=== PATIENT | female | born 1970 | race Caucasian/White ===

== ENCOUNTER → 2020-02-11 13:37 | Outpatient (BNVA) | payer MEDICARE, SELFPAY | PROVIDERS: PCP Pediatrics; Referring Provider Pediatrics; Visit Provider Student in an Organized Health Care Education/Training Program | DX: Z76.89 Persons encountering health services in other specified circumstances (principal) ==

== ENCOUNTER → 2020-02-29 09:25 | Outpatient (BNVA) | payer BC, MEDICARE, SELFPAY | PROVIDERS: PCP Internal Medicine; Visit Provider Hospitalist | DX: G47.33 Obstructive sleep apnea (adult) (pediatric) (principal); J45.909 Unspecified asthma, uncomplicated; G47.00 Insomnia, unspecified; Z79.899 Other long term (current) drug therapy; Z99.89 Dependence on other enabling machines and devices; Z23 Encounter for immunization | CPT/HCPCS: 90686 ==

== ENCOUNTER → 2020-05-12 13:32 | Outpatient (BNVA) | payer BC, MEDICARE, SELFPAY | PROVIDERS: PCP Internal Medicine; Visit Provider Student in an Organized Health Care Education/Training Program ==

== ENCOUNTER 2020-06-16 11:42 | Outpatient (REF) | payer BC, MEDICARE, SELFPAY ==
--- NOTE | ~2020-06-16 | XR_ITS ---
EXAMINATION: RIGHT ANKLE AND RIGHT KNEE X-RAY CLINICAL INFORMATION: Rheumatoid arthritis COMPARISON: Previous right knee x-ray August 2018 and right foot x-ray September 2016 TECHNIQUE: 3 views of the right ankle and 4 views of the right knee FINDINGS: Right ankle: Bone alignment is normal. No fracture or dislocation is seen. There is question of a subchondral cyst in the lateral malleolus measuring 8 x 12 mm appreciated on the oblique view. The ankle mortise is otherwise normal. There are calcaneal spurs. Soft tissues are otherwise unremarkable. Right knee: There is mild valgus angulation at the knee joint. Alignment is otherwise normal. No fracture or dislocation is seen. There is arthritis at the lateral femoral tibial and patellofemoral joints with joint space narrowing and osteophyte formation. There is no significant joint effusion. XR/XR ankle RT 2V IMPRESSION: Right ankle: Question 8 x 12 mm subchondral cyst in the lateral malleolus. Otherwise unremarkable exam. Right knee: Arthritis at the lateral femoral tibial and patellofemoral joints and valgus angulation.
--- NOTE | ~2020-06-16 | XR_ITS ---
EXAMINATION: RIGHT ANKLE AND RIGHT KNEE X-RAY CLINICAL INFORMATION: Rheumatoid arthritis COMPARISON: Previous right knee x-ray August 2018 and right foot x-ray September 2016 TECHNIQUE: 3 views of the right ankle and 4 views of the right knee FINDINGS: Right ankle: Bone alignment is normal. No fracture or dislocation is seen. There is question of a subchondral cyst in the lateral malleolus measuring 8 x 12 mm appreciated on the oblique view. The ankle mortise is otherwise normal. There are calcaneal spurs. Soft tissues are otherwise unremarkable. Right knee: There is mild valgus angulation at the knee joint. Alignment is otherwise normal. No fracture or dislocation is seen. There is arthritis at the lateral femoral tibial and patellofemoral joints with joint space narrowing and osteophyte formation. There is no significant joint effusion. XR/XR knee RT 4V IMPRESSION: Right ankle: Question 8 x 12 mm subchondral cyst in the lateral malleolus. Otherwise unremarkable exam. Right knee: Arthritis at the lateral femoral tibial and patellofemoral joints and valgus angulation.
[2020-06-16 12:07] LABS: MANUAL DIFF FLAG NO
[2020-06-16 12:11] LABS: Basophils Percent Auto 0.2 % (0-2); Hematocrit 42.7 % (37-47); Hemoglobin 13.4 g/dl (12.0-16.0); Imm Gran Abs Auto 0.37 X10*3/uL (0.00-0.03); Imm Gran Pct Auto 2.9 % (0.0-0.4); Lymphocytes Absolute Auto 1.1 X10*3/uL (1.2-4.9); Lymphocytes Percent Auto 8.9 % (20-40); Mean Corpuscular HGB Conc 31.4 g/dl (31.0-35.0); Mean Corpuscular Hemoglobin 29.7 pg (27.0-33.0); Mean Corpuscular Volume 94.7 fL (80-98); Mean Platelet Volume 9.9 fL (9.4-12.3); Monocytes Absolute Auto 0.7 X10*3/uL (0.1-1.2); Monocytes Percent Auto 5.2 % (2-11); Neutrophils Absolute Auto 10.6 X10*3/uL (2.0-8.3); Neutrophils Percent Auto 82.8 % (45-73); Platelet Count 452 X10*3/uL (160-400); Red Blood Count 4.51 X10*6/uL (4.20-5.50); Red Cell Distribution Width 14.6 % (11.0-16.0); White Blood Count 12.8 X10*3/uL (4.8-10.8)
[2020-06-16 12:46] LABS: Alanine Aminotransferase 13 U/L (0-31); Albumin Level 4.1 g/dL (3.5-5.0); Alkaline Phosphatase 128 U/L (39-117); Anion Gap 13 (12-20); Aspartate Amino Transferase 8 U/L (5-31); Bilirubin Total 0.4 mg/dL (0.0-1.0); Blood Urea Nitrogen 27 mg/dL (9-16); C Reactive Protein 0.13 mg/dL (< or = 0.50); Calcium 9.5 mg/dL (8.4-10.2); Carbon Dioxide 27 mmol/L (22-29); Chloride 107 mmol/L (96-108); Estimated Glomerular Filt Rate > 60; Glucose Random 102 mg/dL (60-115); Potassium 4.6 mmol/L (3.3-5.1); Sodium 142 mmol/L (135-145); Total Protein 7.3 g/dL (6.5-8.0)
[2020-06-16 13:18] LABS: Erythrocyte Sedimentation Rate 17 MM/HR (0-20)
== END 2020-06-16 11:43 | disposition home or self-care (01) ==
LOC: HO.XRAY 11:42
PROVIDERS: PCP Internal Medicine; Visit Provider Student in an Organized Health Care Education/Training Program
DX: M06.00 Rheumatoid arthritis without rheumatoid factor, unspecified site (principal)
CPT/HCPCS: 36415; 73564; 73600; 80053; 85025; 85652; 86140

== ENCOUNTER → 2020-08-11 12:50 | Outpatient (BNVA) | payer BC, MEDICARE, SELFPAY | PROVIDERS: PCP Internal Medicine; Visit Provider Student in an Organized Health Care Education/Training Program ==

== ENCOUNTER → 2020-09-13 10:28 | Outpatient (BNVA) | payer BC, MEDICARE, SELFPAY | PROVIDERS: PCP Internal Medicine; Visit Provider Hospitalist ==

== ENCOUNTER 2020-12-16 07:18 | Outpatient (REF) | payer BC, MEDICARE, SELFPAY ==
--- NOTE | ~2020-12-16 | CT_ITS ---
EXAMINATION: CT CHEST WITHOUT CONTRAST CLINICAL INFORMATION: Other nonspecific abnormal finding of lung field. Pulmonary nodule. COMPARISON: Previous chest CTA October 2018 TECHNIQUE: Multidetector volumetric CT imaging of the chest was done. Axial MIP volume rendering provided. Sagittal and coronal reformatted images were obtained. This CT examination was performed using dose optimization techniques as appropriate, variously including the following: *Automated exposure control *Adjustment of mA and/or kV according to patient size (this includes techniques or standardized protocols for targeted exams where dose is matched to indication/reason for exam; i.e. extremities or head) *Use of iterative reconstruction technique DLP: 179 mGy-cm FINDINGS: LUNGS: There is a 5 mm calcified right upper lobe nodule axial image 143 series 4 that is stable. There is a 4 mm peripheral or subpleural right lower lobe nodule axial image 294 series 4. This is new from previous exam. This may represent a subpleural lymph node. There is a tiny 2 mm peripheral or subpleural left upper lobe nodule adjacent to the fissure axial image 118 series 4. This may represent a subpleural lymph node as well. MEDIASTINUM: The mediastinum is normal. PLEURA: There is no pleural effusion. No pleural mass or thickening. AXILLA: No lymphadenopathy. UPPER ABDOMEN: The gallbladder is been removed. OSSEOUS STRUCTURES: There are degenerative changes of the spine. CT/CT chest wo con IMPRESSION: Stable 5 mm calcified right upper lobe nodule probably representing a calcified granuloma. 2 new small noncalcified pulmonary nodules probably representing subpleural lymph nodes.
[2020-12-16 07:47] LABS: MANUAL DIFF FLAG NO
[2020-12-16 07:50] LABS: Basophils Percent Auto 0.4 % (0-2); Eosinophils Absolute Auto 0.1 X10*3/uL (0.0-0.4); Eosinophils Percent Auto 1.4 % (0-4); Hematocrit 41.8 % (37-47); Hemoglobin 13.4 g/dl (12.0-16.0); Imm Gran Abs Auto 0.02 X10*3/uL (0.00-0.03); Imm Gran Pct Auto 0.3 % (0.0-0.4); Lymphocytes Absolute Auto 1.5 X10*3/uL (1.2-4.9); Mean Corpuscular HGB Conc 32.1 g/dl (31.0-35.0); Mean Corpuscular Hemoglobin 29.6 pg (27.0-33.0); Mean Corpuscular Volume 92.5 fL (80-98); Mean Platelet Volume 10.2 fL (9.4-12.3); Monocytes Absolute Auto 0.5 X10*3/uL (0.1-1.2); Monocytes Percent Auto 6.3 % (2-11); Neutrophils Absolute Auto 5.1 X10*3/uL (2.0-8.3); Neutrophils Percent Auto 70.6 % (45-73); Platelet Count 343 X10*3/uL (160-400); Red Blood Count 4.52 X10*6/uL (4.20-5.50); Red Cell Distribution Width 14.6 % (11.0-16.0); White Blood Count 7.3 X10*3/uL (4.8-10.8)
[2020-12-16 08:08] LABS: Alanine Aminotransferase 8 U/L (0-31); Albumin Level 4.2 g/dL (3.5-5.0); Alkaline Phosphatase 119 U/L (39-117); Anion Gap 12 (12-20); Aspartate Amino Transferase 10 U/L (5-31); Bilirubin Total 0.5 mg/dL (0.0-1.0); Blood Urea Nitrogen 17 mg/dL (9-16); Calcium 9.6 mg/dL (8.4-10.2); Carbon Dioxide 26 mmol/L (22-29); Chloride 109 mmol/L (96-108); Estimated Glomerular Filt Rate > 60; Glucose Random 80 mg/dL (60-115); Potassium 4.3 mmol/L (3.3-5.1); Sodium 143 mmol/L (135-145); Total Protein 6.9 g/dL (6.5-8.0)
[2020-12-16 11:03] LABS: Erythrocyte Sedimentation Rate 29 MM/HR (0-20)
== END 2020-12-16 07:19 | disposition home or self-care (01) ==
LOC: HO.CT 07:18
PROVIDERS: Nurse Practitioner Family; Absent Provider Student in an Organized Health Care Education/Training Program; PCP Internal Medicine; Visit Provider Hospitalist
DX: R91.8 Other nonspecific abnormal finding of lung field (principal); M06.00 Rheumatoid arthritis without rheumatoid factor, unspecified site; Z79.899 Other long term (current) drug therapy
CPT/HCPCS: 36415; 71250; 80053; 85025; 85652; 86140

== ENCOUNTER → 2020-12-30 13:21 | Outpatient (BNVA) | payer BC, MEDICARE, SELFPAY | PROVIDERS: PCP Internal Medicine; Visit Provider Hospitalist ==

== ENCOUNTER → 2021-03-27 09:25 | Outpatient (BNVA) | payer BC, MEDICARE, SELFPAY | PROVIDERS: PCP Internal Medicine; Visit Provider Hospitalist | DX: Z23 Encounter for immunization (principal); G47.33 Obstructive sleep apnea (adult) (pediatric); J45.40 Moderate persistent asthma, uncomplicated; R91.8 Other nonspecific abnormal finding of lung field | CPT/HCPCS: 90686 ==

== ENCOUNTER → 2021-06-14 11:21 | Outpatient (BNVA) | payer BC, MEDICARE, SELFPAY | PROVIDERS: PCP Internal Medicine; Visit Provider Nurse Practitioner Family ==

== ENCOUNTER 2021-07-03 10:38 | Outpatient (REF) | payer BC, MEDICARE, SELFPAY ==
--- NOTE | ~2021-07-03 | XR_ITS ---
EXAMINATION: XR PELVIS CLINICAL INFORMATION: Low back pain COMPARISON: None TECHNIQUE: AP view of the pelvis. FINDINGS: Bone alignment is normal. No fracture or dislocation is seen. There are small bilateral superior lateral acetabular osteophytes. Hip joints are otherwise normal. The sacroiliac joints are normal. Soft tissues are normal. XR/XR pelvis 1-2V IMPRESSION: Small bilateral superior lateral acetabular osteophytes. Otherwise unremarkable exam.
--- NOTE | ~2021-07-03 | XR_ITS ---
EXAMINATION: XR LUMBOSACRAL SPINE CLINICAL INFORMATION: Low back pain COMPARISON: Previous x-ray February 2015 TECHNIQUE: Three views of the lumbosacral spine. FINDINGS: Bone alignment is normal. No fracture or dislocation is seen. Disc spaces are normal. There is lower lumbar spine facet arthritis. XR/XR lumbar spine 2-3V IMPRESSION: Lower lumbar spine facet arthritis.
--- NOTE | ~2021-07-03 | XR_ITS ---
EXAMINATION: XR KNEE, RIGHT CLINICAL INFORMATION: Rheumatoid arthritis COMPARISON: Previous x-ray June 2021 TECHNIQUE: Four views of the right knee. FINDINGS: There is mild valgus angulation. No fracture or dislocation is seen. There are osteophytes at the lateral femoral tibial and patellofemoral joints. No erosions or cystic changes are seen. There is a small joint effusion. XR/XR knee RT 3V IMPRESSION: Valgus angulation and arthritis at the lateral femoral tibial and patellofemoral joints.
[2021-07-03 11:01] LABS: MANUAL DIFF FLAG NO
[2021-07-03 11:52] LABS: Basophils Percent Auto 0.4 % (0-2); Eosinophils Absolute Auto 0.1 X10*3/uL (0.0-0.4); Eosinophils Percent Auto 0.9 % (0-4); Hematocrit 38.2 % (37.0-47.0); Hemoglobin 12.3 g/dl (12.0-16.0); Imm Gran Abs Auto 0.01 X10*3/uL (0.00-0.03); Imm Gran Pct Auto 0.2 % (0.0-0.4); Lymphocytes Absolute Auto 1.5 X10*3/uL (1.2-4.9); Lymphocytes Percent Auto 28.1 % (20-40); Mean Corpuscular HGB Conc 32.2 g/dl (31.0-35.0); Mean Corpuscular Volume 93.2 fL (80.0-98.0); Mean Platelet Volume 11.1 fL (9.4-12.3); Monocytes Absolute Auto 0.4 X10*3/uL (0.1-1.2); Monocytes Percent Auto 7.4 % (2-11); Neutrophils Absolute Auto 3.3 x10*3/uL (2.0-8.3); Platelet Count 315 X10*3/uL (160-400); Red Cell Distribution Width 13.4 % (11.0-16.0); White Blood Count 5.3 X10*3/uL (4.8-10.8)
[2021-07-03 12:29] LABS: Erythrocyte Sedimentation Rate 38 MM/HR (0-20)
[2021-07-03 12:32] LABS: Alanine Aminotransferase 12 U/L (0-31); Albumin Level 3.9 g/dL (3.5-5.0); Alkaline Phosphatase 115 U/L (39-117); Anion Gap 13 (12-20); Aspartate Amino Transferase 11 U/L (5-31); Bilirubin Total 0.6 mg/dL (0.0-1.0); Blood Urea Nitrogen 5 mg/dL (9-16); C Reactive Protein 0.94 mg/dL (< or = 0.50); Calcium 9.2 mg/dL (8.4-10.2); Carbon Dioxide 28 mmol/L (22-29); Chloride 104 mmol/L (96-108); Estimated Glomerular Filt Rate > 60; Glucose Random 81 mg/dL (60-115); Potassium 3.5 mmol/L (3.3-5.1); Sodium 141 mmol/L (135-145); Total Protein 6.9 g/dL (6.5-8.0)
[2021-07-05 08:19] LABS: HBS Num1 12.66 mIU/mL (0-7.99); Hepatitis A Antibody IgM 0.16 Index (0-0.79); Hepatitis B Core Antibody Nonreactive (Nonreactive); ~HepC Num1 0.81 S/CO (0.00-0.79); ~Hepatitis A Antibody IgM Nonreactive (Nonreactive); ~Hepatitis B Surface Antibody REACTIVE (Nonreactive)
[2021-07-05 09:15] LABS: HBsAGNum1 0.19 S/CO (0.00-0.99); Hepatitis B Surface Antigen Negative (Negative)
[2021-07-05 10:43] LABS: ~HepC Num2 0.05; ~HepC Num3 0.06; ~Hepatitis C Antibody NONREACTIVE (Nonreactive)
[2021-07-05 23:22] LABS: TS Negative Control Passed; TS Panel A 0; TS Panel B 0; TS Positive Control Passed; TSpotTB Negative (Negative)
== END 2021-07-03 10:39 | disposition home or self-care (01) ==
LOC: HO.XRAY 10:38
PROVIDERS: PCP Internal Medicine; Visit Provider Nurse Practitioner Family
DX: Z11.1 Encounter for screening for respiratory tuberculosis (principal); M06.00 Rheumatoid arthritis without rheumatoid factor, unspecified site; M25.561 Pain in right knee; M54.50 Low back pain, unspecified
CPT/HCPCS: 36415; 72100; 72170; 73562; 80053; 85025; 85652; 86140; 86481; 86704; 86706; 86709; 86803; 87340

== ENCOUNTER 2021-07-27 08:17 | Outpatient (REF) | payer BC, MEDICARE, SELFPAY ==
--- NOTE | ~2021-07-27 | XR_ITS ---
EXAMINATION: XR KNEE AP STANDING CLINICAL INFORMATION: Pain in the right knee. COMPARISON: Radiograph of the right knee dated from 07/03/2021. TECHNIQUE: AP bilateral standing view of the knees was obtained. FINDINGS: Left-sided total knee arthroplasty appears intact. No acute fractures or malalignment. Redemonstration of moderate to severe joint space narrowing, subchondral sclerosis and osteophytes in the lateral compartment of the right knee. Normal soft tissues. XR/XR knee standing BI IMPRESSION: Examination is somewhat limited in the absence of additional views. However, accounting for these limitations, no hardware failure, fractures or malalignment are identified. Again noted moderate to severe degenerative osteoarthritis of the lateral compartment of the right knee.
== END 2021-07-27 08:18 | disposition home or self-care (01) ==
LOC: HO.HOSX 08:17
PROVIDERS: Visit Provider Physician Assistant
DX: M17.11 Unilateral primary osteoarthritis, right knee (principal); M25.562 Pain in left knee
CPT/HCPCS: 73565; 99212

== ENCOUNTER 2021-08-17 09:52 | Outpatient (REF) | payer BC, MEDICARE, SELFPAY ==
[2021-08-17 10:05] LABS: MANUAL DIFF FLAG NO
[2021-08-17 10:25] LABS: Basophils Percent Auto 0.3 % (0-2); Eosinophils Percent Auto 0.5 % (0-4); Hemoglobin 13.5 g/dl (12.0-16.0); Imm Gran Abs Auto 0.02 X10*3/uL (0.00-0.03); Imm Gran Pct Auto 0.3 % (0.0-0.4); Lymphocytes Absolute Auto 1.5 X10*3/uL (1.2-4.9); Lymphocytes Percent Auto 20.2 % (20-40); Mean Corpuscular HGB Conc 32.1 g/dl (31.0-35.0); Mean Corpuscular Hemoglobin 29.3 pg (27.0-33.0); Mean Corpuscular Volume 91.1 fL (80.0-98.0); Mean Platelet Volume 10.5 fL (9.4-12.3); Monocytes Absolute Auto 0.4 X10*3/uL (0.1-1.2); Neutrophils Absolute Auto 5.6 x10*3/uL (2.0-8.3); Neutrophils Percent Auto 73.7 % (45-73); Platelet Count 351 X10*3/uL (160-400); Red Blood Count 4.61 X10*6/uL (4.20-5.50); Red Cell Distribution Width 13.1 % (11.0-16.0); White Blood Count 7.6 X10*3/uL (4.8-10.8)
[2021-08-17 11:11] LABS: Alanine Aminotransferase 11 U/L (0-31); Albumin Level 4.1 g/dL (3.5-5.0); Alkaline Phosphatase 134 U/L (39-117); Anion Gap 15 (12-20); Aspartate Amino Transferase 12 U/L (5-31); Bilirubin Total 0.9 mg/dL (0.0-1.0); Blood Urea Nitrogen 8 mg/dL (9-16); Calcium 9.9 mg/dL (8.4-10.2); Carbon Dioxide 28 mmol/L (22-29); Chloride 103 mmol/L (96-108); Estimated Glomerular Filt Rate > 60; Glucose Random 89 mg/dL (60-115); Potassium 3.2 mmol/L (3.3-5.1); Sodium 143 mmol/L (135-145); Total Protein 7.7 g/dL (6.5-8.0)
[2021-08-17 11:14] LABS: Erythrocyte Sedimentation Rate 53 MM/HR (0-20)
[2021-08-20 23:42] LABS: HCV Log PCR <1.18 NOT DETECTED Log IU/mL (NOT DETECTED); HepC Viral Load <15 NOT DETECTED IU/mL (NOT DETECTED)
== END 2021-08-17 09:53 | disposition home or self-care (01) ==
LOC: HO.LAB 09:52
PROVIDERS: PCP Internal Medicine; Visit Provider Nurse Practitioner Family
DX: M06.00 Rheumatoid arthritis without rheumatoid factor, unspecified site (principal)
CPT/HCPCS: 36415; 80053; 85025; 85652; 86140; 87522

== ENCOUNTER → 2021-08-18 13:52 | Outpatient (BNVA) | payer BC, MEDICARE, SELFPAY | PROVIDERS: PCP Internal Medicine; Visit Provider Nurse Practitioner Family | DX: M06.00 Rheumatoid arthritis without rheumatoid factor, unspecified site (principal); M79.7 Fibromyalgia; M25.561 Pain in right knee; M54.50 Low back pain, unspecified; Z79.899 Other long term (current) drug therapy | CPT/HCPCS: 36415; 80053; 84075 ==

== ENCOUNTER 2021-11-29 06:07 | Inpatient (IN) | payer BC, MEDICARE, SELFPAY ==
[2021-11-14 11:45] VITALS: BP 130/73; PULSE 72; RESP 16; O2SAT 97; BMI 32.1
--- NOTE | 2021-11-14 12:38 | HO.ANESPROP2 ---
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 early with MAC cases PMFSH Active Problems Active Problems: All Active Problems (Updated 11/01/21 @ 09:40 by Adan Rucker PA-C) shelter methotrexate user (Acute) Right knee pain (Acute) Low back pain (Acute) Tricompartment osteoarthritis of right knee (Acute) Hypokalemia (Acute) Leg length discrepancy (Acute) Pulmonary nodules (Acute) CANDELARIA on CPAP (Acute) Asthma (Acute) Insomnia (Acute) Fibromyalgia (Acute) Seronegative rheumatoid arthritis (Acute) Past Medical History Medical History Asthma Fibromyalgia Insomnia Leg length discrepancy CANDELARIA on CPAP Pulmonary nodules Seronegative rheumatoid arthritis Family History Family history of problems with anesthesia: No Surgical History Surgical History H/O bilateral breast reduction surgery History of ankle surgery History of colon resection History of total knee arthroplasty Hx of cholecystectomy Hx of colonoscopy Hx of detached retina repair Hx of tubal ligation History of Problems with Anesthesia: No Social History Social History Are you a primary account executive healthcare to a significant other at home: No Do you presently have visiting nurse or other home services: No Alcohol intake: never Patient Tobacco Use Status: Never used Tobacco Use of substances other than those prescribed or required for medical reasons: No Have you been hit, kicked, punched, or otherwise hurt by someone within the past year? If so, by whom?: No Restorationism Healthcare Practices: Jainism, will pray at home before surgery Are you DNR?: No Advance Directives: No Advance Directives Information Provided: Yes Advance Directives on File: No Recently lost weight without trying: No Nutrition Risks: No Nutritional Risk Patient : No FDLMP: 2013 : No Poor oral hygiene: No Narrative Narrative: No recent illness No CP/SOB with >4 mets Meds Allergies Allergy/AdvReac Type Severity Reaction Status Date / Time aclidinium [Tudorza Pressair] Allergy Intermediate Hives Verified 11/27/21 11:39 Home Medications Medication Instructions Recorded Confirmed Last Taken Type atorvastatin 20 mg tablet 20 mg PO DAILY 08/18/21 11/27/21 Unknown History montelukast 10 mg tablet 10 mg PO BEDTIME 11/14/21 11/27/21 Unknown History pregabalin 100 mg capsule (Lyrica) 100 mg PO DAILY@0730 11/14/21 11/27/21 11/29/21 History baclofen 10 mg tablet 10 mg PO TID 11/27/21 11/29/21 11/29/21 History folic acid 1 mg tablet 1 mg PO DAILY 11/27/21 11/29/21 11/29/21 History methotrexate sodium 2.5 mg tablet 20 mg PO QWEEK 11/27/21 11/27/21 11/10/21 History Exam Exam Date and Time: November 14, 2021 1238 Height,Weight and Vital Signs: Height 5 ft 9 in Weight 98.9 kg Last Vital Signs Pulse 72 11/14/21 11:45 Resp 16 11/14/21 11:45 BP 130/73 11/14/21 11:45 Pulse Ox 97 11/14/21 11:45 O2 Del Method 11/14/21 11:45 Pertinent Lab Results Pertinent Lab Results: CBC and BMP from outside facility WNL on 11/06/21 Narrative Narrative: EKG 11/2021 SR @ 68 Airway TM Dist: >3cm Neck ROM: Full (Soreness d/t RA) Loose/Missing/Broken Teeth: No Assessment and Plan Assessment Anesthesia Assessment: Anesthesia Plan Discussed and PAT Visit Final Anesthetic Review Family History of Problems with Anesthesia: No History of Problems with Anesthesia: No Documented by User: Terry Murrieta MD 11/29/21 15:53 PMFSH Past Medical History Medical History Asthma Fibromyalgia Insomnia Leg length discrepancy CANDELARIA on CPAP Pulmonary nodules Seronegative rheumatoid arthritis Surgical History Surgical History H/O bilateral breast reduction surgery History of ankle surgery History of colon resection History of total knee arthroplasty Hx of cholecystectomy Hx of colonoscopy Hx of detached retina repair Hx of tubal ligation Social History Social History Are you a primary account executive healthcare to a significant other at home: No Do you presently have visiting nurse or other home services: No Alcohol intake: never Patient Tobacco Use Status: Never used Tobacco Use of substances other than those prescribed or required for medical reasons: No Have you been hit, kicked, punched, or otherwise hurt by someone within the past year? If so, by whom?: No Restorationism Healthcare Practices: Jainism, will pray at home before surgery Are you DNR?: No Advance Directives: No Advance Directives Information Provided: Yes Advance Directives on File: No Recently lost weight without trying: No Nutrition Risks: No Nutritional Risk Patient : No FDLMP: 2012 : No Poor oral hygiene: No Meds Allergies Allergy/AdvReac Type Severity Reaction Status Date / Time aclidinium [Tudorza Pressair] Allergy Intermediate Hives Verified 11/27/21 11:39 Home Medications Medication Instructions Recorded Confirmed Last Taken Type atorvastatin 20 mg tablet 20 mg PO DAILY 08/18/21 11/27/21 Unknown History montelukast 10 mg tablet 10 mg PO BEDTIME 11/14/21 11/27/21 Unknown History pregabalin 100 mg capsule (Lyrica) 100 mg PO DAILY@0730 11/14/21 11/27/21 11/29/21 History baclofen 10 mg tablet 10 mg PO TID 11/27/21 11/29/21 11/29/21 History folic acid 1 mg tablet 1 mg PO DAILY 11/27/21 11/29/21 11/29/21 History methotrexate sodium 2.5 mg tablet 20 mg PO QWEEK 11/27/21 11/27/21 11/10/21 History Exam Airway Mallampati Class: III Loose/Missing/Broken Teeth: Yes Heart: S1,S2 Lungs: b/l breath sounds Assessment and Plan Assessment Anesthesia Assessment: Chart Reviewed Final Anesthetic Review NPO: Yes ASA Class: III Final Preanesthetic Review: Meds/Allgs Chart Reviewed, Consent Obtained/Reviewed and Anes Risks/Benef Reviewed Patient Risk: Intermediate Procedure Risk: Intermediate Anesthetic Plan Anesthetic Plan: Spinal and Regional Block Disposition: Standard PACU
[2021-11-14 15:15] LABS: MRSA Nasal PCR NEGATIVE (Negative); SA Nasal PCR NEGATIVE (Negative)
[2021-11-29] VITALS (33 sets, daily range): BP systolic 91–145; BP diastolic 47–98; PULSE 54–88; RESP 12–20; TEMP 36.2–36.9; O2SAT 97–100
--- NOTE | ~2021-11-29 | XR_ITS ---
EXAMINATION: XR KNEE, RIGHT CLINICAL INFORMATION: Total right knee replacement. COMPARISON: None TECHNIQUE: Four views of the right knee. FINDINGS: The patient is status post right knee arthroplasty showing good anatomic alignment and no evidence for hardware malfunction. Intra-articular and subcutaneous air is seen anteriorly. Mild surrounding soft tissue swelling. Multiple surgical skin daniel anteriorly. XR/XR knee RT 2V IMPRESSION: Postoperative changes without hardware abnormality.
--- NOTE | ~2021-11-29 | CT_ITS ---
EXAMINATION: CT ANGIOGRAM OF THE CHEST WITH AND WITHOUT CONTRAST (CT PULMONARY ANGIOGRAM FOR PE) CLINICAL INFORMATION: Reason for Exam positive DVt; chest pain; COMPARISON: None TECHNIQUE: Prior to contrast administration, noncontrast localization images were obtained. Subsequently, multidetector volumetric imaging was performed from the thoracic inlet to below the diaphragms following the administration of 80 mL Omnipaque 350 intravenous contrast. No contrast reaction reported Sagittal, coronal, and MIP oblique sagittal reformatted images were obtained on the CT workstation, uploaded to PACS, and reviewed. This CT examination was performed using dose optimization techniques as appropriate, variously including the following: *Automated exposure control *Adjustment of mA and/or kV according to patient size (this includes techniques or standardized protocols for targeted exams where dose is matched to indication/reason for exam; i.e. extremities or head) *Use of iterative reconstruction technique Total exam dose-length product 342 mGy-cm FINDINGS: QUALITY OF STUDY/CONTRAST BOLUS: Satisfactory. PULMONARY ARTERIES: No central or segmental pulmonary emboli. THORACIC AORTA: No aneurysm or dissection. LUNGS/PLEURA/AIRWAYS: Mild to moderate elevation right hemidiaphragm. Mild left basilar linear atelectasis or scarring. A calcified granuloma laterally in the right upper lobe measures 0.4 cm (image 73, series 8). There are no pleural effusions. The airways are patent. MEDIASTINUM: The visualized thyroid gland is unremarkable. Normal heart size. No pericardial effusion. No hilar or mediastinal lymphadenopathy. No evidence of septal bowing or right heart strain. CHEST WALL/AXILLA: No axillary or internal mammary lymphadenopathy. OSSEOUS STRUCTURES: Mild to moderate multilevel degenerative changes without suspicious abnormality. UPPER ABDOMEN: Hepatic steatosis and enlargement without focal abnormality. No reflux of contrast into the hepatic veins to suggest elevated right heart pressures. CT/CT angio chest PE protocol IMPRESSION: 1. No evidence for pulmonary embolism. 2. No acute cardiopulmonary process. 3. Hepatic enlargement and steatosis. VTE: negative
--- NOTE | ~2021-11-29 | US_ITS ---
EXAMINATION: US VENOUS ULTRASOUND WITH DOPPLER LOWER EXTREMITY, RIGHT CLINICAL INFORMATION: Calf pain COMPARISON: October 24, 2018 TECHNIQUE: Ultrasound of the deep veins is performed from the hip to the calf with compression sonography and color and pulse Doppler assessment. Spectral analysis with color-flow imaging is performed. FINDINGS: There is a segmental filling defect within the distal right superficial femoral vein with some diminished compressibility and blood flow consistent with acute deep venous thrombosis. There also appears to be abnormal filling defect with diminished flow within the mid right posterior tibial vein consistent with acute deep venous thrombosis. The proximal posterior tibial vein and peroneal vein are not seen. There is no significant popliteal fossa cyst. No popliteal artery aneurysm. US/US venous duplex LE RT IMPRESSION: Acute deep venous thrombosis involving the distal right superficial femoral vein and mid right posterior tibial vein. This critical result was discussed with Adan Rucker at 6:16 PM on December 01, 2021 and it was ascertained that the content and urgency of the report was understood at the time of direct communication.
[2021-11-29 06:46] LABS: COVID-19 Test Negative (Negative)
[2021-11-29 06:49] LABS: Hematocrit 39.2 % (37.0-47.0); Hemoglobin 12.6 g/dl (12.0-16.0)
[2021-11-29] MEDS: Lactated Ringers 1,000 ML 100 ML IVCONT ×2 (07:10→18:44)
--- NOTE | 2021-11-29 07:16 | PHA.MEDREC ---
Pharmacy Consult ? Medication Reconciliation Pharmacy has reviewed the medication reconciliation completed by Nursing. I left Methotrexate unconfirmed since last takes was 11/09/21, per Rheumatology note, it was stopped for surgery. It will need to be followed up on when she can restart it. Elvia Campbell, PharmD
--- NOTE | 2021-11-29 07:24 | PC.NURSE ---
block initiated by anesthesia nad timeout completed
--- NOTE | 2021-11-29 07:37 | MHC.SHP ---
Pre-Procedural Eval Section A Date of Service: 11/29/21 The patient is an INPATIENT: No Changes since office visit: Yes Patient answered all questions; No Cold of Flu in the past 2 weeks, No New Medical Problems and No Changes in Medication The History & Physical has been completed within 30 days and I have reviewed it.: Yes Section B Chief Complaint: RT TKA Allergies: Allergies Allergy/AdvReac Type Severity Reaction Status Date / Time aclidinium [Tudorza Pressair] Allergy Intermediate Hives Verified 11/27/21 11:39 Plan I have reviewed the history and physical and performed a pertinent physical examination on my patient. No changes have occurred unless specified.
--- NOTE | 2021-11-29 09:28 | P.BOP_ITS ---
Brief Operative Note Date of Service: 11/29/21 Pre-op diagnosis: Right knee OA Post-op diagnosis: same Procedure: Right TKA Implants: [employer] Triathalon press fit cruciate retaining Surgeon: Francesco Grewal MD Anesthesia: regional and spinal Was an Construction Consultant used for this Procedure?: Yes Construction Consultant: Saray Robles Estimated blood loss (mL): 150 IV fluids (mL): 1,000 Pathology: other Condition: stable Disposition: PACU
--- NOTE | 2021-11-29 09:31 | W.PM.OPN ---
Operative Note Operative Note Date of Service: 11/29/21 Narrative: Date of Service: 11/29/21 Pre-op diagnosis: Right knee OA Post-op diagnosis: same Procedure: Right TKA Implants: [place] Triathalon press fit cruciate retaining 06/15/r/a Surgeon: Francesco Grewal MD Anesthesia: regional and spinal Was an License Inspector used for this Procedure?: Yes License Inspector: Saray Robles Estimated blood loss (mL): 150 IV fluids (mL): 1,000 Pathology: other Condition: stable Disposition: PACU Procedure in detail: The patient was brought to the operating room and prepped and draped in standard sterile fashion. A time-out was called to identify proper site proper procedure proper surgeon and IV antibiotics were administered. 1 g of IV tranexamic acid was administered. I began by making a midline incision to the retinaculum and performed a medial parapatellar arthrotomy. The patella was translated laterally and the knee was flexed up. The lateral tibial plateau was severely arthritic . I performed a small medial peel and resected the infrapatellar fat pad. [place]'s line was then used to drill my intramedullary femoral guide and my distal femur cut of 10 mm was made in 5 degrees of valgus while protecting the soft tissues. I then measured a # 3 femur and placed my cutting guide in 3deg of ER and made my anterior posterior and chamfer cuts protecting the soft tissues at all times. Once I was satisfied with my cuts I turned my attention to the tibia. I removed the meniscus medially and laterally and , using an external cutting guide, in line with the tibial crest and the third ray, I made my distal tibial cut in 3 deg slope of while protecting the PCL the posterior soft tissues at all times. An extension block was used to confirm appropriate amount of bony resection. I then sized a #3 tibia and once I was satisfied that there was complete tibial coverage I placed my trial and with the trial femur in place took the knee through range of motion. I was satisfied with the extension and flexion as well as the stability and balance at 0, 30 and 90 degrees. I then turned my attention to the patella where I removed 1 cm from the undersurface of the patella and then trialed a 29a patellar button. Again the knee was taken through range of motion I was satisfied with the tracking. I then returned to the femur and drilled my femoral lug holes and prepared the tibia. A femoral bone plug was placed and the knee was irrigated copiously. I then press fit the patella, tibia and femur in standard fashion. I trialed different inserts until I selected a #9 insert. The final insert was placed and a 3 minutes iodine soak with local TXA was performed. A Werewolf cautery wand was used to maintain hemostasis over the capsule and meniscal beds, the gutters and peripatellar soft tissues. The knee was then closed with a running Quill suture, a 3 0 Vicryl and daniel on the skin. Patient was then placed in sterile dressing and brought to recovery room in stable condition there were no known complications.
[2021-11-29] MEDS: fentaNYL citrate/PF 100 MCG/2 ML VIAL 25 MCG IVPUSH ×4 (10:51→11:18)
[2021-11-29] MEDS: oxyCODONE HCl Immed Release 5 MG TABLET PO (11:38)
[2021-11-29] MEDS: HYDROmorphone HCl 0.5 MG/0.5 ML SYRINGE 0.25 MG IVPUSH ×6 (12:30→23:54)
[2021-11-29] MEDS: ceFAZolin Sodium/Dextrose,Iso 2 GM/50 ML PIGGYBACK IV (14:34)
[2021-11-29] MEDS: HYDROmorphone HCl 0.5 MG/0.5 ML SYRINGE IVPUSH (16:20)
[2021-11-29] MEDS: oxyCODONE HCl Immed Release 5 MG TABLET 10 MG PO ×2 (18:28→22:42)
[2021-11-29] MEDS: Baclofen 10 MG TABLET PO (18:44)
[2021-11-29] MEDS: ondansetron HCL 4 MG/2 ML VIAL IVPUSH (20:41)
[2021-11-29] MEDS: Montelukast Sodium 10 MG TABLET PO (20:54)
[2021-11-29] MEDS: Docusate Sodium 100 MG CAPSULE PO (20:54)
[2021-11-29] MEDS: oxyCODONE HCl ER 10 MG TAB.ER.12H PO (20:54)
[2021-11-29] MEDS: Azelastine HCl Nasal 137 MCG/Spray 30 ML 1 SPRAY NOSTRIL-B (20:55)
[2021-11-29] MEDS: Celecoxib 200 MG CAPSULE PO (20:55)
[2021-11-29] MEDS: Pregabalin 150 MG CAPSULE PO (20:55)
[2021-11-29] MEDS: 0.9 % Sodium Chloride Flush 3 ML SYRINGE IVFLUSH (23:56)
[2021-11-30] VITALS (9 sets, daily range): BP systolic 110–123; BP diastolic 58–70; PULSE 73–112; RESP 15–18; TEMP 35.4–37; O2SAT 92–98
[2021-11-30] MEDS: HYDROmorphone HCl 0.5 MG/0.5 ML SYRINGE 0.25 MG IVPUSH ×2 (04:11→08:23)
[2021-11-30] MEDS: Lactated Ringers 1,000 ML 100 ML IVCONT ×2 (04:15→12:41)
[2021-11-30] MEDS: Omeprazole 40 MG CAPSULE.DR PO (05:41)
[2021-11-30] MEDS: Acetaminophen 325 MG TABLET 650 MG PO (05:41)
[2021-11-30 05:46] LABS: MANUAL DIFF FLAG NO
[2021-11-30 05:50] LABS: Basophils Percent Auto 0.3 % (0-2); Eosinophils Absolute Auto 0.2 X10*3/uL (0.0-0.4); Eosinophils Percent Auto 1.2 % (0-4); Hematocrit 34.6 % (37.0-47.0); Hemoglobin 11.2 g/dl (12.0-16.0); Imm Gran Abs Auto 0.05 X10*3/uL (0.00-0.03); Imm Gran Pct Auto 0.4 % (0.0-0.4); Lymphocytes Absolute Auto 1.3 X10*3/uL (1.2-4.9); Lymphocytes Percent Auto 10.8 % (20-40); Mean Corpuscular HGB Conc 32.4 g/dl (31.0-35.0); Mean Corpuscular Hemoglobin 30.1 pg (27.0-33.0); Mean Platelet Volume 10.1 fL (9.4-12.3); Monocytes Absolute Auto 0.9 X10*3/uL (0.1-1.2); Monocytes Percent Auto 7.6 % (2-11); Neutrophils Absolute Auto 9.8 x10*3/uL (2.0-8.3); Neutrophils Percent Auto 79.7 % (45-73); Platelet Count 270 X10*3/uL (160-400); Red Blood Count 3.72 X10*6/uL (4.20-5.50); Red Cell Distribution Width 13.7 % (11.0-16.0); White Blood Count 12.3 X10*3/uL (4.8-10.8)
[2021-11-30 06:14] LABS: Anion Gap 12 (12-20); Blood Urea Nitrogen 7 mg/dL (9-16); Calcium 8.8 mg/dL (8.4-10.2); Carbon Dioxide 28 mmol/L (22-29); Chloride 100 mmol/L (96-108); Creatinine Clr Calc Pharmacy 125.2; Estimated Glomerular Filt Rate > 60; Glucose Fasting 108 mg/dL (60-99); Potassium 4.4 mmol/L (3.3-5.1); Sodium 136 mmol/L (135-145)
--- NOTE | 2021-11-30 07:23 | P.CONHOSP_ITS ---
History of Present Illness Data of Consult Service Date: 11/30/21 Primary Care Provider: Fernando Pickens MD HPI this is a 51-year-old female who is admitted to the hospital for elective right total knee arthroplasty. We are consulted for routine medical management. On my exam of the patient, she appears uncomfortable, reports that her pain is poorly controlled, she denies having any headache or change in vision, no chest pain or shortness of breath, no abdominal pain nausea or vomiting, no diarrhea, she has been moving her bowels and urinating in to the Pure wick catheter. patient's vitals were Reviewed and are stable No significant abnormality on labs Patient's home medications have been continued by the orthopedic team. Review of Systems Review of Systems: Yes all other systems are reviewed and are negative [facility] Medical History Asthma Fibromyalgia Insomnia Leg length discrepancy CANDELARIA on CPAP Pulmonary nodules Seronegative rheumatoid arthritis Surgical History H/O bilateral breast reduction surgery History of ankle surgery History of colon resection History of total knee arthroplasty Hx of cholecystectomy Hx of colonoscopy Hx of detached retina repair Hx of tubal ligation Social History Household Members: Spouse Housing: House Are you a primary acute care nurse practitioner to a significant other at home: No Do you presently have visiting nurse or other home services: No Alcohol intake: never Patient Tobacco Use Status: Never used Tobacco Use of substances other than those prescribed or required for medical reasons: No Currently Displaying Signs/Symptoms of Drug Intoxication Withdrawal: No Have you been hit, kicked, punched, or otherwise hurt by someone within the past year? If so, by whom?: No Do you feel safe in your current relationship?: Yes Is there a partner from a previous relationship who is making you feel unsafe now?: No Are you made to feel afraid or neglected: No Sikh Healthcare Practices: judaism Are you DNR?: No Advance Directives: No Advance Directives Information Provided: Yes Advance Directives on File: No Do you have thoughts of harming others: None Do you have a plan to hurt others: No Plan Recently lost weight without trying: No Nutrition Risks: No Nutritional Risk Patient : No FDLMP: 2013 : No Poor oral hygiene: No Meds Allergies Allergy/AdvReac Type Severity Reaction Status Date / Time aclidinium [Tudorza Pressair] Allergy Intermediate Hives Verified 11/27/21 11:39 Active Medications: Current Medications Acetaminophen (Acetaminophen 325 Mg Tablet) 650 mg PO Q6H PRN PRN Reason: Pain, Mild (Pain Scale 1-3) Last Admin: 11/30/21 05:41 Dose: 650 mg Albuterol Sulfate (Albuterol Sulfate 90 Mcg 8 Gm Inhaler) 2 puff INHALE Q6H PRN PRN Reason: for wheezing Albuterol/Ipratropium (Albuterol/Iprat 2.5/0.5mg 3 Ml Ampul.Neb) 3 ml INHALE DAILY [facility] Aspirin (Aspirin 325 Mg Tablet) 325 mg PO BID [facility] Atorvastatin Calcium (Atorvastatin Calcium 20 Mg Tablet) 20 mg PO DAILY [facility] Azelastine HCl (Azelastine Hcl Nasal 137 Mcg/[place] 30 Ml) 1 spray NOSTRIL-B BID [facility] Last Admin: 11/29/21 20:55 Dose: 1 spray Baclofen (Baclofen 10 Mg Tablet) 10 mg PO TID [facility] Last Admin: 11/29/21 18:44 Dose: 10 mg Celecoxib (Celecoxib 200 Mg Capsule) 200 mg PO BID [facility] Last Admin: 11/29/21 20:55 Dose: 200 mg Docusate Sodium (Docusate Sodium 100 Mg Capsule) 100 mg PO BID [facility] Last Admin: 11/29/21 20:54 Dose: 100 mg Fluticasone Propionate (Fluticasone Propionate Nasal 16 Gm [place]) 2 spray NOSTRIL-B DAILY [facility] Folic Acid (Folic Acid 1 Mg Tablet) 1 mg PO DAILY [facility] Hydromorphone HCl (Hydromorphone Hcl 0.5 Mg/0.5 Ml Syringe) 0.25 mg IVPUSH Q4H PRN; Protocol PRN Reason: Pain, Severe (Pain Scale 7-10) Last Admin: 11/30/21 04:11 Dose: 0.25 mg Cefazolin Sodium/Dextrose (Ancef) 2 gm in 50 mls @ 100 mls/hr IV POSTOP [facility] Last Infusion: 11/29/21 17:35 Dose: Infused Lactated Ringer's (Lr) 1,000 mls @ 100 mls/hr IVCONT .Q10H [facility] Last Admin: 11/30/21 04:15 Dose: 100 mls/hr Loratadine (Loratadine 10 Mg Tablet) 10 mg PO DAILY [facility] Montelukast Sodium (Montelukast Sodium 10 Mg Tablet) 10 mg PO BEDTIME [facility] Last Admin: 11/29/21 20:54 Dose: 10 mg Non-Formulary Medication (Cbyuvpcqyvc-Ztxngzqap-Xigtplfv [Trelegy Ellipta]) 1 inhalation INHALE DAILY [facility] Non-Formulary Medication (Roflumilast [Daliresp]) 500 mcg PO DAILY [facility] Omeprazole (Omeprazole 40 Mg Capsule.Dr) 40 mg PO DAILY@0630 [facility] Last Admin: 11/30/21 05:41 Dose: 40 mg Ondansetron HCl (Ondansetron Hcl 4 Mg/2 Ml Vial) 4 mg IVPUSH Q8H PRN PRN Reason: Nausea and Vomiting Last Admin: 11/29/21 20:41 Dose: 4 mg Oxycodone HCl (Oxycodone Hcl Immed Release 5 Mg Tablet) 10 mg PO Q4H PRN PRN Reason: Pain, Moderate (Pain Scale 4-6 Last Admin: 11/29/21 22:42 Dose: 10 mg Oxycodone HCl (Oxycodone Hcl Er 10 Mg Tab.Er.12h) 10 mg PO BID [facility] Last Admin: 11/29/21 20:54 Dose: 10 mg Pregabalin (Pregabalin 100 Mg Capsule) 100 mg PO DAILY@0730 [facility] Pregabalin (Pregabalin 150 Mg Capsule) 150 mg PO BEDTIME [facility] Last Admin: 11/29/21 20:55 Dose: 150 mg Sodium Chloride (0.9 % Sodium Chloride Flush 3 Ml Syringe) 3 ml IVFLUSH [facility] Last Admin: 11/29/21 23:56 Dose: 3 ml Home Medications Medication Instructions Recorded Confirmed Last Taken Type atorvastatin 20 mg tablet 20 mg PO DAILY 08/18/21 11/27/21 Unknown History montelukast 10 mg tablet 10 mg PO BEDTIME 11/14/21 11/27/21 Unknown History pregabalin 100 mg capsule (Lyrica) 100 mg PO DAILY@0730 11/14/21 11/27/21 11/29/21 History baclofen 10 mg tablet 10 mg PO TID 11/27/21 11/29/21 11/29/21 History folic acid 1 mg tablet 1 mg PO DAILY 11/27/21 11/29/21 11/29/21 History methotrexate sodium 2.5 mg tablet 20 mg PO QWEEK 11/27/21 11/29/21 11/10/21 History Physical Exam Vital Signs and Narrative: Vital Signs: Last Vital Signs Temp 96.8 F 11/30/21 03:42 Pulse 84 11/30/21 03:42 Resp 16 11/30/21 03:42 BP 114/70 11/30/21 03:42 Pulse Ox 98 11/30/21 03:42 O2 Del Method 11/30/21 03:42 O2 Flow Rate 2 11/29/21 09:52 BMI result Body Mass Index 32.1 Const: General: cooperative and no acute distress Orientation/consciousness: patient oriented x3 Eyes: General: appearance normal, both eyes and all related structures Resp: Effort & Inspection: normal respiratory effort Auscultation: clear to auscultation bilaterally Cardio: Rate: regular rate Rhythm: regular rhythm GI: Palpation (GI): Soft to palpation Auscultation: normal bowel sounds Skin: General skin exam: no rashes or lesions noted Neuro: General: patient oriented x3 Cognition (Neuro): normal cognition Extrem: Other: Right knee immobilized,in rosalva wrap Results Labs CBC and Chem 7: 11/30/21 05:33 11/30/21 05:33 Labs: Laboratory Results - last 24 hr 11/30/21 11/30/21 05:33 05:33 MCV 93.0 MCH 30.1 MCHC 32.4 RDW 13.7 Plt Count 270 MPV 10.1 Immature Gran % (Auto) 0.4 Neut % (Auto) 79.7 H Lymph % (Auto) 10.8 L [place] % (Auto) 7.6 Eos % (Auto) 1.2 Baso % (Auto) 0.3 Lymph # (Auto) 1.3 [place] # (Auto) 0.9 Eos # (Auto) 0.2 Baso # (Auto) 0.0 Abs Immat Gran (auto) 0.05 H Absolute Neuts (auto) 9.8 H Absolute Nucleated RBC 0.000 Nucleated RBC % (auto) 0.0 Anion Gap 12 Estim Creat Clear Calc 125.2 Estimated GFR > 60 Fasting Glucose 108 H Calcium 8.8 Imaging Radiologist's Impressions: Impressions Knee X-Ray 11/29/21 10:13 IMPRESSION: Postoperative changes without hardware abnormality. 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
[2021-11-30] MEDS: Celecoxib 200 MG CAPSULE PO ×2 (07:44→20:10)
[2021-11-30] MEDS: Pregabalin 100 MG CAPSULE PO (07:45)
[2021-11-30] MEDS: oxyCODONE HCl ER 10 MG TAB.ER.12H PO ×2 (07:45→20:10)
[2021-11-30] MEDS: Aspirin 325 MG TABLET PO ×2 (07:45→20:09)
[2021-11-30] MEDS: Docusate Sodium 100 MG CAPSULE PO ×2 (07:46→20:10)
[2021-11-30] MEDS: Baclofen 10 MG TABLET PO ×3 (07:46→20:10)
[2021-11-30] MEDS: Atorvastatin Calcium 20 MG TABLET PO (07:46)
[2021-11-30] MEDS: Folic Acid 1 MG TABLET PO (07:46)
[2021-11-30] MEDS: Fluticasone Propionate Nasal 16 GM SPRAY 2 SPRAY NOSTRIL-B (07:47)
[2021-11-30] MEDS: Azelastine HCl Nasal 137 MCG/Spray 30 ML 1 SPRAY NOSTRIL-B ×2 (07:47→20:23)
[2021-11-30] MEDS: Albuterol/Iprat 2.5/0.5MG 3 ML AMPUL.NEB INHALE (08:08)
--- NOTE | 2021-11-30 08:56 | PM.PNORT ---
Subjective Subjective Date of Service: 11/30/21 Interval history: POD1 s/p RTKA. Patient resting in bed. States she is having a lot of pain. No overnight events. No additional complaints. Physical Exam Vital Signs: Vital Signs: Last Vital Signs Temp 95.7 F L 11/30/21 08:00 Pulse 112 H 11/30/21 08:11 Resp 16 11/30/21 08:11 BP 113/69 11/30/21 08:00 Pulse Ox 95 11/30/21 08:00 O2 Del Method 11/30/21 08:00 O2 Flow Rate 2 11/29/21 09:52 BMI result Body Mass Index 32.1 Const: General: cooperative, healthy appearing and no acute distress Resp: Effort & Inspection: normal respiratory effort and able to speak in complete sentences Cardio: Rate: regular rate Peripheral pulses: Peripheral pulses 2+ throughout GI: Palpation (GI): Soft to palpation Skin: Lesions: no lesions Rashes: no rashes Extrem: Other: Right knee Aquacel is clean, dry, and intact, Able to dorsiflex and plantarflex. NVI. Procedures Date of Service Date of Service: 11/30/21 Progress Note: A&P Assessment and plan (1) Status post total knee replacement, right: Status: Acute Assessment and Plan: Continue pain mgmnt Begin ASA for dvt ppx begin PT for RTKA Dispo planning-Pending PT eval, pain mgmnt Time Spent With Patient Time: Total time spent is greater than 50% in coordination of care (as documented) at patient's floor/unit and/or counseling patient: Quality Stroke Does the patient have a stroke diagnosis?: No VTE Prior VTE?: No VTE Risk Level:: Medical - moderate - high VTE Device Contraindication: N/A - Device Ordered VTE Drug Contraindication: N/A - Med Ordered
[2021-11-30] MEDS: ondansetron HCL 4 MG/2 ML VIAL IVPUSH (09:55)
--- NOTE | 2021-11-30 10:55 | HO.POSTANES ---
Post Anesthesia Evaluation Post Anesthesia Evaluation Vital Signs: Vital Signs Temp Pulse Resp BP Pulse Ox O2 Del Method 11/30/21 09:13 112 H 11/30/21 08:00 95.7 F L 94 15 113/69 95 Room Air 11/30/21 08:11 112 H 16 11/30/21 03:42 96.8 F 84 16 114/70 98 Room Air 11/29/21 23:54 20 11/29/21 23:21 98.4 F 70 18 126/69 100 Room Air Anesthesia: Spinal and Nerve Block Mental Status: Awake Pain Control: Satisfactory Nausea/Vomiting: None Hydration: Adequate Anesthesia-Related Issues: No Anes. Related Issues
--- NOTE | 2021-11-30 11:41 | MHC.CM.PN ---
IMM addressed, white copy to patient and yellow copy filed in chart. 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
[2021-11-30] MEDS: 0.9 % Sodium Chloride Flush 3 ML SYRINGE IVFLUSH (16:14)
[2021-11-30] MEDS: HYDROmorphone HCl 2 MG TABLET PO ×2 (16:20→20:11)
[2021-11-30] MEDS: Pregabalin 150 MG CAPSULE PO (20:10)
[2021-11-30] MEDS: Montelukast Sodium 10 MG TABLET PO (20:10)
--- NOTE | 2021-11-30 22:06 | PC.NURSE ---
P US not done to right lower extremity I Dr. Grewal notified E no need for test at this time per Dr. Grewal
[2021-12-01] VITALS (10 sets, daily range): BP systolic 103–128; BP diastolic 53–79; PULSE 92–120; RESP 15–20; TEMP 36.1–36.9; O2SAT 95–100
--- NOTE | 2021-12-01 | ECG_ITS ---
Test Reason : ?PE Blood Pressure : / mmHG Vent. Rate : 114 BPM Atrial Rate : 114 BPM P-R Int : 144 ms QRS Dur : 090 ms QT Int : 318 ms P-R-T Axes : 027 005 034 degrees QTc Int : 438 ms Sinus tachycardia Possible Inferior infarct (cited on or before 24-OCT-2018) Cannot rule out Anterior infarct , age undetermined Abnormal ECG When compared with ECG of 24-OCT-2018 11:50, No significant change was found Referred By: Willie Flores Electronically Signed By:DONTE LIMA
[2021-12-01] MEDS: 0.9 % Sodium Chloride Flush 3 ML SYRINGE IVFLUSH ×3 (00:42→15:24)
[2021-12-01] MEDS: HYDROmorphone HCl 2 MG TABLET PO ×6 (01:27→22:25)
[2021-12-01] MEDS: Omeprazole 40 MG CAPSULE.DR PO (05:31)
[2021-12-01 05:41] LABS: MANUAL DIFF FLAG NO
[2021-12-01 05:46] LABS: Basophils Percent Auto 0.2 % (0-2); Eosinophils Absolute Auto 0.4 X10*3/uL (0.0-0.4); Eosinophils Percent Auto 2.9 % (0-4); Hematocrit 29.3 % (37.0-47.0); Hemoglobin 9.6 g/dl (12.0-16.0); Imm Gran Abs Auto 0.06 X10*3/uL (0.00-0.03); Imm Gran Pct Auto 0.5 % (0.0-0.4); Lymphocytes Absolute Auto 1.4 X10*3/uL (1.2-4.9); Lymphocytes Percent Auto 11.8 % (20-40); Mean Corpuscular HGB Conc 32.8 g/dl (31.0-35.0); Mean Corpuscular Hemoglobin 30.4 pg (27.0-33.0); Mean Corpuscular Volume 92.7 fL (80.0-98.0); Mean Platelet Volume 10.3 fL (9.4-12.3); Monocytes Absolute Auto 0.9 X10*3/uL (0.1-1.2); Monocytes Percent Auto 7.7 % (2-11); Neutrophils Absolute Auto 9.3 x10*3/uL (2.0-8.3); Neutrophils Percent Auto 76.9 % (45-73); Platelet Count 238 X10*3/uL (160-400); Red Blood Count 3.16 X10*6/uL (4.20-5.50); Red Cell Distribution Width 13.8 % (11.0-16.0)
[2021-12-01 06:08] LABS: Anion Gap 12 (12-20); Blood Urea Nitrogen 6 mg/dL (9-16); Calcium 8.6 mg/dL (8.4-10.2); Carbon Dioxide 29 mmol/L (22-29); Chloride 104 mmol/L (96-108); Creatinine Clr Calc Pharmacy 113.1; Estimated Glomerular Filt Rate > 60; Glucose Fasting 106 mg/dL (60-99); Potassium 4.1 mmol/L (3.3-5.1); Sodium 141 mmol/L (135-145)
[2021-12-01] MEDS: Acetaminophen 325 MG TABLET 650 MG PO (06:39)
[2021-12-01] MEDS: Albuterol/Iprat 2.5/0.5MG 3 ML AMPUL.NEB INHALE (07:35)
--- NOTE | 2021-12-01 07:59 | PM.PNORT ---
Subjective Subjective Date of Service: 12/01/21 Interval history: POD2 s/p RTKA. Patient is sitting in bed brushing her teeth. Adjustments made to pain medication yesterday and patient reports much better relief this morning. No additional complaints. Physical Exam Vital Signs: Vital Signs: Last Vital Signs Temp 98.4 F 12/01/21 07:38 Pulse 97 12/01/21 07:38 Resp 20 12/01/21 07:38 BP 121/79 12/01/21 07:38 Pulse Ox 100 12/01/21 07:38 O2 Del Method 12/01/21 07:38 O2 Flow Rate 2 11/29/21 09:52 BMI result Body Mass Index 32.1 Const: General: cooperative, healthy appearing and no acute distress Resp: Effort & Inspection: normal respiratory effort and able to speak in complete sentences Cardio: Rate: regular rate Peripheral pulses: Peripheral pulses 2+ throughout GI: Palpation (GI): Soft to palpation Skin: Lesions: no lesions Rashes: no rashes Extrem: Other: Right knee Aquacel is lean, dry, and intact. [place] intact. No erythema or drainage. New Aquacel dressing applied. Able to dorsiflex and plantarflex. NVI. Procedures Date of Service Date of Service: 12/01/21 Progress Note: A&P Assessment and plan (1) Status post total knee replacement, right: Status: Acute Assessment and Plan: Continue pain mgmnt Continue ASA for dvt ppx Continue PT for RTKA Dispo planning- PT, pain mgmnt Time Spent With Patient Time: Total time spent is greater than 50% in coordination of care (as documented) at patient's floor/unit and/or counseling patient: Quality Stroke Does the patient have a stroke diagnosis?: No VTE Prior VTE?: No VTE Risk Level:: Medical - moderate - high VTE Device Contraindication: N/A - Device Ordered VTE Drug Contraindication: N/A - Med Ordered
[2021-12-01] MEDS: Baclofen 10 MG TABLET PO ×3 (08:59→20:04)
[2021-12-01] MEDS: Aspirin 325 MG TABLET PO (09:01)
[2021-12-01] MEDS: Atorvastatin Calcium 20 MG TABLET PO (09:01)
[2021-12-01] MEDS: Docusate Sodium 100 MG CAPSULE PO ×2 (09:01→20:03)
[2021-12-01] MEDS: Folic Acid 1 MG TABLET PO (09:01)
[2021-12-01] MEDS: Celecoxib 200 MG CAPSULE PO ×2 (09:01→20:03)
[2021-12-01] MEDS: Loratadine 10 MG TABLET PO (09:01)
[2021-12-01] MEDS: Pregabalin 100 MG CAPSULE PO (09:01)
[2021-12-01] MEDS: Fluticasone Propionate Nasal 16 GM SPRAY 2 SPRAY NOSTRIL-B (09:19)
[2021-12-01] MEDS: Azelastine HCl Nasal 137 MCG/Spray 30 ML 1 SPRAY NOSTRIL-B ×2 (09:20→20:06)
--- NOTE | 2021-12-01 11:30 | W.MHC.F2F ---
Service Date Service Date: 12/01/21 Encounter Date of encounter: 12/01/21 Reasons for Services Signs and symptoms assessed: Pt. is considered homebound due to recent surgery. Unable to drive, poor balance, poor gait mechanics. Reason for physical therapy: home safety and mobility, therapeutic exercises, restore joint function, gait/transfer training, assess need for DME and ADL training Reason for occupational therapy: home safety and mobility, therapeutic exercises, restore joint function, gait/transfer training, assess need for DME and ADL training Homebound: Leaving the home is medically contraindicated at this time without the asist of a device and/or another person due th the listed conditions above and below. Reason homebound: unsteady gait / fall risk, leg weakness, pain with ambulation, pain with transfers, poor balance / fall risk and unable to drive Homebound supporting statement: Pt. is considered homebound due to recent surgery. Unable to drive, poor balance, poor gait mechanics. Certification: Based on the above findings, I certify that this patient is confined to the home and needs intermittent nursing home care, physical therapy and/or speech therapy, or continues to need occupational therapy. The patient is under my care, and I have initiated the establishment of the plan of care. The patient will be followed by a physician who will periodically review the plan of care.
--- NOTE | 2021-12-01 13:38 | PM.DS ---
DS: Providers Provider Date of Service: 12/01/21 Date of admission: 11/29/21 06:07 Primary care physician: Fernando Pickens MD Consults: 11/29/21 17:32 Consult to Hospitalist Routine Consulting Provider: Hospitalist Reason For Exam: Routine medical management DS: Diagnosis Discharge Diagnosis (1) Status post total knee replacement, right: Status: Acute DS: Summary Hospital Course Hospital Course: The patient underwent a successful right total knee arthroplasty, they were transferred to PACU and then to the floor to recover. During their stay, their vitals were stable, afebrile at 97.8. Labs were unremarkable, H/H 9.6/29.3. POD 1 they were started on Aspirin 325mg po bid for DVT ppx, they also received Physical Therapy services twice a day. Prior to discharge, their dressing was changed, incision clean dry and intact, new Aquacel dressing applied and the plan was to be discharged home with VNA services. Time Spent with Patient Time attestation: Total time spent providing and/or coordinating discharge services: Discharge coordination time: Less than 30 minutes Quality: Safe Use of Opioids Does Pt have an Active Cancer Diagnosis on the Problem List?: No Quality: Stroke Does the patient have a stroke diagnosis?: No Physical Exam Vital Signs: Vital Signs: Last Vital Signs Temp 97.8 F 12/01/21 11:20 Pulse 100 12/01/21 11:20 Resp 15 12/01/21 11:20 BP 106/61 12/01/21 11:20 Pulse Ox 96 12/01/21 11:20 O2 Del Method 12/01/21 11:20 O2 Flow Rate 2 11/29/21 09:52 BMI result Body Mass Index 32.1 Const: General: cooperative, healthy appearing and no acute distress Resp: Effort & Inspection: normal respiratory effort and able to speak in complete sentences Cardio: Rate: regular rate Peripheral pulses: Peripheral pulses 2+ throughout GI: Palpation (GI): Soft to palpation Skin: Lesions: no lesions Rashes: no rashes Extrem: Other: Right knee Aquacel is lean, dry, and intact. Able to dorsiflex and plantarflex. NVI. DS: Data Data Completed and Pending Completed studies during hospitalization [Text1]: Pending at discharge 11/29/21 09:11 Surgical [PTH] Routine Labs on day of discharge: Laboratory Results - last 24 hr 12/01/21 12/01/21 05:22 05:22 WBC 12.0 H RBC 3.16 L Hgb 9.6 L Hct 29.3 L MCV 92.7 MCH 30.4 MCHC 32.8 RDW 13.8 Plt Count 238 MPV 10.3 Immature Gran % (Auto) 0.5 H Neut % (Auto) 76.9 H Lymph % (Auto) 11.8 L [place] % (Auto) 7.7 Eos % (Auto) 2.9 Baso % (Auto) 0.2 Lymph # (Auto) 1.4 [place] # (Auto) 0.9 Eos # (Auto) 0.4 Baso # (Auto) 0.0 Abs Immat Gran (auto) 0.06 H Absolute Neuts (auto) 9.3 H Absolute Nucleated RBC 0.000 Nucleated RBC % (auto) 0.0 Sodium 141 Potassium 4.1 Chloride 104 Carbon Dioxide 29 Anion Gap 12 BUN 6 L Creatinine 0.72 Estim Creat Clear Calc 113.1 Estimated GFR > 60 Fasting Glucose 106 H Calcium 8.6 Discharge Plan Discharge Patient Disposition: Home Health Service Discharge Diagnosis: s/p RTKA Referrals: Adan Rucker PA-C [[employer]] - 12/14/21 11:30 am Discharge Medications: New acetaminophen 325 mg Tablet 650 mg PO Q6H PRN (Reason: Pain, Mild (Pain Scale 1-3)) 30 Days Qty: 240 0RF aspirin 325 mg Tablet 325 mg PO BID 42 Days Qty: 84 0RF celecoxib 200 mg Capsule 200 mg PO BID 30 Days Qty: 60 0RF hydromorphone 2 mg Tablet 2 mg PO Q4H PRN (Reason: Pain, Moderate (Pain Scale 4-6) 7 Days Qty: 42 0RF Rx Instructions: Partial Fill upon patient request. docusate sodium 100 mg Capsule 100 mg PO BID 30 Days Qty: 60 0RF Continued azelastine 137 mcg (0.1 %) aerosol,spray 1 spray intranasal BID Qty: 90 3RF cetirizine 10 mg tablet 10 mg PO DAILY Qty: 90 3RF ipratropium-albuterol 0.5 mg-3 mg(2.5 mg base)/3 mL solution for nebulization 3 ml inhalation DAILY Qty: 90 10RF albuterol sulfate 90 mcg/actuation HFA aerosol inhaler 2 puff PO Q6H PRN (Reason: for wheezing) Qty: 18 11RF pregabalin [Lyrica] 150 mg capsule 150 mg PO BEDTIME Qty: 90 1RF fluticasone propionate 50 mcg/actuation spray,suspension 2 spray intranasal DAILY Qty: 48 3RF montelukast 10 mg tablet 10 mg PO BEDTIME pregabalin [Lyrica] 100 mg capsule 100 mg PO DAILY@0730 Rx Instructions: in AM omeprazole 40 mg capsule,delayed release(DR/EC) 40 mg PO DAILY Qty: 90 1RF Trelegy Ellipta 200-62.5-25 mcg blister with device 1 inh inhalation DAILY 30 Days Qty: 60 12RF Daliresp 500 mcg tablet 500 mcg PO DAILY Qty: 90 3RF atorvastatin 20 mg tablet 20 mg PO DAILY baclofen 10 mg tablet 10 mg PO TID methotrexate sodium 2.5 mg tablet 20 mg PO QWEEK Rx Instructions: on Fridays folic acid 1 mg tablet 1 mg PO DAILY Discharge Orders: Discharge Order (Routine); Ordered 12/01/21 Ordered By: Saray Robles Diet: Regular diet Activity on Discharge: Use cane or walker Stand Alone Forms: Patient Portal Discharge page Care Plan Goals: restore fxn to right knee Health Concerns: none Plan of Treatment: Physical Therapy for ROM 0-120, quad strength, gait training. Use walker for ambulation Limit stair climbing, No shower, No tub bath, No driving Continue anticoagulant Keep Aquacel dressing clean, dry and intact. Follow up with orthopedics in 2 weeks Assessment: stable for d/c
--- NOTE | 2021-12-01 15:20 | MHC.CM.PN ---
Discharge has been placed on hold pending ultrasound results. NA notified.
--- NOTE | 2021-12-01 19:16 | HO.PM.IMCN ---
History of Present Illness Data of Consult Service Date: 12/01/21 Primary Care Provider: Fernando Pickens MD [facility] Reason for consult: RLE DVT 51-year-old female with a past medical history of rheumatoid arthritis, CANDELARIA, asthma, fibromyalgia admitted to the orthopedic service for right total knee replacement done on 11/29/2021; currently complaining of right leg pain/ right calf pain. Medicine team was consulted for further eval. Patient mentioned that today morning she had an episode of chest pain, resolved at the time of my interview. Denies any shortness of breath. Denies any fever chills cough or sputum production. Denies any skin changes on the leg. Reports calf pain. Review of all other systems is negative except mentioned above [facility] Medical History Asthma Fibromyalgia Insomnia Leg length discrepancy CANDELARIA on CPAP Pulmonary nodules Seronegative rheumatoid arthritis Pertinent family history: mother had history of pulmonary embolism Surgical History H/O bilateral breast reduction surgery History of ankle surgery History of colon resection History of total knee arthroplasty Hx of cholecystectomy Hx of colonoscopy Hx of detached retina repair Hx of tubal ligation Social History Household Members: Spouse Housing: House Are you a primary child care coordinator to a significant other at home: No Do you presently have visiting nurse or other home services: No Alcohol intake: never Patient Tobacco Use Status: Never used Tobacco service: No Current occupational status: disabled Meds Allergies Allergy/AdvReac Type Severity Reaction Status Date / Time aclidinium [Tudorza Pressair] Allergy Intermediate Hives Verified 11/27/21 11:39 Active Medications: Current Medications Acetaminophen (Acetaminophen 325 Mg Tablet) 650 mg PO Q6H PRN PRN Reason: Pain, Mild (Pain Scale 1-3) Last Admin: 12/01/21 06:39 Dose: 650 mg Albuterol Sulfate (Albuterol Sulfate 90 Mcg 8 Gm Inhaler) 2 puff INHALE Q6H PRN PRN Reason: for wheezing Albuterol/Ipratropium (Albuterol/Iprat 2.5/0.5mg 3 Ml Ampul.Neb) 3 ml INHALE DAILY [facility] Last Admin: 12/01/21 07:35 Dose: 3 ml Aspirin (Aspirin 325 Mg Tablet) 325 mg PO BID [facility] Last Admin: 12/01/21 09:01 Dose: 325 mg Atorvastatin Calcium (Atorvastatin Calcium 20 Mg Tablet) 20 mg PO DAILY [facility] Last Admin: 12/01/21 09:01 Dose: 20 mg Azelastine HCl (Azelastine Hcl Nasal 137 Mcg/[place] 30 Ml) 1 spray NOSTRIL-B BID [facility] Last Admin: 12/01/21 09:20 Dose: 1 spray Baclofen (Baclofen 10 Mg Tablet) 10 mg PO TID [facility] Last Admin: 12/01/21 13:44 Dose: 10 mg Celecoxib (Celecoxib 200 Mg Capsule) 200 mg PO BID [facility] Last Admin: 12/01/21 09:01 Dose: 200 mg Docusate Sodium (Docusate Sodium 100 Mg Capsule) 100 mg PO BID [facility] Last Admin: 12/01/21 09:01 Dose: 100 mg Enoxaparin Sodium (Enoxaparin Sodium 100 Mg/Ml Syringe) 100 mg SUBCUT Q12H [facility] Fluticasone Propionate (Fluticasone Propionate Nasal 16 Gm [place]) 2 spray NOSTRIL-B DAILY [facility] Last Admin: 12/01/21 09:19 Dose: 2 spray Folic Acid (Folic Acid 1 Mg Tablet) 1 mg PO DAILY [facility] Last Admin: 12/01/21 09:01 Dose: 1 mg Hydromorphone HCl (Hydromorphone Hcl 0.5 Mg/0.5 Ml Syringe) 0.25 mg IVPUSH Q4H PRN; Protocol PRN Reason: Pain, Severe (Pain Scale 7-10) Last Admin: 11/30/21 08:23 Dose: 0.25 mg Hydromorphone HCl (Hydromorphone Hcl 2 Mg Tablet) 2 mg PO Q4H PRN PRN Reason: Pain, Moderate (Pain Scale 4-6 Last Admin: 12/01/21 17:52 Dose: 2 mg Cefazolin Sodium/Dextrose (Ancef) 2 gm in 50 mls @ 100 mls/hr IV POSTOP [facility] Last Infusion: 11/29/21 17:35 Dose: Infused Promethazine HCl 6.25 mg/ (Sodium Chloride) 50.25 mls @ 201 mls/hr IV Q4H PRN PRN Reason: Nausea Last Infusion: 12/01/21 09:39 Dose: Infused Loratadine (Loratadine 10 Mg Tablet) 10 mg PO DAILY [facility] Last Admin: 12/01/21 09:01 Dose: 10 mg Montelukast Sodium (Montelukast Sodium 10 Mg Tablet) 10 mg PO BEDTIME [facility] Last Admin: 11/30/21 20:10 Dose: 10 mg Non-Formulary Medication (Dbxjhdoxxgg-Lahyvaauv-Eahhbzqr [Trelegy Ellipta]) 1 inhalation INHALE DAILY [facility] Non-Formulary Medication (Roflumilast [Daliresp]) 500 mcg PO DAILY [facility] Omeprazole (Omeprazole 40 Mg Capsule.Dr) 40 mg PO DAILY@0630 [facility] Last Admin: 12/01/21 05:31 Dose: 40 mg Ondansetron HCl (Ondansetron Hcl 4 Mg/2 Ml Vial) 4 mg IVPUSH Q8H PRN PRN Reason: Nausea and Vomiting Last Admin: 11/30/21 09:55 Dose: 4 mg Oxycodone HCl (Oxycodone Hcl Er 10 Mg Tab.Er.12h) 10 mg PO BID [facility] Last Admin: 12/01/21 09:00 Dose: Not Given Pregabalin (Pregabalin 100 Mg Capsule) 100 mg PO DAILY@729 [facility] Last Admin: 12/01/21 09:01 Dose: 100 mg Pregabalin (Pregabalin 150 Mg Capsule) 150 mg PO BEDTIME [facility] Last Admin: 11/30/21 20:10 Dose: 150 mg Sodium Chloride (0.9 % Sodium Chloride Flush 3 Ml Syringe) [facility] Last Admin: 12/01/21 15:24 Dose: 3 ml Home Medications Medication Instructions Recorded Confirmed Last Taken Type atorvastatin 20 mg tablet 20 mg PO DAILY 08/18/21 11/27/21 Unknown History montelukast 10 mg tablet 10 mg PO BEDTIME 11/14/21 11/27/21 Unknown History pregabalin 100 mg capsule (Lyrica) 100 mg PO DAILY@0730 11/14/21 11/27/21 11/29/21 History baclofen 10 mg tablet 10 mg PO TID 11/27/21 11/29/21 11/29/21 History folic acid 1 mg tablet 1 mg PO DAILY 11/27/21 11/29/21 11/29/21 History methotrexate sodium 2.5 mg tablet 20 mg PO QWEEK 11/27/21 11/29/21 11/10/21 History Physical Exam Vital Signs and Narrative: Vital Signs: Last Vital Signs Temp 98.2 F 12/01/21 15:31 Pulse 109 H 12/01/21 15:31 Resp 17 12/01/21 15:31 BP 128/77 12/01/21 15:31 Pulse Ox 98 12/01/21 15:31 O2 Del Method 12/01/21 15:31 O2 Flow Rate 2 11/29/21 09:52 BMI result Body Mass Index 32.1 Gen: Appears be in no acute distress HEENT: NCAT, Moist mucosa. Pulmonary: Vesicular breath sounds, fair air entry CVS: Normal S1-S2 Abdomen: BS+, Soft, Nontender Extremities: Warm well perfused; tender in the right calf; no erythema; pulses palpable Neuro: Alert and awake. grossly nonfocal Results Labs CBC and Chem 7: 12/01/21 19:07 12/01/21 05:22 Labs: Laboratory Results - last 24 hr 12/01/21 12/01/21 05:22 05:22 MCV 92.7 MCH 30.4 MCHC 32.8 RDW 13.8 Plt Count 238 MPV 10.3 Immature Gran % (Auto) 0.5 H Neut % (Auto) 76.9 H Lymph % (Auto) 11.8 L [place] % (Auto) 7.7 Eos % (Auto) 2.9 Baso % (Auto) 0.2 Lymph # (Auto) 1.4 [place] # (Auto) 0.9 Eos # (Auto) 0.4 Baso # (Auto) 0.0 Abs Immat Gran (auto) 0.06 H Absolute Neuts (auto) 9.3 H Absolute Nucleated RBC 0.000 Nucleated RBC % (auto) 0.0 Anion Gap 12 Estim Creat Clear Calc 113.1 Estimated GFR > 60 Fasting Glucose 106 H Calcium 8.6 Imaging Radiologist's Impressions: Impressions Venous Duplex 12/01/21 16:38 IMPRESSION: Acute deep venous thrombosis involving the distal right superficial femoral vein and mid right posterior tibial vein. This critical result was discussed with Adan Rucker at 6:16 PM on December 01, 2021 and it was ascertained that the content and urgency of the report was understood at the time of direct communication. Assessment and Plan (1) DVT (deep venous thrombosis): Status: Acute Plan 51-year-old female with a past medical history of rheumatoid arthritis, CANDELARIA, asthma, fibromyalgia admitted to the orthopedic service for right total knee replacement done on 11/29/2021; currently complaining of right leg pain/ right calf pain. venous Doppler positive for right leg DVT. right leg DVT: likely provoked in the setting of recent knee surgery. Patient also has the family history of blood clots in her mother. Will consult Hematology for further recommendations Patient started on Lovenox 1 mg/kg b.i.d. No evidence of pulmonary embolism on CT chest. Chest pain: Currently resolved. CT chest negative. EKG nonischemic. Troponins indeterminate - plateaued. Echocardiogram. Cardiology consult. Sublingual nitroglycerin p.r.n. Status post right knee total replacement: Management per orthopedics team. History of asthma: Stable DVT prophylaxis: Patient on Lovenox currently
[2021-12-01 19:24] LABS: Hematocrit 28.5 % (37.0-47.0); Hemoglobin 9.3 g/dl (12.0-16.0); Mean Corpuscular HGB Conc 32.6 g/dl (31.0-35.0); Mean Corpuscular Hemoglobin 30.3 pg (27.0-33.0); Mean Corpuscular Volume 92.8 fL (80.0-98.0); Mean Platelet Volume 10.6 fL (9.4-12.3); Platelet Count 244 X10*3/uL (160-400); Red Blood Count 3.07 X10*6/uL (4.20-5.50); Red Cell Distribution Width 14.1 % (11.0-16.0); White Blood Count 10.9 X10*3/uL (4.8-10.8)
[2021-12-01 19:32] LABS: INTERNATIONAL NORM RATIO 1.6 (0.9-1.1)
[2021-12-01 19:34] LABS: Partial Thromboplastin Time 36.8 SEC (26.0-36.4)
[2021-12-01] MEDS: Enoxaparin Sodium 100 MG/ML SYRINGE SUBCUT (19:43)
--- NOTE | 2021-12-01 20:01 | PM.EVENT ---
Event Note Date of Service: 12/01/21 Event Note: patient is positive for DVT RLE started her on Lovenox 100mg q12 hrs medicine re-consulted for further recommendations
[2021-12-01] MEDS: Montelukast Sodium 10 MG TABLET PO (20:03)
[2021-12-01] MEDS: Pregabalin 150 MG CAPSULE PO (20:04)
[2021-12-01] MEDS: iohexoL 350 MG/ML 100 ML INFUS..BTL IV (20:57)
[2021-12-01 22:27] LABS: Troponin-I High Sensitivity 30.7 ng/L (<3.5-17.0)
--- NOTE | 2021-12-01 22:53 | PC.NURSE ---
P troponin 30.[address] Floers notified E will monitor
[2021-12-02] VITALS: BP 139/63; PULSE 114; RESP 18; TEMP 36.5; O2SAT 97
[2021-12-02 00:20] LABS: Troponin-I High Sensitivity 33.6 ng/L (<3.5-17.0)
[2021-12-02] MEDS: 0.9 % Sodium Chloride Flush 3 ML SYRINGE IVFLUSH ×2 (01:44→07:55)
--- NOTE | 2021-12-02 01:49 | PC.NURSE ---
Took over patient care at 23:00 from SWAPNA Silvestre. Pt c/o 01/22 right knee and calf pain after ambulating to the bathroom. IV Dilaudid 0.25mg IV Dilaudid pulled but IV was leaking when flushed. Difficulty IV change-took a while and so medication was wasted. New IV obtained and pt requesting IV Dilaudid. When I brought the medication into the patients room, pt stated she changed her mind and would like to wait for the PO Dilaudid. Ice applied to right knee. Will continue to monitor.
[2021-12-02] MEDS: HYDROmorphone HCl 2 MG TABLET PO ×3 (02:34→12:40)
[2021-12-02 04:00] VITALS: BP 125/70; PULSE 115; RESP 18; TEMP 36.7; O2SAT 98
[2021-12-02] MEDS: Pregabalin 100 MG CAPSULE PO (06:18)
[2021-12-02] MEDS: Omeprazole 40 MG CAPSULE.DR PO (06:18)
[2021-12-02] MEDS: Enoxaparin Sodium 100 MG/ML SYRINGE SUBCUT (06:18)
[2021-12-02 06:49] LABS: MANUAL DIFF FLAG NO
[2021-12-02 06:54] LABS: Basophils Percent Auto 0.3 % (0-2); Eosinophils Absolute Auto 0.3 X10*3/uL (0.0-0.4); Hematocrit 26.8 % (37.0-47.0); Hemoglobin 8.6 g/dl (12.0-16.0); Imm Gran Abs Auto 0.05 X10*3/uL (0.00-0.03); Imm Gran Pct Auto 0.5 % (0.0-0.4); Lymphocytes Absolute Auto 1.7 X10*3/uL (1.2-4.9); Lymphocytes Percent Auto 18.5 % (20-40); Mean Corpuscular HGB Conc 32.1 g/dl (31.0-35.0); Mean Corpuscular Volume 93.4 fL (80.0-98.0); Mean Platelet Volume 10.7 fL (9.4-12.3); Monocytes Absolute Auto 0.6 X10*3/uL (0.1-1.2); Monocytes Percent Auto 6.6 % (2-11); Neutrophils Absolute Auto 6.7 x10*3/uL (2.0-8.3); Neutrophils Percent Auto 71.1 % (45-73); Platelet Count 235 X10*3/uL (160-400); Red Blood Count 2.87 X10*6/uL (4.20-5.50); White Blood Count 9.4 X10*3/uL (4.8-10.8)
[2021-12-02 07:12] VITALS: BP 115/69; PULSE 98; RESP 18; TEMP 36.4; O2SAT 97
[2021-12-02 07:25] LABS: Anion Gap 13 (12-20); Blood Urea Nitrogen 10 mg/dL (9-16); Calcium 8.1 mg/dL (8.4-10.2); Carbon Dioxide 28 mmol/L (22-29); Chloride 104 mmol/L (96-108); Creatinine Clr Calc Pharmacy 121.5; Estimated Glomerular Filt Rate > 60; Glucose Fasting 92 mg/dL (60-99); Potassium 3.5 mmol/L (3.3-5.1); Sodium 141 mmol/L (135-145)
[2021-12-02] MEDS: Loratadine 10 MG TABLET PO (07:47)
[2021-12-02] MEDS: Folic Acid 1 MG TABLET PO (07:47)
[2021-12-02] MEDS: Atorvastatin Calcium 20 MG TABLET PO (07:48)
[2021-12-02] MEDS: Docusate Sodium 100 MG CAPSULE PO (07:48)
[2021-12-02] MEDS: Celecoxib 200 MG CAPSULE PO (07:48)
[2021-12-02] MEDS: Baclofen 10 MG TABLET PO (07:48)
[2021-12-02] MEDS: Fluticasone Propionate Nasal 16 GM SPRAY 2 SPRAY NOSTRIL-B (07:57)
[2021-12-02] MEDS: Azelastine HCl Nasal 137 MCG/Spray 30 ML 1 SPRAY NOSTRIL-B (07:58)
--- NOTE | 2021-12-02 10:12 | P.CNHO_ITS ---
Subjective - Subjective Chief complaint: Consult for:DVT. Patient: new to practice Consult date: 12/02/21 Requesting Physician: Yessy. Primary Care Provider: Fernando Pickens MD Medical Summary: DIAGNOSIS: DVT. HPI - Consult Narrative Reason for consult: Consult for: DVT. Narrative: Pam Edouard is a Pleasant 51 year old lady, who had right knee replacement on 11/[address] Grewal. She developed right calf pain, last night. Had CP during the day, yesterday. Resolved shortly afterwards. U/S of right leg revealed: DVT of right superficial femoral and posterior tibial vein. CTA: No P.E. Pt. was started on Lovenox. PMFSH 1. R.A. 2. CANDELARIA. 3. Asthma. 4. Fibromyalgia. 5. Insomnia 6. Leg length discrepancy 7. CANDELARIA on CPAP 8. Pulmonary nodules 9. Seronegative rheumatoid arthritis Surgical History: H/O bilateral breast reduction surgery History of ankle surgery History of colon resection History of total knee arthroplasty Hx of cholecystectomy Hx of colonoscopy Hx of detached retina repair Hx of tubal ligation Pertinent family history: mother had history of pulmonary embolism. Social History: Household Members: Spouse Housing: House Are you a primary child care cook to a significant other at home: No Do you presently have visiting nurse or other home services: No Alcohol intake: never Patient Tobacco Use Status: Never used Tobacco Review of Systems - Constitutional Reports system reviewed and no additional complaints, except as documented, Reports weakness, Denies fever(s), Denies weight gain - Eyes Reports system reviewed and no additional complaints, except as documented, Denies blurry vision - ENT Reports system reviewed and no additional complaints, except as documented - Cardiovascular Reports system reviewed and no additional complaints, except as documented, Reports chest pain - Respiratory Reports no additional respiratory complaints - Gastrointestinal Reports system reviewed and no additional complaints, except as documented - Genitourinary Reports no additional female genitourinary complaints - Musculoskeletal Reports system reviewed and no additional complaints, except as documented - Integumentary/Breasts Skin/Breast: Reports no additional skin complaints - Neurologic Reports system reviewed and no additional complaints, except as documented - Psychiatric Reports system reviewed and no additional complaints, except as documented - Endocrine Reports no additional endocrine complaints - Hematologic/Lymphatic Reports system reviewed and no additional complaints, except as documented - Allergic/Immunologic Reports system reviewed and no additional complaints, except as documented Oncology Screenings - ECOG Performance Status ECOG Performance Status: 1 [facility] Medical History: Medical History (Last Reviewed 11/30/21 @ 09:14 by Kelli Garcia PT) Asthma Fibromyalgia Insomnia Leg length discrepancy CANDELARIA on CPAP Pulmonary nodules Seronegative rheumatoid arthritis Functional capacity: uses cane/walker Patient : No Surgical History: Surgical History (Last Reviewed 11/30/21 @ 09:14 by Kelli Garcia PT) H/O bilateral breast reduction surgery History of ankle surgery History of colon resection History of total knee arthroplasty Hx of cholecystectomy Hx of colonoscopy Hx of detached retina repair Hx of tubal ligation Social History: Social History (Last Reviewed 11/30/21 @ 07:25 by Sen Torres MD) Living Situation History: Household Members: Spouse Housing: House Are you a primary child care cook to a significant other at home: No Do you presently have visiting nurse or other home services: No Tobacco History: Patient Tobacco Use Status: Never used Tobacco Occupation Assessmet: service: No Current occupational status: disabled Home Medications and Allergies Current Medications: Current Medications Acetaminophen (Acetaminophen 325 Mg Tablet) 650 mg PO Q6H PRN PRN Reason: Pain, Mild (Pain Scale 1-3) Last Admin: 12/01/21 06:39 Dose: 650 mg Albuterol Sulfate (Albuterol Sulfate 90 Mcg 8 Gm Inhaler) 2 puff INHALE Q6H PRN PRN Reason: for wheezing Albuterol/Ipratropium (Albuterol/Iprat 2.5/0.5mg 3 Ml Ampul.Neb) 3 ml INHALE DAILY [facility] Last Admin: 12/02/21 07:54 Dose: Not Given Atorvastatin Calcium (Atorvastatin Calcium 20 Mg Tablet) 20 mg PO DAILY [facility] Last Admin: 12/02/21 07:48 Dose: 20 mg Azelastine HCl (Azelastine Hcl Nasal 137 Mcg/[place] 30 Ml) 1 spray NOSTRIL-B BID [facility] Last Admin: 12/02/21 07:58 Dose: 1 spray Baclofen (Baclofen 10 Mg Tablet) 10 mg PO TID [facility] Last Admin: 12/02/21 07:48 Dose: 10 mg Celecoxib (Celecoxib 200 Mg Capsule) 200 mg PO BID [facility] Last Admin: 12/02/21 07:48 Dose: 200 mg Docusate Sodium (Docusate Sodium 100 Mg Capsule) 100 mg PO BID [facility] Last Admin: 12/02/21 07:48 Dose: 100 mg Enoxaparin Sodium (Enoxaparin Sodium 100 Mg/Ml Syringe) 100 mg SUBCUT Q12H [facility] Last Admin: 12/02/21 06:18 Dose: 100 mg Fluticasone Propionate (Fluticasone Propionate Nasal 16 Gm [place]) 2 spray NOSTRIL-B DAILY [facility] Last Admin: 12/02/21 07:57 Dose: 2 spray Folic Acid (Folic Acid 1 Mg Tablet) 1 mg PO DAILY [facility] Last Admin: 12/02/21 07:47 Dose: 1 mg Hydromorphone HCl (Hydromorphone Hcl 0.5 Mg/0.5 Ml Syringe) 0.25 mg IVPUSH Q4H PRN; Protocol PRN Reason: Pain, Severe (Pain Scale 7-10) Last Admin: 11/30/21 08:23 Dose: 0.25 mg Hydromorphone HCl (Hydromorphone Hcl 2 Mg Tablet) 2 mg PO Q4H PRN PRN Reason: Pain, Moderate (Pain Scale 4-6 Last Admin: 12/02/21 07:48 Dose: 2 mg Cefazolin Sodium/Dextrose (Ancef) 2 gm in 50 mls @ 100 mls/hr IV POSTOP [facility] Last Infusion: 11/29/21 17:35 Dose: Infused Promethazine HCl 6.25 mg/ (Sodium Chloride) 50.25 mls @ 201 mls/hr IV Q4H PRN PRN Reason: Nausea Last Infusion: 12/02/21 08:40 Dose: Infused Loratadine (Loratadine 10 Mg Tablet) 10 mg PO DAILY [facility] Last Admin: 12/02/21 07:47 Dose: 10 mg Montelukast Sodium (Montelukast Sodium 10 Mg Tablet) 10 mg PO BEDTIME [facility] Last Admin: 12/01/21 20:03 Dose: 10 mg Nitroglycerin (Nitroglycerin 0.4 Mg Tab.Subl) 0.4 mg SUBLINGUAL Q5MX3 PRN PRN Reason: Chest pain Non-Formulary Medication (Oprbxgvqdht-Jpltdusir-Omkroxyx [Trelegy Ellipta]) 1 inhalation INHALE DAILY [facility] Non-Formulary Medication (Roflumilast [Daliresp]) 500 mcg PO DAILY [facility] Omeprazole (Omeprazole 40 Mg Capsule.Dr) 40 mg PO DAILY@0630 [facility] Last Admin: 12/02/21 06:18 Dose: 40 mg Ondansetron HCl (Ondansetron Hcl 4 Mg/2 Ml Vial) 4 mg IVPUSH Q8H PRN PRN Reason: Nausea and Vomiting Last Admin: 11/30/21 09:55 Dose: 4 mg Oxycodone HCl (Oxycodone Hcl Er 10 Mg Tab.Er.12h) 10 mg PO BID [facility] Last Admin: 12/02/21 07:58 Dose: Not Given Pregabalin (Pregabalin 100 Mg Capsule) 100 mg PO DAILY@729 [facility] Last Admin: 12/02/21 06:18 Dose: 100 mg Pregabalin (Pregabalin 150 Mg Capsule) 150 mg PO BEDTIME [facility] Last Admin: 12/01/21 20:04 Dose: 150 mg Sodium Chloride (0.9 % Sodium Chloride Flush 3 Ml Syringe) 3 ml IVFLUSH QSHIFT [facility] Last Admin: 12/02/21 07:55 Dose: 3 ml Home Medications Medication Instructions Recorded Confirmed Type atorvastatin 20 mg tablet 20 mg PO DAILY 08/18/21 11/27/21 History montelukast 10 mg tablet 10 mg PO BEDTIME 11/14/21 11/27/21 History pregabalin 100 mg capsule (Lyrica) 100 mg PO DAILY@30 11/14/21 11/27/21 History baclofen 10 mg tablet 10 mg PO TID 11/27/21 11/29/21 History folic acid 1 mg tablet 1 mg PO DAILY 11/27/21 11/29/21 History methotrexate sodium 2.5 mg tablet 20 mg PO QWEEK 11/27/21 11/29/21 History Allergies Allergy/AdvReac Type Severity Reaction Status Date / Time aclidinium [Tudorza Pressair] Allergy Intermediate Hives Verified 11/27/21 11:39 Physical Exam Vital signs: Vital Signs Temp 97.5 F 12/02/21 07:12 Pulse 98 12/02/21 07:12 Resp 18 12/02/21 07:12 BP 115/69 12/02/21 07:12 Pulse Ox 97 12/02/21 07:12 O2 Del Method 12/02/21 07:12 O2 Flow Rate 2 11/29/21 09:52 Intake & Output 12/01/21 12/02/21 12/02/21 18:59 06:59 18:59 Intake Total 410.25 / 1160.25 750 / 1160.25 50.25 / 50.25 Output Total 1000 / 1000 Balance 410.25 / 160.25 -250 / 160.25 50.25 / 50.25 Urine Output (Average ml/kg/hr) 0.84 0.84 Intake: Intake, Oral Amount 360 / 1110 750 / 1110 Intake, IV Amount 50.25 / 50.25 50.25 / 50.25 Promethazine HCL 6.25 mg In 0.9 50.25 / 50.25 50.25 / 50.25 % Sodium Chloride 50 ml @ 201 mls/hr IV Q4H PRN Rx#: [id number] Output: Output, Urine Amount (Catheter) 1000 / 1000 purewick 1000 / 1000 Other: Meal Refused No NPO No Breakfast % Eaten 100% Lunch % Eaten 75% Number of Unmeasured Voids 2 2 Urine Bedside Commode Urine Color Yellow Yellow Continuous Bladder Irrigation Fluid - Amount Drained purewick 1,400 Weight 98.9 kg - Constitutional Present: mild distress - Routine HEENT Exam Head: Present: normal inspection ENT: Present: mucous membranes moist Hem/Onc Consult Result - Labs CBC & Chem 7: 12/02/21 05:48 12/02/21 05:48 Labs: Short CBC 12/01/21 12/02/21 Range/Units 19:07 05:48 WBC 10.9 H 9.4 (4.8-10.8) X10*3/uL Hgb 9.3 L 8.6 L (12.0-16.0) g/dl Hct 28.5 L 26.8 L (37.0-47.0) % Plt Count 244 235 (160-400) X10*3/uL BMP 12/02/21 05:48 Sodium 141 Potassium 3.5 Chloride 104 Carbon Dioxide 28 BUN 10 D Creatinine 0.67 Calcium 8.1 L Assessment and Plan Patient Active problem list reviewed?: Yes (1) DVT (deep venous thrombosis) Status: Acute Assessment and plan: 51 year old lady, S/P R knee replacement on 11/29. Has new onset DVT, related to above. No P.E. She does have a family history of blood clots. Hypercoagulable work up not indicated at this point, in the acute clot setting. Will check on an out patient basis. Pt. has been started on Lovenox. PLAN: Agree with the above management. Can transition over to oral anticoagulant, one of the NOACs ie Eliquis. Would continue for 3- 6 months, based upon response. Recheck U/S in 3 months and decide. I can follow her on the outpatient basis. Thanks, - Time Spent With Patient Time Spent with Patient (in minutes): 30
--- NOTE | 2021-12-02 10:54 | PM.PNORT ---
Subjective Subjective Date of Service: 12/02/21 Interval history: s/p rt tka pain improving cotinue to work with PT Physical Exam Vital Signs: Vital Signs: Last Vital Signs Temp 97.5 F 12/02/21 07:12 Pulse 98 12/02/21 07:12 Resp 18 12/02/21 07:12 BP 115/69 12/02/21 07:12 Pulse Ox 97 12/02/21 07:12 O2 Del Method 12/02/21 07:12 O2 Flow Rate 2 11/29/21 09:52 BMI result Body Mass Index 32.1 Const: General: no acute distress, alert and awake Orientation/consciousness: patient oriented x3 HEENT: Head: Yes normocephalic and Yes atraumatic Eyes: EOM: EOMs intact bilaterally Resp: Effort & Inspection: normal respiratory effort and able to speak in complete sentences Cardio: Jugular venous distension: no JVD Skin: General skin exam: turgor normal Rashes: no rashes Neuro: General: patient oriented x3 Extrem: Other: Right Knee: Incision C/D/I Tender in posterior calf mild diffuse LE swelling sensation intact to light touch firing EHL/TA/GC Psych: Appearance: grossly normal Affect: normal affect Attitude: cooperative Procedures Date of Service Date of Service: 12/02/21 Progress Note: A&P Assessment and plan (1) Status post total knee replacement, right: Status: Acute Assessment and Plan: Continue pain mgmnt Continue PT for RT TKA D/c when medically cleared (2) DVT (deep venous thrombosis): Status: Acute Assessment and Plan: Hematology input: Lovenox 1mg/kg bid Would continue for 3- 6 months, based upon response. Recheck U/S in 3 months and decide. Time Spent With Patient Time: Total time spent is greater than 50% in coordination of care (as documented) at patient's floor/unit and/or counseling patient: Quality Stroke Does the patient have a stroke diagnosis?: No VTE Prior VTE?: No VTE Risk Level:: Medical - moderate - high VTE Device Contraindication: N/A - Device Ordered VTE Drug Contraindication: N/A - Med Ordered
[2021-12-02 11:31] VITALS: BP 119/71; PULSE 92; RESP 18; TEMP 36.3; O2SAT 97
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
== END 2021-12-02 14:22 | disposition home health service (06) | DRG 302 ==
LOC: HO.SSSA 06:16 → HO.S3 15:29
PROVIDERS: Hospitalist; Physician Assistant; Admitting Provider Orthopaedic Surgery; PCP Internal Medicine; Visit Provider Orthopaedic Surgery
PROC: 0SRC0JA Replacement of Right Knee Joint with Synthetic Substitute, Uncemented, Open Approach (ICD-10-PCS; CPT 27447; principal; 2021-11-29 07:30)
DX: M17.11 Unilateral primary osteoarthritis, right knee (principal); I82.411 Acute embolism and thrombosis of right femoral vein; M06.0A Rheumatoid arthritis without rheumatoid factor, other specified site; G47.33 Obstructive sleep apnea (adult) (pediatric); M79.7 Fibromyalgia; Z20.822 Contact with and (suspected) exposure to COVID-19; Z79.51 Long term (current) use of inhaled steroids; Z79.899 Other long term (current) drug therapy
CPT/HCPCS: 36415; 71275; 73560; 80048; 84484; 85014; 85018; 85025; 85027; 85610; 85730; 86850; 86900; 86901; 87635; 87640; 87641; 88305; 88311; 93005; 93971; 94640; 97110; 97116; 97162; 97530; C1776; J0131; J0690; J1170; J1650; J2250; J2405; J2550; J2795; J3010; Q9967

== ENCOUNTER → 2022-01-19 13:25 | Outpatient (BNV) | payer BC, MEDICARE, SELFPAY | PROVIDERS: Visit Provider Internal Medicine Medical Oncology | DX: I82.411 Acute embolism and thrombosis of right femoral vein (principal); I82.441 Acute embolism and thrombosis of right tibial vein | CPT/HCPCS: 99213; 99214 ==

== ENCOUNTER 2022-01-29 12:33 | Outpatient (REF) | payer BC, MEDICARE, SELFPAY ==
--- NOTE | ~2022-01-29 | CT_ITS ---
EXAMINATION: CT CHEST WITHOUT CONTRAST CLINICAL INFORMATION: Other nonspecific abnormal finding of lung field COMPARISON: Previous chest CT most recent November 2021 TECHNIQUE: Multidetector volumetric CT imaging of the chest was done. Axial MIP volume rendering provided. Sagittal and coronal reformatted images were obtained. This CT examination was performed using dose optimization techniques as appropriate, variously including the following: *Automated exposure control *Adjustment of mA and/or kV according to patient size (this includes techniques or standardized protocols for targeted exams where dose is matched to indication/reason for exam; i.e. extremities or head) *Use of iterative reconstruction technique DLP: 298 mGy-cm FINDINGS: LEARNING SPECIALIST: Unremarkable LUNGS: There is a 5 mm calcified right upper lobe nodule axial image 125 series 5 that is stable. There is a 2 mm peripheral or subpleural right middle lobe nodule adjacent to the minor fissure axial image 218 series 5. This is probably unchanged from November 2021 exam. MEDIASTINUM: There is a trace pericardial effusion. The mediastinum is otherwise normal. CORONARY ARTERY CALCIFICATION: None visualized on this study. PLEURA: There is no pleural effusion. No pleural mass or thickening. AXILLA: No lymphadenopathy. UPPER ABDOMEN: The gallbladder has been removed. OSSEOUS STRUCTURES: There are mild degenerative changes of the spine. CT/CT chest wo IV con IMPRESSION: Stable 5 mm calcified right upper lobe nodule. 2 mm peripheral or subpleural right middle lobe nodule adjacent to the minor fissure also probably unchanged from most recent exam November 2021. Trace pericardial effusion. Fleischner guidelines were followed.
== END 2022-01-29 12:34 | disposition home or self-care (01) ==
LOC: HO.CT 12:33
PROVIDERS: Visit Provider Hospitalist
DX: R91.8 Other nonspecific abnormal finding of lung field (principal)
CPT/HCPCS: 71250

== ENCOUNTER 2022-01-29 13:57 | Outpatient (REF) | payer BC, MEDICARE, SELFPAY ==
[2022-01-29 15:02] LABS: MANUAL DIFF FLAG NO
[2022-01-29 15:30] LABS: Basophils Percent Auto 0.4 % (0-2); Eosinophils Absolute Auto 0.1 X10*3/uL (0.0-0.4); Hematocrit 36.8 % (37.0-47.0); Hemoglobin 11.5 g/dl (12.0-16.0); Imm Gran Abs Auto 0.02 X10*3/uL (0.00-0.03); Imm Gran Pct Auto 0.3 % (0.0-0.4); Lymphocytes Absolute Auto 2.4 X10*3/uL (1.2-4.9); Lymphocytes Percent Auto 30.8 % (20-40); Mean Corpuscular HGB Conc 31.3 g/dl (31.0-35.0); Mean Corpuscular Volume 89.5 fL (80.0-98.0); Monocytes Absolute Auto 0.4 X10*3/uL (0.1-1.2); Monocytes Percent Auto 5.3 % (2-11); Neutrophils Absolute Auto 4.8 x10*3/uL (2.0-8.3); Neutrophils Percent Auto 62.2 % (45-73); Platelet Count 408 X10*3/uL (160-400); Red Blood Count 4.11 X10*6/uL (4.20-5.50); Red Cell Distribution Width 13.5 % (11.0-16.0); White Blood Count 7.7 X10*3/uL (4.8-10.8)
[2022-01-29 15:53] LABS: Alanine Aminotransferase 6 U/L (0-31); Aspartate Amino Transferase 8 U/L (5-31); C Reactive Protein 1.82 mg/dL (< or = 0.50); Estimated Glomerular Filt Rate > 60
[2022-01-29 16:13] LABS: Erythrocyte Sedimentation Rate 60 MM/HR (0-20)
--- NOTE | 2022-01-29 16:24 | PFT_ITS ---
FLOWS: FEV1 101% of predicted at 3.26 L. FVC 92% of predicted at 3.67 L. FEV1 to FVC ratio of 0.89. No bronchodilator response. LUNG VOLUMES: Total lung capacity 89% of predicted at 5.20 L. Residual volume 71% of predicted at 1.51 L. Slow vital capacity 99% of predicted at 3.69 L. Expiratory reserve volume 74% of predicted at 0.87 L. Diffusion capacity is mildly decreased, diffusion capacity corrects to normal after adjustment total ventilation. IMPRESSION: No obstructive or restrictive ventilatory defect. No bronchodilator response. Essentially normal pulmonary function test. MD NICOLE Castillo/MODL / [id number]
== END 2022-01-29 13:58 | disposition home or self-care (01) ==
LOC: HO.RESP 13:57
PROVIDERS: Absent Provider Nurse Practitioner Family; Visit Provider Hospitalist
DX: J45.40 Moderate persistent asthma, uncomplicated (principal); M06.00 Rheumatoid arthritis without rheumatoid factor, unspecified site; Z79.899 Other long term (current) drug therapy
CPT/HCPCS: 36415; 82565; 84450; 84460; 85025; 85652; 86140; 94060; 94727; 94729

== ENCOUNTER → 2022-02-02 13:52 | Outpatient (BNVA) | payer BC, MEDICARE, SELFPAY | PROVIDERS: PCP Internal Medicine; Visit Provider Nurse Practitioner Family | DX: M06.00 Rheumatoid arthritis without rheumatoid factor, unspecified site (principal); M79.7 Fibromyalgia; I82.409 Acute embolism and thrombosis of unspecified deep veins of unspecified lower extremity; Z96.651 Presence of right artificial knee joint | CPT/HCPCS: 99212 ==

== ENCOUNTER 2022-03-05 10:47 | Outpatient (REF) | payer BC, MEDICARE, SELFPAY ==
--- NOTE | ~2022-03-05 | US_ITS ---
EXAMINATION: US VENOUS ULTRASOUND WITH DOPPLER LOWER EXTREMITY, RIGHT CLINICAL INFORMATION: Follow-up right leg DVT COMPARISON: None TECHNIQUE: Ultrasound of the deep veins is performed from the hip to the calf with compression sonography and color and pulse Doppler assessment. Spectral analysis with color-flow imaging is performed. FINDINGS: There is normal venous compression and respiratory variation and augmented flow. The visualized common femoral vein, superficial femoral vein, profunda femoral vein, popliteal vein, and the trifurcation region shows no evidence of deep venous thrombosis. There is no significant popliteal fossa cyst. If the patient's symptoms persist, followup ultrasound in 5 days 7 days might be of value to exclude proximal propagation from a non-visualized calf vein. US/US venous duplex LE RT IMPRESSION: No DVT demonstrated in the right lower extremity.
== END 2022-03-05 10:48 | disposition home or self-care (01) ==
LOC: HO.US 10:47
PROVIDERS: Visit Provider Internal Medicine Medical Oncology
DX: Z23 Encounter for immunization (principal); I82.401 Acute embolism and thrombosis of unspecified deep veins of right lower extremity; R91.8 Other nonspecific abnormal finding of lung field
CPT/HCPCS: 90471; 90686; 93971

== ENCOUNTER 2022-03-29 16:00 | Outpatient (RCR) | payer BC, MEDICARE, SELFPAY ==
--- NOTE | 2021-12-14 12:48 | MHC.PT.EP ---
[facility] [place] Office [place] Office [place] Office [address] Misbah Jurado [address] [phone] F: [phone] F: [phone] F: [phone] F: [phone] Physical Therapy Plan of Care Date of Evaluation: Date of Surgery: 11/29/21 Diagnosis: S/P RIGHT TKA Assessment: 51 YO FEMALE REF TO PT S/P Rt TKA 11/29/21. SHE WAS FOUND TO HAVE (+) DVT Rt LE AND IS F/U W VASCULAR. SHE RESIDES W HER SPOUSE AND CHILDREN IN A 1 LEVEL HOME AND IS CURRENTLY AMB W A W/WALKER . OBJECTIVE FINDINGS: LIMITED AROM Rt KNEE, TIGHT PSOAS MM FABY AND DECR ANKLE DF FABY; DECR STRENGTH IN PROX / LUMBOPELVIC AND Rt LE, POST-OP PAIN IN RIGHT KNEE/CALF ,AND HEALING ANT Rt KNEE INCISION. FUNCTIONALLY, Pt IS AMB W A W/WALKER- SHE HAS COMPENSATORY GAIT W DECR WT BEARING Rt HEEL, VERY LIMITED W STAIR MGMT, DECR STANDING JASON, TRANSFERS W INCR UEs COMPENSATION AND DECR USE OF Rt LE, AND DECR JASON TO ADLs REQ Rt KNEE FLEX. Pt IS A VERY GOOD PT CANDIDATE TO GUIDE HER IN HER POST-OP TKR COURSE, ADDRESSING THE ABOVE FINDINGS, PAIN MGMT, AND MAXIMIZING FUNCTIONAL INDEPENDENCE. Frequency and Duration: The patient will be seen 2 x WK x 8 WKS Short Term Goals: *Pt'S RIGHT KNEE PAIN DECR TO 2-3/10 IN 2 WK2 *WFL MOBILITY Rt ANT KNEE SCAR/ REDUCED EDMEA Rt KNEE IN 3 WKS *IMPROVE Rt QUAD CONTROL/ ACTIV-> RESOLVE EXTEN LAG *PROGR INCR AA/ AROM Rt KNEE IN 2 WKS *IMPROVE PSOAS AND CALF MM FLEXIB-> ADV GAIT ON LEVEL AND STAIRS W LEAST RESTRICTIVE ASST DEVICE IN 3 WKS Burner Technician Goals: *Pt INDEP W PROGR HEP AND SELF-SX MGMT TECHN *Pt DEMON RIGHT KNEE AROM AT LEAST 0* TO 120* *Pt DEMON EFFICIENT GAIT LEVEL AND STAIRS, RESUME REG ADLs-> IMPROVED LEFI BY 8-10 POINTS (AT EVAL /80) *WFL STRENGTH RIGHT LE/ LUMBOPELVIC REGION Treatment Plan: Modalities to reduce pain, spasms and effusion. Manual therapy to restore motion and function. Therapeutic exercise to improve strength and flexibility. Neuromuscular re-education for posture and balance. Therapeutic activities to return to functional activities of daily living. Electronically signed by: Prudence Krishnan PT Please sign and return to therapist. Thank you for your referral.
--- NOTE | 2022-03-30 10:43 | MHC.PT.DC ---
[facility] [place] Office [place] Office [place] Office [address] Misbah Jurado [address] [phone] F: [phone] F: [phone] F: [phone] F: [phone] Physical Therapy Discharge Report Diagnosis: S/P RIGHT TKA Date of Surgery: 11/29/21 Date of Evaluation: 12/14/21 Date of Discharge: 03/29/22 Treatments to Date: 22 Cancellations to Date: 8 No Shows to Date: Discharge Status: Achieved Goals Improved Function Independent with HEP Discharge Summary: The Pt feels she is able to manage her post-operative status independently at this time. Her right knee AROM is currently 0*-120* and her strength is WFL at this time. She has all the tools and equipment necessary to continue w/ her HEP at home. She was educated on the importance of consistency to continue progressing her strength. Pt verbalized understanding. She was instructed to call our office if she has any difficulties or questions regarding her HEP. She is D/C'd from this PT POC to her HEP at this time. Today, the Pt requested to leave early as her family is currently here visiting her. Electronically signed by: Prudence Krishnan,PT Please sign and return to therapist. Thank you for your referral.
== END 2022-03-30 10:44 | disposition home or self-care (01) ==
LOC: HO.PT 16:00
PROVIDERS: Visit Provider Physician Assistant
DX: Z96.651 Presence of right artificial knee joint (principal)
CPT/HCPCS: 97110; 97112; 97140; 97162; 97530

== ENCOUNTER 2022-04-26 13:11 | Outpatient (REF) | payer BC, MEDICARE, SELFPAY ==
--- NOTE | ~2022-04-26 | XR_ITS ---
EXAMINATION: XR KNEE, RIGHT XR KNEE AP STANDING CLINICAL INFORMATION: Pain. COMPARISON: Prior radiographs dated 11/29/2021 and 07/27/2021. TECHNIQUE: Lateral and axial views of the right knee are submitted. AP bilateral standing view of the knees was obtained. FINDINGS: Prosthetic components of the bilateral knee arthroplasties are appropriately aligned without periprosthetic fracture or lucency. No component migration. No joint effusion. No varus or valgus configuration is seen bilaterally. XR/XR knee RT 2V IMPRESSION: Appropriate alignment of the bilateral total knee arthroplasties, without evidence of complications.
--- NOTE | ~2022-04-26 | XR_ITS ---
EXAMINATION: XR KNEE, RIGHT XR KNEE AP STANDING CLINICAL INFORMATION: Pain. COMPARISON: Prior radiographs dated 11/29/2021 and 07/27/2021. TECHNIQUE: Lateral and axial views of the right knee are submitted. AP bilateral standing view of the knees was obtained. FINDINGS: Prosthetic components of the bilateral knee arthroplasties are appropriately aligned without periprosthetic fracture or lucency. No component migration. No joint effusion. No varus or valgus configuration is seen bilaterally. XR/XR knee standing BI IMPRESSION: Appropriate alignment of the bilateral total knee arthroplasties, without evidence of complications.
== END 2022-04-26 13:12 | disposition home or self-care (01) ==
LOC: HO.HOSX 13:11
PROVIDERS: PCP Internal Medicine; Visit Provider Orthopaedic Surgery
DX: M25.561 Pain in right knee (principal); Z96.651 Presence of right artificial knee joint
CPT/HCPCS: 73560; 73565

== ENCOUNTER → 2022-05-21 09:51 | Outpatient (BNVA) | payer BC, MEDICARE, SELFPAY | PROVIDERS: PCP Internal Medicine; Visit Provider Nurse Practitioner Family | DX: Z96.651 Presence of right artificial knee joint (principal) ==

== ENCOUNTER 2022-06-22 09:42 | Outpatient (REF) | payer BC, MEDICARE, SELFPAY ==
[2022-06-22 09:58] LABS: MANUAL DIFF FLAG NO
[2022-06-22 11:10] LABS: Basophils Percent Auto 0.7 % (0-2); Eosinophils Absolute Auto 0.1 X10*3/uL (0.0-0.4); Eosinophils Percent Auto 1.3 % (0-4); Hematocrit 40.2 % (37.0-47.0); Hemoglobin 12.7 g/dl (12.0-16.0); Imm Gran Abs Auto 0.01 X10*3/uL (0.00-0.03); Imm Gran Pct Auto 0.2 % (0.0-0.4); Lymphocytes Absolute Auto 1.5 X10*3/uL (1.2-4.9); Lymphocytes Percent Auto 28.5 % (20-40); Mean Corpuscular HGB Conc 31.6 g/dl (31.0-35.0); Mean Corpuscular Hemoglobin 27.6 pg (27.0-33.0); Mean Corpuscular Volume 87.4 fL (80.0-98.0); Mean Platelet Volume 11.1 fL (9.4-12.3); Monocytes Absolute Auto 0.4 X10*3/uL (0.1-1.2); Monocytes Percent Auto 6.7 % (2-11); Neutrophils Absolute Auto 3.4 x10*3/uL (2.0-8.3); Neutrophils Percent Auto 62.6 % (45-73); Platelet Count 354 X10*3/uL (160-400); Red Cell Distribution Width 13.9 % (11.0-16.0); White Blood Count 5.4 X10*3/uL (4.8-10.8)
[2022-06-22 12:05] LABS: Erythrocyte Sedimentation Rate 42 MM/HR (0-20)
[2022-06-22 12:51] LABS: Alanine Aminotransferase 9 U/L (0-31); Alkaline Phosphatase 124 U/L (39-117); Anion Gap 13 (12-20); Aspartate Amino Transferase 12 U/L (5-31); Bilirubin Total 0.5 mg/dL (0.0-1.0); Blood Urea Nitrogen 14 mg/dL (9-16); C Reactive Protein 0.23 mg/dL (< or = 0.50); Calcium 9.5 mg/dL (8.4-10.2); Carbon Dioxide 27 mmol/L (22-29); Chloride 107 mmol/L (96-108); Estimated Glomerular Filt Rate > 60; Glucose Random 66 mg/dL (60-115); Potassium 4.4 mmol/L (3.3-5.1); Sodium 143 mmol/L (135-145); Total Protein 7.3 g/dL (6.5-8.0)
[2022-06-26 20:22] LABS: Anti-Thrombin III Antigen 99 % normal (80-120)
[2022-06-28 05:28] LABS: Protein C Activity 149 % normal (70-180)
[2022-06-28 14:18] LABS: PTT (LAC) Screen 35 sec (<=40)
[2022-07-08 14:54] LABS: Cardiolipin IgG Ab <2.0 GPL-U/mL (<20.0); Cardiolipin IgM Ab <2.0 MPL-U/mL (<20.0)
== END 2022-06-22 09:43 | disposition home or self-care (01) ==
LOC: HO.LAB 09:42
PROVIDERS: Internal Medicine Medical Oncology; Visit Provider Nurse Practitioner Family
DX: I82.409 Acute embolism and thrombosis of unspecified deep veins of unspecified lower extremity (principal); M06.00 Rheumatoid arthritis without rheumatoid factor, unspecified site
CPT/HCPCS: 36415; 80053; 85025; 85301; 85302; 85303; 85597; 85613; 85652; 85730; 86140; 86147

== ENCOUNTER → 2022-06-27 13:58 | Outpatient (BNVA) | payer BC, MEDICARE, SELFPAY | PROVIDERS: PCP Internal Medicine; Visit Provider Nurse Practitioner Family | DX: Z13.89 Encounter for screening for other disorder (principal) ==

== ENCOUNTER → 2022-07-16 13:02 | Outpatient (BNVA) | payer BC, MEDICARE, SELFPAY | PROVIDERS: PCP Internal Medicine; Visit Provider Orthopaedic Surgery | DX: Z13.89 Encounter for screening for other disorder (principal) ==

== ENCOUNTER 2022-11-08 10:00 | Outpatient (RCR) | payer BC, MEDICARE, SELFPAY ==
--- NOTE | 2022-08-31 13:33 | MHC.PT.EP ---
[facility] [place] Office [employer] [facility] [place] Office [address] Misbah Jurado [address] [phone] F: [phone] F: [phone] F: [phone] F: [phone] Physical Therapy Plan of Care Date of Evaluation: Date of Surgery: 11/29/21 Diagnosis: R TKA 11/29/21 (RC) Per Dr. Grewal strengthening Assessment: pt is a 52 y/o female presenting to physical therapy w/ referring diagnosis of Z96.651 presence of right artificial knee joint. Impairments include pain, decreased range of motion, decreased strength, impaired functional mobility, impaired postural awareness, and altered ambulation mechanics. pt is a good candidate for skilled PT due to age, potential remediation of impairments, typical disease/condition progression and prognosis, comorbidities, and motivation. pt would benefit from skilled PT intervention to provide a tailored strengthening and stretching exercise program, functional training, gait training, postural re-training, neuromuscular re-education, modalities as needed for pain, equipment safety demonstration. Frequency and Duration: The patient will be seen 2x/wk for 4 wks Short Term Goals: pt will be I w/ HEP to promote self-management of condition. pt will improve L knee flexion to 120* to promote improved tolerance for squatting. Detention Goals: pt will report a statistically significant improvement in self-reported outcome measure, LEFI, to promote return to PLOF. pt will demo sit<>stand transfer x3 reps w/o UE assist. Treatment Plan: Modalities to reduce pain, spasms and effusion. Manual therapy to restore motion and function. Therapeutic exercise to improve strength and flexibility. Neuromuscular re-education for posture and balance. Therapeutic activities to return to functional activities of daily living. Electronically signed by: Ella Gudino PT, DPT Please sign and return to therapist. Thank you for your referral.
--- NOTE | 2022-11-22 13:22 | MHC.PT.DC ---
[facility] [place] Office [place] Office [place] Office [address] Misbah Jurado 140 [facility] [phone] F: [phone] F: [phone] F: [phone] F: [phone] Physical Therapy Discharge Report Diagnosis: R TKA 11/29/21 (AVANI) Per Dr. Uri lopez Date of Surgery: 11/29/21 Date of Evaluation: 08/31/22 Date of Discharge: 11/22/22 Treatments to Date: 16 Cancellations to Date: 2 No Shows to Date: 0 Discharge Status: Improved Function Independent with HEP Discharge Summary: Overall, the patient has made excellent progress with PT. We focused on joint mobilizations and functional range of motion exercises. She still has pain but it tends to come in waves and then she has times with little to no pain. She does have an analgesic cream but she tries not to use it unless pain is severe. She is independent with her home exercise program and is discharged from PT at this time. Electronically signed by: Ella Montoya PT, DPT Please sign and return to therapist. Thank you for your referral.
== END 2022-11-22 13:22 | disposition home or self-care (01) ==
LOC: HO.PT 10:00
PROVIDERS: PCP Internal Medicine; Visit Provider Orthopaedic Surgery
DX: Z96.651 Presence of right artificial knee joint (principal)
CPT/HCPCS: 97110; 97140; 97162

== ENCOUNTER 2022-11-22 12:33 | Outpatient (REF) | payer BC, MEDICARE, SELFPAY ==
--- NOTE | ~2022-11-22 | XR_ITS ---
EXAMINATION: XR BILATERAL KNEES CLINICAL INFORMATION: Reason for Exam M25.569 - Pain in unspecified knee COMPARISON: Knee radiographs 04/26/2022 and 12/04/2018 TECHNIQUE: 1 views of the bilateral knees standing and 2 views of each knee FINDINGS: RIGHT KNEE: No acute fracture or dislocation. Status post total knee arthroplasty in anatomic alignment. No evidence of hardware fracture or complication. No joint effusion. Soft tissues are unremarkable. LEFT KNEE: No acute fracture or dislocation. Status post total knee arthroplasty in anatomic alignment. No evidence of hardware fracture or complication. A 6 mm osseous fragment in the suprapatellar joint space may reflect a loose body, new from prior. Quadriceps tendon enthesopathy new from prior. No joint effusion. Soft tissues are unremarkable. XR/XR knee standing BI IMPRESSION: 1. Status post bilateral total knee arthroplasties in anatomic alignment. No evidence of hardware fracture or complication. 2. A 6 mm osseous fragment in the left suprapatellar joint space may reflect a loose body, new from prior.
--- NOTE | ~2022-11-22 | XR_ITS ---
EXAMINATION: XR BILATERAL KNEES CLINICAL INFORMATION: Reason for Exam M25.569 - Pain in unspecified knee COMPARISON: Knee radiographs 04/26/2022 and 12/04/2018 TECHNIQUE: 1 views of the bilateral knees standing and 2 views of each knee FINDINGS: RIGHT KNEE: No acute fracture or dislocation. Status post total knee arthroplasty in anatomic alignment. No evidence of hardware fracture or complication. No joint effusion. Soft tissues are unremarkable. LEFT KNEE: No acute fracture or dislocation. Status post total knee arthroplasty in anatomic alignment. No evidence of hardware fracture or complication. A 6 mm osseous fragment in the suprapatellar joint space may reflect a loose body, new from prior. Quadriceps tendon enthesopathy new from prior. No joint effusion. Soft tissues are unremarkable. XR/XR knee RT 2V IMPRESSION: 1. Status post bilateral total knee arthroplasties in anatomic alignment. No evidence of hardware fracture or complication. 2. A 6 mm osseous fragment in the left suprapatellar joint space may reflect a loose body, new from prior.
--- NOTE | ~2022-11-22 | XR_ITS ---
EXAMINATION: XR BILATERAL KNEES CLINICAL INFORMATION: Reason for Exam M25.569 - Pain in unspecified knee COMPARISON: Knee radiographs 04/26/2022 and 12/04/2018 TECHNIQUE: 1 views of the bilateral knees standing and 2 views of each knee FINDINGS: RIGHT KNEE: No acute fracture or dislocation. Status post total knee arthroplasty in anatomic alignment. No evidence of hardware fracture or complication. No joint effusion. Soft tissues are unremarkable. LEFT KNEE: No acute fracture or dislocation. Status post total knee arthroplasty in anatomic alignment. No evidence of hardware fracture or complication. A 6 mm osseous fragment in the suprapatellar joint space may reflect a loose body, new from prior. Quadriceps tendon enthesopathy new from prior. No joint effusion. Soft tissues are unremarkable. XR/XR knee LT 2V IMPRESSION: 1. Status post bilateral total knee arthroplasties in anatomic alignment. No evidence of hardware fracture or complication. 2. A 6 mm osseous fragment in the left suprapatellar joint space may reflect a loose body, new from prior.
== END 2022-11-22 12:34 | disposition home or self-care (01) ==
LOC: HO.HOSX 12:33
PROVIDERS: Visit Provider Orthopaedic Surgery
DX: Z96.651 Presence of right artificial knee joint (principal); M25.562 Pain in left knee
CPT/HCPCS: 73560; 73565

== ENCOUNTER 2022-11-22 12:45 | Outpatient (AMB) | payer BC, MEDICARE, SELFPAY ==
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
== END 2022-11-22 15:20 | disposition home or self-care (01) ==
PROVIDERS: Visit Provider Orthopaedic Surgery
DX: Z47.89 Encounter for other orthopedic aftercare (principal); Z96.651 Presence of right artificial knee joint
CPT/HCPCS: 99213

== ENCOUNTER 2022-11-26 10:03 | Outpatient (AMB) | payer BC, MEDICARE, SELFPAY ==
[2022-11-26 10:31] VITALS: PULSE 90; O2SAT 99; BMI 34.0
--- NOTE | 2022-11-26 10:31 | MHC.OFFVIS ---
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 She is doing much better with the CPAP. The CPAP therapy has been affecting beneficial. She uses it for more than 4 hours a night. Overall she is doing well her asthma seems to be stable. She continues on her respiratory therapy with good effect. She has had to use her nebulized therapy a few times the last month with good effect. Her CPAP therapy has been affecting beneficial, however, she was not able to use it about a month ago because of nasal congestion and sinusitis. She has not been able to get supplies either. I explained to her that may be a an issue with the amount time that she is using her CPAP in her insurance is not approving any supply delivery. Therefore I encouraged her to continue using her CPAP more than 4 hours a night. I did ask the office to call her DME company to make sure that we can facility anything that needs to be done in order for her to get supplies. She is still dealing with her rheumatoid arthritis and is following closely with board writer. This also appears to be a little better than before. 09/28/2021 the patient is here for a pulmonary follow-up visit. Overall the patient has been doing very well from a respiratory status. She has not required any prednisone or any rescue therapy. Her maintenance therapy have been very helpful for her keeping her under control in regards of her asthma. She continues the Daliresp. This medication has been very effective in beneficial. In addition to that the Trelegy inhaler she uses daily. In regards the CPAP the patient has been doing well. Although she is not getting supplies regularly. I will send another prescription for supplies to the local DME company. The patient does use her CPAP more than 4 hours a night. She continues on the methotrexate. She is currently taking higher dose of methotrexate due to the fact that she has still some persistent inflammatory arthritis in addition to elevations in the sedimentation rate. I do not see that the patient is developing any adverse effects from the methotrexate. Patient will need to undergo pulmonary function studies to make sure that she is tolerating the methotrexate. In addition to that she have a CT scan prior to the next visit to follow-up with pulmonary nodules. 03/05/2022 the patient is here pulmonary follow-up visit. Back in November the patient did have a total knee replacement. She tolerated the surgery well. She did well. Postoperative that she did develop a DVT. He had a CTA at that time that ruled out a thromboembolic event to the chest. She was placed on Eliquis and she is still on it. She did follow-up with Hematology in recommend the 6 months of anticoagulation. In addition to that the patient developed COVID. She knows recovered. After the COVID she did develop an asthma exacerbation. now she is back to her baseline. She is using her respiratory therapy with good effect. She also continue using her CPAP. The CPAP therapy has been affecting beneficial. She does use it for more than 4 hours a night. We did review her recent CT scan of the chest demonstrating stable pulmonary nodules. Otherwise the patient is doing well this time. Will follow-up in 6-8 months. 11/26/2022 the patient is here for pulmonary follow-up visit. The patient continues to do fairly well from a respiratory status. She did return back from [place]. While she was there her breathing was okay. When she came back she was noticed seeing some upper respiratory symptoms. She did test for COVID she was negative. She is starting to feel better. She has been using CPAP in the CPAP therapy continues to be affecting beneficial. However, for some reason her DME company has not center any supplies and she is very unhappy with them. She would like to switch companies. Her machine is no longer working appropriately either. The machine is older than 5 years. She would benefit from getting a replacement machine with a new DME company is starting over. Will go ahead and submit a new prescription for a replacement APAP machine to a local DME company. The patient has been using her respiratory therapy with good effect. She has not required any prednisone. Continues on the Trelegy with good effect. She also on the singular. Her major complaint is nasal congestion. Patient will continue using her nasal sprays and will start nasal rinsing at this time. 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 CANDELARIA on CPAP Pulmonary nodules Seronegative rheumatoid arthritis Surgical History H/O bilateral breast reduction surgery History of ankle surgery History of colon resection History of knee surgery History of total knee arthroplasty History of total knee replacement Hx of cholecystectomy Hx of colonoscopy Hx of detached retina repair Hx of tubal ligation Family History Maternal Grandmother Skin cancer Maternal Aunt Breast cancer Maternal Uncle Prostate cancer Social History Household Members: Spouse Housing: House Are you a primary out of school hours care worker to a significant other at home: No Do you presently have visiting nurse or other home services: No Alcohol intake: never Patient Tobacco Use Status: Never used Tobacco service: No Current occupational status: disabled Review of Systems Const Denies night sweats ENT Denies change in voice, Denies lip swelling, Denies mouth pain, Reports nasal congestion, Reports nasal discharge and Denies tongue swelling Card Denies chest pain and Denies dyspnea on exertion Resp Reports cough and Denies dyspnea on exertion GI Denies abdominal pain Musc Reports abnormal gait, Reports back pain, Reports arthralgias, Reports joint swelling and Reports limited range of motion Neuro Denies Neuro-related abnormal movements and Reports abnormal gait Psych Denies no additional complaints Flavio/Lymph Denies easy bleeding and Denies lymphadenopathy Aller/Immun Denies lip swelling and Denies tongue swelling Physical Exam Vital Signs: Last Vital Signs Pulse 90 11/26/22 10:31 Pulse Ox 99 11/26/22 10:31 Oxygen Delivery Method Room Air 11/26/22 10:31 BMI result Body Mass Index 34.0 Const General: alert Neck Neck: Yes normal visual inspection, Yes full ROM and Yes no lymphadenopathy Chest Chest palpation & inspection: normal inspection of the chest Resp Auscultation: diminished lung sounds Cardio Rate: regular rate Rhythm: regular rhythm Heart sounds: S1 normal heart sound present and S2 normal heart sound present GI Palpation (GI): Soft to palpation and nontender Auscultation: normal bowel sounds Skin General skin exam: rashes and/or lesions noted Extrem General: No clubbing, No cyanosis and Yes edema Assessment & Plan Assessment & Plan (1) CANDELARIA on CPAP: Code(s): G47.33 - Obstructive sleep apnea (adult) (pediatric); Z99.89 - Dependence on other enabling machines and devices (2) Asthma: Code(s): J45.909 - Unspecified asthma, uncomplicated Qualifiers: Asthma complication type: uncomplicated Asthma persistence: persistent Asthma severity: moderate Qualified Code(s): J45.40 - Moderate persistent asthma, uncomplicated (3) Pulmonary nodules: Code(s): R91.8 - Other nonspecific abnormal finding of lung field (4) DVT (deep venous thrombosis): Comment: RLE Code(s): I82.409 - Acute embolism and thrombosis of unspecified deep veins of unspecified lower extremity Plan Continue APAP therapy, CPAP is malfunctioning and is older than 5 years. Will request a replacement machine. Trial P10 mask. [facility] We will switch DME to [facility] based on the patient's request. Her PSG was done at [facility] Continue Trelegy 200 daily Flonase/astelin NS Continue Singulair Continue Daliresp F/U 6-8 months Coding Level of Care Code Est Pt Level 4 (27211) Diagnoses CANDELARIA on CPAP G47.33; Z99.89 Asthma J45.40 Asthma complication type: uncomplicated Asthma persistence: persistent Asthma severity: moderate Pulmonary nodules R91.8 DVT (deep venous thrombosis) I82.409 Time Spent (min) 18
== END 2022-11-26 10:59 | disposition home or self-care (01) ==
PROVIDERS: PCP Internal Medicine; Visit Provider Hospitalist
DX: G47.33 Obstructive sleep apnea (adult) (pediatric) (principal); Z99.89 Dependence on other enabling machines and devices; J45.40 Moderate persistent asthma, uncomplicated; R91.8 Other nonspecific abnormal finding of lung field; I82.409 Acute embolism and thrombosis of unspecified deep veins of unspecified lower extremity
CPT/HCPCS: 99214

== ENCOUNTER → 2022-11-26 10:03 | Outpatient (BNVA) | payer BC, MEDICARE, SELFPAY | PROVIDERS: PCP Internal Medicine; Visit Provider Hospitalist ==

== ENCOUNTER 2023-01-08 08:06 | Outpatient (AMB) | payer BC, MEDICARE, SELFPAY ==
--- NOTE | 2023-01-08 08:08 | MHC.OFFVIS ---
Intake Vital Signs 01/08/23 08:09 Height 5 ft 9 in Weight 230 lb 6.129 oz BMI 34.0 BP 124/78 Blood Pressure Location Rt brachial Position Sitting Pulse 100 Pulse Source Pulse Oximeter Temp 97.9 F Temp Source Skin Pulse Oximetry (%) 96 Intake Visit Reasons: Fibromyalgia Intake Note: Pt seen today for fm consult. C/o lbp right side for approx 3 days. She states pain radiates down the leg to the foot. Left side also hurts but right is worse. 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 Not currently on any medication. Patient was last evaluated by Kaia Rascon 07/05. At that time she had been off methotrexate for 4 months. At that time it was decided to watch patient off DMARDs. Patient stated that her joint inflammation never changed when on or off medication. Patient has been having intermittent pain and swelling of her hands, ankles, feet. Over the last 3 days she has been having mid back pain radiating towards her right lower extremity. She denies any trauma or overuse. She also continues to have diffuse fibromyalgia pain. 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 Seronegative rheumatoid arthritis Surgical History History of total knee replacement History of knee surgery Hx of detached retina repair History of ankle surgery History of colon resection Hx of colonoscopy History of total knee arthroplasty Hx of cholecystectomy H/O bilateral breast reduction surgery Hx of tubal ligation Family History Maternal Grandmother Skin cancer Maternal Aunt Breast cancer Maternal Uncle Prostate cancer Social History Household Members: Spouse Housing: House Are you a primary child care coordinator to a significant other at home: No Do you presently have visiting nurse or other home services: No Alcohol intake: never Patient Tobacco Use Status: Never used Tobacco service: No Current occupational status: disabled Review of Systems Musc Reports back pain, Reports myalgias, Reports arthralgias, Reports joint swelling, Reports limited range of motion, Reports radiating pain into limb and Reports stiffness Physical Exam Vital Signs: Last Vital Signs Temp 97.9 F 01/08/23 08:09 Pulse 100 01/08/23 08:09 BP 124/78 01/08/23 08:09 Pulse Ox 96 01/08/23 08:09 BMI result Body Mass Index 34.0 Const General: cooperative, healthy appearing and comfortable Nutritional Appearance: obese Orientation/consciousness: patient oriented x3 Limitations: no limitations HEENT Head: Yes normocephalic and Yes atraumatic Mouth: moist mucous membranes Resp Effort & Inspection: normal respiratory effort and able to speak in complete sentences Auscultation: clear to auscultation bilaterally Cardio Rate: regular rate Rhythm: regular rhythm Skin General skin exam: no rashes or lesions noted Neuro General: patient oriented x3 Extrem Other: Diffuse fibromyalgia tender points Puffiness of left 3rd MCP Diffusely tender wrists, MCPs, PIP is,DIPs Results Reviewed Results Reviewed: Bone scan in 2014 with findings suggestive of RA Right hand MRI 2014 showed mild flexor tenosynovitis of right 1st flexor tendon Assessment & Plan Assessment & Plan (1) Seronegative rheumatoid arthritis: Comment: dx 2014 Plaquenil - dates unknown Sulfasalazine- 05/2014- 04/2015 - ineffective Enbrel- 07/2017-10/2017 - ineffective Kevzara 08/2018-04/2019- did not take due to expense Humira- 08/2018 Leflunomide -04/2019 Methotrexate- 2016- November 2021-stop for right knee arthroplasty, remained off Code(s): M06.00 - Rheumatoid arthritis without rheumatoid factor, unspecified site Plan: This is a 52-year-old female with seronegative RA who presents for follow-up. In 2014 patient's bone scan showed some findings suggestive of RA, right hand MRI showed mild 1st flexor tenosynovitis, patient was on prednisone. Patient has been off methotrexate for about 9 months. She continues to have intermittent swelling of her hands and feet. She stated that there was no difference in her symptoms when on or off medications. Will recheck inflammatory markers. Repeat x-rays to evaluate for inflammatory arthropathy. Follow-up in 1 month (2) Fibromyalgia: Code(s): M79.7 - Fibromyalgia Plan: Continue Lyrica 150 mg during the day and 200 mg at bedtime. (3) Low back pain: Code(s): M54.50 - Low back pain, unspecified Qualifiers: Chronicity: acute Back pain laterality: right Sciatica presence: with sciatica Sciatica laterality: sciatica of right side Qualified Code(s): M54.41 - Lumbago with sciatica, right side Plan: Previous L-spine x-ray showing facet arthritis. Follow-up with pain management Plan I spent 30 minutes reviewing patient's chart, evaluating patient, ordering diagnostic workup, counseling patient and documenting in the chart Orders: Orders Comprehensive Met. Panel Today M06.00 - Rheumatoid arthritis without rheumatoid factor, unspecified site Erythrocyte Sedimentation Rate Today M06.00 - Rheumatoid arthritis without rheumatoid factor, unspecified site Immunofixation Pnl, Serum Today M06.00 - Rheumatoid arthritis without rheumatoid factor, unspecified site Hepatitis A,B,C Profile Today Z11.59 - Encounter for screening for other viral diseases T Spot TB Today Z11.7 - Encounter for testing for latent tuberculosis infection XR ankle LT min 3V Today M06.00 - Rheumatoid arthritis without rheumatoid factor, unspecified site XR ankle RT min 3V Today M06.00 - Rheumatoid arthritis without rheumatoid factor, unspecified site XR foot RT min 3V Today M06.00 - Rheumatoid arthritis without rheumatoid factor, unspecified site Complete Blood Count Auto Diff Today M06.00 - Rheumatoid arthritis without rheumatoid factor, unspecified site C Reactive Protein Today M06.00 - Rheumatoid arthritis without rheumatoid factor, unspecified site XR hand wrist LT Today M06.00 - Rheumatoid arthritis without rheumatoid factor, unspecified site XR hand wrist RT Today M06.00 - Rheumatoid arthritis without rheumatoid factor, unspecified site XR foot LT min 3V Today M06.00 - Rheumatoid arthritis without rheumatoid factor, unspecified site Coding Level of Care Code Est Pt Level 4 (92972) Diagnoses Seronegative rheumatoid arthritis M06.00 Fibromyalgia M79.7 Acute right-sided low back pain with right-sided sciatica M54.41 Chronicity: acute Back pain laterality: right Sciatica presence: with sciatica Sciatica laterality: sciatica of right side
[2023-01-08 08:09] VITALS: BP 124/78; PULSE 100; TEMP 36.6; O2SAT 96; BMI 34.0
== END 2023-01-08 08:36 | disposition home or self-care (01) ==
PROVIDERS: PCP Internal Medicine; Visit Provider Student in an Organized Health Care Education/Training Program
DX: M06.00 Rheumatoid arthritis without rheumatoid factor, unspecified site (principal); M79.7 Fibromyalgia; M54.41 Lumbago with sciatica, right side
CPT/HCPCS: 99214

== ENCOUNTER 2023-01-08 08:06 | Outpatient (REF) | payer BC, MEDICARE, SELFPAY ==
--- NOTE | ~2023-01-08 | XR_ITS ---
EXAMINATION: XR HAND/WRIST, RIGHT XR HAND/WRIST, LEFT CLINICAL INFORMATION: Rheumatoid arthritis with rheumatoid factor. COMPARISON: 09/20/2016 TECHNIQUE: PA, lateral, oblique, and scaphoid views of the each hand and wrist. FINDINGS: RIGHT HAND/WRIST: Tiny marginal osteophytes are present at multiple interphalangeal joints, notably at the DIP joints. A few tiny marginal osteophytes are also present at the MCP joints and 1st CMC joint. No erosions are identified. Joint spaces appear well preserved. Bone mineralization is normal. Soft tissues are unremarkable. No fracture or malalignment. LEFT HAND/WRIST: Similar to the contralateral side, tiny marginal osteophytes are present at multiple interphalangeal joints as well as a few MCP joints and the 1st CMC joint. No erosions. Joint spaces are normal. Bone mineralization appears normal. No fracture or malalignment. The soft tissues are unremarkable. XR/XR hand wrist RT IMPRESSION: 1. Mild multifocal osteoarthritis in the hands and wrists. No erosions to indicate an inflammatory/erosive arthritis. 2. No acute osseous abnormality.
--- NOTE | ~2023-01-08 | XR_ITS ---
EXAMINATION: XR ANKLE, RIGHT XR ANKLE, LEFT XR FOOT, RIGHT XR FOOT, LEFT CLINICAL INFORMATION: M06.00 - Rheumatoid arthritis without rheumatoid factor, unspecified site. COMPARISON: Ankle radiographs dated 06/16/2020. TECHNIQUE: AP, lateral, and mortise views of each ankle and AP, lateral, and oblique views of each foot. FINDINGS: RIGHT ANKLE: Small marginal osteophytes are present at the medial and lateral aspects of the ankle. No effusion. The bones are osteopenic. Mild chronic-appearing periosteal bone formation is present at the lateral aspect of the distal tibia, likely along the interosseous membrane. This is of doubtful clinical significance and not significantly changed. No appreciable talocrural osteochondral injuries. No loose bodies are erosions are identified at the ankle. Mild soft tissue swelling. LEFT ANKLE: Single fixation screw is present in the distal fibula. No acute fractures. The ankle mortise is symmetric. Tiny talocrural osteophytes. Alignment appears appropriate. Soft tissues are swollen near the ankle. No erosions are identified. RIGHT FOOT: Moderate-sized enthesopathic spurs are present at the Achilles tendon insertion and plantar fascial origin on the calcaneus. No fracture or malalignment. Mild osteoarthritis in the MTP joints and interphalangeal joints with small marginal osteophytes. There is a subtle erosion at the lateral margin of the great toe proximal phalanx at the interphalangeal joint. No additional erosions are suspected. Mild soft tissue swelling. LEFT FOOT: Moderate-sized enthesopathic spurs are present at the Achilles tendon insertion and plantar fascial origin on the calcaneus. No fracture or malalignment. Mild osteoarthritis at the 1st MTP joint and multiple interphalangeal joints. No erosions are identified. Underlying soft tissue swelling. XR/XR ankle LT min 3V IMPRESSION: 1. Subtle erosion at the lateral margin of the right great toe proximal phalanx at the interphalangeal joint. No additional erosions are identified in either foot or ankle. This singular erosion is nonspecific in isolation, though rheumatoid arthritis is possible. 2. Mild bilateral ankle and foot osteoarthrosis. 3. Mild soft tissue swelling at both ankles and feet, nonspecific.
--- NOTE | ~2023-01-08 | XR_ITS ---
EXAMINATION: XR HAND/WRIST, RIGHT XR HAND/WRIST, LEFT CLINICAL INFORMATION: Rheumatoid arthritis with rheumatoid factor. COMPARISON: 09/20/2016 TECHNIQUE: PA, lateral, oblique, and scaphoid views of the each hand and wrist. FINDINGS: RIGHT HAND/WRIST: Tiny marginal osteophytes are present at multiple interphalangeal joints, notably at the DIP joints. A few tiny marginal osteophytes are also present at the MCP joints and 1st CMC joint. No erosions are identified. Joint spaces appear well preserved. Bone mineralization is normal. Soft tissues are unremarkable. No fracture or malalignment. LEFT HAND/WRIST: Similar to the contralateral side, tiny marginal osteophytes are present at multiple interphalangeal joints as well as a few MCP joints and the 1st CMC joint. No erosions. Joint spaces are normal. Bone mineralization appears normal. No fracture or malalignment. The soft tissues are unremarkable. XR/XR hand wrist LT IMPRESSION: 1. Mild multifocal osteoarthritis in the hands and wrists. No erosions to indicate an inflammatory/erosive arthritis. 2. No acute osseous abnormality.
[2023-01-08 09:11] LABS: MANUAL DIFF FLAG NO
[2023-01-08 09:53] LABS: Basophils Percent Auto 0.5 % (0-2); Eosinophils Absolute Auto 0.1 X10*3/uL (0.0-0.4); Eosinophils Percent Auto 2.1 % (0-4); Hematocrit 42.9 % (37.0-47.0); Hemoglobin 13.3 g/dl (12.0-16.0); Imm Gran Abs Auto 0.01 X10*3/uL (0.00-0.03); Imm Gran Pct Auto 0.2 % (0.0-0.4); Lymphocytes Absolute Auto 1.6 X10*3/uL (1.2-4.9); Lymphocytes Percent Auto 25.4 % (20-40); Mean Corpuscular Hemoglobin 27.3 pg (27.0-33.0); Mean Corpuscular Volume 87.9 fL (80.0-98.0); Mean Platelet Volume 10.8 fL (9.4-12.3); Monocytes Absolute Auto 0.4 X10*3/uL (0.1-1.2); Monocytes Percent Auto 6.5 % (2-11); Neutrophils Absolute Auto 4.1 x10*3/uL (2.0-8.3); Neutrophils Percent Auto 65.3 % (45-73); Platelet Count 389 X10*3/uL (160-400); Red Blood Count 4.88 X10*6/uL (4.20-5.50); Red Cell Distribution Width 14.5 % (11.0-16.0); White Blood Count 6.3 X10*3/uL (4.8-10.8)
[2023-01-08 10:13] LABS: Alanine Aminotransferase 12 U/L (0-31); Albumin Level 4.2 g/dL (3.5-5.0); Alkaline Phosphatase 135 U/L (39-117); Anion Gap 15 (12-20); Aspartate Amino Transferase 13 U/L (5-31); Bilirubin Total 0.5 mg/dL (0.0-1.0); Blood Urea Nitrogen 14 mg/dL (9-16); C Reactive Protein 0.59 mg/dL (< or = 0.50); Calcium 9.9 mg/dL (8.4-10.2); Carbon Dioxide 24 mmol/L (22-29); Chloride 106 mmol/L (96-108); Estimated Glomerular Filt Rate > 60; Glucose Random 89 mg/dL (60-115); Potassium 4.2 mmol/L (3.3-5.1); Sodium 141 mmol/L (135-145); Total Protein 8.4 g/dL (6.5-8.0)
[2023-01-08 10:29] LABS: HBS Num1 11.72 mIU/mL (0-7.99); HBc Num1 0.07 S/CO (0.00-0.79); HBsAGNum1 0.29 S/CO (0.00-0.99); Hepatitis A Antibody IgM 0.18 Index (0-0.79); Hepatitis B Core Antibody Nonreactive (Nonreactive); Hepatitis B Surface Antigen Negative (Negative); ~HepC Num1 1.35 S/CO (0.00-0.79); ~Hepatitis A Antibody IgM Nonreactive (Nonreactive); ~Hepatitis C Antibody Reactive (Nonreactive)
[2023-01-08 11:06] LABS: Erythrocyte Sedimentation Rate 44 MM/HR (0-20)
[2023-01-08 11:37] LABS: HBS Num2 12.23 mIU/mL (0-7.99); HBS Num3 11.95 mIU/mL (0-7.99); ~Hepatitis B Surface Antibody GRAYZONE (Nonreactive)
[2023-01-10 15:48] LABS: TS Negative Control Passed; TS Panel A 0; TS Panel B 0; TS Positive Control Passed; TSpotTB Negative (Negative)
[2023-01-11 09:28] LABS: IgA 330 mg/dL (47-310); IgG 1797 mg/dL (600-1640); IgM 151 mg/dL (50-300)
== END 2023-01-08 08:07 | disposition home or self-care (01) ==
LOC: HO.LAB 08:06
PROVIDERS: PCP Internal Medicine; Visit Provider Student in an Organized Health Care Education/Training Program
DX: Z11.7 Encounter for testing for latent tuberculosis infection (principal); Z11.59 Encounter for screening for other viral diseases; M06.00 Rheumatoid arthritis without rheumatoid factor, unspecified site; R06.00 Dyspnea, unspecified; M79.7 Fibromyalgia; M54.41 Lumbago with sciatica, right side; Z72.89 Other problems related to lifestyle
CPT/HCPCS: 36415; 73110; 73130; 73610; 73630; 80053; 82784; 85025; 85652; 86140; 86334; 86481; 86704; 86706; 86709; 86803; 87340

== ENCOUNTER 2023-01-11 11:47 | Outpatient (REF) | payer BC, MEDICARE, SELFPAY ==
[2023-01-12 03:36] LABS: ~HepC Num1 1.19 S/CO (0.00-0.79); ~Hepatitis C Antibody Reactive (Nonreactive)
[2023-01-15 17:43] LABS: HCV Log PCR <1.18 NOT DETECTED Log IU/mL (NOT DETECTED); HepC Viral Load <15 NOT DETECTED IU/mL (NOT DETECTED)
== END 2023-01-11 11:48 | disposition home or self-care (01) ==
LOC: HO.LAB 11:47
PROVIDERS: Visit Provider Student in an Organized Health Care Education/Training Program
DX: R76.8 Other specified abnormal immunological findings in serum (principal)
CPT/HCPCS: 36415; 86803; 87522

== ENCOUNTER → 2023-01-30 12:51 | Outpatient (REF) | payer BC, MEDICARE, SELFPAY | LOC: HO.SL 12:51 | PROVIDERS: PCP Internal Medicine; Visit Provider Hospitalist | DX: G47.33 Obstructive sleep apnea (adult) (pediatric) (principal) | CPT/HCPCS: 95806 ==

== ENCOUNTER → 2023-01-30 13:05 | Outpatient (BNV) | payer BC, MEDICARE, SELFPAY | PROVIDERS: PCP Internal Medicine; Visit Provider Internal Medicine | DX: G47.33 Obstructive sleep apnea (adult) (pediatric) (principal) | CPT/HCPCS: 95806 ==

== ENCOUNTER 2023-03-20 15:47 | Outpatient (AMB) | payer BC, MEDICARE, SELFPAY ==
--- NOTE | 2023-03-20 15:49 | MHC.OFFVIS ---
Intake Vital Signs 03/20/23 15:50 Height 5 ft 9 in Weight 237 lb 14.06 oz BMI 35.1 BP 120/80 Blood Pressure Location Lt brachial Position Sitting Pulse 102 H Pulse Source Pulse Oximeter Temp 98 F Temp Source Skin Pulse Oximetry (%) 99 Oxygen Delivery Method Room Air Intake Visit Reasons: RA Intake Note: Pt last seen 01/08/23, presents today for follow up and test results. Continues on Lyrica 150mg and 200mg at bedtime. 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 Accompanied by: Self / Same As Patient Allergies aclidinium [Tudorza Pressair] Allergy (Intermediate, Verified 03/20/23 15:49) Hives Medication List - Last Reconciled 03/20/23 by Aleah Uriostegui MD albuterol sulfate 90 mcg/actuation 2 puffs PO Q6H PRN atorvastatin 20 mg PO DAILY azelastine 1 spray intranasal BID PRN baclofen 10 mg PO TID cetirizine TAKE 1 TABLET BY MOUTH EVERY DAY diclofenac sodium 1% (Voltaren Arthritis Pain) 4 grams topical QID PRN fluticasone propionate 50 mcg/actuation 2 sprays intranasal DAILY 30 days fluticasone propionate 50 mcg/actuation 2 sprays intranasal DAILY PRN crfzhudxeqv-fgweogbbh-zoqnkctw 200-62.5-25 mcg (Trelegy Ellipta) 1 ea PO DAILY folic acid 1 mg PO DAILY ipratropium-albuterol 0.5 mg-3 mg(2.5 mg base)/3 mL 3 mL inhalation DAILY PRN lidocaine 5% 1 patch topical DAILY methotrexate sodium 20 mg (8 x 2.5 mg) PO QWEEK montelukast 10 mg PO DAILY nebulizers As directed omeprazole 40 mg PO DAILY pregabalin (Lyrica) 150 mg PO DAILY pregabalin 200 mg PO BEDTIME roflumilast 500 mcg PO DAILY HPI HPI Comments History of Present Illness Details 52-year-old female with seronegative RA, fibromyalgia returns for follow-up. She is not currently on any DMARDs. Over the last 3 is she has been having pain in her right foot and right ankle. She also has been having intermittent pain and swelling of her hands. Initial history: This is a 52-year-old female with seronegative RA and fibromyalgia returns for follow-up. Not currently on any medication. Patient was last evaluated by Kaia Rascon 07/05. At that time she had been off methotrexate for 4 months. At that time it was decided to watch patient off DMARDs. Patient stated that her joint inflammation never changed when on or off medication. Patient has been having intermittent pain and swelling of her hands, ankles, feet. Over the last 3 days she has been having mid back pain radiating towards her right lower extremity. She denies any trauma or overuse. She also continues to have diffuse fibromyalgia pain. 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 Seronegative rheumatoid arthritis Surgical History History of total knee replacement History of knee surgery Hx of detached retina repair History of ankle surgery History of colon resection Hx of colonoscopy History of total knee arthroplasty Hx of cholecystectomy H/O bilateral breast reduction surgery Hx of tubal ligation Family History Maternal Grandmother Skin cancer Maternal Aunt Breast cancer Maternal Uncle Prostate cancer Social History Household Members: Spouse Housing: House Are you a primary aged or disabled care worker to a significant other at home: No Do you presently have visiting nurse or other home services: No Alcohol intake: never Patient Tobacco Use Status: Never used Tobacco service: No Current occupational status: disabled Review of Systems Musc Reports back pain, Reports myalgias, Reports arthralgias, Reports joint swelling, Reports limited range of motion and Reports stiffness Physical Exam Vital Signs: Last Vital Signs Temp 98 F 03/20/23 15:50 Pulse 102 H 03/20/23 15:50 BP 120/80 03/20/23 15:50 Pulse Ox 99 03/20/23 15:50 Oxygen Delivery Method Room Air 03/20/23 15:50 BMI result Body Mass Index 35.1 Const General: cooperative, healthy appearing and comfortable Nutritional Appearance: obese Orientation/consciousness: patient oriented x3 Limitations: no limitations HEENT Head: Yes normocephalic and Yes atraumatic Mouth: moist mucous membranes Resp Effort & Inspection: normal respiratory effort and able to speak in complete sentences Auscultation: clear to auscultation bilaterally Cardio Rate: regular rate Rhythm: regular rhythm Skin General skin exam: no rashes or lesions noted Neuro General: patient oriented x3 Extrem Other: Diffuse fibromyalgia tender points Puffiness of left 3rd MCP Few tender MCPs on the right hand Right ankle tenderness and swelling Right 3rd and 4th MTP tenderness Results Reviewed Results Reviewed: Bone scan in 2014 with findings suggestive of RA Right hand MRI 2014 showed mild flexor tenosynovitis of right 1st flexor tendon Ordering Physician: Aleah Uriostegui MD Date of Service: 01/08/23 Procedure(s): XR foot LT min 3V Accession Number(s): [id number] cc: Fernando Pickens MD; Aleah Uriostegui MD~ EXAMINATION: XR ANKLE, RIGHT XR ANKLE, LEFT XR FOOT, RIGHT XR FOOT, LEFT CLINICAL INFORMATION: M06.00 - Rheumatoid arthritis without rheumatoid factor, unspecified site. COMPARISON: Ankle radiographs dated 06/16/2020. TECHNIQUE: AP, lateral, and mortise views of each ankle and AP, lateral, and oblique views of each foot. FINDINGS: RIGHT ANKLE: Small marginal osteophytes are present at the medial and lateral aspects of the ankle. No effusion. The bones are osteopenic. Mild chronic-appearing periosteal bone formation is present at the lateral aspect of the distal tibia, likely along the interosseous membrane. This is of doubtful clinical significance and not significantly changed. No appreciable talocrural osteochondral injuries. No loose bodies are erosions are identified at the ankle. Mild soft tissue swelling. LEFT ANKLE: Single fixation screw is present in the distal fibula. No acute fractures. The ankle mortise is symmetric. Tiny talocrural osteophytes. Alignment appears appropriate. Soft tissues are swollen near the ankle. No erosions are identified. RIGHT FOOT: Moderate-sized enthesopathic spurs are present at the Achilles tendon insertion and plantar fascial origin on the calcaneus. No fracture or malalignment. Mild osteoarthritis in the MTP joints and interphalangeal joints with small marginal osteophytes. There is a subtle erosion at the lateral margin of the great toe proximal phalanx at the interphalangeal joint. No additional erosions are suspected. Mild soft tissue swelling. LEFT FOOT: Moderate-sized enthesopathic spurs are present at the Achilles tendon insertion and plantar fascial origin on the calcaneus. No fracture or malalignment. Mild osteoarthritis at the 1st MTP joint and multiple interphalangeal joints. No erosions are identified. Underlying soft tissue swelling. XR/XR foot LT min 3V IMPRESSION: 1. Subtle erosion at the lateral margin of the right great toe proximal phalanx at the interphalangeal joint. No additional erosions are identified in either foot or ankle. This singular erosion is nonspecific in isolation, though rheumatoid arthritis is possible. 2. Mild bilateral ankle and foot osteoarthrosis. 3. Mild soft tissue swelling at both ankles and feet, nonspecific. Assessment & Plan Assessment & Plan (1) Seronegative rheumatoid arthritis: Comment: dx 2014 Plaquenil - dates unknown Sulfasalazine- 05/2014- 04/2015 - ineffective Enbrel- 07/2017-10/2017 - ineffective Kevzara 08/2018-04/2019- did not take due to expense Humira- 08/2018 Leflunomide -04/2019 Methotrexate- 2016- November 2021-stop for right knee arthroplasty, remained off Code(s): M06.00 - Rheumatoid arthritis without rheumatoid factor, unspecified site Plan: This is a 52-year-old female with seronegative RA who presents for follow-up. In 2014 patient's bone scan showed some findings suggestive of RA, right hand MRI showed mild 1st flexor tenosynovitis, patient was on prednisone. Patient has been off methotrexate for about 14 months. She continues to have intermittent swelling of her hands and feet. Updated x-ray shows periarticular erosive changes in the right 1st MTP, inflammatory markers are elevated. Will need to restart DMARDs Restart methotrexate 20 mg weekly. Advised patient to split the dose. Restart folic acid 1 mg daily. Labs before next visit in 3 months (2) Fibromyalgia: Code(s): M79.7 - Fibromyalgia Plan: Continue Lyrica 150 mg during the day and 200 mg at bedtime. Plan I spent 30 minutes reviewing patient's chart, evaluating patient, ordering diagnostic workup, counseling patient and documenting in the chart Orders: Orders Complete Blood Count Auto Diff 3 Months M06.00 - Rheumatoid arthritis without rheumatoid factor, unspecified site Comprehensive Met. Panel 3 Months M06.00 - Rheumatoid arthritis without rheumatoid factor, unspecified site C Reactive Protein 3 Months M06.00 - Rheumatoid arthritis without rheumatoid factor, unspecified site Erythrocyte Sedimentation Rate 3 Months M06.00 - Rheumatoid arthritis without rheumatoid factor, unspecified site Medications: New methotrexate sodium 4 tabs Saturday morning and 4 tabs Saturday night 20 mg (8 x 2.5 mg) PO QWEEK 96 tabs 0RF folic acid 1 mg PO DAILY 90 tabs 1RF Coding Level of Care Code Est Pt Level 4 (79903) Diagnoses Seronegative rheumatoid arthritis M06.00 Fibromyalgia M79.7
[2023-03-20 15:50] VITALS: BP 120/80; PULSE 102; TEMP 36.6; O2SAT 99; BMI 35.1
== END 2023-03-20 16:23 | disposition home or self-care (01) ==
PROVIDERS: PCP Internal Medicine; Visit Provider Student in an Organized Health Care Education/Training Program
DX: M06.00 Rheumatoid arthritis without rheumatoid factor, unspecified site (principal); M79.7 Fibromyalgia
CPT/HCPCS: 99214

== ENCOUNTER → 2023-03-20 15:47 | Outpatient (BNVA) | payer BC, MEDICARE, SELFPAY | PROVIDERS: PCP Internal Medicine; Visit Provider Student in an Organized Health Care Education/Training Program ==

== ENCOUNTER 2023-05-27 10:46 | Outpatient (AMB) | payer BC, MEDICARE, SELFPAY ==
[2023-05-27 10:51] VITALS: PULSE 90; O2SAT 98; BMI 34.3
--- NOTE | 2023-05-27 10:51 | A.OFFVIS_ITS ---
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 She is doing much better with the CPAP. The CPAP therapy has been affecting beneficial. She uses it for more than 4 hours a night. Overall she is doing well her asthma seems to be stable. She continues on her respiratory therapy with good effect. She has had to use her nebulized therapy a few times the last month with good effect. Her CPAP therapy has been affecting beneficial, however, she was not able to use it about a month ago because of nasal congestion and sinusitis. She has not been able to get supplies either. I explained to her that may be a an issue with the amount time that she is using her CPAP in her insurance is not approving any supply delivery. Therefore I encouraged her to continue using her CPAP more than 4 hours a night. I did ask the office to call her DME company to make sure that we can facility anything that needs to be done in order for her to get supplies. 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 This also appears to be a little better than before. 09/28/2021 the patient is here for a pulmonary follow-up visit. Overall the patient has been doing very well from a respiratory status. She has not required any prednisone or any rescue therapy. Her maintenance therapy have been very helpful for her keeping her under control in regards of her asthma. She continues the Daliresp. This medication has been very effective in beneficial. In addition to that the Trelegy inhaler she uses daily. In regards the CPAP the patient has been doing well. Although she is not getting supplies regularly. I will send another prescription for supplies to the local DME company. The patient does use her CPAP more than 4 hours a night. She continues on the methotrexate. She is currently taking higher dose of methotrexate due to the fact that she has still some persistent inflammatory arthritis in addition to elevations in the sedimentation rate. I do not see that the patient is developing any adverse effects from the methotrexate. Patient will need to undergo pulmonary function studies to make sure that she is tolerating the methotrexate. In addition to that she have a CT scan prior to the next visit to follow-up with pulmonary nodules. 03/05/2022 the patient is here pulmonary follow-up visit. Back in November the patient did have a total knee replacement. She tolerated the surgery well. She did well. Postoperative that she did develop a DVT. He had a CTA at that time that ruled out a thromboembolic event to the chest. She was placed on Eliquis and she is still on it. She did follow-up with Hematology in recommend the 6 months of anticoagulation. In addition to that the patient developed COVID. She knows recovered. After the COVID she did develop an asthma exacerbation. now she is back to her baseline. She is using her respiratory therapy with good effect. She also continue using her CPAP. The CPAP therapy has been affecting beneficial. She does use it for more than 4 hours a night. We did review her recent CT scan of the chest demonstrating stable pulmonary nodules. Otherwise the patient is doing well this time. Will follow-up in 6-8 months. 11/26/2022 the patient is here for pulmon shamar follow-up visit. The patient continues to do fairly well from a respiratory status. She did return back from [place]. While she was there her breathing was okay. When she came back she was noticed seeing some upper respiratory symptoms. She did test for COVID she was negative. She is starting to feel better. She has been using CPAP in the CPAP therapy continues to be affecting beneficial. However, for some reason her [employer] company has not center any supplies and she is very unhappy with them. She would like to switch companies. Her machine is no longer working appro priately either. The machine is older than 5 years. She would benefit from getting a replacement machine with a new DME company is starting over. Will go ahead and submit a new prescription for a replacement APAP machine to a local DME company. The patient has been using her respiratory therapy with good effect. She has not required any prednisone. Continues on the Trelegy with good effect. She also on the singular. Her major complaint is nasal congestion. Patient will continue using her nasal sprays and will start nasal rinsing at this time. 05/27/2023 the patient is here for pulmon shamar follow-up visit. The patient is doing fairly well. Although recently she was exposed to a viral syndrome and a sick contact and started developing sinus congestion pressure in addition to scratchy throat and has been coughing. She does not feel like her asthma is affected at this time but she is concerned that she is going to start getting symptoms. She is noticed that increased secretions from her nasal passages that is now more thick and yellowish in color. The patient also states that she still having significant daytime drowsiness. Her [place] score is elevated 10/24. She had been on CPAP before but many years ago. She has been off it for many years at this time. Based on elevated [place] score her history she did undergo a repeat sleep study in January 2023 demonstrating an AHI of 10 consistent with mild sleep apnea. The patient did have some hypoxia. The patient benefits from going back on CPAP. Specially with cardiovascular risk factors. Will go ahead and send a new prescription for replacement machine to be provided to a [employer]. 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 Seronegative rheumatoid arthritis Surgical History History of total knee replacement History of knee surgery Hx of detached retina repair History of ankle surgery History of colon resection Hx of colonoscopy History of total knee arthroplasty Hx of cholecystectomy H/O bilateral breast reduction surgery Hx of tubal ligation Family History Maternal Grandmother Skin cancer Maternal Aunt Breast cancer Maternal Uncle Prostate cancer Social History Household Members: Spouse Housing: House Are you a primary rn acute care to a significant other at home: No Do you presently have visiting nurse or other home services: No Alcohol intake: never Patient Tobacco Use Status: Never used Tobacco service: No Current occupational status: disabled Review of Systems Const Reports daytime sleepiness, Denies night sweats and Reports snoring ENT Denies change in voice, Denies lip swelling, Denies mouth pain, Reports nasal congestion, Reports nasal discharge, Reports nasal obstruction, Reports post nasal drip, Reports sinus pressure and Denies tongue swelling Card Denies chest pain and Denies dyspnea on exertion Resp Reports cough, Denies dyspnea on exertion, Reports snoring and Reports wheezing GI Denies abdominal pain Musc Reports myalgias, Reports arthralgias, Reports joint swelling and Reports limited range of motion Neuro Denies Neuro-related abnormal movements Psych Denies no additional complaints Flavio/Lymph Denies easy bleeding and Denies lymphadenopathy Aller/Immun Denies lip swelling, Denies tongue swelling and Reports wheezing Physical Exam Vital Signs: Last Vital Signs Pulse 90 05/27/23 10:51 Pulse Ox 98 05/27/23 10:51 Oxygen Delivery Method Room Air 05/27/23 10:51 BMI result Body Mass Index 34.3 Const General: alert Neck Neck: Yes normal visual inspection, Yes full ROM and Yes no lymphadenopathy Chest Chest palpation & inspection: normal inspection of the chest Resp Auscultation: diminished lung sounds Cardio Rate: regular rate Rhythm: regular rhythm Heart sounds: S1 normal heart sound present and S2 normal heart sound present GI Palpation (GI): Soft to palpation and nontender Auscultation: normal bowel sounds Skin General skin exam: rashes and/or lesions noted Extrem General: No clubbing, No cyanosis and Yes edema Assessment & Plan Assessment & Plan (1) Rhinosinusitis: Code(s): J32.9 - Chronic sinusitis, unspecified (2) CANDELARIA on CPAP: Code(s): G47.33 - Obstructive sleep apnea (adult) (pediatric); Z99.89 - Dependence on other enabling machines and devices (3) Asthma: Code(s): J45.909 - Unspecified asthma, uncomplicated Qualifiers: Asthma complication type: uncomplicated Asthma persistence: persistent Asthma severity: moderate Qualified Code(s): J45.40 - Moderate persistent asthma, uncomplicated (4) Pulmonary nodules: Code(s): R91.8 - Other nonspecific abnormal finding of lung field (5) DVT (deep venous thrombosis): Comment: RLE Code(s): I82.409 - Acute embolism and thrombosis of unspecified deep veins of unspecified lower extremity Qualifiers: Affected thrombotic vein of extremity: unspecified vein of extremity Plan Needs to restart APAP, CPAP is malfunctioning and is older than 5 years. Will request a replacement machine. start medrol pk start Doxycycline if worsens Continue Trelegy 200 daily RAQUEL as needed Flonase/astelin NS Continue Singulair Continue Daliresp F/U 6-8 months Medications: New doxycycline hyclate 100 mg PO BID 10 days 20 caps 0RF methylprednisolone (Medrol ([place])) PO PER PKG DIR 6 days 21 ea 0RF benzonatate 200 mg PO BID 30 days PRN 60 caps 0RF cough Coding Level of Care Code Est Pt Level 4 (41641) Diagnoses Rhinosinusitis J32.9 CANDELARIA on CPAP G47.33; Z99.89 Moderate persistent asthma without complication J45.40 Asthma complication type: uncomplicated Asthma persistence: persistent Asthma severity: moderate Pulmonary nodules R91.8 DVT (deep venous thrombosis) I82.409 Affected thrombotic vein of extremity: unspecified vein of extremity Time Spent (min) 18
== END 2023-05-27 11:25 | disposition home or self-care (01) ==
PROVIDERS: PCP Internal Medicine; Visit Provider Hospitalist
DX: J32.9 Chronic sinusitis, unspecified (principal); G47.33 Obstructive sleep apnea (adult) (pediatric); Z99.89 Dependence on other enabling machines and devices; J45.40 Moderate persistent asthma, uncomplicated; R91.8 Other nonspecific abnormal finding of lung field; I82.409 Acute embolism and thrombosis of unspecified deep veins of unspecified lower extremity
CPT/HCPCS: 99214

== ENCOUNTER → 2023-05-27 10:46 | Outpatient (BNVA) | payer BC, MEDICARE, SELFPAY | PROVIDERS: PCP Internal Medicine; Visit Provider Hospitalist | DX: J44.9 Chronic obstructive pulmonary disease, unspecified (principal) ==

== ENCOUNTER 2023-06-21 13:54 | Outpatient (REF) | payer BC, MEDICARE, SELFPAY ==
[2023-06-21 14:05] LABS: MANUAL DIFF FLAG NO
[2023-06-21 15:39] LABS: Basophils Percent Auto 0.6 % (0-2); Eosinophils Absolute Auto 0.1 X10*3/uL (0.0-0.4); Hematocrit 38.6 % (37.0-47.0); Hemoglobin 12.2 g/dl (12.0-16.0); Imm Gran Abs Auto 0.03 X10*3/uL (0.00-0.03); Imm Gran Pct Auto 0.4 % (0.0-0.4); Lymphocytes Absolute Auto 2.3 X10*3/uL (1.2-4.9); Lymphocytes Percent Auto 31.7 % (20-40); Mean Corpuscular HGB Conc 31.6 g/dl (31.0-35.0); Mean Corpuscular Hemoglobin 28.3 pg (27.0-33.0); Mean Corpuscular Volume 89.6 fL (80.0-98.0); Mean Platelet Volume 10.3 fL (9.4-12.3); Monocytes Absolute Auto 0.4 X10*3/uL (0.1-1.2); Monocytes Percent Auto 5.3 % (2-11); Neutrophils Absolute Auto 4.4 x10*3/uL (2.0-8.3); Platelet Count 365 X10*3/uL (160-400); Red Blood Count 4.31 X10*6/uL (4.20-5.50); Red Cell Distribution Width 17.1 % (11.0-16.0); White Blood Count 7.2 X10*3/uL (4.8-10.8)
[2023-06-21 16:11] LABS: Alanine Aminotransferase 16 U/L (0-31); Alkaline Phosphatase 139 U/L (39-117); Anion Gap 9 (12-20); Aspartate Amino Transferase 13 U/L (5-31); Bilirubin Total 0.4 mg/dL (0.0-1.0); Blood Urea Nitrogen 12 mg/dL (9-16); C Reactive Protein 0.28 mg/dL (< or = 0.50); Calcium 9.8 mg/dL (8.4-10.2); Carbon Dioxide 27 mmol/L (22-29); Chloride 111 mmol/L (96-108); Estimated Glomerular Filt Rate > 60; Glucose Random 87 mg/dL (60-115); Potassium 4.4 mmol/L (3.3-5.1); Sodium 143 mmol/L (135-145); Total Protein 7.7 g/dL (6.5-8.0)
[2023-06-21 16:17] LABS: Erythrocyte Sedimentation Rate 30 MM/HR (0-20)
== END 2023-06-21 13:55 | disposition home or self-care (01) ==
LOC: HO.LAB 13:54
PROVIDERS: PCP Internal Medicine; Visit Provider Student in an Organized Health Care Education/Training Program
DX: M06.00 Rheumatoid arthritis without rheumatoid factor, unspecified site (principal)
CPT/HCPCS: 36415; 80053; 85025; 85652; 86140

== ENCOUNTER 2023-06-24 10:36 | Outpatient (AMB) | payer BC, MEDICARE, SELFPAY ==
--- NOTE | 2023-06-24 10:37 | A.OFFVIS_ITS ---
Intake Vital Signs 06/24/23 10:39 Height 5 ft 9 in Weight 243 lb 2.718 oz BMI 35.9 BP 112/70 Blood Pressure Location Lt brachial Position Sitting Pulse 77 Pulse Source Pulse Oximeter Temp 96.8 F Temp Source Skin Pulse Oximetry (%) 95 Oxygen Delivery Method Room Air Intake Visit Reasons: RA Intake Note: Patient last seen 03/20/23 presents today for follow up and test results. Allergies aclidinium [Tudorza Pressair] Allergy (Intermediate, Verified 06/24/23 10:41) Hives Medication List - Last Reconciled 06/24/23 by Aleah Uriostegui MD albuterol sulfate 90 mcg/actuation 2 puffs PO Q6H PRN atorvastatin 20 mg PO DAILY azelastine 1 spray intranasal BID PRN baclofen 10 mg PO TID PRN benzonatate 200 mg PO BID PRN 30 days cetirizine TAKE 1 TABLET BY MOUTH EVERY DAY diclofenac sodium 1% (Voltaren Arthritis Pain) 4 grams topical QID PRN fluticasone propionate 50 mcg/actuation 2 sprays intranasal DAILY 30 days dvdspfmrknb-gnhfwqnky-doicctlm 200-62.5-25 mcg (Trelegy Ellipta) 1 ea inhalation DAILY folic acid 1 mg PO DAILY ipratropium-albuterol 0.5 mg-3 mg(2.5 mg base)/3 mL 3 mL inhalation DAILY PRN lidocaine 5% 1 patch topical DAILY methotrexate sodium 20 mg (8 x 2.5 mg) PO QWEEK methylprednisolone (Medrol ([place])) PO PER PKG DIR 6 days montelukast 10 mg PO DAILY nebulizers As directed omeprazole 40 mg PO DAILY pregabalin 150 mg PO DAILY pregabalin 200 mg PO BEDTIME roflumilast 500 mcg PO DAILY HPI HPI Comments History of Present Illness Details 53-year-old female with seronegative RA, fibromyalgia returns for follow-up. She is on methotrexate 20 mg weekly split dose, folic acid 1 mg daily. She is doing well overall. States that recently she has been having bilateral elbow pain. Little worse on the left. She denies any significant swelling. She has been drinking curcumin Tea, which she believes is helping. Initial history: This is a 52-year-old female with seronegative RA and fibromyalgia returns for follow-up. Not currently on any medication. Patient was last evaluated by Kaia Rascon 07/05. At that time she had been off methotrexate for 4 months. At that time it was decided to watch patient off DMARDs. Patient stated that her joint inflammation never changed when on or off medication. Patient has been having intermittent pain and swelling of her hands, ankles, feet. Over the last 3 days she has been having mid back pain radiating towards her right lower extremity. She denies any trauma or overuse. She also continues to have diffuse fibromyalgia pain. She is on Lyrica 200 mg nightly and 150 mg in the morning PFSH Medical History Hepatitis C antibody positive in blood Leg length discrepancy Pulmonary nodules CANDELARIA on CPAP Asthma Insomnia Fibromyalgia Seronegative rheumatoid arthritis Surgical History History of total knee replacement History of knee surgery Hx of detached retina repair History of ankle surgery History of colon resection Hx of colonoscopy History of total knee arthroplasty Hx of cholecystectomy H/O bilateral breast reduction surgery Hx of tubal ligation Family History Maternal Grandmother Skin cancer Maternal Aunt Breast cancer Maternal Uncle Prostate cancer Social History Household Members: Spouse Housing: House Are you a primary medicare biller to a significant other at home: No Do you presently have visiting nurse or other home services: No Alcohol intake: never Patient Tobacco Use Status: Never used Tobacco service: No Current occupational status: disabled Review of Systems Musc Reports back pain, Reports arthralgias, Reports limited range of motion and Reports stiffness Physical Exam Vital Signs: Last Vital Signs Temp 96.8 F 06/24/23 10:39 Pulse 77 06/24/23 10:39 BP 112/70 06/24/23 10:39 Pulse Ox 95 06/24/23 10:39 Oxygen Delivery Method Room Air 06/24/23 10:39 BMI result Body Mass Index 35.9 Const General: cooperative, healthy appearing and comfortable Nutritional Appearance: obese Orientation/consciousness: patient oriented x3 Limitations: no limitations HEENT Head: Yes normocephalic and Yes atraumatic Mouth: moist mucous membranes Resp Effort & Inspection: normal respiratory effort and able to speak in complete sentences Cardio Rate: regular rate Rhythm: regular rhythm Skin General skin exam: no rashes or lesions noted Neuro General: patient oriented x3 Extrem Other: Diffuse fibromyalgia tender points Mild swelling of right 3rd MCP, mild tenderness of right 3rd and 4th MCPs Mild swelling and tenderness of left 3rd MCP Left elbow pain with full extension without swelling Results Reviewed Results Reviewed: Bone scan in 2015 with findings suggestive of RA Right hand MRI 2015 showed mild flexor tenosynovitis of right 1st flexor tendon Ordering Physician: Aleah Uriostegui MD Date of Service: 01/08/23 Procedure(s): XR foot LT min 3V Accession Number(s): [id number] cc: Fernando Pickens MD; Aleah Uriostegui MD~ EXAMINATION: XR ANKLE, RIGHT XR ANKLE, LEFT XR FOOT, RIGHT XR FOOT, LEFT CLINICAL INFORMATION: M06.00 - Rheumatoid arthritis without rheumatoid factor, unspecified site. COMPARISON: Ankle radiographs dated 06/16/2020. TECHNIQUE: AP, lateral, and mortise views of each ankle and AP, lateral, and oblique views of each foot. FINDINGS: RIGHT ANKLE: Small marginal osteophytes are present at the medial and lateral aspects of the ankle. No effusion. The bones are osteopenic. Mild chronic-appearing periosteal bone formation is present at the lateral aspect of the distal tibia, likely along the interosseous membrane. This is of doubtful clinical significance and not significantly changed. No appreciable talocrural osteochondral injuries. No loose bodies are erosions are identified at the ankle. Mild soft tissue swelling. LEFT ANKLE: Single fixation screw is present in the distal fibula. No acute fractures. The ankle mortise is symmetric. Tiny talocrural osteophytes. Alignment appears appropriate. Soft tissues are swollen near the ankle. No erosions are identified. RIGHT FOOT: Moderate-sized enthesopathic spurs are present at the Achilles tendon insertion and plantar fascial origin on the calcaneus. No fracture or malalignment. Mild osteoarthritis in the MTP joints and interphalangeal joints with small marginal osteophytes. There is a subtle erosion at the lateral margin of the great toe proximal phalanx at the interphalangeal joint. No additional erosions are suspected. Mild soft tissue swelling. LEFT FOOT: Moderate-sized enthesopathic spurs are present at the Achilles tendon insertion and plantar fascial origin on the calcaneus. No fracture or malalignment. Mild osteoarthritis at the 1st MTP joint and multiple interphalangeal joints. No erosions are identified. Underlying soft tissue swelling. XR/XR foot LT min 3V IMPRESSION: 1. Subtle erosion at the lateral margin of the right great toe proximal phalanx at the interphalangeal joint. No additional erosions are identified in either foot or ankle. This singular erosion is nonspecific in isolation, though rheumatoid arthritis is possible. 2. Mild bilateral ankle and foot osteoarthrosis. 3. Mild soft tissue swelling at both ankles and feet, nonspecific. Assessment & Plan Assessment & Plan (1) Seronegative rheumatoid arthritis: Comment: dx 2014 Plaquenil - dates unknown Sulfasalazine- 05/2014- 04/2015 - ineffective Enbrel- 07/2017-10/2017 - ineffective Kevzara 08/2018-04/2019- did not take due to expense Humira- 08/2018 Leflunomide -04/2019 Methotrexate- 2016- November 2021-stop for right knee arthroplasty, remained off Restarted 03/2023 effective Code(s): M06.00 - Rheumatoid arthritis without rheumatoid factor, unspecified site Plan: This is a 53-year-old female with seronegative RA who presents for follow-up. On methotrexate 20 mg weekly plus folic acid 1 mg daily. Doing well overall with less swollen and tender joints. Inflammatory markers improving. Continue with methotrexate 20 mg weekly split dose plus folic acid 1 mg daily Labs before next visit in 3 months (2) Fibromyalgia: Code(s): M79.7 - Fibromyalgia Plan: Continue Lyrica 150 mg during the day and 200 mg at bedtime. (3) FPC methotrexate user: Code(s): Z79.899 - Other technician terminal and repeater (current) drug therapy Plan: Monitor safety labs Plan I spent 30 minutes reviewing patient's chart, evaluating patient, ordering diagnostic workup, counseling patient and documenting in the chart Orders: Orders Comprehensive Met. Panel 3 Months M06.00 - Rheumatoid arthritis without rheumatoid factor, unspecified site, Z79.899 - Other prison (current) drug therapy Erythrocyte Sedimentation Rate 3 Months M06.00 - Rheumatoid arthritis without rheumatoid factor, unspecified site, Z79.899 - Other technician terminal and repeater (current) drug therapy Complete Blood Count Auto Diff 3 Months M06.00 - Rheumatoid arthritis without rheumatoid factor, unspecified site, Z79.899 - Other technician terminal and repeater (current) drug therapy C Reactive Protein 3 Months M06.00 - Rheumatoid arthritis without rheumatoid factor, unspecified site, Z79.899 - Other prison (current) drug therapy Medications: New naproxen orally; Take 1 tab twice daily for 1 week then 1 tab daily for 1 week then take 1 tab once daily as needed for joint pain 30 tabs 1RF Refilled methotrexate sodium 20 mg (8 x 2.5 mg) PO QWEEK 96 tabs 0RF Coding Level of Care Code Est Pt Level 4 (81613) Diagnoses Seronegative rheumatoid arthritis M06.00 Fibromyalgia M79.7 extermination inspector methotrexate user Z79.899
[2023-06-24 10:39] VITALS: BP 112/70; PULSE 77; TEMP 36; O2SAT 95; BMI 35.9
== END 2023-06-24 11:06 | disposition home or self-care (01) ==
PROVIDERS: PCP Internal Medicine; Visit Provider Student in an Organized Health Care Education/Training Program
DX: M06.00 Rheumatoid arthritis without rheumatoid factor, unspecified site (principal); M79.7 Fibromyalgia; Z79.899 Other long term (current) drug therapy
CPT/HCPCS: 99214

== ENCOUNTER → 2023-06-24 10:36 | Outpatient (BNVA) | payer BC, MEDICARE, SELFPAY | PROVIDERS: PCP Internal Medicine; Visit Provider Student in an Organized Health Care Education/Training Program ==

== ENCOUNTER 2023-09-30 15:06 | Outpatient (REF) | payer BC, MEDICARE, SELFPAY ==
[2023-09-30 15:21] LABS: MANUAL DIFF FLAG NO
[2023-09-30 15:47] LABS: Basophils Percent Auto 0.3 % (0-2); Eosinophils Absolute Auto 0.1 X10*3/uL (0.0-0.4); Eosinophils Percent Auto 0.8 % (0-4); Hematocrit 38.5 % (37.0-47.0); Hemoglobin 12.2 g/dl (12.0-16.0); Imm Gran Abs Auto 0.05 X10*3/uL (0.00-0.03); Imm Gran Pct Auto 0.5 % (0.0-0.4); Lymphocytes Absolute Auto 3.1 X10*3/uL (1.2-4.9); Lymphocytes Percent Auto 28.6 % (20-40); Mean Corpuscular HGB Conc 31.7 g/dl (31.0-35.0); Mean Corpuscular Volume 88.5 fL (80.0-98.0); Mean Platelet Volume 10.8 fL (9.4-12.3); Monocytes Absolute Auto 0.5 X10*3/uL (0.1-1.2); Monocytes Percent Auto 4.3 % (2-11); Neutrophils Absolute Auto 7.1 x10*3/uL (2.0-8.3); Neutrophils Percent Auto 65.5 % (45-73); Platelet Count 405 X10*3/uL (160-400); Red Blood Count 4.35 X10*6/uL (4.20-5.50); Red Cell Distribution Width 16.6 % (11.0-16.0); White Blood Count 10.8 X10*3/uL (4.8-10.8)
[2023-09-30 16:22] LABS: Alanine Aminotransferase 9 U/L (0-31); Alkaline Phosphatase 130 U/L (39-117); Anion Gap 13 (12-20); Aspartate Amino Transferase 9 U/L (5-31); Bilirubin Total 0.3 mg/dL (0.0-1.0); Blood Urea Nitrogen 19 mg/dL (9-16); C Reactive Protein 0.26 mg/dL (< or = 0.50); Calcium 9.2 mg/dL (8.4-10.2); Carbon Dioxide 27 mmol/L (22-29); Chloride 106 mmol/L (96-108); Estimated Glomerular Filt Rate > 60; Glucose Random 75 mg/dL (60-115); Potassium 4.1 mmol/L (3.3-5.1); Sodium 142 mmol/L (135-145); Total Protein 7.8 g/dL (6.5-8.0)
[2023-09-30 16:30] LABS: Erythrocyte Sedimentation Rate 44 MM/HR (0-20)
== END 2023-09-30 15:07 | disposition home or self-care (01) ==
LOC: HO.LAB 15:06
PROVIDERS: Visit Provider Student in an Organized Health Care Education/Training Program
DX: M06.00 Rheumatoid arthritis without rheumatoid factor, unspecified site (principal); Z79.899 Other long term (current) drug therapy
CPT/HCPCS: 36415; 80053; 85025; 85652; 86140

== ENCOUNTER 2023-10-03 08:32 | Outpatient (AMB) | payer BC, MEDICARE, SELFPAY ==
--- NOTE | 2023-10-03 08:37 | A.OFFVIS_ITS ---
Vital Signs 10/03/23 08:38 Height 5 ft 9 in Weight 243 lb 2.718 oz BMI 35.9 Pulse 87 Pulse Source Pulse Oximeter Pulse Oximetry (%) 97 Oxygen Delivery Method Room Air Intake Visit Reasons: Dry Cough, shortness of breath Accounting Support Specialist Required: No Allergies aclidinium [Tudorza Pressair] Allergy (Intermediate, Verified 10/04/23 14:18) Hives HPI Comments Details: The patient is a 53 y/o woman with a history of underlying asthma, chronic rhinitis, RA and CANDELARIA on CPAP. She is doing much better with the CPAP. The CPAP therapy has been affecting beneficial. She uses it for more than 4 hours a night. Overall she is doing well her asthma seems to be stable. She continues on her respiratory therapy with good effect. She has had to use her nebulized therapy a few times the last month with good effect. Her CPAP therapy has been affecting beneficial, however, she was not able to use it about a month ago because of nasal congestion and sinusitis. She has not been able to get supplies either. I explained to her that may be a an issue with the amount time that she is using her CPAP in her insurance is not approving any supply delivery. Therefore I encouraged her to continue using her CPAP more than 4 hours a night. I did ask the office to call her DME company to make sure that we can facility anything that needs to be done in order for her to get supplies. She is still dealing with her rheumatoid arthritis and is following closely with senior quality manager. This also appears to be a little better than before. 09/28/2021 the patient is here for a pulmonary follow-up visit. Overall the patient has been doing very well from a respiratory status. She has not required any prednisone or any rescue therapy. Her maintenance therapy have been very helpful for her keeping her under control in regards of her asthma. She continues the Daliresp. This medication has been very effective in beneficial. In addition to that the Trelegy inhaler she uses daily. In regards the CPAP the patient has been doing well. Although she is not getting supplies regularly. I will send another prescription for supplies to the local DME company. The patient does use her CPAP more than 4 hours a night. She continues on the methotrexate. She is currently taking higher dose of methotrexate due to the fact that she has still some persistent inflammatory arthritis in addition to elevations in the sedimentation rate. I do not see that the patient is developing any adverse effects from the methotrexate. Patient will need to undergo pulmonary function studies to make sure that she is tolerating the methotrexate. In addition to that she have a CT scan prior to the next visit to follow-up with pulmonary nodules. 03/05/2022 the patient is here pulmonary follow-up visit. Back in November the patient did have a total knee replacement. She tolerated the surgery well. She did well. Postoperative that she did develop a DVT. He had a CTA at that time that ruled out a thromboembolic event to the chest. She was placed on Eliquis and she is still on it. She did follow-up with Hematology in recommend the 6 months of anticoagulation. In addition to that the patient developed COVID. She knows recovered. After the COVID she did develop an asthma exacerbation. now she is back to her baseline. She is using her respiratory therapy with good effect. She also continue using her CPAP. The CPAP therapy has been affecting beneficial. She does use it for more than 4 hours a night. We did review her recent CT scan of the chest demonstrating stable pulmonary nodules. Otherwise the patient is doing well this time. Will follow-up in 6-8 months. 11/26/2022 the patient is here for pulmonary follow-up visit. The patient continues to do fairly well from a respiratory status. She did return back from [place]. While she was there her breathing was okay. When she came back she was noticed seeing some upper respiratory symptoms. She did test for COVID she was negative. She is starting to feel better. She has been using CPAP in the CPAP therapy continues to be affecting beneficial. However, for some reason her DME company has not center any supplies and she is very unhappy with them. She would like to switch companies. Her machine is no longer working appropriately either. The machine is older than 5 years. She would benefit from getting a replacement machine with a new DME company is starting over. Will go ahead and submit a new prescription for a replacement APAP machine to a local DME company. The patient has been using her respiratory therapy with good effect. She has not required any prednisone. Continues on the Trelegy with good effect. She also on the singular. Her major complaint is nasal congestion. Patient will continue using her nasal sprays and will start nasal rinsing at this time. 05/27/2023 the patient is here for pulmonary follow-up visit. The patient is doing fairly well. Although recently she was exposed to a viral syndrome and a sick contact and started developing sinus congestion pressure in addition to scratchy throat and has been coughing. She does not feel like her asthma is affected at this time but she is concerned that she is going to start getting symptoms. She is noticed that increased secretions from her nasal passages that is now more thick and yellowish in color. The patient also states that she still having significant daytime drowsiness. Her Bronte score is elevated 10/24. She had been on CPAP before but many years ago. She has been off it for many years at this time. Based on elevated Bronte score her history she did undergo a repeat sleep study in January 2023 demonstrating an AHI of 10 consistent with mild sleep apnea. The patient did have some hypoxia. The patient benefits from going back on CPAP. Specially with cardiovascular risk factors. Will go ahead and send a new prescription for replacement machine to be provided to a [employer]. 10/03/2023 the patient is here for sick visit. She had been sick now for about a month. Started developing a worsening cough and raspy voice. Subsequently developed some sore throat. Has been complaining of some conjunctivitis and some sinus pressure along with earache. She started developing worsening cough with yellowish phlegm. Moderate severity. She has been taking her respiratory medications. She did have some prednisone available at home so therefore she took a few days of it. Partially helped. She has still not feeling well. No recent x-rays. Will go ahead and treat her for sinusitis and likely does have a respiratory bacterial illness. Therefore the Augmentin should help both with sinuses and also the component of lower respiratory infection. At this point she has not having any reasons so she does not need any prednisone. If she has no better she is going to come in for chest x-ray and call the office. [facility] Medical History Cough Hepatitis C antibody positive in blood Leg length discrepancy Pulmonary nodules CANDELARIA on CPAP Asthma Insomnia Fibromyalgia Seronegative rheumatoid arthritis Surgical History History of total knee replacement History of knee surgery Hx of detached retina repair History of ankle surgery History of colon resection Hx of colonoscopy History of total knee arthroplasty Hx of cholecystectomy H/O bilateral breast reduction surgery Hx of tubal ligation Family History Maternal Grandmother Skin cancer Maternal Aunt Breast cancer Maternal Uncle Prostate cancer Social History Household Members: Spouse Housing: House Are you a primary resident care manager rn to a significant other at home: No Do you presently have visiting nurse or other home services: No Alcohol intake: never Patient Tobacco Use Status: Never used Tobacco service: No Current occupational status: disabled Review of Systems Const Reports daytime sleepiness, Denies night sweats and Reports snoring ENT Denies change in voice, Denies lip swelling, Denies mouth pain, Reports nasal congestion, Reports nasal discharge, Reports nasal obstruction, Reports post nasal drip, Reports sinus pressure and Denies tongue swelling Card Denies chest pain and Denies dyspnea on exertion Resp Reports chest congestion, Reports cough, Denies dyspnea on exertion, Reports snoring and Reports wheezing GI Denies abdominal pain Musc Reports myalgias, Reports arthralgias, Reports joint swelling and Reports limited range of motion Neuro Denies Neuro-related abnormal movements Psych Denies no additional complaints Flavio/Lymph Denies easy bleeding and Denies lymphadenopathy Aller/Immun Denies lip swelling, Denies tongue swelling and Reports wheezing Physical Exam Vital Signs: Last Vital Signs Pulse 87 10/03/23 08:38 Pulse Ox 97 10/03/23 08:38 Oxygen Delivery Method Room Air 10/03/23 08:38 BMI result Body Mass Index 35.9 Const General: alert Neck Neck: Yes normal visual inspection, Yes full ROM and Yes no lymphadenopathy Chest Chest palpation & inspection: normal inspection of the chest Resp Auscultation: diminished lung sounds Cardio Rate: regular rate Rhythm: regular rhythm Heart sounds: S1 normal heart sound present and S2 normal heart sound present GI Palpation (GI): Soft to palpation and nontender Auscultation: normal bowel sounds Skin General skin exam: rashes and/or lesions noted Extrem General: No clubbing, No cyanosis and Yes edema Assessment & Plan Assessment & Plan (1) Rhinosinusitis: Code(s): J32.9 - Chronic sinusitis, unspecified Category: Medical (2) CANDELARIA on CPAP: Code(s): G47.33 - Obstructive sleep apnea (adult) (pediatric); Z99.89 - Dependence on other enabling machines and devices Category: Medical (3) Asthma: Code(s): J45.909 - Unspecified asthma, uncomplicated Category: Medical Qualifiers: Asthma complication type: uncomplicated Asthma persistence: persistent Asthma severity: moderate Qualified Code(s): J45.40 - Moderate persistent asthma, uncomplicated (4) Pulmonary nodules: Code(s): R91.8 - Other nonspecific abnormal finding of lung field Category: Medical (5) Cough: Code(s): R05.9 - Cough, unspecified Category: Medical Qualifiers: Cough type: subacute Qualified Code(s): R05.2 - Subacute cough Plan Needs to restart APAP, CPAP is malfunctioning and is older than 5 years. Will request a replacement machine. start Augmentin hold the prednisone for now, start if worsen Continue Trelegy 200 daily RAQUEL as needed cough medicnie Flonase/astelin NS Continue Singulair Continue Daliresp CXR F/U 6-8 months Orders: Orders XR chest 2V 10/03/23 R05.9 - Cough, unspecified Medications: New prednisone PO daily; Take 2 tabs daily x 5 days, then 1 tablet daily x 5 days 10 days 15 tabs 0RF amoxicillin-pot clavulanate 875-125 mg 1 tab PO BID 10 days 20 tabs 0RF Refilled benzonatate 200 mg PO BID 30 days PRN 60 caps 3RF cough Coding Level of Care Code Est Pt Level 4 (61072) Diagnoses Rhinosinusitis J32.9 CANDELARIA on CPAP G47.33; Z99.89 Moderate persistent asthma without complication J45.40 Asthma complication type: uncomplicated Asthma persistence: persistent Asthma severity: moderate Pulmonary nodules R91.8 Subacute cough R05.2 Cough type: subacute Time Spent (min) 16
[2023-10-03 08:38] VITALS: PULSE 87; O2SAT 97; BMI 35.9
== END 2023-10-03 09:27 | disposition home or self-care (01) ==
PROVIDERS: PCP Internal Medicine; Visit Provider Hospitalist
DX: J32.9 Chronic sinusitis, unspecified (principal); G47.33 Obstructive sleep apnea (adult) (pediatric); Z99.89 Dependence on other enabling machines and devices; J45.40 Moderate persistent asthma, uncomplicated; R91.8 Other nonspecific abnormal finding of lung field; R05.2 Subacute cough
CPT/HCPCS: 99214

== ENCOUNTER → 2023-10-03 08:32 | Outpatient (BNVA) | payer BC, MEDICARE, SELFPAY | PROVIDERS: PCP Internal Medicine; Visit Provider Hospitalist ==

== ENCOUNTER 2023-10-04 13:49 | Outpatient (AMB) | payer BC, MEDICARE, SELFPAY ==
[2023-10-04 14:10] VITALS: BP 114/62; PULSE 83; O2SAT 98; BMI 34.8
--- NOTE | 2023-10-04 14:10 | A.OFFVIS_ITS ---
Vital Signs 10/04/23 14:10 Height 5 ft 9 in Weight 235 lb 14.314 oz BMI 34.8 BP 114/62 Blood Pressure Location Rt brachial Position Sitting Pulse 83 Pulse Source Pulse Oximeter Pulse Oximetry (%) 98 Oxygen Delivery Method Room Air Intake Visit Reasons: RA/cm Intake Note: Seen by pulm yesterday, reports bronchitis on Abx, prednisone and benzonatate. Starch Mangle Tender Required: No Accompanied by: Self / Same As Patient Allergies aclidinium [Tudorza Pressair] Allergy (Intermediate, Verified 10/04/23 14:18) Hives Medication List - Last Reconciled 10/04/23 by Aleah Uriostegui MD albuterol sulfate 90 mcg/actuation 2 puffs PO Q6H PRN amoxicillin-pot clavulanate 875-125 mg 1 tab PO BID 10 days atorvastatin 20 mg PO DAILY azelastine 1 spray intranasal BID PRN baclofen 10 mg PO TID PRN benzonatate 200 mg PO BID PRN 30 days cetirizine TAKE 1 TABLET BY MOUTH EVERY DAY cholecalciferol (vitamin D3) 50 mcg PO DAILY diclofenac sodium 1% (Voltaren Arthritis Pain) 4 grams topical QID PRN fluticasone propionate 50 mcg/actuation 2 sprays intranasal DAILY 30 days gwzcwzldmot-bwztjjwsa-ykogvdpm 200-62.5-25 mcg (Trelegy Ellipta) 1 ea inhalation DAILY folic acid 1 mg PO DAILY ipratropium-albuterol 0.5 mg-3 mg(2.5 mg base)/3 mL 3 mL inhalation DAILY PRN lidocaine 5% 1 patch topical DAILY methotrexate sodium 20 mg (8 x 2.5 mg) PO QWEEK montelukast 10 mg PO DAILY naproxen orally; Take 1 tab twice daily for 1 week then 1 tab daily for 1 week then take 1 tab once daily as needed for joint pain nebulizers As directed omeprazole 40 mg PO DAILY prednisone PO daily; Take 2 tabs daily x 5 days, then 1 tablet daily x 5 days 10 days pregabalin 150 mg PO DAILY pregabalin 200 mg PO BEDTIME roflumilast 500 mcg PO DAILY HPI Comments Details: 53-year-old female with seronegative RA, fibromyalgia returns for follow-up. Judy clark is on methotrexate 20 mg weekly split dose, folic acid 1 mg daily. About 3 weeks ago she started having flu-like symptoms, then progressed to progressive cough, she has known history of asthma. She was evaluated by Dr. Jackson yesterday and prescribed amoxicillin and prednisone. States that her RA is doing fairly well. She has a few swollen and painful joints but overall well controlled. Initial history: This is a 52-year-old female with seronegative RA and fibromyalgia returns for follow-up. Not currently on any medication. Patient was last evaluated by Kaia Rascon 07/05. At that time she had been off methotrexate for 4 months. At that time it was decided to watch patient off DMARDs. Patient stated that her joint inflammation never changed when on or off medication. Patient has been having intermittent pain and swelling of her hands, ankles, feet. Over the last 3 days she has been having mid back pain radiating towards her right lower extremity. She denies any trauma or overuse. She also continues to have diffuse fibromyalgia pain. She is on Lyrica 200 mg nightly and 150 mg in the morning PFSH Medical History Cough Hepatitis C antibody positive in blood Leg length discrepancy Pulmonary nodules CANDELARIA on CPAP Asthma Insomnia Fibromyalgia Seronegative rheumatoid arthritis Surgical History History of total knee replacement History of knee surgery Hx of detached retina repair History of ankle surgery History of colon resection Hx of colonoscopy History of total knee arthroplasty Hx of cholecystectomy H/O bilateral breast reduction surgery Hx of tubal ligation Family History Maternal Grandmother Skin cancer Maternal Aunt Breast cancer Maternal Uncle Prostate cancer Social History Household Members: Spouse Housing: House Are you a primary career consultant to a significant other at home: No Do you presently have visiting nurse or other home services: No Alcohol intake: never Patient Tobacco Use Status: Never used Tobacco service: No Current occupational status: disabled Review of Systems Card Reports dyspnea Resp Reports cough and Reports dyspnea Musc Reports arthralgias, Reports joint swelling, Reports limited range of motion and Reports stiffness Physical Exam Vital Signs: Last Vital Signs Pulse 83 10/04/23 14:10 BP 114/62 10/04/23 14:10 Pulse Ox 98 10/04/23 14:10 Oxygen Delivery Method Room Air 10/04/23 14:10 BMI result Body Mass Index 34.8 Const General: cooperative, healthy appearing and comfortable Nutritional Appearance: obese Orientation/consciousness: patient oriented x3 Limitations: no limitations HEENT Head: Yes normocephalic and Yes atraumatic Mouth: moist mucous membranes Resp Other: Unable to complete her sentences, Effort & Inspection: Actively coughing Quality: actively coughing Cardio Rate: regular rate Rhythm: regular rhythm Skin General skin exam: no rashes or lesions noted Neuro General: patient oriented x3 Extrem Other: Diffuse fibromyalgia tender points Mild swelling of right 3rd MCP, mild tenderness of right 3rd and 4th MCPs Mild swelling and tenderness of left 3rd MCP Mild left ankle tenderness no significant swelling Results Reviewed Results Reviewed: Bone scan in 2014 with findings suggestive of RA Right hand MRI 2014 showed mild flexor tenosynovitis of right 1st flexor tendon Ordering Physician: Aleah Uriostegui MD Date of Service: 01/08/23 Procedure(s): XR foot LT min 3V Accession Number(s): [id number] cc: Fernando Pickens MD; Aleah Uriostegui MD~ EXAMINATION: XR ANKLE, RIGHT XR ANKLE, LEFT XR FOOT, RIGHT XR FOOT, LEFT CLINICAL INFORMATION: M06.00 - Rheumatoid arthritis without rheumatoid factor, unspecified site. COMPARISON: Ankle radiographs dated 06/16/2020. TECHNIQUE: AP, lateral, and mortise views of each ankle and AP, lateral, and oblique views of each foot. FINDINGS: RIGHT ANKLE: Small marginal osteophytes are present at the medial and lateral aspects of the ankle. No effusion. The bones are osteopenic. Mild chronic-appearing periosteal bone formation is present at the lateral aspect of the distal tibia, likely along the interosseous membrane. This is of doubtful clinical significance and not significantly changed. No appreciable talocrural osteochondral injuries. No loose bodies are erosions are identified at the ankle. Mild soft tissue swelling. LEFT ANKLE: Single fixation screw is present in the distal fibula. No acute fractures. The ankle mortise is symmetric. Tiny talocrural osteophytes. Alignment appears appropriate. Soft tissues are swollen near the ankle. No erosions are identified. RIGHT FOOT: Moderate-sized enthesopathic spurs are present at the Achilles tendon insertion and plantar fascial origin on the calcaneus. No fracture or malalignment. Mild osteoarthritis in the MTP joints and interphalangeal joints with small marginal osteophytes. There is a subtle erosion at the lateral margin of the great toe proximal phalanx at the interphalangeal joint. No additional erosions are suspected. Mild soft tissue swelling. LEFT FOOT: Moderate-sized enthesopathic spurs are present at the Achilles tendon insertion and plantar fascial origin on the calcaneus. No fracture or malalignment. Mild osteoarthritis at the 1st MTP joint and multiple interphalangeal joints. No erosions are identified. Underlying soft tissue swelling. XR/XR foot LT min 3V IMPRESSION: 1. Subtle erosion at the lateral margin of the right great toe proximal phalanx at the interphalangeal joint. No additional erosions are identified in either foot or ankle. This singular erosion is nonspecific in isolation, though rheumatoid arthritis is possible. 2. Mild bilateral ankle and foot osteoarthrosis. 3. Mild soft tissue swelling at both ankles and feet, nonspecific. Assessment & Plan Assessment & Plan (1) Seronegative rheumatoid arthritis: Comment: dx 2015 Plaquenil - dates unknown Sulfasalazine- 05/2014- 04/2015 - ineffective Enbrel- 07/2017-10/2017 - ineffective Kevzara 08/2018-04/2019- did not take due to expense Humira- 08/2018 Leflunomide -04/2019 Methotrexate- 2016- November 2021-stop for right knee arthroplasty, remained off Restarted 03/2023 effective Code(s): M06.00 - Rheumatoid arthritis without rheumatoid factor, unspecified site Category: Medical Plan: This is a 53-year-old female with seronegative RA who presents for follow-up. On methotrexate 20 mg weekly plus folic acid 1 mg daily. Doing well overall she only has a few swollen and tender joints. Patient is having a bronchitis episode and was started on amoxicillin and prednisone by Dr. Jackson. Patient just ran out of methotrexate. Advised patient to keep holding methotrexate until the current bronchitis episode resolves. Call the office for a refill Labs before next visit in 4 months (2) Fibromyalgia: Code(s): M79.7 - Fibromyalgia Category: Medical Plan: Continue Lyrica 150 mg during the day and 200 mg at bedtime. (3) loss prevention lead methotrexate user: Code(s): Z79.899 - Other business account manager (current) drug therapy Category: Medical Plan: Monitor safety labs Plan I spent 30 minutes reviewing patient's chart, evaluating patient, ordering diagnostic workup, counseling patient and documenting in the chart Orders: Orders Comprehensive Met. Panel 4 Months M06.00 - Rheumatoid arthritis without rheumatoid factor, unspecified site, Z79.899 - Other skilled nursing (current) drug therapy Complete Blood Count Auto Diff 4 Months M06.00 - Rheumatoid arthritis without rheumatoid factor, unspecified site, Z79.899 - Other skilled nursing (current) drug therapy C Reactive Protein 4 Months M06.00 - Rheumatoid arthritis without rheumatoid factor, unspecified site, Z79.899 - Other business account manager (current) drug therapy Erythrocyte Sedimentation Rate 4 Months M06.00 - Rheumatoid arthritis without rheumatoid factor, unspecified site, Z79.899 - Other skilled nursing (current) drug therapy Medications: On Hold methotrexate sodium Hold Comment: Doctor's Order 20 mg (8 x 2.5 mg) PO QWEEK 96 tabs 0RF Coding Level of Care Code Est Pt Level 4 (38142) Diagnoses Seronegative rheumatoid arthritis M06.00 Fibromyalgia M79.7 loss prevention lead methotrexate user Z79.899
== END 2023-10-04 14:32 | disposition home or self-care (01) ==
PROVIDERS: PCP Internal Medicine; Visit Provider Student in an Organized Health Care Education/Training Program
DX: M06.00 Rheumatoid arthritis without rheumatoid factor, unspecified site (principal); M79.7 Fibromyalgia; Z79.899 Other long term (current) drug therapy
CPT/HCPCS: 99214

== ENCOUNTER → 2023-10-04 13:49 | Outpatient (BNVA) | payer BC, MEDICARE, SELFPAY | PROVIDERS: PCP Internal Medicine; Visit Provider Student in an Organized Health Care Education/Training Program ==

== ENCOUNTER 2023-12-09 11:18 | Outpatient (AMB) | payer BC, MEDICARE, SELFPAY ==
[2023-12-09 11:23] VITALS: PULSE 89; O2SAT 98; BMI 35.6
--- NOTE | 2023-12-09 11:23 | A.OFFVIS_ITS ---
Vital Signs 12/09/23 11:23 Height 5 ft 9 in Weight 241 lb BMI 35.6 Pulse 89 Pulse Source Pulse Oximeter Pulse Oximetry (%) 98 Oxygen Delivery Method Room Air Intake Visit Reasons: Asthma Paver Operator Required: No Allergies aclidinium [Tudorza Pressair] Allergy (Intermediate, Verified 12/09/23 11:24) Hives HPI Comments Details: The patient is a 53 y/o woman with a history of underlying asthma, chronic rhinitis, RA and CANDELARIA on CPAP. She is doing much better with the CPAP. The CPAP therapy has been affecting beneficial. She uses it for more than 4 hours a night. Overall she is doing well her asthma seems to be stable. She continues on her respiratory therapy with good effect. She has had to use her nebulized therapy a few times the last month with good effect. Her CPAP therapy has been affecting beneficial, however, she was not able to use it about a month ago because of nasal congestion and sinusitis. She has not been able to get supplies either. I explained to her that may be a an issue with the amount time that she is using her CPAP in her insurance is not approving any supply delivery. Therefore I encouraged her to continue using her CPAP more than 4 hours a night. I did ask the office to call her DME company to make sure that we can facility anything that needs to be done in order for her to get supplies. She is still dealing with her rheumatoid arthritis and is following closely with wireless store manager. This also appears to be a little better than before. 09/28/2021 the patient is here for a pulmonary follow-up visit. Overall the patient has been doing very well from a respiratory status. She has not required any prednisone or any rescue therapy. Her maintenance therapy have been very helpful for her keeping her under control in regards of her asthma. She continues the Daliresp. This medication has been very effective in beneficial. In addition to that the Trelegy inhaler she uses daily. In regards the CPAP the patient has been doing well. Although she is not getting supplies regularly. I will send another prescription for supplies to the local DME company. The patient does use her CPAP more than 4 hours a night. She continues on the methotrexate. She is currently taking higher dose of methotrexate due to the fact that she has still some persistent inflammatory arthritis in addition to elevations in the sedimentation rate. I do not see that the patient is developing any adverse effects from the methotrexate. Patient will need to undergo pulmonary function studies to make sure that she is tolerating the methotrexate. In addition to that she have a CT scan prior to the next visit to follow-up with pulmonary nodules. 03/05/2022 the patient is here pulmonary follow-up visit. Back in November the patient did have a total knee replacement. She tolerated the surgery well. She did well. Postoperative that she did develop a DVT. He had a CTA at that time that ruled out a thromboembolic event to the chest. She was placed on Eliquis and she is still on it. She did follow-up with Hematology in recommend the 6 months of anticoagulation. In addition to that the patient developed COVID. She knows recovered. After the COVID she did develop an asthma exacerbation. now she is back to her baseline. She is using her respiratory therapy with good effect. She also continue using her CPAP. The CPAP therapy has been affecting beneficial. She does use it for more than 4 hours a night. We did review her recent CT scan of the chest demonstrating stable pulmonary nodules. Otherwise the patient is doing well this time. Will follow-up in 6-8 months. 11/26/2022 the patient is here for pulmonary follow-up visit. The patient continues to do fairly well from a respiratory status. She did return back from [place]. While she was there her breathing was okay. When she came back she was noticed seeing some upper respiratory symptoms. She did test for COVID she was negative. She is starting to feel better. She has been using CPAP in the CPAP therapy continues to be affecting beneficial. However, for some reason her [employer] company has not center any supplies and she is very unhappy with them. She would like to switch companies. Her machine is no longer working appropriately either. The machine is older than 5 years. She would benefit from getting a replacement machine with a new DME company is starting over. Will go ahead and submit a new prescription for a replacement APAP machine to a local DME company. The patient has been using her respiratory therapy with good effect. She has not required any prednisone. Continues on the Trelegy with good effect. She also on the singular. Her major complaint is nasal congestion. Patient will continue using her nasal sprays and will start nasal rinsing at this time. 05/27/2023 the patient is here for pulmonary follow-up visit. The patient is doing fairly well. Although recently she was exposed to a viral syndrome and a sick contact and started developing sinus congestion pressure in addition to scratchy throat and has been coughing. She does not feel like her asthma is affected at this time but she is concerned that she is going to start getting symptoms. She is noticed that increased secretions from her nasal passages that is now more thick and yellowish in color. The patient also states that she still having significant daytime drowsiness. Her [place] score is elevated 10/24. She had been on CPAP before but many years ago. She has been off it for many years at this time. Based on elevated [place] score her history she did undergo a repeat sleep study in January 2023 demonstrating an AHI of 10 consistent with mild sleep apnea. The patient did have some hypoxia. The patient benefits from going back on CPAP. Specially with cardiovascular risk factors. Will go ahead and send a new prescription for replacement machine to be provided to a [employer] 10/03/2023 the patient is here for sick visit. She had been sick now for about a month. Started developing a worsening cough and raspy voice. Subsequently developed some sore throat. Has been complaining of some conjunctivitis and some sinus pressure along with earache. She started developing worsening cough with yellowish phlegm. Moderate severity. She has been taking her respiratory medications. She did have some prednisone available at home so therefore she took a few days of it. Partially helped. She has still not feeling well. No recent x-rays. Will go ahead and treat her for sinusitis and likely does have a respiratory bacterial illness. Therefore the Augmentin should help both with sinuses and also the component of lower respiratory infection. At this point she has not having any reasons so she does not need any prednisone. If she has no better she is going to come in for chest x-ray and call the office. 12/09/2023 the patient is here for a pulmonary standpoint. Patient overall is doing well from a respiratory status. She does continue her respiratory medications with good effect. In addition to that the patient has been using the CPAP at night. The CPAP therapy continues to be affecting beneficial. And she does use it for more than 4 hours a night. The patient did have a significant event while visiting the [facility] when she had a fall and she fracture coccyx causing significant discomfort. In addition to that when she got back the patient had a dizzy spell where she syncopized hitting her face also had an extremities including her knee. She was taken to the ER. There she was admitted to the hospital briefly. She did have a CT scan of the chest which I personally reviewed. She has an old granuloma that is stable. No evidence of any parenchymal disease which is reassuring. she is still dealing with significant discomfort after her fall but should be follow-up with primary care doctor soon and also her orthopedic doctor. Also to note she had a urine study done and a culture was positive for E coli with significant RBCs in the urine and also significant bacteria. The E coli sensitive to Bactrim so therefore give for Bactrim and she is going to follow-up with the primary care doctor as well. Otherwise the patient is doing well from a respiratory status will follow-up in 6 months [facility] Medical History Cough Hepatitis C antibody positive in blood Leg length discrepancy Pulmonary nodules CANDELARIA on CPAP Asthma Insomnia Fibromyalgia Seronegative rheumatoid arthritis Surgical History History of total knee replacement History of knee surgery Hx of detached retina repair History of ankle surgery History of colon resection Hx of colonoscopy History of total knee arthroplasty Hx of cholecystectomy H/O bilateral breast reduction surgery Hx of tubal ligation Family History Maternal Grandmother Skin cancer Maternal Aunt Breast cancer Maternal Uncle Prostate cancer Social History Household Members: Spouse Housing: House Are you a primary direct care professional to a significant other at home: No Do you presently have visiting nurse or other home services: No Alcohol intake: never Patient Tobacco Use Status: Never used Tobacco service: No Current occupational status: disabled Review of Systems Const Reports daytime sleepiness and Denies night sweats ENT Denies change in voice, Denies lip swelling, Denies mouth pain, Reports nasal congestion, Reports nasal discharge, Reports nasal obstruction, Reports post nasal drip, Reports sinus pressure and Denies tongue swelling Card Denies chest pain and Denies dyspnea on exertion Resp Reports cough, Denies dyspnea on exertion and Denies wheezing GI Denies abdominal pain Musc Reports as per HPI, Reports myalgias, Reports arthralgias, Reports joint swelling and Reports limited range of motion Neuro Denies Neuro-related abnormal movements Psych Denies no additional complaints Flavio/Lymph Denies easy bleeding and Denies lymphadenopathy Aller/Immun Denies lip swelling, Denies tongue swelling and Denies wheezing Physical Exam Vital Signs: Last Vital Signs Pulse 89 12/09/23 11:23 Pulse Ox 98 12/09/23 11:23 Oxygen Delivery Method Room Air 12/09/23 11:23 BMI result Body Mass Index 35.6 Const General: alert Neck Neck: Yes normal visual inspection, Yes full ROM and Yes no lymphadenopathy Chest Chest palpation & inspection: normal inspection of the chest Resp Auscultation: diminished lung sounds Cardio Rate: regular rate Rhythm: regular rhythm Heart sounds: S1 normal heart sound present and S2 normal heart sound present GI Palpation (GI): Soft to palpation and nontender Auscultation: normal bowel sounds Skin General skin exam: rashes and/or lesions noted Extrem General: No clubbing, No cyanosis and Yes edema Assessment & Plan Assessment & Plan (1) CANDELARIA on CPAP: Code(s): G47.33 - Obstructive sleep apnea (adult) (pediatric); Z99.89 - Dependence on other enabling machines and devices Category: Medical (2) Asthma: Code(s): J45.909 - Unspecified asthma, uncomplicated Category: Medical Qualifiers: Asthma complication type: uncomplicated Asthma persistence: persistent Asthma severity: moderate Qualified Code(s): J45.40 - Moderate persistent asthma, uncomplicated (3) Pulmonary nodules: Code(s): R91.8 - Other nonspecific abnormal finding of lung field Category: Medical (4) Cough: Code(s): R05.9 - Cough, unspecified Category: Medical Qualifiers: Cough type: subacute Qualified Code(s): R05.2 - Subacute cough Plan continue APAP, CPAP is malfunctioning and is older than 5 years. Will request a replacement machine. start Bactrim Continue Trelegy 200 daily RAQUEL as needed cough medicnie Flonase/astelin NS Continue Singulair Continue Daliresp F/U 6-8 months Medications: New sulfamethoxazole-trimethoprim 800-160 mg (Bactrim DS) 1 tab PO BID 20 tabs 0RF 10 days Coding Level of Care Code Est Pt Level 4 (72401) Diagnoses CANDELARIA on CPAP G47.33; Z99.89 Moderate persistent asthma without complication J45.40 Asthma complication type: uncomplicated Asthma persistence: persistent Asthma severity: moderate Pulmonary nodules R91.8 Subacute cough R05.2 Cough type: subacute Time Spent (min) 17
== END 2023-12-09 12:00 | disposition home or self-care (01) ==
PROVIDERS: PCP Internal Medicine; Visit Provider Hospitalist
DX: G47.33 Obstructive sleep apnea (adult) (pediatric) (principal); Z99.89 Dependence on other enabling machines and devices; J45.40 Moderate persistent asthma, uncomplicated; R91.8 Other nonspecific abnormal finding of lung field; R05.2 Subacute cough
CPT/HCPCS: 99214

== ENCOUNTER → 2023-12-09 11:18 | Outpatient (BNVA) | payer BC, MEDICARE, SELFPAY | PROVIDERS: PCP Internal Medicine; Visit Provider Hospitalist | DX: J44.9 Chronic obstructive pulmonary disease, unspecified (principal) ==

== ENCOUNTER 2023-12-12 13:36 | Outpatient (AMB) | payer BC, MEDICARE, SELFPAY ==
--- NOTE | 2023-12-12 13:39 | A.OFFVIS_ITS ---
Intake Visit Reasons: OV- Right knee pain/swelling, DOI 12/03/23 Intake Note: Pam is a 53 year old female who presents today for a follow up of her right knee, RT TKA 11/29/21. Patient reports that on 12/03/23 she fainted and injured bilateral knees. She was seen at [facility] where she was told that she has fluid in the right knee. She expresses pain with palpitation and tightness on lateral aspect of knee and is unable to sleep on her side. She takes Tylenol twice a day, naproxen at night, and baclofen twice a day and this provides no relief. Allergies aclidinium [Tudorza Pressair] Allergy (Intermediate, Verified 12/12/23 13:51) Hives HPI HPI OV- Right knee pain/swelling, DOI 12/03/23: Details: Pam is a 53 year old female who presents today for a follow up of her right knee, RT TKA 11/29/21. Patient reports that on 12/03/23 she fainted and injured bilateral knees. She was seen at [facility] where she was told that she has fluid in the right knee. She expresses pain with palpitation and tightness on lateral aspect of knee and is unable to sleep on her side. She takes Tylenol twice a day, naproxen at night, and baclofen twice a day and this provides no relief. [facility] Medical History Cough Hepatitis C antibody positive in blood Leg length discrepancy Pulmonary nodules CANDELARIA on CPAP Asthma Insomnia Fibromyalgia Seronegative rheumatoid arthritis Surgical History History of total knee replacement History of knee surgery Hx of detached retina repair History of ankle surgery History of colon resection Hx of colonoscopy History of total knee arthroplasty Hx of cholecystectomy H/O bilateral breast reduction surgery Hx of tubal ligation Family History Maternal Grandmother Skin cancer Maternal Aunt Breast cancer Maternal Uncle Prostate cancer Social History Household Members: Spouse Housing: House Are you a primary director of career services to a significant other at home: No Do you presently have visiting nurse or other home services: No Alcohol intake: never Patient Tobacco Use Status: Never used Tobacco service: No Current occupational status: disabled Physical Exam Extrem Other: Pam is walking well. She has got some mild vague nonspecific tenderness in her right knee. Her right knee is moving comfortably on passive and active flexion and extension with no varus or valgus instability. She has no effusion. Assessment & Plan Assessment & Plan (1) Status post total knee replacement, right: Code(s): Z96.651 - Presence of right artificial knee joint Category: Surgical Plan: Status post knee replacement. She had a fall which did not result in significant injury. I discussed this with her. She should continue activity as tolerated and may follow up as needed. Coding Level of Care Code Est Pt Level 3 (37646) Diagnoses Status post total knee replacement, right Z96.651
== END 2023-12-12 14:35 | disposition home or self-care (01) ==
PROVIDERS: PCP Internal Medicine; Visit Provider Orthopaedic Surgery
DX: M25.561 Pain in right knee (principal); Z47.1 Aftercare following joint replacement surgery; Z96.651 Presence of right artificial knee joint
CPT/HCPCS: 99213

== ENCOUNTER → 2023-12-12 13:36 | Outpatient (BNVA) | payer BC, MEDICARE, SELFPAY | PROVIDERS: PCP Internal Medicine; Visit Provider Orthopaedic Surgery ==

== ENCOUNTER 2024-02-10 09:42 | Outpatient (REF) | payer BC, MEDICARE, SELFPAY ==
[2024-02-10 10:28] LABS: MANUAL DIFF FLAG NO
[2024-02-10 11:04] LABS: Basophils Percent Auto 0.5 % (0-2); Eosinophils Absolute Auto 0.1 X10*3/uL (0.0-0.4); Eosinophils Percent Auto 1.7 % (0-4); Hematocrit 36.8 % (37.0-47.0); Hemoglobin 11.6 g/dl (12.0-16.0); Imm Gran Abs Auto 0.01 X10*3/uL (0.00-0.03); Imm Gran Pct Auto 0.2 % (0.0-0.4); Lymphocytes Absolute Auto 1.6 X10*3/uL (1.2-4.9); Lymphocytes Percent Auto 26.8 % (20-40); Mean Corpuscular HGB Conc 31.5 g/dl (31.0-35.0); Mean Corpuscular Hemoglobin 27.8 pg (27.0-33.0); Mean Platelet Volume 10.2 fL (9.4-12.3); Monocytes Absolute Auto 0.3 X10*3/uL (0.1-1.2); Monocytes Percent Auto 5.3 % (2-11); Neutrophils Absolute Auto 3.9 x10*3/uL (2.0-8.3); Neutrophils Percent Auto 65.5 % (45-73); Platelet Count 346 X10*3/uL (160-400); Red Blood Count 4.18 X10*6/uL (4.20-5.50); Red Cell Distribution Width 15.8 % (11.0-16.0); White Blood Count 5.9 X10*3/uL (4.8-10.8)
[2024-02-10 11:56] LABS: Erythrocyte Sedimentation Rate 45 MM/HR (0-20)
[2024-02-10 12:00] LABS: Alanine Aminotransferase 34 U/L (0-31); Albumin Level 4.1 g/dL (3.5-5.0); Alkaline Phosphatase 129 U/L (39-117); Anion Gap 11 (12-20); Aspartate Amino Transferase 26 U/L (5-31); Bilirubin Total 0.5 mg/dL (0.0-1.0); Blood Urea Nitrogen 13 mg/dL (9-16); Calcium 9.8 mg/dL (8.4-10.2); Carbon Dioxide 24 mmol/L (22-29); Chloride 108 mmol/L (96-108); Estimated Glomerular Filt Rate > 60; Glucose Random 84 mg/dL (60-115); Potassium 4.4 mmol/L (3.3-5.1); Sodium 139 mmol/L (135-145); Total Protein 7.6 g/dL (6.5-8.0)
== END 2024-02-10 09:43 | disposition home or self-care (01) ==
LOC: HO.LAB 09:42
PROVIDERS: PCP Internal Medicine; Visit Provider Student in an Organized Health Care Education/Training Program
DX: M06.00 Rheumatoid arthritis without rheumatoid factor, unspecified site (principal); Z79.899 Other long term (current) drug therapy
CPT/HCPCS: 36415; 80053; 85025; 85652; 86140

== ENCOUNTER 2024-02-10 13:05 | Outpatient (AMB) | payer BC, MEDICARE, SELFPAY ==
--- NOTE | 2024-02-10 13:18 | A.OFFVIS_ITS ---
Vital Signs 02/10/24 13:21 Height 5 ft 9 in Weight 247 lb 9.266 oz BMI 36.6 BP 112/64 Blood Pressure Location Rt brachial Position Sitting Pulse 73 Pulse Source Pulse Oximeter Pulse Oximetry (%) 98 Oxygen Delivery Method Room Air Intake Visit Reasons: RA/CM Intake Note: Patient presents for RA. Allergies aclidinium [Tudorza Pressair] Allergy (Intermediate, Verified 02/10/24 13:20) Hives Medication List - Last Reconciled 02/10/24 by Aleah Uriostegui MD albuterol sulfate 90 mcg/actuation 2 puffs PO Q6H PRN amoxicillin-pot clavulanate 875-125 mg 1 tab PO BID 10 days atorvastatin 20 mg PO DAILY azelastine 1 spray intranasal BID PRN baclofen 10 mg PO TID PRN benzonatate 200 mg PO BID PRN 30 days cetirizine TAKE 1 TABLET BY MOUTH EVERY DAY cholecalciferol (vitamin D3) 50 mcg PO DAILY diclofenac sodium 1% (Voltaren Arthritis Pain) 4 grams topical QID PRN fluticasone propionate 50 mcg/actuation 2 sprays intranasal DAILY 90 days impirkiajra-orbvjuxzn-pjctgmkc 200-62.5-25 mcg (Trelegy Ellipta) 1 ea inhalation DAILY folic acid 1 mg PO DAILY ipratropium-albuterol 0.5 mg-3 mg(2.5 mg base)/3 mL 3 mL inhalation DAILY PRN lidocaine 5% 1 patch topical DAILY meclizine 25 mg PO DAILY PRN methotrexate sodium 20 mg (8 x 2.5 mg) PO QWEEK montelukast 10 mg PO DAILY naproxen 500 mg PO DAILY PRN nebulizers As directed omeprazole 40 mg PO DAILY pregabalin 150 mg PO DAILY pregabalin 200 mg PO BEDTIME roflumilast 500 mcg PO DAILY HPI Comments Details: 53-year-old female with seronegative RA & fibromyalgia returns for follow-up. She is on methotrexate 20 mg weekly split dose, folic acid 1 mg daily. She stated that she had a fall 2 months ago, she slipped and fell, she broke her coccyx. Three weeks later, she fainted and hurt her knee. X-rays did not show any fractures. She was admitted to the hospital for 5 days due to her fainting episode. She states that she will be following up with a professional wrestler and neurologist. She states that she will need a Holter monitor. With regards to her RA, she is doing well. Has not had any swollen joints recently. She recently completed nitrofurantoin course for UTI. Initial history: This is a 52-year-old female with seronegative RA and fibromyalgia returns for follow-up. Not currently on any medication. Patient was last evaluated by Kaia Rascon 07/05. At that time she had been off methotrexate for 4 months. At that time it was decided to watch patient off DMARDs. Patient stated that her joint inflammation never changed when on or off medication. Patient has been having intermittent pain and swelling of her hands, ankles, feet. Over the last 3 days she has been having mid back pain ra diating towards her right lower extremity. She denies any trauma or overuse. She also continues to have diffuse fibromyalgia pain. She is on Lyrica 200 mg nightly and 150 mg in the morning PFSH Medical History Cough Hepatitis C antibody positive in blood Leg length discrepancy Pulmonary nodules CANDELARIA on CPAP Asthma Insomnia Fibromyalgia Seronegative rheumatoid arthritis Surgical History History of total knee replacement History of knee surgery Hx of detached retina repair History of ankle surgery History of colon resection Hx of colonoscopy History of total knee arthroplasty Hx of cholecystectomy H/O bilateral breast reduction surgery Hx of tubal ligation Family History Maternal Grandmother Skin cancer Maternal Aunt Breast cancer Maternal Uncle Prostate cancer Social History Household Members: Spouse Housing: House Are you a primary anesthesiologist and critical care to a significant other at home: No Do you presently have visiting nurse or other home services: No Alcohol intake: never Patient Tobacco Use Status: Never used Tobacco service: No Current occupational status: disabled Review of [place] [facility] [place]gias and Denies joint swelling Physical Exam Vital Signs: Last Vital Signs Pulse 73 02/10/24 13:21 BP 112/64 02/10/24 13:21 Pulse Ox 98 02/10/24 13:21 Oxygen Delivery Method Room Air 02/10/24 13:21 BMI result Body Mass Index 36.6 Const General: cooperative, healthy appearing and comfortable Nutritional Appearance: obese Orientation/consciousness: patient oriented x3 Limitations: no limitations HEENT Head: Yes normocephalic and Yes atraumatic Mouth: moist mucous membranes Resp Other: Unable to complete her sentences, Effort & Inspection: Actively coughing Quality: actively coughing Cardio Rate: regular rate Rhythm: regular rhythm Skin General skin exam: no rashes or lesions noted Neuro General: patient oriented x3 Extrem Other: Diffuse fibromyalgia tender points No active synovitis today Mildly tender right knee cap Results Reviewed Results Reviewed: Bone scan in 2014 with findings suggestive of RA Right hand MRI 2015 showed mild flexor tenosynovitis of right 1st flexor tendon Ordering Physician: Aleah Uriostegui MD Date of Service: 01/08/23 Procedure(s): XR foot LT min 3V Accession Number(s): [id number] cc: Fernando Pickens MD; Aleah Uriostegui MD~ EXAMINATION: XR ANKLE, RIGHT XR ANKLE, LEFT XR FOOT, RIGHT XR FOOT, LEFT CLINICAL INFORMATION: M06.00 - Rheumatoid arthritis without rheumatoid factor, unspecified site. COMPARISON: Ankle radiographs dated 06/16/2020. TECHNIQUE: AP, lateral, and mortise views of each ankle and AP, lateral, and oblique views of each foot. FINDINGS: RIGHT ANKLE: Small marginal osteophytes are present at the medial and lateral aspects of the ankle. No effusion. The bones are osteopenic. Mild chronic-appearing periosteal bone formation is present at the lateral aspect of the distal tibia, likely along the interosseous membrane. This is of doubtful clinical significance and not significantly changed. No appreciable talocrural osteochondral injuries. No loose bodies are erosions are identified at the ankle. Mild soft tissue swelling. LEFT ANKLE: Single fixation screw is present in the distal fibula. No acute fractures. The ankle mortise is symmetric. Tiny talocrural osteophytes. Alignment appears appropriate. Soft tissues are swollen near the ankle. No erosions are identified. RIGHT FOOT: Moderate-sized enthesopathic spurs are present at the Achilles tendon insertion and plantar fascial origin on the calcaneus. No fracture or malalignment. Mild osteoarthritis in the MTP joints and interphalangeal joints with small marginal osteophytes. There is a subtle erosion at the lateral margin of the great toe proximal phalanx at the interphalangeal joint. No additional erosions are suspected. Mild soft tissue swelling. LEFT FOOT: Moderate-sized enthesopathic spurs are present at the Achilles tendon insertion and plantar fascial origin on the calcaneus. No fracture or malalignment. Mild osteoarthritis at the 1st MTP joint and multiple interphalangeal joints. No erosions are identified. Underlying soft tissue swelling. XR/XR foot LT min 3V IMPRESSION: 1. Subtle erosion at the lateral margin of the right great toe proximal phalanx at the interphalangeal joint. No additional erosions are identified in either foot or ankle. This singular erosion is nonspecific in isolation, though rheumatoid arthritis is possible. 2. Mild bilateral ankle and foot osteoarthrosis. 3. Mild soft tissue swelling at both ankles and feet, nonspecific. Assessment & Plan Assessment & Plan (1) Seronegative rheumatoid arthritis: Comment: dx 2014 Plaquenil - dates unknown Sulfasalazine- 05/2014- 04/2015 - ineffective Enbrel- 07/2017-10/2017 - ineffective Kevzara 08/2018-04/2019- did not take due to expense Humira- 08/2018 Leflunomide -04/2019 Methotrexate- 2016- November 2021-stop for right knee arthroplasty, remained off Restarted 03/2023 effective Code(s): M06.00 - Rheumatoid arthritis without rheumatoid factor, unspecified site Category: Medical Plan: This is a 53-year-old female with seronegative RA who presents for follow-up. On methotrexate 20 mg weekly plus folic acid 1 mg daily. Doing well overall with no active synovitis Continue methotrexate 20 mg weekly plus folic acid 1 mg daily Labs showed mild transaminitis. Unclear cause. Patient has been on methotrexate for the last month without transaminitis. Repeat labs in one- month, if transaminitis is persistent, I will reduce methotrexate nose Labs before next visit in 4 months (2) Fibromyalgia: Code(s): M79.7 - Fibromyalgia Category: Medical Plan: Continue Lyrica 150 mg during the day and 200 mg at bedtime. 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
[2024-02-10 13:21] VITALS: BP 112/64; PULSE 73; O2SAT 98; BMI 36.6
== END 2024-02-10 13:46 | disposition home or self-care (01) ==
LOC: HO.RHE 13:05
PROVIDERS: PCP Internal Medicine; Visit Provider Student in an Organized Health Care Education/Training Program
DX: M06.00 Rheumatoid arthritis without rheumatoid factor, unspecified site (principal); M79.7 Fibromyalgia; Z79.899 Other long term (current) drug therapy
CPT/HCPCS: 99214

== ENCOUNTER 2024-02-13 12:23 | Outpatient (AMB) | payer BC, MEDICARE, SELFPAY ==
--- NOTE | 2024-02-13 12:27 | MHC.OFFVIS ---
Intake Visit Reasons: OV right knee pain after fall Intake Note: Pam is a 53 year old female who presents today for a follow up of her right knee, RT TKA 11/29/21. Patient reports that on 12/03/23 she fainted and injured bilateral knees. She was seen at [facility] where she was told that she has fluid in the right knee. Patiento reports that she is not improving, she is having pain with walking and while ambulating stairs. Pain if felt in the posterior aspect of the right knee and is tender to palpitation Allergies aclidinium [Tudorza Pressair] Allergy (Intermediate, Verified 02/10/24 13:20) Hives HPI HPI OV right knee pain after fall: Details: Pam is a 53 year old female who presents today for a follow up of her right knee, RT TKA 11/29/21. Patient reports that on 12/03/23 she fainted and injured bilateral knees. She was seen at [facility] where she was told that she has fluid in the right knee. Patiento reports that she is not improving, she is having pain with walking and while ambulating stairs. Pain if felt in the posterior aspect of the right knee and is tender to palpitation PFSH Medical History Cough Hepatitis C antibody positive in blood Leg length discrepancy Pulmonary nodules CANDELARIA on CPAP Asthma Insomnia Fibromyalgia Seronegative rheumatoid arthritis Surgical History History of total knee replacement History of knee surgery Hx of detached retina repair History of ankle surgery History of colon resection Hx of colonoscopy History of total knee arthroplasty Hx of cholecystectomy H/O bilateral breast reduction surgery Hx of tubal ligation Family History Maternal Grandmother Skin cancer Maternal Aunt Breast cancer Maternal Uncle Prostate cancer Social History Household Members: Spouse Housing: House Are you a primary career center advisor to a significant other at home: No Do you presently have visiting nurse or other home services: No Alcohol intake: never Patient Tobacco Use Status: Never used Tobacco service: No Current occupational status: disabled Physical Exam Extrem Other: Slight fullness in the posterior knee but otherwise unremarkable exam of the than hyperalgesia to light touch over the anterior knee. There is no effusion in the incision is clean dry and intact. Assessment & Plan Assessment & Plan (1) Status post total knee replacement, right: Code(s): Z96.651 - Presence of right artificial knee joint Category: Surgical Plan: Patient is 2 years status post knee replacement. She had a fall about 2 months ago and has had been having worsening pain ever since. There is no evidence infection or effusion and she walks well. She does have hypersensitivity to touch but it is not focal and she does have fibromyalgia which may be contributing. I have discussed options for her and if she wants to pursue referral to pain management or a bone scan we could do so but she will let me know if she is still in pain in the next several months. She can continue activity as tolerated (2) DVT (deep venous thrombosis): Comment: RLE Code(s): I82.409 - Acute embolism and thrombosis of unspecified deep veins of unspecified lower extremity Category: Medical Qualifiers: Affected thrombotic vein of extremity: unspecified vein of extremity Chronicity: unspecified Laterality: unspecified laterality Plan: No evidence of persistent DVT (3) Fibromyalgia: Code(s): M79.7 - Fibromyalgia Category: Medical Plan: This is extending her recovery from the fall I believe. Coding Level of Care Code Est Pt Level 4 (00973) Diagnoses Status post total knee replacement, right Z96.651 DVT (deep venous thrombosis) I82.409 Affected thrombotic vein of extremity: unspecified vein of extremity Chronicity: unspecified Laterality: unspecified laterality Fibromyalgia M79.7
== END 2024-02-13 12:58 | disposition home or self-care (01) ==
LOC: HO.HOS 12:24
PROVIDERS: PCP Internal Medicine; Visit Provider Orthopaedic Surgery
DX: M25.561 Pain in right knee (principal); Z96.651 Presence of right artificial knee joint; W19.XXXA Unspecified fall, initial encounter; M79.7 Fibromyalgia; I82.409 Acute embolism and thrombosis of unspecified deep veins of unspecified lower extremity
CPT/HCPCS: 99214

== ENCOUNTER → 2024-02-13 12:23 | Outpatient (BNVA) | payer BC, MEDICARE, SELFPAY | PROVIDERS: PCP Internal Medicine; Visit Provider Orthopaedic Surgery ==

== ENCOUNTER → 2024-02-25 12:40 | Outpatient (BNVA) | payer BC, MEDICARE, SELFPAY | PROVIDERS: PCP Internal Medicine; Visit Provider Physician Assistant Surgical ==

== ENCOUNTER 2024-03-06 07:57 | Outpatient (AMB) | payer BC, MEDICARE, SELFPAY ==
--- NOTE | 2024-03-06 08:06 | A.OFFVIS_ITS ---
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 Allergies aclidinium [Tudorza Pressair] Allergy (Intermediate, Verified 03/06/24 08:06) Hives Medication List - Last Reconciled 03/06/24 by Darren Kat MD albuterol sulfate 90 mcg/actuation 2 puffs PO Q6H PRN atorvastatin 20 mg PO DAILY azelastine 1 spray intranasal BID PRN baclofen 10 mg PO TID PRN benzonatate 200 mg PO BID PRN 30 days cetirizine TAKE 1 TABLET BY MOUTH EVERY DAY cholecalciferol (vitamin D3) 50 mcg PO DAILY diclofenac sodium 1% (Voltaren Arthritis Pain) 4 grams topical QID PRN fluticasone propionate 50 mcg/actuation 2 sprays intranasal DAILY 90 days mcnmvauppej-ouxfeklaj-gbtqakvo 200-62.5-25 mcg (Trelegy Ellipta) 1 ea inhalation DAILY folic acid 1 mg PO DAILY ipratropium-albuterol 0.5 mg-3 mg(2.5 mg base)/3 mL 3 mL inhalation DAILY PRN lidocaine 5% 1 patch topical DAILY meclizine 25 mg PO DAILY PRN methotrexate sodium 20 mg (8 x 2.5 mg) PO QWEEK montelukast 10 mg PO DAILY nebulizers As directed omeprazole 40 mg PO DAILY pregabalin 150 mg PO DAILY pregabalin 200 mg PO BEDTIME roflumilast 500 mcg PO DAILY HPI 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: Details: Start time: 7.58am, End time: 8.58am ?I spent 55 minutes speaking with the patient on the phone plus an additional 5 minutes reviewing and updating records for a total of 60 minutes HPI Comments Details: Previous weight loss efforts: WW, calorie counting, intermittent fasting, low carb diet Wakes up: 7am, Sleeps: 11pm Breakfast: skips Lunch: 1pm (rice, beans, chicken) Dinner: 5-6pm (same as lunch or large salad) Snacks: 3pm (fruit or potato chips), 11pm (fruit or chips, cheese) Exercise: none Fluids: Coffee: 1 cup/day (milk), tea: none, soda: rare, juice: none, ETOH: rare PFSH Medical History (Updated 03/06/24 @ 08:42 by Darren Kat MD) Vertigo GERD (gastroesophageal reflux disease) DJD (degenerative joint disease) Rheumatoid arthritis COPD (chronic obstructive pulmonary disease) Hyperlipidemia BMI 36.0-36.9,adult Obesity Cough Hepatitis C antibody positive in blood Leg length discrepancy Pulmonary nodules CANDELARIA on CPAP Asthma Insomnia Fibromyalgia Seronegative rheumatoid arthritis Surgical History History of total knee replacement History of knee surgery Hx of detached retina repair History of ankle surgery History of colon resection Hx of colonoscopy History of total knee arthroplasty Hx of cholecystectomy H/O bilateral breast reduction surgery Hx of tubal ligation Family History (Updated 02/25/24 @ 13:25 by Hedy Zhou CMA) Maternal Grandmother Skin cancer Maternal Aunt Breast cancer Maternal Uncle Prostate cancer Mother No problems noted. Father No problems noted. Social History (Updated 02/25/24 @ 13:24 by Hedy Zhou CMA) Household Members: Spouse Housing: House Are you a primary tire care manager to a significant other at home: No Do you presently have visiting nurse or other home services: No Alcohol intake: current Alcohol intake frequency: holidays/special occasions only Patient Tobacco Use Status: Never used Tobacco service: No Current occupational status: disabled Telehealth Telehealth Telehealth Platform: Telephone Location of provider rendering services: practice address Location of patient: address on file Patient Identification confirmed using: Name, : Yes Telehealth method: voice only Patient verbally consented to treatment: Yes Patient verbally consented to billing insurance company: Yes Patient informed of any privacy concerns related to visit: Yes Minutes spent on Phone/Video with Pt.: 60 Assessment & Plan Assessment & Plan (1) Obesity: Code(s): E66.9 - Obesity, unspecified Category: Medical Qualifiers: Obesity type: due to excess calories Obesity classification: adult class 2 (BMI 35 - 39.9) Serious obesity comorbidity presence: with serious comorbidity Body mass index: BMI 36.0-36.9 Qualified Code(s): E66.812 - Obesity, class 2; E66.01 - Morbid (severe) obesity due to excess calories; Z68.36 - Body mass index [BMI] 36.0-36.9, adult Plan: 1.? Plan for lap sleeve gastrectomy. If diaphragmatic or ventral hernias are present at time of surgery, these will be repaired laparoscopically as well. Risks and complications include possible conversion to an open procedure, anastomotic leak, bleeding requiring transfusion, small bowel obstruction, , DVT and pulmonary embolism, cardiac, or pulmonary complications, as buttermaker continuous churn complications such as anastomotic ulcer, insufficient weight loss and vitamin deficiencies. I emphasized the importance of close follow-up, adherence to instructions and good communication. 2. Nutritional counseling. Start with 2 CELEBRATE REBUILD protein (buy at [facility] [employer]) shakes (ONE scoop EACH in 8oz low fat unsweetened almond milk each) at 8am-10am and 11am-1pm, 1 protein bar (CELEBRATE protein bars, buy at [facility] [employer] [facility]) at 2pm-4pm, dinner at 5pm (8 forks of protein and 8 forks of salad/vegetables), one more protein bar after dinner at 7pm-9pm and another HALF protein bar at 10pm-11pm. So you do 2 protein shakes, 2.5 protein bars and one meal per day. Meal to include lean meat (beef, fish, pork, turkey, chicken), or german yogurt, or egg whites, or beans with a salad with olive oil and fruits (berries, pears, apples, kiwi). Avoid salt, breads, potatoes, rice, pasta, desserts. 3. Each shake would be drunk slowly, like coffee in a period of 2 hours. 4. Cut each bar in 4 pieces and eat each piece in 30min ?to make each bar last 2 hours. 5. I emphasized the importance of measuring accurately the food portion and measure it when serving the food in plate 6. The meal portions include 8 full-size forks of meat and 8 full-size forks of salad. You always eat the meat portion but you can replace up to 4 forks for salad/vegetables with rice, potatoes or pasta, or a fruit ?if you like. The less you do it the better weight loss will be. 7. One full-size fork is what it can be scooped on the fork without falling aside and not what can be bit with the fork. Use regular forks like those you find in a typical restaurant. 8.? Please send me weight measurements as soon as possible and then once a week. Always include your diet and exercise plan. 9. Start walking outside daily, tracking calories with a goal of 300 calories per day, daily. Goal is to burn 2000 calories per week on exercise, which means either 300 calories daily, or 400 calories 5 days per week, or 500 calories 4 days per week, or 650 calories 3 days per week. 10. The best choice would be to purchase a stationary bike at home that can track calories. Let me know if you do so I can give you an exercise plan. 11. Goal is to lose at least 1.5-2lbs per week 12. Goal to lose 10% of your weight before surgery, which is about 24lbs. Ultimate weight goal: 219lbs before surgery 13. Please follow the diet plan exactly without any change. If you don't like something about the plan or you feel hungry you need to communicate with me so I can help you revise the plan. You should not change the plan yourself. 14. To be scheduled for EGD due to history of GERD on Saturday03/10/24. The possibility of biopsies was discussed. Patient needs to avoid use of NSAIDs and aspirin for 1 week prior to EGD. Risks of perforation and bleeding was discussed with the patient. This will be an outpatient procedure with IV sedation.
[2024-03-06 08:28] VITALS: BMI 35.9
== END 2024-03-06 08:59 | disposition home or self-care (01) ==
LOC: HO.HBS 07:57
PROVIDERS: PCP Internal Medicine; Visit Provider Surgery
DX: E66.812 Obesity, class 2 (principal); E66.01 Morbid (severe) obesity due to excess calories; Z68.36 Body mass index [BMI] 36.0-36.9, adult
CPT/HCPCS: 99443

== ENCOUNTER → 2024-03-06 07:57 | Outpatient (BNVA) | payer BC, MEDICARE, SELFPAY | PROVIDERS: PCP Internal Medicine; Visit Provider Surgery ==

== ENCOUNTER 2024-03-10 08:53 | Day surgery (SDC) | payer BC, MEDICARE, SELFPAY ==
--- NOTE | 2024-03-10 08:23 | P.CONAN_ITS ---
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 (Acute) Rhinosinusitis (Acute) CANDELARIA (obstructive sleep apnea) (Acute) CRPS (complex regional pain syndrome) type I of lower limb (Acute) Post herpetic neuralgia (Acute) Right knee pain (Acute) Low back pain (Acute) Tricompartment osteoarthritis of right knee (Acute) Hypokalemia (Acute) Status post total knee replacement, right (Acute) DVT (deep venous thrombosis) (Acute) Leg length discrepancy (Acute) Pulmonary nodules (Acute) CANDELARIA on CPAP (Acute) Asthma (Acute) Insomnia (Acute) Fibromyalgia (Acute) Seronegative rheumatoid arthritis (Acute) Past Medical History Medical History Vertigo GERD (gastroesophageal reflux disease) DJD (degenerative joint disease) Rheumatoid arthritis COPD (chronic obstructive pulmonary disease) Hyperlipidemia BMI 36.0-36.9,adult Obesity Cough Hepatitis C antibody positive in blood Leg length discrepancy Pulmonary nodules CANDELARIA on CPAP Asthma Insomnia Fibromyalgia Seronegative rheumatoid arthritis Family History Family History Maternal Grandmother Skin cancer Maternal Aunt Breast cancer Maternal Uncle Prostate cancer Mother No problems noted. Father No problems noted. Family history of problems with anesthesia: No Surgical History Surgical History History of total knee replacement History of knee surgery Hx of detached retina repair History of ankle surgery History of colon resection Hx of colonoscopy History of total knee arthroplasty Hx of cholecystectomy H/O bilateral breast reduction surgery Hx of tubal ligation History of Problems with Anesthesia: No Social History Social History Household Members: Spouse Housing: House Are you a primary care director rn to a significant other at home: No Do you presently have visiting nurse or other home services: No Alcohol intake: current Alcohol intake frequency: holidays/special occasions only Patient Tobacco Use Status: Never used Tobacco Have you been hit, kicked, punched, or otherwise hurt by someone within the past year? If so, by whom?: No Are you DNR?: No Advance Directives: No Advance Directives Information Provided: Yes Recently lost weight without trying: No Nutrition Risks: No Nutritional Risk service: No Current occupational status: disabled Meds Allergies Allergy/AdvReac Type Severity Reaction Status Date / Time aclidinium [Tudorza Pressair] Allergy Intermediate Hives Verified 03/10/24 09:59 Home Medications ?Medication ?Instructions ?Recorded ?Confirmed ?Last Taken ?Type atorvastatin 20 mg tablet 20 mg PO DAILY 08/18/21 03/10/24 Unknown History ipratropium 0.5 mg-albuterol 3 mg 3 ml inhalation DAILY PRN 11/26/22 03/10/24 Unknown History (2.5 mg base)/3 mL nebulization Respiratory Distress soln nebulizers 11/26/22 03/10/24 Unknown History cholecalciferol (vitamin D3) 50 50 mcg PO DAILY 10/03/23 03/10/24 Unknown History mcg (2,000 unit) tablet meclizine 25 mg tablet 25 mg PO DAILY PRN Vertigo 12/09/23 03/10/24 Unknown History Exam Airway Mallampati Class: II TM Dist: >3cm Neck ROM: Full Loose/Missing/Broken Teeth: No Heart: RRR Lungs: CTA Assessment and Plan Assessment Anesthesia Assessment: Anesthesia Plan Discussed and Chart Reviewed Final Anesthetic Review Family History of Problems with Anesthesia: No History of Problems with Anesthesia: No NPO: Yes ASA Class: III Final Preanesthetic Review: Meds/Allgs Chart Reviewed, Consent Obtained/Reviewed and Anes Risks/Benef Reviewed Patient Risk: Low Procedure Risk: Intermediate Anesthetic Plan Anesthetic Plan: MAC:
[2024-03-10 09:26] VITALS: BMI 35.9
[2024-03-10] MEDS: Lactated Ringers 1,000 ML 80 ML IVCONT (09:52)
[2024-03-10 10:03] VITALS: BP 140/85; PULSE 87; RESP 18; TEMP 36.7; O2SAT 96
--- NOTE | 2024-03-10 11:30 | MHC.SHP ---
Pre-Procedural Eval Section A - 24 Hr Update-Section A only Date of Service: 03/10/24 The patient is an INPATIENT: No The patient has been examined within 24 hours of the surgical procedure. The History & Physical has been completed within 30 days and I have reviewed it.: Yes Section B - Complete if H&P > 30 days Chief Complaint: Morbid (severe) obesity due to excess calories Details of Present Illness: GERD Relevant Family History (Specify if Yes): No Relevant Social History: None Present Medications: None Medical History: No relevant PMH History of Previous Operations: No relevant previous surgery Allergies: Allergies Allergy/AdvReac Type Severity Reaction Status Date / Time aclidinium [Tudorza Pressair] Allergy Intermediate Hives Verified 03/10/24 09:59 Review of Systems Sugical H&P ROS: Negative: Constitution, Cardiovascular, Respiratory, Neurological, Psychiatric, Hem-Onc, Allergic/Immunologic, Gastrointestinal, Genitourinary, Musculoskeletal, Integumentary, Endocrine and Eyes/Ears/Nose/Throat Exam Surgical H&P Exam: Normal: HEENT, Normal: Heart, Normal: Lungs, Normal: Extremities, Normal: Abdomen, Normal: Skin and Normal: Neurological Plan Diagnosis/Plan: Unchanged (EGD to assess etiology of GERD. Risks of bleeding and perforation were discussed with the patient and she is in agreement with the plan.) I have reviewed the history and physical and performed a pertinent physical examination on my patient. No changes have occurred unless specified. Time Spent With Patient Time: Total time managing care of this patient today ____ minutes.
--- NOTE | 2024-03-10 11:33 | PC.NURSE ---
Anti aware that patient stated that she had a syncopal episode in November and recently had a nuclear stress test and holter monitor x 21 days which patient removed 2 days ago for this procedure Records have been requested from [facility] via fax.
--- NOTE | 2024-03-10 11:58 | PM.OP ---
Brief Operative Note Date of Service: 03/10/24 Pre-op diagnosis: GERD Post-op diagnosis: same (Large polypoid mass proximal stomach along the greater curvature, small diaphragmatic hernia) Procedure: PROCEDURE DATE: 03/10/2024 PREOPERATIVE DIAGNOSIS: GERD POSTOPERATIVE DIAGNOSIS: ?Same as above. 1) small hiatal hernia, 2) large polypoid mass proximal stomach PROCEDURE: Tdrxauef-[id number] with biopsies Surgeon: ?Demian Kat M.D.. Ph.D. Indoor Sports Centre Manager: None ? Anesthesia: IV sedation Estimated blood loss: ?Minimal FINDINGS AND PROCEDURE: ? OPERATIVE INDICATIONS: ?The patient is a 53 year old female known to me who is interested in bariatric surgery. The patient has GERD. Based on this information I recommended an upper endoscopy to evaluate the patient's symptoms. Risks and complications of the surgery were discussed with the patient in advance particularly the possibility of perforation or bleeding that may require surgical intervention. The patient understood the risks and was in agreement with the plan. ? PROCEDURE: After informed consent was obtained by the patient, the patient was ?transferred to the Operating Room and was placed in the supine position.? After successful induction of IV sedation, a mouth block was inserted and the patient was placed in the left lateral decubitus position. An upper endoscopy was performed next, the oropharynx and esophagus appeared within the normal limits. There was a small 3cm hiatal hernia. The z-line was smooth. Two biopsies were obtained from the distal esophagus 2-3 cm proximal to the GE junction and two additional biopsies from the GE junction. The stomach was entered and it appeared to be of normal size. There was a large polypoid mass at the proximal stomach along the greater curvature with erythema. It appeared to be made of multiple polyps of large size. The polyps were mobile and did not appear to be fixed. Several of these polyps were biopsied. Some of these biopsies were sent fresh to the pathology department and initial diagnosis is that they wer ebenign polyps with some inflammation. Additional biopsies were sent in formalin. There was mild gastritis at distal antrum. There was no stricture or ulcer. A biopsy was obtained from the distal antrum. No significant bleeding was noted from any of the biopsy sites. The scope was then advanced into the duodenum which appeared to be normal as well. Retroflexion of the scope confirmed the presence of the polypoid mass and a small diaphragmatic hernia. At that point the duodenum ?and the stomach were decompressed and the scope was withdrawn from the patient's mouth. The patient extubated and was transferred in stable condition to the Recovery Room for further care. I was present and performed all steps of the procedure. There were no residents to assist with this case. Demian Kat M.D., Ph.D. Surgeon: Darren Kat MD Anesthesia: MAC Was an Indoor Sports Centre Manager used for this Procedure?: No Estimated blood loss (mL): 0 IV fluids (mL): 400 Urine output (mL): 0 (No [place] to record output) Pathology: other (1) antrum x1, 2) fundus: several biopsies of the polypoid mass, 3) GE junction x2, 4) distal esophagus x2, 5) one biopsy at the lesser curvature) Condition: stable Disposition: PACU
--- NOTE | 2024-03-10 12:01 | PC.NURSE ---
Dr. Felipe reviewed all paperwork faxed from cardiology office. Okay to proceed.
[2024-03-10 12:43] VITALS: BP 126/72; PULSE 102; RESP 18; TEMP 36.4; O2SAT 98
[2024-03-10 12:58] VITALS: BP 123/89; PULSE 84; RESP 18; TEMP 36.7; O2SAT 98
== END 2024-03-10 13:58 | disposition home or self-care (01) ==
PROVIDERS: PCP Internal Medicine; Visit Provider Surgery
PROC: 0DJ08ZZ Inspection of Upper Intestinal Tract, Via Natural or Artificial Opening Endoscopic (ICD-10-PCS; CPT 43235; principal; 2024-03-10 11:00)
DX: E66.01 Morbid (severe) obesity due to excess calories (principal); Z68.36 Body mass index [BMI] 36.0-36.9, adult; K31.7 Polyp of stomach and duodenum; K21.9 Gastro-esophageal reflux disease without esophagitis; B19.20 Unspecified viral hepatitis C without hepatic coma; B17.10 Acute hepatitis C without hepatic coma; J44.9 Chronic obstructive pulmonary disease, unspecified; M06.00 Rheumatoid arthritis without rheumatoid factor, unspecified site; M79.7 Fibromyalgia; R91.8 Other nonspecific abnormal finding of lung field; G47.33 Obstructive sleep apnea (adult) (pediatric); Z90.49 Acquired absence of other specified parts of digestive tract; Z79.51 Long term (current) use of inhaled steroids; Z79.899 Other long term (current) drug therapy; Z99.89 Dependence on other enabling machines and devices; Z88.8 Allergy status to other drugs, medicaments and biological substances; Z98.890 Other specified postprocedural states
CPT/HCPCS: 43239; 88305; 88313; 88331; 88342; J2003; J2704

== ENCOUNTER → 2024-03-10 08:53 | Outpatient (BNV) | payer BC, MEDICARE, SELFPAY | PROVIDERS: PCP Internal Medicine; Visit Provider Surgery | DX: K31.7 Polyp of stomach and duodenum (principal) | CPT/HCPCS: 43239 ==

== ENCOUNTER 2024-03-31 11:07 | Outpatient (REF) | payer BC, MEDICARE, SELFPAY ==
[2024-03-31 12:47] LABS: Alanine Aminotransferase 19 U/L (0-31); Albumin Level 3.9 g/dL (3.5-5.0); Alkaline Phosphatase 110 U/L (39-117); Anion Gap 12 (12-20); Aspartate Amino Transferase 23 U/L (5-31); Bilirubin Total 0.7 mg/dL (0.0-1.0); Blood Urea Nitrogen 13 mg/dL (9-16); Calcium 9.1 mg/dL (8.4-10.2); Carbon Dioxide 24 mmol/L (22-29); Chloride 109 mmol/L (96-108); Estimated Glomerular Filt Rate > 60; Glucose Random 86 mg/dL (60-115); Potassium 4.3 mmol/L (3.3-5.1); Sodium 141 mmol/L (135-145); Total Protein 7.6 g/dL (6.5-8.0)
[2024-04-01 11:03] LABS: CA-125 8 U/mL (<35)
[2024-04-01 11:28] LABS: Carbohydrate Antigen 19-9 9 U/mL (<34)
[2024-04-01 13:24] LABS: Alpha Fetoprotein 2.4 ng/mL
== END 2024-03-31 11:08 | disposition home or self-care (01) ==
LOC: HO.LAB 11:07
PROVIDERS: Absent Provider Physician Assistant Surgical; PCP Internal Medicine; Referring Provider Internal Medicine; Visit Provider Surgery
DX: M06.00 Rheumatoid arthritis without rheumatoid factor, unspecified site (principal); K31.89 Other diseases of stomach and duodenum; Z79.899 Other long term (current) drug therapy
CPT/HCPCS: 36415; 80053; 82105; 82378; 86301; 86304

== ENCOUNTER 2024-04-03 08:42 | Outpatient (REF) | payer BC, MEDICARE, SELFPAY ==
--- NOTE | 2024-04-03 09:51 | ECG_ITS ---
Test Reason : OBS Blood Pressure : / mmHG Vent. Rate : 063 BPM Atrial Rate : 063 BPM P-R Int : 150 ms QRS Dur : 084 ms QT Int : 394 ms P-R-T Axes : 033 029 049 degrees QTc Int : 403 ms Normal sinus rhythm Normal ECG When compared with ECG of 01-DEC-2021 22:10, Vent. rate has decreased BY 51 BPM Borderline criteria for Inferior infarct are no longer Present T wave amplitude has increased in Anterolateral leads Referred By: Darren Kat Electronically Signed By:BERTIN NINA
== END 2024-04-03 08:43 | disposition home or self-care (01) ==
LOC: HO.US 08:42
PROVIDERS: PCP Internal Medicine; Visit Provider Surgery
DX: K31.89 Other diseases of stomach and duodenum (principal); E66.812 Obesity, class 2; E66.01 Morbid (severe) obesity due to excess calories; Z68.36 Body mass index [BMI] 36.0-36.9, adult
CPT/HCPCS: 71046; 76700; 76981; 93005

== ENCOUNTER → 2024-04-03 08:48 | Outpatient (BNV) | payer BC, MEDICARE, SELFPAY | PROVIDERS: PCP Internal Medicine; Visit Provider Radiology Diagnostic Radiology | DX: K31.89 Other diseases of stomach and duodenum (principal) | CPT/HCPCS: 76700 ==

== ENCOUNTER → 2024-04-03 09:51 | Outpatient (BNV) | payer BC, MEDICARE, SELFPAY | PROVIDERS: PCP Internal Medicine; Visit Provider Internal Medicine | DX: R94.31 Abnormal electrocardiogram [ECG] [EKG] (principal); E66.812 Obesity, class 2; Z68.36 Body mass index [BMI] 36.0-36.9, adult | CPT/HCPCS: 93010 ==

== ENCOUNTER 2024-04-17 10:46 | Outpatient (AMB) | payer BC, MEDICARE, SELFPAY ==
--- NOTE | 2024-04-17 11:00 | MHC.WMTHER ---
Intake Intake Visit Reasons: OV BH Intake Allergies aclidinium [Tudorza Pressair] Allergy (Intermediate, Verified 03/10/24 09:59) Hives [facility] Medical History Vertigo GERD (gastroesophageal reflux disease) DJD (degenerative joint disease) Rheumatoid arthritis COPD (chronic obstructive pulmonary disease) Hyperlipidemia BMI 36.0-36.9,adult Obesity Cough Hepatitis C antibody positive in blood Leg length discrepancy Pulmonary nodules CANDELARIA on CPAP Asthma Insomnia Fibromyalgia Seronegative rheumatoid arthritis Surgical History History of total knee replacement History of knee surgery Hx of detached retina repair History of ankle surgery History of colon resection Hx of colonoscopy History of total knee arthroplasty Hx of cholecystectomy H/O bilateral breast reduction surgery Hx of tubal ligation Family History Maternal Grandmother Skin cancer Maternal Aunt Breast cancer Maternal Uncle Prostate cancer Mother No problems noted. Father No problems noted. Social History Household Members: Spouse Housing: House Are you a primary children's zoo caretaker to a significant other at home: No Do you presently have visiting nurse or other home services: No Alcohol intake: current Alcohol intake frequency: holidays/special occasions only Patient Tobacco Use Status: Never used Tobacco service: No Current occupational status: disabled Behavioral Health Assessment Weight Management Therapy Therapy Notes Details The patient is a 53-year-old female presenting for her initial visit to complete a behavioral health assessment as part of the surgical weight loss program. Presenting Concerns Referral Source [facility] Provider - Dr Philippe PT has initial visit on 03/06 and was at 243Lbs Reason for referral Completion of behavioral health assessment as part of process for weight-loss surgery. Precipitating Event Obesity. Initial weight 243Lbs Living Situation Current Living Situation Own At risk of losing current housing? No Satisfied with current living situation? Yes Comments PT lives with her 2 children (27 and 31) Food/Weight/Diet Expectations of change Initial goal is to lose 10% of her weight before surgery, which is about 24lbs. Ultimate weight goal: 219lbs before surgery Started weight: 243Lbs Most recent weight (04/17/2024): 234Lbs Patient wants to be able to lose and maintain a healthy weight. She would like to be at 169-180Lbs. Lstlty she really wants to be able to stop using some of her meds. PT is implementing the following: Current meal plan: 2 Shakes, 2.5 bars, 1 meal. Exercise plan: stationary bike - Hasn't started. History/Relationship with food Example of meals before starting the program: Breakfast: Lunch: Dinner: Snacks: Drinks/Liquids: History/Relationship with weight In the last 10 years, the patient's Lowest weight was and highest History/Relationship with dieting Tried intermittent fasting in 2019, lost 30Lbs - 208Lbs Social History Family history and relationship 30 years ago. 2 adult children who still live at home with them. Parents . She has 6 siblings. PT reports good family relationships. 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 Currently WNL. Social support . Children. Very close to a brother and sister. Community support Congregation community. [employer]/Spirituality Taoism. Very active, attends 2-3 times at week. Cultural/Ethnic information PT was born and raised in [place]. Moved to [place] in 1990. Legal Involvement and History Current or historical involvement with the legal system? None reported Education Highest grade completed Bachelors' degree in biology and pedagogy. Educational Interests/Skills Cooking, caterings, knitting, Employment Employment Status Unemployed (Retired 11 years ago. ) Wants help to find employment? No Meaningful activities Reading, sudoku, shinto-activities, Financial Situation Describe current financial situation Comfortable Questionnaires PHQ-9 Over the last 2 weeks, how often have you been bothered by any of the following problems? 1. Little interest or pleasure in doing things: not at all 2. Feeling down, depressed, or hopeless: not at all 3. Trouble falling or staying asleep, or sleeping too much: several days 4. Feeling tired or having little energy: several days 5. Poor appetite or overeating: several days 6. Feeling bad about yourself - or that you are a failure or have let yourself or your family down: not at all 7. Trouble concentrating on things, such as reading the newspaper or watching television: not at all 8. Moving or speaking so slowly that other people could have noticed. Or the opposite - being so fidgety or restless that you have been moving around a lot more than usual: several days 9. Thoughts that you would be better off or of hurting yourself in some way: not at all Total score: 4 Depression Screening Interpretation: Negative Depression Screening Done: Yes Source: Developed by Drs. Roberto Carlos Lee, Hope Mccurdy, Dick Penn and colleagues, with an educational sherrie from [employer]. Binge Eating Scale Group 1 A. I don't feel self-conscious about my wt. or body size when I'm with others. B. I feel concerned about how I look to others, but it normally does not make me fell disappointed with myself C. I do get self-conscious about my appearance and wt. which makes me feel disappointed in myself. D. I feel very self-conscious about my wt. and frequently I feel intense shame and disgust for myself. I try to avoid social contacts because of my self-consciousness. Response Group 1: B Group 2 A. I don't have any difficulty eating slowly in the proper manner. B. Although I seem to gobble down foods, I don't end up feeling stuffed because of eating to much. C. At times, I tend to eat quickly and then, I feel uncomfortably full afterwards. D. I have the habit of bolting down my food, without really chewing it. When this happens I usually feel uncomfortably stuffed because I've eaten to much. Response Group 2: C Group 3 A. I feel capable to control my eating urges when I want to. B. I feel like I have failed to control my eating more than the average person. C. I feel utterly helpless when it comes to feeling in control of my eating urges. D. Because I feel so helpless about controlling my eating I have become very desperate about trying to get control. Response Group 3: A Group 4 A. I don't have the habit of eating when I'm bored. B. I sometimes eat when I'm bored, but often I'm able to get busy and get my mind off food. C. I have a regular habit of eating when I'm bored, but occasionally, I can use some other activity to get my mind off eating. D. I have a strong habit of eating when I'm bored. Nothing seems to help me breath the habit. Response Group 4: B Group 5 A. I'm usually physically hungry when I eat something. B. Occasionally, I eat something on impulse even though I really am not hungry. C. I have the regular habit of eating foods, that I might not really enjoy, to satisfy a hungry feeling even though physically, I don't need the food. D. Although I'm not physically hungry, I get a hungry feeling in my mouth that only seems to be satisfied when I eat a food, like sandwich, that fills my mouth. Sometimes, when I eat the food to satisfy my mouth hunger, I then spit the food out so I won't gain weight. Response Group 5: B Group 6 A. I don't feel any guilt or self-hate after I overeat. B. After I overeat, occasionally I feel guilt or self-hate. C. Almost all the time I experience strong guilt or self-hate after I overeat. Response Group 6: B Group 7 A. I don't lose total control of my eating when dieting even after periods when I overeat. B. Sometimes when I eat a forbidden food on a diet, I feel like I blew it and eat even more. C. Frequently, I have the habit of saying to myself, I've blown it now, why not go all the way, when I overeat on a diet. When that happens I eat more. D. I have a regular habit of starting a strict diets for myself but I break the diets by going on an eating binge. My life seems to be either a feast or famine. Response Group 7: A Group 8 A. I rarely eat so much food that I feel uncomfortably stuffed afterwards. B. Usually about once a month, I each such a quantity of food, I end up feeling very stuffed. C. I have regular periods during the month when I eat large amounts of food, either at mealtime or at snacks. D. I eat so much food that I regularly feel quite uncomfortable after eating and sometimes a bit nauseous. Response Group 8: A Group 9 A. My level of calorie intake does not go up very high or go down very low on a regular basis. B. Sometimes after I overeat, I will try to reduce my caloric intake to almost nothing to compensate for the excess calories I've eaten. C. I have a regular habit of overeating during the night. It seems that my routine is not to be hungry in the morning but overeat in the evening. D. In my adult years, I have had week-long periods where I practically starve myself. This follows periods when I overeat. It seems I live a life of either feast or famine. Response Group 9: B Group 10 A. I usually am able to stop eating when I want to. I know when enough is enough. B. Every so often, I experience a compulsion to eat which I can't seem to control. C. Frequently, I experience strong urges to eat which I seem unable to control, but at other times I can control my eating urges. D. I feel incapable of controlling urges to eat. I have a fear of not being able to stop eating voluntarily. Response Group 10: A Group 11 A. I don't have any problem stopping eating when I feel full. B. I usually can stop eating when I feel full but occasionally overeat leaving me feeling uncomfortably stuffed. C. I have a problem stopping eating once I start and usually I feel uncomfortably stuffed after I eat a meal. D. Because I have a problem not being able to stop eating when I want, I sometimes have to induce vomiting to relieve my stuffed feeling. Response Group 11: B Group 12 A. I seem to eat just as much when I'm with others, Family social gatherings as when I'm by myself. B. Sometimes, when I'm with other persons, I don't eat as much as I want to eat because I'm self-conscious about my eating. C. Frequently, I eat only a small amount of food when others are present, because I'm very embarrassed about my eating. D. I feel so ashamed about overeating that I pick times to overeat when I know no one will see me. I feel like a closet eater. Response Group 12: A Group 13 A. I eat three meals a day with only an occasional between meal snack. B. I eat 3 meals a day, but I also normally snack between meals. C. When I am snacking heavily, I get in the habit of skipping regular meals. D. There are regular periods when I seem to be continually eating, with no planned meals. Response Group 13: A Group 15 A. I don't think about food a great deal. B. I have strong craving for food but they last only for brief periods of time. C. I have days when I can't seem to think about anything else but food. D. Most of my days seem to be pre-occupied with thoughts about food. I feel like I live to eat. Response Group 15: A Group 16 A. I usually know whether or not I'm physically hungry. I take the right portion of food to satisfy me. B. Occasionally, I feel uncertain about knowing whether or not I'm physically hungry. A these times it's hard to know how much food I should take to satisfy me. C. Even though I might know how many calories I should eat, I don't have any idea what is a normal amount of food for me. Response Group 16: A Binge Eating Score: 8 Score less than 17 Minimal Risk Score between 18-26 Moderate Risk Score between 27-46 High Risk Assessment & Plan Assessment & Plan (1) Unspecified adjustment reaction: Code(s): F43.20 - Adjustment disorder, unspecified (2) Problems related to inappropriate diet and eating habits: Code(s): Z72.4 - Inappropriate diet and eating habits Plan She is scheduled to return in two weeks to finish the assessment. The PHQ-9 will be administered at the next visit. Next appointment: 04/30/2024 Coding Level of Care Code New Pt Psy Diag Josh (26439) Patient Type New Diagnoses Unspecified adjustment reaction F43.20 Problems related to inappropriate diet and eating habits Z72.4 Time Spent (min) 60
== END 2024-04-17 13:26 | disposition home or self-care (01) ==
PROVIDERS: PCP Internal Medicine; Visit Provider Counselor Mental Health
DX: F43.20 Adjustment disorder, unspecified (principal); Z72.4 Inappropriate diet and eating habits
CPT/HCPCS: 90791

== ENCOUNTER → 2024-04-17 10:46 | Outpatient (BNVA) | payer BC, MEDICARE, SELFPAY | PROVIDERS: PCP Internal Medicine; Visit Provider Counselor Mental Health ==

== ENCOUNTER 2024-04-30 09:12 | Outpatient (AMB) | payer BC, MEDICARE, SELFPAY ==
--- NOTE | 2024-04-30 09:10 | MHC.WMTHER ---
Intake Intake Visit Reasons: VIDEO BH F/U Allergies aclidinium [Tudorza Pressair] Allergy (Intermediate, Verified 03/10/24 09:59) Hives [facility] Medical History Vertigo GERD (gastroesophageal reflux disease) DJD (degenerative joint disease) Rheumatoid arthritis COPD (chronic obstructive pulmonary disease) Hyperlipidemia BMI 36.0-36.9,adult Obesity Cough Hepatitis C antibody positive in blood Leg length discrepancy Pulmonary nodules CANDELARIA on CPAP Asthma Insomnia Fibromyalgia Seronegative rheumatoid arthritis Surgical History History of total knee replacement History of knee surgery Hx of detached retina repair History of ankle surgery History of colon resection Hx of colonoscopy History of total knee arthroplasty Hx of cholecystectomy H/O bilateral breast reduction surgery Hx of tubal ligation Family History Maternal Grandmother Skin cancer Maternal Aunt Breast cancer Maternal Uncle Prostate cancer Mother No problems noted. Father No problems noted. Social History Household Members: Spouse Housing: House Are you a primary primary care physician to a significant other at home: No Do you presently have visiting nurse or other home services: No Alcohol intake: current Alcohol intake frequency: holidays/special occasions only Patient Tobacco Use Status: Never used Tobacco service: No Current occupational status: disabled Behavioral Health Assessment Weight Management Therapy Therapy Notes Details The patient is a 53-year-old female presenting for her second visit to complete a behavioral health assessment as part of the surgical weight loss program. She reports being interested in weight loss surgery with the goal of improving her health and maintaining a healthy weight. The patient denies any history of mental health treatment or past behavioral health hospitalizations or crises. She also denies any recent or past safety concerns related to suicidal ideation, suicide attempts, self-harm, or harm to others. Additionally, there is no history of substance use reported. There is no evidence of stress or emotional eating, and scores from the BES indicate a low risk for binge eating behavior. PHQ-9 scores show no active symptoms or concerns related to depression. Furthermore, the mental status exam was within normal limits, suggesting that the patient's functioning is not impaired. At this time, the patient is cleared from a behavioral health standpoint. She is scheduled to return in one month for additional support, as requested. Presenting Concerns Referral Source [facility] Provider - Dr Philippe PT has initial visit on 03/06 and was at 243Lbs Reason for referral Completion of behavioral health assessment as part of process for weight-loss surgery. Precipitating Event Obesity. Initial weight 243Lbs Living Situation Current Living Situation Own At risk of losing current housing? No Satisfied with current living situation? Yes Comments PT lives with her 2 children (27 and 31) Food/Weight/Diet Expectations of change The initial goal is to lose 10% of her weight before surgery, about 24lbs. Ultimate weight goal: 219lbs before surgery Started weight: 243Lbs weight (04/17/2024): 234Lbs Weight last week: 234Lbs. Patient wants to be able to lose and maintain a healthy weight. She would like to be at 169-180Lbs. Lstlty she really wants to be able to stop using some of her meds. PT is implementing the following: Current meal plan: 2 Shakes, 2.5 bars, 1 meal. Exercise plan: stationary bike - Started this week. History/Relationship with food PT reports smelling foods making her hungry even if she is full. At times she ends up eating in excess. PT reports she used to have mainly 2 meals and some snacks. History/Relationship with weight PT reports she was skinny in childhood. In HS she was 121 lbs. She started gaining weight after her first at age 23. After 2nd , she was around 252 Lbs. About 4 years ago she was on a high dosage of prednisone and was at 272Lbs. In the last 10 years, the patient's Lowest weight was 208Lbs 2 years ago, and the highest 272 Lbs PT believes she was under 200 Lbs about 27 years ago. History/Relationship with dieting Tried intermittent fasting in 2019, and lost 30Lbs - 208Lbs. Meal service, Slim Fast, Herbalife, and other shakes. Usually lost 10-15Lbs once hits a place when she can't lose more she stops and gains weight back. Counting calories Gym membership for 1 year, helps her not gain weight. Binge Eating Do you frequently eat large amounts of food in short periods of time, not feeling physically hungry? No Do you eat large amounts of food rapidly and typically alone? No Night Eating Do you wake up at least once during the night to eat? No If you wake up in the night, do you find that it is necessary to eat something in order to fall back asleep? No Do you have little or no appetite in the morning and feel very hungry in the evening, often overeating between dinner and when you go to bed? Yes Social History Family history and relationship 30 years ago. 2 adult children who still live at home with them. Parents . She has 6 siblings. PT reports good family relationships. 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 Currently WNL. Social support . Children. Very close to a brother and sister. Community support [employer] community. Spiritism/Spirituality Restorationist. Very active, attends 2-3 times at week. Cultural/Ethnic information PT was born and raised in [place]. Moved to [place] in 1990. Legal Involvement and History Current or historical involvement with the legal system? None reported Education Highest grade completed Bachelors' degree in biology and pedagogy. Preferred learning style Learn by doing and Visual Currently enrolled in educational program? No Interested in further educational program? No Educational Interests/Skills Cooking, caterings, knitting, Employment Employment Status Unemployed (Retired 11 years ago. ) Wants help to find employment? No Meaningful activities Reading, sudoku, hinduism-activities, Financial Situation Describe current financial situation Comfortable Financial assistance? None Service Service? No Mental Health and Addiction Treatment Current/Past substance abuse? No Comments Alcohol: Socially or on special occasions. Less than 1 at month. 1 mixed drink or 3 shots. Cigarettes/Tobacco:None Cannabis/Edibles: None. Current/Past addictive behavior concerns? No Psychiatric history PT reports she has never been in counseling or any type of MH treatment. Several years ago PCP provided with some meds while she was dealing with grief. Denies any history or concern with safety factors around SI/SA, self-harm or other-harm. Medical and Physical Health Summary Additional Medical History not covered in history None additional Sexual History concerns None reported Physical exam in the last year? Yes Pain Screening Current pain? Yes Pain in the last few months? Yes Comments Daily pain due to multiple health issues. she has flare-ups when overdue things, at times pain is worse at night. She tries to do stretching before bedtime and this is helping her to wake up better. Medications Is the patient compliant with medications? Yes Does the patient have Gutierrez Guardian in place? Not applicable Does the patient use complimentary health approaches? No Trauma/Abuse History History of trauma? No Questionnaires PHQ-9 Over the last 2 weeks, how often have you been bothered by any of the following problems? 1. Little interest or pleasure in doing things: not at all 2. Feeling down, depressed, or hopeless: not at all 3. Trouble falling or staying asleep, or sleeping too much: more than half the days (staying asleep. Issues worsen during the winter. ) 4. Feeling tired or having little energy: not at all 5. Poor appetite or overeating: not at all 6. Feeling bad about yourself - or that you are a failure or have let yourself or your family down: not at all 7. Trouble concentrating on things, such as reading the newspaper or watching television: not at all 8. Moving or speaking so slowly that other people could have noticed. Or the opposite - being so fidgety or restless that you have been moving around a lot more than usual: not at all 9. Thoughts that you would be better off or of hurting yourself in some way: not at all Total score: 2 Depression Screening Interpretation: Negative Depression Screening Done: Yes 03422 - PHQ-9 Billing: Yes Source: Developed by Drs. Roberto Carlos Lee, Hope Mccurdy, Dick Penn and colleagues, with an educational sherrie from [employer]. Binge Eating Scale Group 1 A. I don't feel self-conscious about my wt. or body size when I'm with others. B. I feel concerned about how I look to others, but it normally does not make me fell disappointed with myself C. I do get self-conscious about my appearance and wt. which makes me feel disappointed in myself. D. I feel very self-conscious about my wt. and frequently I feel intense shame and disgust for myself. I try to avoid social contacts because of my self-consciousness. Response Group 1: B Group 2 A. I don't have any difficulty eating slowly in the proper manner. B. Although I seem to gobble down foods, I don't end up feeling stuffed because of eating to much. C. At times, I tend to eat quickly and then, I feel uncomfortably full afterwards. D. I have the habit of bolting down my food, without really chewing it. When this happens I usually feel uncomfortably stuffed because I've eaten to much. Response Group 2: C Group 3 A. I feel capable to control my eating urges when I want to. B. I feel like I have failed to control my eating more than the average person. C. I feel utterly helpless when it comes to feeling in control of my eating urges. D. Because I feel so helpless about controlling my eating I have become very desperate about trying to get control. Response Group 3: A Group 4 A. I don't have the habit of eating when I'm bored. B. I sometimes eat when I'm bored, but often I'm able to get busy and get my mind off food. C. I have a regular habit of eating when I'm bored, but occasionally, I can use some other activity to get my mind off eating. D. I have a strong habit of eating when I'm bored. Nothing seems to help me breath the habit. Response Group 4: B Group 5 A. I'm usually physically hungry when I eat something. B. Occasionally, I eat something on impulse even though I really am not hungry. C. I have the regular habit of eating foods, that I might not really enjoy, to satisfy a hungry feeling even though physically, I don't need the food. D. Although I'm not physically hungry, I get a hungry feeling in my mouth that only seems to be satisfied when I eat a food, like sandwich, that fills my mouth. Sometimes, when I eat the food to satisfy my mouth hunger, I then spit the food out so I won't gain weight. Response Group 5: B Group 6 A. I don't feel any guilt or self-hate after I overeat. B. After I overeat, occasionally I feel guilt or self-hate. C. Almost all the time I experience strong guilt or self-hate after I overeat. Response Group 6: B Group 7 A. I don't lose total control of my eating when dieting even after periods when I overeat. B. Sometimes when I eat a forbidden food on a diet, I feel like I blew it and eat even more. C. Frequently, I have the habit of saying to myself, I've blown it now, why not go all the way, when I overeat on a diet. When that happens I eat more. D. I have a regular habit of starting a strict diets for myself but I break the diets by going on an eating binge. My life seems to be either a feast or famine. Response Group 7: A Group 8 A. I rarely eat so much food that I feel uncomfortably stuffed afterwards. B. Usually about once a month, I each such a quantity of food, I end up feeling very stuffed. C. I have regular periods during the month when I eat large amounts of food, either at mealtime or at snacks. D. I eat so much food that I regularly feel quite uncomfortable after eating and sometimes a bit nauseous. Response Group 8: A Group 9 A. My level of calorie intake does not go up very high or go down very low on a regular basis. B. Sometimes after I overeat, I will try to reduce my caloric intake to almost nothing to compensate for the excess calories I've eaten. C. I have a regular habit of overeating during the night. It seems that my routine is not to be hungry in the morning but overeat in the evening. D. In my adult years, I have had week-long periods where I practically starve myself. This follows periods when I overeat. It seems I live a life of either feast or famine. Response Group 9: B Group 10 A. I usually am able to stop eating when I want to. I know when enough is enough. B. Every so often, I experience a compulsion to eat which I can't seem to control. C. Frequently, I experience strong urges to eat which I seem unable to control, but at other times I can control my eating urges. D. I feel incapable of controlling urges to eat. I have a fear of not being able to stop eating voluntarily. Response Group 10: A Group 11 A. I don't have any problem stopping eating when I feel full. B. I usually can stop eating when I feel full but occasionally overeat leaving me feeling uncomfortably stuffed. C. I have a problem stopping eating once I start and usually I feel uncomfortably stuffed after I eat a meal. D. Because I have a problem not being able to stop eating when I want, I sometimes have to induce vomiting to relieve my stuffed feeling. Response Group 11: B Group 12 A. I seem to eat just as much when I'm with others, Family social gatherings as when I'm by myself. B. Sometimes, when I'm with other persons, I don't eat as much as I want to eat because I'm self-conscious about my eating. C. Frequently, I eat only a small amount of food when others are present, because I'm very embarrassed about my eating. D. I feel so ashamed about overeating that I pick times to overeat when I know no one will see me. I feel like a closet eater. Response Group 12: A Group 13 A. I eat three meals a day with only an occasional between meal snack. B. I eat 3 meals a day, but I also normally snack between meals. C. When I am snacking heavily, I get in the habit of skipping regular meals. D. There are regular periods when I seem to be continually eating, with no planned meals. Response Group 13: A Group 15 A. I don't think about food a great deal. B. I have strong craving for food but they last only for brief periods of time. C. I have days when I can't seem to think about anything else but food. D. Most of my days seem to be pre-occupied with thoughts about food. I feel like I live to eat. Response Group 15: A Group 16 A. I usually know whether or not I'm physically hungry. I take the right portion of food to satisfy me. B. Occasionally, I feel uncertain about knowing whether or not I'm physically hungry. A these times it's hard to know how much food I should take to satisfy me. C. Even though I might know how many calories I should eat, I don't have any idea what is a normal amount of food for me. Response Group 16: A Binge Eating Score: 8 Score less than 17 Minimal Risk Score between 18-26 Moderate Risk Score between 27-46 High Risk Assessment & Plan Assessment & Plan (1) Unspecified adjustment reaction: Code(s): F43.20 - Adjustment disorder, unspecified (2) Problems related to inappropriate diet and eating habits: Code(s): Z72.4 - Inappropriate diet and eating habits Plan After completing the assessment and reviewing the scores from the Binge Eating Scale (BES) and PHQ-9, along with the mental status evaluation and patient statements, it is determined that there are no current risks or concerns preventing the patient from proceeding with bariatric surgery. The patient has been cleared from a behavioral health standpoint and will return in one month for additional support. Next appointment: 06/03/2024 at 9:00 AM, via telehealth. Telehealth Telehealth Telehealth Platform: [facility] Location of provider rendering services: other Location of patient: address on file Patient Identification confirmed using: Name, : Yes Telehealth method: video Patient verbally consented to treatment: Yes Patient verbally consented to billing insurance company: Yes Patient informed of any privacy concerns related to visit: Yes Minutes spent on Phone/Video with Pt.: 60 Coding Level of Care Code Established Pt Tele Psytx >53 mins ([id number]) Patient Type Established Diagnoses Unspecified adjustment reaction F43.20 Problems related to inappropriate diet and eating habits Z72.4 Additional Codes PHQ-9 - 11341 - PHQ-9 Billing: Yes ([id number]) Time Spent (min) 60
== END 2024-04-30 11:13 | disposition home or self-care (01) ==
LOC: HO.HBST 09:12
PROVIDERS: PCP Internal Medicine; Visit Provider Counselor Mental Health
DX: F43.20 Adjustment disorder, unspecified (principal); Z72.4 Inappropriate diet and eating habits
CPT/HCPCS: 90837

== ENCOUNTER 2024-06-03 09:19 | Outpatient (AMB) | payer BC, MEDICARE, SELFPAY ==
--- NOTE | 2024-06-03 09:05 | A.OFFWM_ITS ---
Intake Intake Visit Reasons: VIDEO BH F/U Allergies aclidinium [Tudorza Pressair] Allergy (Intermediate, Verified 06/03/24 10:49) Hives [facility] Medical History Vertigo GERD (gastroesophageal reflux disease) DJD (degenerative joint disease) Rheumatoid arthritis COPD (chronic obstructive pulmonary disease) Hyperlipidemia BMI 36.0-36.9,adult Obesity Cough Hepatitis C antibody positive in blood Leg length discrepancy Pulmonary nodules CANDELARIA on CPAP Asthma Insomnia Fibromyalgia Seronegative rheumatoid arthritis Surgical History History of total knee replacement History of knee surgery Hx of detached retina repair History of ankle surgery History of colon resection Hx of colonoscopy History of total knee arthroplasty Hx of cholecystectomy H/O bilateral breast reduction surgery Hx of tubal ligation Family History Maternal Grandmother Skin cancer Maternal Aunt Breast cancer Maternal Uncle Prostate cancer Mother No problems noted. Father No problems noted. Social History Household Members: Spouse Housing: House Are you a primary day care home mother to a significant other at home: No Do you presently have visiting nurse or other home services: No Alcohol intake: current Alcohol intake frequency: holidays/special occasions only Patient Tobacco Use Status: Never used Tobacco service: No Current occupational status: disabled Behavioral Health Assessment Weight Management Therapy Therapy Notes Details Subjective: PT reports positive progress with her weight loss. She recently traveled to [place], where she successfully adhered to her meal and exercise plan despite the challenges of being away from home. Objective: PT presents for a follow-up visit via Telehealth. * Discussed overall functioning and progress. * Focused on habit change and readiness for weight loss surgery. Reinforced the importance of communication with WMP-providers. * Provided strategies for building sustainable habits and addressing concerns related to weight loss. Assessment/Response: * Mental status: WNL. * Risk reported/identified: None. Plan: PT will return 1-3 wks after bariatric surgery. Food/Weight/Diet Expectations of change The initial goal is to lose 10% of her weight before surgery, about 24lbs. Ultimate weight goal: 219lbs before surgery Started weight: 243Lbs weight (04/17/2024): 234Lbs Weight last week: 234 lbs. Recent weight as of 05/28/2024: 226Lbs. The patient wants to be able to lose and maintain a healthy weight. She would like to be at 169-180 lbs. Lastly, she wants to be able to stop using some of her meds. PT is implementing the following: Current meal plan: 2 Shakes, 2.5 bars, 1 meal. Exercise plan: stationary bike - 1.5 hr, 3 days at week. Assessment & Plan Assessment & Plan (1) Unspecified adjustment reaction: Code(s): F43.20 - Adjustment disorder, unspecified (2) Problems related to inappropriate diet and eating habits: Code(s): Z72.4 - Inappropriate diet and eating habits Plan Follow up with this provider 1-3 weeks after bariatric surgery for support. Next valerio: 1-3 wks Telehealth [facility]health [email or web address] Location of provider rendering services: other Location of patient: address on file Patient Identification confirmed using: Name, : Yes Telehealth method: video Patient verbally consented to treatment: Yes Patient verbally consented to billing insurance company: Yes Patient informed of any privacy concerns related to visit: Yes Minutes spent on Phone/Video with Pt.: 60 Coding Level of Care Code Established Pt Tele Psytx >53 mins ([id number]) Patient Type Established Diagnoses Unspecified adjustment reaction F43.20 Problems related to inappropriate diet and eating habits Z72.4 Time Spent (min) 60
--- OUTSIDE RECORDS SUMMARY | 2024-06-03 09:32 | XMS_ITS | Clinical Summary ---
Author Organization [facility] Address [address] [place] [address] Phone Care Team Providers Care Proof Reader Name Role Phone Fernando Pickens MD Primary Care Provider [phone] Allergies Active Allergy Reactions Criticality Noted Date Comments Aclidinium [place] Hives,Nausea And Vomiting High 02/18/2022 Sally Orosco [Aclidinium [place]] Medications pregabalin (LYRICA) 150 mg capsule 4 Active pregabalin (LYRICA) 200 mg capsule 4 Active cholecalciferol (VITAMIN D-3) 50 mcg (2,000 unit) tablet Take 1 tablet (2,000 Units total) by mouth 1 (one) time each day. 4 Active omeprazole (PriLOSEC) [address] capsule Take 1 capsule (40 mg total) by mouth 1 (one) time each day. 4 Active methotrexate 2.5 mg tablet Take 8 tablets (20 mg total) by mouth 1 (one) time per week Active folic acid (FOLVITE) 1 mg tablet Take 1 tablet (1,000 mcg total) by mouth 1 (one) time each day. Active baclofen (LIORESAL) 10 mg tablet Take 1 tablet (10 mg total) by mouth. Active ipratropium-alb uteroL (DUONEB) 0.5-2.5 mg/3 mL nebulizer solution 1 Active Trelegy Ellipta 200-62.5-25 mcg inhaler 1 Active fluticasone propionate (FLONASE) 50 mcg/actuation nasal spray Administer 2 sprays into each nostril 1 (one) time each day. 0 Active cetirizine (ZyrTEC) 10 mg tablet Take 1 tablet (10 mg total) by mouth 1 (one) time each day. 9 Active Daliresp 500 mcg tablet Take 1 tablet (500 mcg total) by mouth 1 (one) time each day. 9 Active montelukast (SINGULAIR) 10 mg tablet Take 1 tablet (10 mg total) by mouth. 8 Active albuterol HFA (PROAIR HFA ; PROVENTIL HFA ; VENTOLIN HFA) 90 mcg/actuation inhaler Inhale 1-2 puffs by mouth. Active benzonatate (TESSALON) 200 mg capsule TAKE 1 CAPSULE ORALLY 2 TIMES A DAY NEEDED FOR COUGH FOR 30 DAYS 4 Active lidocaine (LIDODERM) 5 % patch APPLY 1 PATCH TOPICALLY DAILY 4 Active atorvastatin (LIPITOR) 20 mg tablet TAKE 1 TABLET BY MOUTH EVERY DAY 90 tablet 4 Active clotrimazole-be tamethasone (LOTRISONE) 1-0.05 % cream Apply thin layer to affected area BID for 2 weeks then stop. Avoid face and groin. 30 g 5 Active Active Problems Problem Noted Date Diagnosed Date Chronic obstructive pulmonary disease 02/20/2024 Class 2 obesity 02/20/2024 CAICEDO (dyspnea on exertion) 02/12/2024 Overview (02/20/2024): Last Assessment & Plan: Endorses increased dyspnea on exertion with minimal activity. She said this has worsened over the past 6 months. Subsequently, I am going to order a stress test to further evaluate for ischemia. We will also update echocardiogram to further evaluate for any structural or LVEF issues .Instructed to call 911 or go to the emergency room should the patient begin to experience chest pain or pressure lasting greater than 10 minutes does not resolve with rest. Syncope 02/12/2024 Overview (02/20/2024): Last Assessment & Plan: Endorses syncopal event as outlined above. Subsequently, I am going to update a 21-day Holter monitor to further evaluate for any electrical disturbances that could be contributing to her syncope. Educated on the importance of remaining hydrated. She was encouraged to use compression stockings. Closed fracture of coccyx 11/27/2023 Overview (02/20/2024): Last Assessment & Plan: Ms. Weldon had a fall in [place] down some stairs about 10 days ago. She has had pain at the bottom of her spine since. She says that on occasion she will get numbness and tingling in the back of the right leg in an S1 distribution. She is taking Tylenol, baclofen, Lamictal, and using 2 lidocaine patches with some relief. She is neurologically intact. X-rays from [facility] on November 21 do reveal a comminuted fracture of the coccyx. I explained to the patient that the x-rays do show a fracture but that there was nothing surgical to offer. This should heal with time and she should feel better. She has a doughnut but does not find using it increases her comfort. I told her that things should improve over the next 6 to 8 weeks. She is welcome to follow-up with us on an as-needed basis. Deep vein thrombosis (DVT) o f distal vein of right lower extremity 02/21/2022 History of total right knee replacement 02/22/20 History of COVID-19 01/07/2022 Bradycardia 07/04/2021 Dizziness 07/04/2021 HLD (hyperlipidemia) 06/20/2021 Overview (02/20/2024): Last Assessment & Plan: Continue statin therapy and be mindful of her dietary fat intake. Hypertension 05/18/2020 Overview (02/20/2024): Last Assessment & Plan: Well controlled during todays exam. Educated on the importance of diet lifestyle to help further assist in reducing blood pressure. The patient was encouraged to follow low-salt low-fat diet, make purposeful strides towards weight loss, and engage in routine aerobic exercise as tolerated. Seronegative rheumatoid arthritis 05/18/2020 Retinal detachment, right 01/28/2020 Overview (02/20/2024): Surgical repair 12/04/[address] Feliberto Mathur at [facility] [place], [place] Opiate use 06/11/2019 Obesity 10/02/2018 Osteoarthritis of both knees 08/20/2017 Chronic polyarthritis 06/27/2017 CANDELARIA (obstructive sleep apnea) 03/09/2017 Overview (02/20/2024): [facility] Home Polysomnogram: Date 01/21/2018; AHI 7, Unclassified apneas 0; Obstructive apneas 3; Central apneas 1; Mixed apneas 0; hypopneas 69; average oxygen saturation 93% (lowest 80% without saturations <88% for 5% or more of study) - Obstructive Sleep Apnea - mild; mostly hypopneas with some obstructive apneas; without sleep related hypoventilation by 2018 home polysomnogram. 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 GERD (gastroesophageal reflux disease) 7 Positive hepatitis C antibody test 09/06/2016 Overview (02/20/2024): Hx of negative load test Encounters Date Type Department Care Team Description 04/27/2024 10:30 AM EST Office Visit Obst[facility]s [facility]ne[facility] [address] [place] [address] Rula Alanis CNM Encounter for annual physical examination excluding gynecological examination in a patient older than 17 years (Primary Dx); Yeast dermatitis 04/23/2024 Telephone [facility] [address] [place] [phone] Fernando Pickens MD Medical Records 03/25/2024 9:00 AM EST Office Visit Gastroenterology - [place] [address] [place] [phone] Saul Fournier PA Fatty liver (Primary Dx); Epigastric discomfort; Gastroesophageal reflux disease without esophagitis 03/25/2024 Telephone Gastroenterology - [place] [address] [place] [address] Saul Fournier PA 03/10/2024 Telephone [facility] [address] [facility] [address] [place] [address] Jamie Zarco MD 03/09/2024 9:00 AM EST Ancillary Procedure [facility] [address] [facility] [address] [place] [address] Dizziness; Syncope, unspecified syncope type; CAICEDO (dyspnea on exertion) from Last 3 Months Immunizations Name Administration Dates Next Due Diptheria & Tetanus, 6wks to less than 7yo 08/28 Influenza Quadravalent, MDCK , 0.5ml, preservative free (Flucelvax) 6mo and older 02/27/2019 Influenza Quadravalent, MDCK , 0.5ml, with preservative (Flucelvax) 6mo and older 01/08/2018,04/05/2017 Influenza Quadrivalent, 0.5m l, preservative free (Fluarix; FluLaval; Fluzone) ages 6mo and older (Afluria) 3yo and older 03/05/2022,03/27/2021,02/29/2020 Influenza trivalent, 0.5mL, preservative free (Fluarix; FluLaval; Fluzone) ages 6mo and older (Afluria) 3 years and older 01/02/2024 Influenza trivalent, with pr eservative (Fluzone; Afluria) 6mo and older 02/29/2020 Influenza, Unspecified 03/27/2021 Pfizer SARS-CoV-2 COVID-19, mRNA, LNP-S, preservative free 08/08/2020,07/18/2020 Pneumococcal polysaccharide 23 valent (Pneumovax 23) 2yo and older 10/18/2016 Tdap Tetanus diptheria acell ular pertussis (Boostrix; Adacel) 7yo and older 04/22/2017 Zoster recombinant (Shingrix ) 19yo and older 07/04/2021 Surgical History Surgery Date Site/Laterality Comments TUBAL LIGATION PROCEDURE: HISTORICAL TUBAL LIGATION BREAST REDUCTION PROCEDURE: SD BREAST REDUCTION CHOLECYSTECTOMY PROCEDURE: HISTORICAL CHOLECYSTECTOMY BREAST BIOPSY PROCEDURE: BX BREAST; PERC NEEDLE CORE W/IMAG GUID; COMMENT: PATIENT STATES SHE HAS HAD 4 BIOPSIES ALL ON THE LEFT SIDE ANKLE FRACTURE SURGERY 08/21/2015 Left PROCEDURE: SD OPEN TREATMENT MEDIAL MALLEOLUS FRACTURE; COM[place]: [place]ast[place] [facility] was removed 8 mo later except one screw TOTAL KNEE ARTHROPLASTY 10/21/2018 Left PROCEDURE: SD ARTHRP KNE CONDYLE&PLATU MEDIAL&LAT COMPARTMENTS; COMMENT: Dr Francesco Grewal at [facility] Medical History Medical History Date Comments Migraine 09/27/2016 DX:Migraine CANDELARIA (obstructive sleep apnea) 03/09/2017 DX :CANDELARIA (obstructive sleep apnea) History of Helicobacter pylo ri infection 09/06/2016 DX:History of Helicobacter p ylori infection; COMMENT: treated Chronic hepatitis C (CMS/HCC) 09/06/2016 DX :Chronic hepatitis C (HCC); COMMENT: not active (no records) Allergic rhinitis 09/06/2016 DX:Allergic rh initis Asthma 09/06/2016 DX:Asthma; COMME NT: Dr Jackson Fibromyalgia 09/06/2016 DX:Fibromyalgia; COMMENT: Dr Doyle GERD (gastroesophageal reflux disease) 7 DX:GERD (gastroesophageal reflux disease) Hyperthyroidism 09/28/2016 DX:Hyperthyroidi sm Chronic polyarthritis 06/27/2017 DX:Chronic polyarthritis Retinal detachment, right 01/28/2020 DX:Ret inal detachment, right; COMMENT: Surgical repair 12/[address] Feliberto Mathur at [facility] [place], [place] HLD (hyperlipidemia) 06/20/2021 DX:HLD (hyp erlipidemia) Deep vein thrombosis (DVT) o f distal vein of right lower extremity (CMS/HCC) 02/21/2022 DX:Deep vein thrombosis (DVT ) of distal vein of right lower extremity (HCC) Arthritis DX:Arthritis Toxic liver disease with hep atitis, 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, not elsewhere classified Family History Medical History Relation Name Comments Rheum arthritis Brother 5 brothers h ave inflammatory arthritis Coronary artery disease Father age 60 Diabetes Father Hypertension Father Stroke Father Other: pulmonary embolism Mother ag e 62, no hx of her siblings with blood clots Breast cancer Other MATERNAL AUNT Rheum arthritis Sister Janessa Relation Name Status Comments Brother Alive Father Mother Other MATERNAL AUNT Alive Sister Janessa Alive Social History Tobacco Use Types Packs/Day Years Used Date Smoking Tobacco: Never Smokeless Tobacco: Never Alcohol Use Standard Drinks/Week Comments Not Currently 0 (1 standard drink = 0.6 oz pur e alcohol) rare Comments No Sex and Gender Information Value Date Recorded Sex Assigned at Not on file Legal Sex Female 1:14 PM EST Gender Identity Not on file Sexual Orientation Not on file Obstetrics History Para Term AB IAB SAB Ectopic Multiple Livin g Live Births 2 2 2 2 2 Date Outcome GA Total Labor Labor/2nd/3rd Weight Sex Type Anes PTL Lucille A1 A5 Name Clin 1992 Term F Vag-S pont Living 1996 Term M Vag-S pont Living Last Filed Vital Signs Vital Sign Reading Time Taken Comments Blood Pressure 98/69 04/27/2024 10:47 AM EST Pulse 81 04/27/2024 10:47 AM EST Temperature - - Respiratory Rate 18 04/27/2024 10:47 AM EST Oxygen Saturation 98% 03/25/2024 9:14 AM EST Inhaled Oxygen Concentration - - Weight 107 kg (235 lb 6.4 oz) 04/27/2024 10:47 A M EST Height 175.3 cm (5' 9 ) 04/27/2024 10:47 AM EST Body Mass Index 34.76 04/27/2024 10:47 AM EST Plan of Treatment Upcoming Encounters Date Type Department Care Team (Late st Contact Info) Description 06/16/2024 11:00 AM EST Ancillary Procedure [facility] [address] [place] [address] 06/17/2024 10:00 AM EST Appointment [facility] [address] [place] [address] 06/18/2024 11:00 AM EST Appointment [facility] [address] [place] [address] 06/19/2024 11:00 AM EST Appointment [facility] [address] [place] [phone] 09/16/2024 9:30 AM EDT Office Visit Internal Medicine - [facility] [address] [facility] [place] [address] Fernando Pickens MD [address] [facility] [place] [address] Health Maintenance Due Date Last Done Comments Hepatitis B Vaccines (1 of 3 - 19+ 3-dose series) 1987 Pneumococcal Vaccine: 50+ Years (2 of 2 - PCV) 10/18/2017 10/18/2016 Pneumococcal Vaccine: Pediatrics (0 to 5 Years) and At-Risk Patients (6 to 64 Years) (2 of 2 - PCV) 10/18/2017 10/18/2016 Zoster Vaccines (2 of 2) 08/29/2021 07/04/2021 Depression Screening 03/24/2022 HIV Screening 03/24/2022 Medicare Annual Wellness Visit 03/24/2022 Social Influencers of Health Screening 03/24/2022 COVID-19 Vaccine ( season) 2023 07/04/2021, 08/08/2020, 07/18/2020 Hypertension/CHF/CAD Annual BMP Blood Test 11/07/2024 11/08/2023, 11/08/2023 Breast Cancer Screening 02/17/2026 02/18/20, 04/03/2021, 03/02/2019, Additional history exists DTaP,Tdap,and Td Vaccines (3 - Td or Tdap) 04/22/2027 04/22/2017, 08/28/2006 Cholesterol Screening (Lipid Panel) 11/07/2028 11/08/2023, 11/08/2023 Cervical Cancer Screening: HPV 04/27/2029 04/27/2024 Colorectal Cancer Screening: Colonoscopy 06/21/2030 06/21/2020 Hepatitis C Screening Completed 05/31/2022 Influenza Vaccine Completed 01/02/2024, , 03/27/2021, Additional history exists HIB Vaccines Aged Out No longer eligi ble based on patient's age to complete this topic HPV Vaccines Aged Out No longer eligi ble based on patient's age to complete this topic Hepatitis A Vaccines Aged Out No long er eligible based on patient's age to complete this topic IPV Vaccines Aged Out No longer eligi ble based on patient's age to complete this topic MMR Vaccines Aged Out No longer eligi ble based on patient's age to complete this topic Meningococcal ACWY Vaccine Aged Out N o longer eligible based on patient's age to complete this topic Meningococcal B Vacine Aged Out No lo nger eligible based on patient's age to complete this topic RSV Immunization Patients Under 20 months Aged Out No longer eligible based on patient's age to complete this topic Varicella Vaccines Aged Out No longer eligible based on patient's age to complete this topic Procedures Procedure Name Priority Date/Time Associated Diagnosis Comments EXTERNAL XRAY REPORT 05/14/2024 EXTERNAL XRAY REPORT 05/14/2024 EXTERNAL ULTRASOUND REPORT 05/12/2024 EXTERNAL ULTRASOUND REPORT 05/12/2024 PAP SMEAR Routine 04/27/2024 2:59 PM EST Encounter for annual physical examination excluding gynecological examination in a patient older than 17 years HPV WITH REFLEX GENOTYPE Routine 04/27/2024 2:59 PM EST Encounter for annual physical examination excluding gynecological examination in a patient older than 17 years EXTERNAL CLINICAL LAB 04/01/2024 NM EXERCISE STRESS TEST W/ MYOCARDIAL PERFUSION Routine 03/09/2024 11:11 AM EST Dizziness Syncope, unspecified syncope type CAICEDO (dyspnea on exertion) MG MAMMO DIGITAL SCREENING W ARVIN BILAT Routine 02/18/2024 3:59 PM EST Referred by self ANNUAL BMP BLOOD TEST Routine 11/08/2023 LIPID PANEL Routine 11/08/2023 HEPATITIS C SCREENING Routine 05/31/2022 COLONOSCOPY Routine 06/21/2020 from Last 3 Months or Most Recently Relevant to Health Maintenance Results * External Xray Report (05/14/2024) Only the most recent of2 resultswithin the time period is included. Anatomical Region Laterality Modality Radiographic Oliva ging us Provider [facility] XR PROCEDURES Final Result * External Ultrasound Report (05/12/2024) Only the most recent of2 resultswithin the time period is included. Anatomical Region Laterality Modality Ultrasound us Provider [facility] US PROCEDURES Final Result * HPV with reflex genotype (04/27/2024 2:59 PM EST) HPV Negative Negative LAB MICROBIOLOGY METHOD 04/28/2024 4:04 PM [facility] Brushing/Spatula Cervix uteri structure / Unknown 04/27/2024 2:59 PM EST 04/28/2024 6:19 AM EST Rula PETERSEN LAB MOLECULAR DIAGNOSTICS OR DERABLES Final Result [facility] [address] [place] [address], * Pap smear (04/27/2024 2:59 PM EST) Interpretation Negative for intraepithelial lesion or malignancy 05/01/2024 2:38 PM [facility] General Categorization Negative 05/01/2024 2:38 PM EST [facility] Other Findings Atrophy 05/01/2024 2:38 PM [facility] Specimen Adequacy Satisfactory for evaluation 05/01/2024 2:38 PM [facility] Pap Methodology Liquid Based Pap Test 05/01/2024 2:38 PM [facility] Disclaimer The Pap test is a screening test which carries an inherent false negative rate. These test results should be correlated with the patient's clinical findings and history. This Pap test was processed using an automated screening system. Technical cytopathology services provided by [facility], at [address] [place] [address] (IA # [id number]/Sujata Oviedo MD, Quality Systems Manager.) 05/01/2024 2:38 PM EST [facility] Console Pap Interpretation Reported 05/01/2024 2:38 PM EST [facility] Brushing/Spatula Cervix uteri structure / Unknown 04/27/2024 2:59 PM EST 04/27/2024 2:59 PM EST Rula Alanis [facility] CYTOLOGY ORDERABLES Effie l Result [facility] [address] [place] [address], [place] [phone] * External clinical lab (04/01/2024) Provider [facility] BLOOD ORDERABLES Fin al Result * NM EXERCISE STRESS TEST W/ MYOCARDIAL PERFUSION (03/09/2024 11:11 AM EST) Exercise/inject ion duration (min) 4 CV PACS STRESS Exercise/inject ion duration (sec) 30 CV PACS STRESS Peak SBP 186 mmHg CV PACS STRESS Peak DBP 94 mmHg CV PACS STRESS Peak HR 171 bpm CV PACS STRESS Baseline HR 75 bpm CV PACS STRESS Baseline SBP 119 mmHg CV PACS STRESS Baseline DBP 88 mmHg CV PACS STRESS Estimated workload 7.0 METS CV PACS STRESS Percent HR 104 % CV PACS STRESS Rate Pressure Product 31,806.0 mmHg*bpm CV PACS STRESS BSA 2.33 m2 CV PACS STRESS Target HR 140 bpm CV PACS STRESS TID 0.68 CV PACS STRESS Nuc Stress EF 78 % CV PAC S STRESS Nuc Rest EF 81 % CV PACS STRESS Angina Index 0 CV PACS STRESS Max HR Percent 103 % CV PA CS STRESS O2 sat rest 99 % CV PACS STRESS ST Depression (mm) 0 mm CV PACS STRESS Anatomical Region Laterality Modality Nuclear Medicine 03/09/2024 10:0 8 AM EST 03/09/2024 10:52 AM EST Impressions 03/09/2024 3:10 PM EST Normal Regadenoson stress test with nuclear imaging. ?? Nuclear imaging revealed no significant perfusion defects after attenuation correction was applied. There is a normal TID ratio. Gated SPECT imaging was performed and revealed an LVEF of >70 %. Narrative 03/09/2024 3:10 PM EST Nuclear imaging of the left ventricle shows a normal cavity size. Myocardial perfusion imaging of the left ventricle reveals no significant perfusion defects after CT attenuation correction was applied to the study Gated SPECT imaging was performed which demonstrated normal left ventricular systolic function. The calculated LVEF is >70 %. TID ratio is normal. Stress Findings A Tito protocol stress test was performed. Overall, the patient's exercise capacity was average. The patient reached stage 2. Total stress time was 4 min and 30 sec. The patient experienced no angina during the test. The test was stopped because the patient experienced fatigue and shortness of breath. Heart rate demonstrated a exaggerated response. The patient reported shortness of breath and fatigue during the stress test which resolved in early recovery. ECG 53-year-old female with a history of worsening shortness of breath with exertion as well as syncope. Cardiac risk factors include hyperlipidemia, hypertension, and obesity. No previous cardiac events. Baseline ECG shows normal sinus rhythm, rate of 75 bpm. There were no arrhythmias during stress. There is no ST segment changes during stress. There were no arrhythmias during recovery. The result of the stress ECG was negative for ischemia. Nuclear Study Quality Study technique: MPI, SPECT, multi, rest and stress, 1 day. Overall image quality is good. CT attenuation correction was utilized. No radiopharmaceutical dose was extravasated. The time from injection to rest imaging is 30 mins. The time from injection to stress imaging is 25 mins. Stress Function Comments Stress ejection fraction is 78%. Rest Function Comments Resting ejection fraction was 81%. us Regina Xie NP CV STRESS PROCEDURES F inal Result * MG Mammo Digital Screening w Arvin bilat (02/18/2024 3:59 PM EST) Anatomical Region Laterality Modality Breast Bilateral Mammography 02/18/2024 5:02 PM EST Impressions 02/18/2024 5:09 PM EST No mammographic evidence of malignancy. ?? No suspicious interval change. Stable postreduction changes ASSESSMENT: ?? BI-RADS 2: BENIGN RECOMMENDATION(S): 1: Routine screening mammogram BILATERAL in 1 year. -------- FINAL REPORT -------- Dictated By: Aron Driscoll Dictated Date: 02/18/2024 17:02 ET Assigned Physician: Aron Driscoll Reviewed and Electronically Signed By: Aron Driscoll Signed Date: 02/18/2024 17:09 ET Workstation ID: [id number] Transcribed By: Self Edit Transcribed Date: 02/18/2024 17:02 ET Narrative 02/18/2024 5:09 PM EST EXAM: ??SCREENING MAMMOGRAPHY, BILATERAL HISTORY: ??SCREENING. ??Bilateral breast reduction surgery COMPARISON: ??04/03/2021, 03/02/2019 TECHNIQUE: Synthesized CC and MLO projections of each breast. ??Tomosynthesis of each breast in the CC and MLO projections. ADDITIONAL IMAGING: None Computer-aided detection was employed with the iCAD ??profound AI 3-D. TISSUE DENSITY: There are scattered areas of fibroglandular density. (BI-RADS category B) FINDINGS: RIGHT BREAST: Findings consistent with previous reduction surgery. ??No new suspicious right breast findings. LEFT BREAST: Findings consistent with previous reduction surgery. ??No new suspicious left breast findings Procedure Note Aron Driscoll MD - 02/18/2024 EXAM: SCREENING MAMMOGRAPHY, BILATERAL HISTORY: SCREENING. Bilateral breast reduction surgery COMPARISON: 04/03/2021, 03/02/2019 TECHNIQUE: Synthesized CC and MLO projections of each breast.Tomosynthesis of each breast in the CC and MLO projections. ADDITIONAL IMAGING: None Computer-aided detection was employed with the iCAD profound AI 3-D. TISSUE DENSITY: There are scattered areas of fibroglandular density.(BI-RADS category B) FINDINGS: RIGHT BREAST: Findings consistent with previous reduction surgery. No new suspiciousright breast findings. LEFT BREAST: Findings consistent with previous reduction surgery. No new suspiciousleft breast findings IMPRESSION: No mammographic evidence of malignancy. No suspicious interval change. Stable postreduction changes ASSESSMENT: BI-RADS 2: BENIGN RECOMMENDATION(S): 1: Routine screening mammogram BILATERAL in 1 year. -------- FINAL REPORT -------- Dictated By: Aron Driscoll Dictated Date: 02/18/2024 17:02 ET Assigned Physician: Aron Driscoll Reviewed and Electronically Signed By: Aron Driscoll Signed Date: 02/18/2024 17:09 ET Workstation ID: [id number] Transcribed By: Self Edit Transcribed Date: 02/18/2024 17:02 ET Result [facility] Fernando Pickens MD IMG BI PROCEDURES Final R esult * Annual BMP Blood Test (11/08/2023) [facility] Annual BMP Blood Test Abstracted Result [facility] Provider HEALTH MAINTENANCE Final Result * Lipid panel (11/08/2023) [facility] LDL/HDL Ratio 3 Triglycerides 120 mg/dL Cholesterol 189 mg/dL HDL 58 mg/dL LDL Cholesterol 107 mg/dL Blood Venous blood specimen / Unknown Result [facility] Provider LAB BLOOD ORDERABLES Effie l Result * Hepatitis C Screening (05/31/2022) [facility] Hepatitis C Screening borderline Result [facility] Provider HEALTH MAINTENANCE Final Result * Colonoscopy (06/21/2020) [facility] Colonoscopy normal Anatomical Region Laterality Modality Other Result [facility] Provider HEALTH MAINTENANCE Final Result from Last 3 Months or Most Recently Relevant to Health Maintenance Insurance MEDICARE [id number] Member Subscriber Plan / Payer (Ef fective 2014-Present) Name:Pam Weldon Relation to Subscriber:Spouse Name:WESTLEY DAN Date of :1970 (Home) Address: [address] [place] [address] [address] [place] [address] Payer ID:[id number] Group ID:[id number] Type:Not on file Address: [facility] [id number] [place] [address] Care Teams Proof Reader Relationship Specialty Start Date End Date Fernando Pickens MD [address] [place] [address] [place] [address] PCP - General Internal Medicine 01/28/20
== END 2024-06-03 10:19 | disposition home or self-care (01) ==
LOC: HO.HBST 09:19
PROVIDERS: PCP Internal Medicine; Visit Provider Counselor Mental Health
DX: F43.20 Adjustment disorder, unspecified (principal); Z72.4 Inappropriate diet and eating habits
CPT/HCPCS: 90837

== ENCOUNTER → 2024-06-03 09:19 | Outpatient (BNVA) | payer BC, MEDICARE, SELFPAY | PROVIDERS: PCP Internal Medicine; Visit Provider Counselor Mental Health | DX: J45.40 Moderate persistent asthma, uncomplicated (principal); Z23 Encounter for immunization; G47.33 Obstructive sleep apnea (adult) (pediatric); R91.8 Other nonspecific abnormal finding of lung field; R05.2 Subacute cough; Z79.899 Other long term (current) drug therapy; Z99.89 Dependence on other enabling machines and devices | CPT/HCPCS: 90471; 90677 ==

== ENCOUNTER 2024-06-03 10:40 | Outpatient (AMB) | payer BC, MEDICARE, SELFPAY ==
[2024-06-03 10:44] VITALS: BP 110/72; PULSE 68; O2SAT 98; BMI 34.2
--- NOTE | 2024-06-03 10:44 | A.OFFVIS_ITS ---
Vital Signs 06/03/24 10:44 Height 5 ft 9 in Weight 231 lb 7.766 oz BMI 34.2 BP 110/72 Blood Pressure Location Rt brachial Position Sitting Pulse 68 Pulse Source Pulse Oximeter Pulse Oximetry (%) 98 Oxygen Delivery Method Room Air Intake Visit Reasons: Asthma Allergies aclidinium [Tudorza Pressair] Allergy (Intermediate, Verified 06/03/24 10:49) Hives HPI Comments Details: The patient is a 54 y/o woman with a history of underlying asthma, chronic rhinitis, RA and CANDELARIA on CPAP. She is doing much better with the CPAP. The CPAP therapy has been affecting beneficial. She uses it for more than 4 hours a night. Overall she is doing well her asthma seems to be stable. She continues on her respiratory therapy with good effect. She has had to use her nebulized therapy a few times the last month with good effect. Her CPAP therapy has been affecting beneficial, however, she was not able to use it about a month ago because of nasal congestion and sinusitis. She has not been able to get supplies either. I explained to her that may be a an issue with the amount time that she is using her CPAP in her insurance is not approving any supply delivery. Therefore I encouraged her to continue using her CPAP more than 4 hours a night. I did ask the office to call her DME company to make sure that we can facility anything that needs to be done in order for her to get supplies. She is still dealing with her rheumatoid arthritis and is following closely with urban anthropologist. This also appears to be a little better than before. 09/28/2021 the patient is here for a pulmonary follow-up visit. Overall the patient has been doing very well from a respiratory status. She has not required any prednisone or any rescue therapy. Her maintenance therapy have been very helpful for her keeping her under control in regards of her asthma. She continues the Daliresp. This medication has been very effective in beneficial. In addition to that the Trelegy inhaler she uses daily. In regards the CPAP the patient has been doing well. Although she is not getting supplies regularly. I will send another prescription for supplies to the local DME company. The patient does use her CPAP more than 4 hours a night. She continues on the methotrexate. She is currently taking higher dose of methotrexate due to the fact that she has still some persistent inflammatory arthritis in addition to elevations in the sedimentation rate. I do not see that the patient is developing any adverse effects from the methotrexate. Patient will need to undergo pulmonary function studies to make sure that she is tolerating the methotrexate. In addition to that she have a CT scan prior to the next visit to follow-up with pulmonary nodules. 03/05/2022 the patient is here pulmonary follow-up visit. Back in November the patient did have a total knee replacement. She tolerated the surgery well. She did well. Postoperative that she did develop a DVT. He had a CTA at that time that ruled out a thromboembolic event to the chest. She was placed on Eliquis and she is still on it. She did follow-up with Hematology in recommend the 6 months of anticoagulation. In addition to that the patient developed COVID. She knows recovered. After the COVID she did develop an asthma exacerbation. now she is back to her baseline. She is using her respiratory therapy with good effect. She also continue using her CPAP. The CPAP therapy has been affecting beneficial. She does use it for more than 4 hours a night. We did review her recent CT scan of the chest demonstrating stable pulmonary nodules. Otherwise the patient is doing well this time. Will follow-up in 6-8 months. 11/26/2022 the patient is here for pulmonary follow-up visit. The patient continues to do fairly well from a respiratory status. She did return back from [place]. While she was there her breathing was okay. When she came back she was noticed seeing some upper respiratory symptoms. She did test for COVID she was negative. She is starting to feel better. She has been using CPAP in the CPAP therapy continues to be affecting beneficial. However, for some reason her DME company has not center any supplies and she is very unhappy with them. She would like to switch companies. Her machine is no longer working appropriately either. The machine is older than 5 years. She would benefit from getting a replacement machine with a new DME company is starting over. Will go ahead and submit a new prescription for a replacement APAP machine to a local DME company. The patient has been using her respiratory therapy with good effect. She has not required any prednisone. Continues on the Trelegy with good effect. She also on the singular. Her major complaint is nasal congestion. Patient will continue using her nasal sprays and will start nasal rinsing at this time. 05/27/2023 the patient is here for pulmonary follow-up visit. The patient is doing fairly well. Although recently she was exposed to a viral syndrome and a sick contact and started developing sinus congestion pressure in addition to scratchy throat and has been coughing. She does not feel like her asthma is affected at this time but she is concerned that she is going to start getting symptoms. She is noticed that increased secretions from her nasal passages that is now more thick and yellowish in color. The patient also states that she still having significant daytime drowsiness. Her Davenport score is elevated 10/24. She had been on CPAP before but many years ago. She has been off it for many years at this time. Based on elevated Davenport score her history she did undergo a repeat sleep study in January 2023 demonstrating an AHI of 10 consistent with mild sleep apnea. The patient did have some hypoxia. The patient benefits from going back on CPAP. Specially with cardiovascular risk factors. Will go ahead and send a new prescription for replacement machine to be provided to a [employer]. 10/03/2023 the patient is here for sick visit. She had been sick now for about a month. Started developing a worsening cough and raspy voice. Subsequently developed some sore throat. Has been complaining of some conjunctivitis and some sinus pressure along with earache. She started developing worsening cough with yellowish phlegm. Moderate severity. She has been taking her respiratory medications. She did have some prednisone available at home so therefore she took a few days of it. Partially helped. She has still not feeling well. No recent x-rays. Will go ahead and treat her for sinusitis and likely does have a respiratory bacterial illness. Therefore the Augmentin should help both with sinuses and also the component of lower respiratory infection. At this point she has not having any reasons so she does not need any prednisone. If she has no better she is going to come in for chest x-ray and call the office. 12/09/2023 the patient is here for a pulmonary standpoint. Patient overall is doing well from a respiratory status. She does continue her respiratory medications with good effect. In addition to that the patient has been using the CPAP at night. The CPAP therapy continues to be affecting beneficial. And she does use it for more than 4 hours a night. The patient did have a significant event while visiting the [facility] when she had a fall and she fracture coccyx causing significant discomfort. In addition to that when she got back the patient had a dizzy spell where she syncopized hitting her face al so had an extremities including her knee. She was taken to the ER. There she was admitted to the hospital briefly. She did have a CT scan of the chest which I personally reviewed. She has an old granuloma that is stable. No evidence of any parenchymal disease which is reassuring. she is still dealing with significant discomfort after her fall but should be follow-up with primary care doctor soon and also her orthopedic doctor. Also to note she had a urine study done and a culture was positive for E coli with significant RBCs in the urine and also significant bacteria. The E coli sensitive to Bactrim so therefore give for Bactrim and she is going to follow-up with the primary care doctor as well. Otherwise the patient is doing well from a respiratory status will follow-up in 6 months 06/03/2024 the patient is here for a pulmonary follow-up visit. Overall she is doing well. She continues use her CPAP every night. CPAP therapy has been affecting beneficial and she has been getting supplies readily. Her AHI is down to 0.8 and she has been very faithful with it. The patient also has been having stable asthma symptoms. She feels like she can deescalate medical therapies therefore will switch her from Trelegy to Symbicort this time. She will continue with the Daliresp and also the singular in her allergy medicine. She is working on weight loss and she is looking to have bariatric surgery which should have any happening soon. At this point medically she is doing very good from a respiratory status and may be able to proceed with surgery and anesthesia at this time. The patient although otherwise doing well follow-up sometime in 6-8 months if she has any issues she will come in for an earlier assessment. [facility] Medical History Vertigo GERD (gastroesophageal reflux disease) DJD (degenerative joint disease) Rheumatoid arthritis COPD (chronic obstructive pulmonary disease) Hyperlipidemia BMI 36.0-36.9,adult Obesity Cough Hepatitis C antibody positive in blood Leg length discrepancy Pulmonary nodules CANDELARIA on CPAP Asthma Insomnia Fibromyalgia Seronegative rheumatoid arthritis Surgical History History of total knee replacement History of knee surgery Hx of detached retina repair History of ankle surgery History of colon resection Hx of colonoscopy History of total knee arthroplasty Hx of cholecystectomy H/O bilateral breast reduction surgery Hx of tubal ligation Family History Maternal Grandmother Skin cancer Maternal Aunt Breast cancer Maternal Uncle Prostate cancer Mother No problems noted. Father No problems noted. Social History Household Members: Spouse Housing: House Are you a primary medicare sales representative to a significant other at home: No Do you presently have visiting nurse or other home services: No Alcohol intake: current Alcohol intake frequency: holidays/special occasions only Patient Tobacco Use Status: Never used Tobacco service: No Current occupational status: disabled Review of Systems Const Denies night sweats and Reports weight loss ENT Denies change in voice, Denies lip swelling, Denies mouth pain, Reports nasal congestion, Reports nasal discharge and Denies tongue swelling Card Denies chest pain and Denies dyspnea on exertion Resp Reports cough, Denies dyspnea on exertion and Denies wheezing GI Denies abdominal pain Musc Reports as per HPI, Reports myalgias, Reports arthralgias, Reports joint swelling and Reports limited range of motion Neuro Denies Neuro-related abnormal movements Psych Denies no additional complaints Flvaio/Lymph Denies easy bleeding and Denies lymphadenopathy Aller/Immun Denies lip swelling, Denies tongue swelling and Denies wheezing Physical Exam Vital Signs: Last Vital Signs Pulse 68 06/03/24 10:44 BP 110/72 06/03/24 10:44 Pulse Ox 98 06/03/24 10:44 Oxygen Delivery Method Room Air 06/03/24 10:44 BMI result Body Mass Index 34.2 Const General: alert Neck Neck: Yes normal visual inspection, Yes full ROM and Yes no lymphadenopathy Chest Chest palpation & inspection: normal inspection of the chest Resp Effort & Inspection: normal respiratory effort Auscultation: clear to auscultation bilaterally Cardio Rate: regular rate Rhythm: regular rhythm Heart sounds: S1 normal heart sound present and S2 normal heart sound present GI Palpation (GI): Soft to palpation and nontender Auscultation: normal bowel sounds Skin General skin exam: rashes and/or lesions noted Extrem General: No clubbing, No cyanosis and Yes edema Immunizations pneumoc 20-estrada conj-dip cr(PF) 0.5 mL IM syringe Performing Provider: Jonnie Jackson MD Performing Location: [facility] Pulmonology Services Administered by: Silvana Dumont LPN on 06/03/24 11:28 Dose Route Admin Location Dispensed Lot Number Expiration Date NDC Manager Cable 0.5 mL IM Left Deltoid 0.5 mL [id number] 05/15/25 2936-0314-95 WYETH/PFIZER VIS Given Date VIS Provided VIS Publication Date 06/03/24 Single Vaccine 22 Eligibility Eligibility Date Funding Source Not [facility] Eligible 06/03/24 Private Assessment & Plan Assessment & Plan (1) CANDELARIA on CPAP: Code(s): G47.33 - Obstructive sleep apnea (adult) (pediatric); Z99.89 - Dependence on other enabling machines and devices Category: Medical (2) Asthma: Code(s): J45.909 - Unspecified asthma, uncomplicated Category: Medical Qualifiers: Asthma complication type: uncomplicated Asthma persistence: persistent Asthma severity: moderate Qualified Code(s): J45.40 - Moderate persistent asthma, uncomplicated (3) Pulmonary nodules: Code(s): R91.8 - Other nonspecific abnormal finding of lung field Category: Medical (4) Cough: Code(s): R05.9 - Cough, unspecified Category: Medical Qualifiers: Cough type: subacute Qualified Code(s): R05.2 - Subacute cough Plan continue APAP 6-14 stop Trelegy 200 daily RAQUEL as needed startSymbicort Flonase/astelin NS Continue Singulair Continue Daliresp F/U 6-8 months Orders: Orders Pneumococcal 20 Immunization Today Z23 - Encounter for immunization Medications: New budesonide-formoterol 160-4.5 mcg/actuation (Symbicort) 2 puffs inhalation BID 10.2 grams 11RF 30 days J44.89 - Other specified chronic obstructive pulmonary disease Coding Level of Care Code Est Pt Level 4 (10220) Diagnoses CANDELARIA on CPAP G47.33; Z99.89 Moderate persistent asthma without complication J45.40 Asthma complication type: uncomplicated Asthma persistence: persistent Asthma severity: moderate Pulmonary nodules R91.8 Subacute cough R05.2 Cough type: subacute Time Spent (min) 16
--- OUTSIDE RECORDS SUMMARY | 2024-06-03 11:15 | XMS_ITS | Clinical Summary ---
Author Organization [facility] Address [address] [place] [address] Phone Care Team Providers Care Gig Tender Name Role Phone Fernando Pickens MD Primary Care Provider [phone] Allergies Active Allergy Reactions Criticality Noted Date Comments Aclidinium [place] Hives,Nausea And Vomiting High 02/18/2022 Sally Orosco [Aclidinium [place]] Medications pregabalin (LYRICA) 150 mg capsule 4 [...] Plan: Ms. Weldon had a fall in [place] down some stairs about 10 days ago. She has had pain at the bottom of her spine since. She says that on occasion she will get numbness and tingling in the back of the right leg in an S1 distribution. She is taking Tylenol, baclofen, Lamictal, and using 2 lidocaine patches with some relief. She is neurologically intact. 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 GERD (gastroesophageal reflux disease) 7 Positive hepatitis C antibody test 09/06/2016 Overview (02/20/2024): Hx of negative load test Encounters Date Type Department Care Team Description 04/27/2024 10:30 AM EST Office Visit [facility] [place] [address] [place] [address] Rula Alanis CNM Encounter for annual physical examination excluding gynecological examination in a patient older than 17 years (Primary Dx); Yeast dermatitis 04/23/2024 Telephone [facility] [address] [place] [phone] Fernando Pickens MD Medical Records 03/25/2024 9:00 AM EST Office Visit Gastroenterology - [place] [address] [place] [phone] Saul Fournier PA Fatty liver (Primary Dx); Epigastric discomfort; Gastroesophageal reflux disease without esophagitis 03/25/2024 Telephone [facility] [place] [address] [place] [address] Saul Fournier PA 03/10/2024 Telephone [facility] [address] [facility] [address] [place] [address] Jamie Zarco MD 03/09/2024 9:00 AM EST Ancillary Procedure [facility] [address] [facility] [address] [place] [address] Dizziness; Syncope, unspecified syncope type; [...] PROCEDURE: HISTORICAL TUBAL LIGATION BREAST REDUCTION PROCEDURE: WI BREAST REDUCTION CHOLECYSTECTOMY PROCEDURE: HISTORICAL CHOLECYSTECTOMY BREAST BIOPSY PROCEDURE: BX BREAST; PERC NEEDLE CORE W/IMAG GUID; COMMENT: PATIENT STATES SHE HAS HAD 4 BIOPSIES ALL ON THE LEFT SIDE ANKLE FRACTURE SURGERY 08/21/2015 Left PROCEDURE: WI OPEN TREATMENT MEDIAL MALLEOLUS FRACTURE; COMMENT: Dr Anastasia Carver at [facility], hardware was removed 8 mo later except one screw TOTAL KNEE ARTHROPLASTY 10/21/2018 Left PROCEDURE: WI ARTHRP KNE CONDYLE&PLATU MEDIAL&LAT COMPARTMENTS; COMMENT: Dr Francesco Grewal at [facility] Medical History Medical History Date Comments Migraine [...] Feliberto Mathur at [facility] [place] [place] HLD (hyperlipidemia) 06/20/2021 DX:HLD (hyp erlipidemia) [...] Description 06/16/2024 11:00 AM EST Ancillary Procedure [facility] [address] [place] [address] 06/17/2024 10:00 AM EST Appointment [facility] [address] [place] [address] 06/18/2024 11:00 AM EST Appointment [facility] [address] [place] [address] 06/19/2024 11:00 AM EST Appointment [facility] [address] [place] [phone] 09/16/2024 9:30 AM EDT Office Visit Internal Medicine - [facility] [address] [place] [address] Fernando Pickens MD [address] [place] [place] [address] Health Maintenance Due Date Last Done Comments [...] Negative LAB MICROBIOLOGY METHOD 04/28/2024 4:04 PM [facility] Brushing/Spatula Cervix uteri structure / Unknown 04/27/2024 2:59 PM EST 04/28/2024 6:19 AM EST [facility] MOLECULAR DIAGNOSTICS OR DERABLES Final Result [facility] [address] [place] [address], * Pap smear (04/27/2024 2:59 PM EST) Interpretation Negative for intraepithelial lesion or malignancy 05/01/2024 2:38 PM [facility] General Categorization Negative 05/01/2024 2:38 PM EST [facility] Other Findings Atrophy 05/01/2024 2:38 PM [facility] Specimen Adequacy Satisfactory for evaluation 05/01/2024 2:38 PM [facility] Pap Methodology Liquid Based Pap Test 05/01/2024 2:38 PM [facility] Disclaimer The Pap test is a screening test which carries an inherent false negative rate. These test results should be correlated with the patient's clinical findings and history. This Pap test was processed using an automated screening system. Technical cytopathology services provided by [facility], at [address] [place] [address] (IA # [id number]/Sujata Oviedo MD, Leather Goods Assembler.) 05/01/2024 2:38 PM EST [facility] Console Pap Interpretation Reported 05/01/2024 2:38 PM EST [facility] Brushing/Spatula Cervix uteri structure / Unknown 04/27/2024 2:59 PM EST 04/27/2024 2:59 PM EST Rula Alanis [facility] CYTOLOGY ORDERABLES Effie l Result [facility] [address] [place] [address], [place] [phone] * External clinical lab (04/01/2024) Provider [facility] [...] Signed Date: 02/18/2024 17:09 ET Workstation ID: [id number] Transcribed By: Self Edit Transcribed Date: 02/18/2024 [...] Signed Date: 02/18/2024 17:09 ET Workstation ID: [id number] Transcribed By: Self Edit Transcribed Date: 02/18/2024 17:02 ET Result [facility] Fernando Pickens MD IMG BI PROCEDURES Final R esult * Annual BMP Blood Test (11/08/2023) [facility] Annual BMP Blood Test Abstracted Result [facility] Provider HEALTH MAINTENANCE Final Result * Lipid panel (11/08/2023) [facility] LDL/HDL Ratio 3 Triglycerides 120 mg/dL Cholesterol 189 mg/dL HDL 58 mg/dL LDL Cholesterol 107 mg/dL Blood Venous blood specimen / Unknown Result [facility] Provider LAB BLOOD ORDERABLES Effie l Result * Hepatitis C Screening (05/31/2022) [facility] Hepatitis C Screening borderline Result [facility] Provider HEALTH MAINTENANCE Final Result * Colonoscopy (06/21/2020) [facility] Colonoscopy normal Anatomical Region Laterality Modality Other Result [facility] Provider HEALTH MAINTENANCE Final Result from Last 3 Months or Most Recently Relevant to Health Maintenance Insurance MEDICARE [facility] Member Subscriber Plan / Payer (Ef fective 2014-Present) Name:Pam Weldon Relation to Subscriber:Spouse Name:WESTLEY DAN Date of :1970 (Home) Address: [address] [place] [address] [address] [place] [place] [address] Payer ID:[id number] Group ID:[id number] Type:Not on file Address: [facility] [address] [place] [address] Care Teams Gig Tender Relationship Specialty Start Date End Date Fernando Pickens MD [address] [place] [address] [place] [address] PCP - General Internal Medicine 01/28/20
== END 2024-06-03 15:55 | disposition home or self-care (01) ==
PROVIDERS: PCP Internal Medicine; Visit Provider Hospitalist
DX: G47.33 Obstructive sleep apnea (adult) (pediatric) (principal); Z99.89 Dependence on other enabling machines and devices; J45.40 Moderate persistent asthma, uncomplicated; R91.8 Other nonspecific abnormal finding of lung field; R05.2 Subacute cough; Z23 Encounter for immunization
CPT/HCPCS: 99214

== ENCOUNTER 2024-06-12 09:49 | Outpatient (REF) | payer BC, MEDICARE, SELFPAY ==
--- NOTE | ~2024-06-12 | XR_ITS ---
EXAMINATION: XR CHEST CLINICAL INFORMATION: R05.9 - Cough, unspecified COMPARISON: April 03, 2024. TECHNIQUE: 2 views of the chest were obtained. FINDINGS: No consolidation, pleural effusion or pneumothorax. 2 mm calcified nodule in the periphery of the right hemithorax. Cardiomediastinal silhouette size is normal. Mild multilevel thoracic spondylosis. Vascular clips right upper quadrant abdomen and likely cholecystectomy. XR/XR chest 2V IMPRESSION: No acute airspace disease. 2 mm granuloma, right upper lobe. Please for to CT chest dated January 29, 2022. Electronically signed by: Jim Bajwa MD 06/12/2024 10:08 AM [facility]
--- NOTE | ~2024-06-12 | FL_ITS ---
EXAMINATION: XR FLUOROSCOPY UPPER GI WITH AIR CLINICAL INFORMATION: Preoperative evaluation prior to bariatric surgery COMPARISON: None TECHNIQUE: Fluoroscopic air contrast upper GI examination was performed utilizing standard techniques with thin and thick barium and effervescent granules. Numerous spot images were obtained. FINDINGS: Dual and single contrast images of the esophagus demonstrate normal caliber, contour, and mucosal pattern. No evidence of stricture, mass, or ulcerations identified. There is to and fro motion barium column, with nonpropulsive tertiary contractions noted throughout the esophagus. No evidence of hiatus hernia identified. No significant gastroesophageal reflux was seen during the course of the examination and on reflux views. Dual contrast and single contrast images of the stomach demonstrated a normal contour. There is severe thickening of the gastric rugal folds, suggestive gastritis. No masses or ulcerations are seen. Contrast freely passed into the gastric antrum and duodenal bulb without delay. Single and air-contrast images of the duodenal bulb demonstrate no abnormality. The duodenal sweep has a normal appearance, course, and mucosal fold appearance. The imaged proximal jejunum has a normal fold pattern and caliber. FLUOROSCOPY TIME: 3 minutes 1 second Number of Spot Images: 10 Number of Cine: 13 DOSE AREA PRODUCT: 1966 uGy-m2 (microgray-meter squared) FL/FL upper GI w air IMPRESSION: 1. Significant esophageal dysmotility. 2. Severely thickened appearance of the gastric rugal folds, suggestive of severe gastritis. This procedure was performed by Arjun Arreola PA-C, and supervised by Dr. Packer Electronically signed by: Hawk Packer MD 06/12/2024 05:09 PM [facility]
--- OUTSIDE RECORDS SUMMARY | 2024-06-12 10:42 | XMS_ITS | Clinical Summary ---
Author Organization [facility] Address [address] [place] [address] Phone Care Team Providers Care Worm Farmer Name Role Phone Fernando Pickens MD Primary Care Provider [phone] Allergies Active Allergy Reactions Criticality Noted Date Comments Aclidinium [place] Hives,Nausea And Vomiting High 02/18/2022 Sally Orosco [Aclidinium [place]] Medications pregabalin (LYRICA) 150 mg capsule 4 [...] Overview (02/20/2024): Last Assessment & Plan: Ms. Welodn had a fall in [place] down some stairs about 10 days ago. She has had pain at the bottom of her spine since. She says that on occasion she will get numbness and tingling in the back of the right leg in an S1 distribution. She is taking Tylenol, baclofen, Lamictal, and using 2 lidocaine patches with some relief. She is neurologically intact. 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 GERD (gastroesophageal reflux disease) 7 Positive hepatitis C antibody test 09/06/2016 Overview (02/20/2024): Hx of negative load test Encounters Date Type Department Care Team Description 04/27/2024 10:30 AM EST Office Visit Obst[facility]s [facility]ne[facility] [place] [place] [address] Rula Alanis CNM Encounter for annual physical examination excluding gynecological examination in a patient older than 17 years (Primary Dx); Yeast dermatitis 04/23/2024 Telephone [facility] [address] [facility] [address] [place] [phone] Fernando Pickens MD Medical Records 03/25/2024 9:00 AM EST Office Visit Gastroenterology - [place] [address] [place] [phone] Saul Fournier PA Fatty liver (Primary Dx); Epigastric discomfort; Gastroesophageal reflux disease without esophagitis 03/25/2024 Telephone Gastroenterology - [place] [facility] [address] [place] [address] Saul Fournier PA from Last 3 Months Immunizations Name Administration [...] 6mo and older 02/29/2020 Influenza, Unspecified 03/27/2021 [employer] SARS-CoV-2 COVID-19, mRNA, LNP-S, preservative free 08/08/2020,07/18/2020 Pneumococcal polysaccharide 23 valent (Pneumovax 23) 2yo and older 10/18/2016 Tdap Tetanus diptheria acell ular pertussis (Boostrix; Adacel) 7yo and older 04/22/2017 Zoster recombinant (Shingrix ) 19yo and older 07/04/2021 Surgical History Surgery Date Site/Laterality Comments TUBAL LIGATION PROCEDURE: HISTORICAL TUBAL LIGATION BREAST REDUCTION PROCEDURE: [place] BREAST REDUCTION CHOLECYSTECTOMY PROCEDURE: HISTORICAL CHOLECYSTECTOMY BREAST BIOPSY PROCEDURE: BX BREAST; PERC NEEDLE CORE W/IMAG GUID; COMMENT: PATIENT STATES SHE HAS HAD 4 BIOPSIES ALL ON THE LEFT SIDE ANKLE FRACTURE SURGERY 08/21/2015 Left PROCEDURE: [place] OPEN TREATMENT MEDIAL MALLEOLUS FRACTURE; COM[place]ast[place] [facility] [place] hardware was removed 8 mo later except one screw TOTAL KNEE ARTHROPLASTY 10/21/2018 Left PROCEDURE: [place] ARTHRP KNE CONDYLE&PLATU MEDIAL&LAT COMPARTMENTS; COMMENT: Dr Francesco Grewal at [facility] Medical History Medical History Date Comments [...] COMMENT: Dr Doyle GERD (gastroesophageal reflux disease) DX:GERD (gastroesophageal reflux disease) Hyperthyroidism 09/28/2016 DX:Hyperthyroidi sm Chronic polyarthritis 06/27/2017 DX:Chronic polyarthritis Retinal detachment, right 01/28/2020 DX:Ret inal detachment, right; COMMENT: Surgical repair 12/[address] Feliberto Mathur at [facility] [place] [place] HLD (hyperlipidemia) 06/20/2021 DX:HLD (hyp erlipidemia) [...] Description 06/16/2024 11:00 AM EST Ancillary Procedure [facility] [address] [place] [phone] 06/17/2024 10:00 AM EST Appointment [facility] [address] [place] [address] 06/18/2024 11:00 AM EST Appointment [facility] [address] [place] [address] 06/19/2024 11:00 AM EST Appointment [facility] [address] [place] [address] 09/16/2024 9:30 AM EDT Office Visit Internal Medicine - [address] [phone] Fernando Pickens MD [address] [place] [id number] Health Maintenance Due Date Last Done Comments [...] 11/07/2024 11/08/2023, 11/08/2023 Breast Cancer Screening 02/17/2026 02/18/20 24, 04/03/2021, 03/02/2019, Additional history exists DTaP,Tdap,and Td [...] than 17 years EXTERNAL CLINICAL LAB 04/01/2024 MG MAMMO DIGITAL SCREENING W ARVIN BILAT [...] Negative LAB MICROBIOLOGY METHOD 04/28/2024 4:04 PM EST [facility] Brushing/Spatula Cervix uteri structure / Unknown 04/27/2024 2:59 PM EST 04/28/2024 6:19 AM EST Rula Zeke [facility] MOLECULAR DIAGNOSTICS OR DERABLES Final Result [facility] [address] [place] [address], * Pap smear (04/27/2024 2:59 PM EST) Interpretation Negative for intraepithelial lesion or malignancy 05/01/2024 2:38 PM [facility] General Categorization Negative 05/01/2024 2:38 PM [facility] Other Findings Atrophy 05/01/2024 2:38 PM [facility] Specimen Adequacy Satisfactory for evaluation 05/01/2024 2:38 PM [facility] Pap Methodology Liquid Based Pap Test 05/01/2024 2:38 PM [facility] Disclaimer The Pap test is a screening test which carries an inherent false negative rate. These test results should be correlated with the patient's clinical findings and history. This Pap test was processed using an automated screening system. Technical cytopathology services provided by [facility], at [address] [place] [id number] (CLIA # [id number]/Sujata Oviedo MD, Sports Journalist.) 05/01/2024 2:38 PM [facility] Console Pap Interpretation Reported 05/01/2024 2:38 PM [facility] Brushing/Spatula Cervix uteri structure / Unknown 04/27/2024 2:59 PM EST 04/27/2024 2:59 PM EST Rula Alanis [facility] CYTOLOGY ORDERABLES Effie l Result [facility] ([facility]) [facility] [address] [place] [address], [place] [phone] * External clinical lab (04/01/2024) Provider [facility] LAB BLOOD ORDERABLES Fin al Result * MG Mammo Digital Screening w [...] Signed Date: 02/18/2024 17:09 ET Workstation ID: [id number] Transcribed By: Self Edit Transcribed Date: 02/18/2024 [...] Signed Date: 02/18/2024 17:09 ET Workstation ID: [id number] Transcribed By: Self Edit Transcribed Date: 02/18/2024 17:02 ET Fernando Pickens MD IMG BI PROCEDURES Final R esult * Annual BMP Blood Test (11/08/2023) [facility] Annual BMP Blood Test Abstracted Historical Provider HEALTH MAINTENANCE Final Result * Lipid panel (11/08/2023) [facility] LDL/HDL Ratio 3 Triglycerides 120 mg/dL Cholesterol 189 mg/dL HDL 58 mg/dL LDL Cholesterol 107 mg/dL Blood Venous blood specimen / Unknown Historical Provider LAB BLOOD ORDERABLES Effie l Result * Hepatitis C Screening (05/31/2022) [facility] Hepatitis C Screening borderline Historical Provider HEALTH MAINTENANCE Final Result * Colonoscopy (06/21/2020) Colonoscopy normal Anatomical Region Laterality Modality Other Historical Provider HEALTH MAINTENANCE Final Result from Last 3 Months or Most Recently Relevant to Health Maintenance Insurance MEDICARE [facility] Member Subscriber Plan / Payer (Ef fective 2014-Present) Name:FatemehPam Relation to Subscriber:Spouse Name:DANWESTLEY Date of :1970 (Home) Address: [address] [place] [address] Payer ID:[id number] Group ID:[id number] Type:Not on file Address: [address] [place] [address] Care Teams Worm Farmer Relationship Specialty Start Date End Date Fernando Pickens MD [address] [place] [address] [place] [address] PCP - General Internal Medicine 01/28/20
== END 2024-06-12 09:50 | disposition home or self-care (01) ==
LOC: HO.XRAY 09:49
PROVIDERS: PCP Internal Medicine; Visit Provider Surgery
DX: Z01.818 Encounter for other preprocedural examination (principal); K31.89 Other diseases of stomach and duodenum; R05.9 Cough, unspecified
CPT/HCPCS: 71046; 74246

== ENCOUNTER → 2024-06-12 09:51 | Outpatient (BNV) | payer BC, MEDICARE, SELFPAY | PROVIDERS: PCP Internal Medicine; Visit Provider Radiology Diagnostic Radiology | DX: K22.4 Dyskinesia of esophagus (principal); R05.9 Cough, unspecified | CPT/HCPCS: 71046; 74246; 74248 ==

== ENCOUNTER 2024-06-18 12:46 | Outpatient (REF) | payer BC, MEDICARE, SELFPAY ==
[2024-06-18 14:19] LABS: MANUAL DIFF FLAG NO
[2024-06-18 14:33] LABS: Basophils Percent Auto 0.4 % (0-2); Eosinophils Absolute Auto 0.1 X10*3/uL (0.0-0.4); Eosinophils Percent Auto 1.1 % (0-4); Hemoglobin 10.8 g/dl (12.0-16.0); Imm Gran Abs Auto 0.03 X10*3/uL (0.00-0.03); Imm Gran Pct Auto 0.4 % (0.0-0.4); Lymphocytes Absolute Auto 2.5 X10*3/uL (1.2-4.9); Lymphocytes Percent Auto 35.7 % (20-40); Mean Corpuscular HGB Conc 30.9 g/dl (31.0-35.0); Mean Corpuscular Hemoglobin 26.7 pg (27.0-33.0); Mean Corpuscular Volume 86.4 fL (80.0-98.0); Mean Platelet Volume 10.3 fL (9.4-12.3); Monocytes Absolute Auto 0.5 X10*3/uL (0.1-1.2); Neutrophils Absolute Auto 3.9 x10*3/uL (2.0-8.3); Neutrophils Percent Auto 55.4 % (45-73); Platelet Count 356 X10*3/uL (160-400); Red Blood Count 4.05 X10*6/uL (4.20-5.50); Red Cell Distribution Width 19.5 % (11.0-16.0)
[2024-06-18 15:16] LABS: Erythrocyte Sedimentation Rate 34 MM/HR (0-20)
[2024-06-18 15:20] LABS: Alanine Aminotransferase 15 U/L (0-31); Alkaline Phosphatase 105 U/L (39-117); Anion Gap 11 (12-20); Aspartate Amino Transferase 19 U/L (5-31); Bilirubin Total 0.5 mg/dL (0.0-1.0); Blood Urea Nitrogen 9 mg/dL (9-16); C Reactive Protein 0.34 mg/dL (< or = 0.50); Calcium 9.1 mg/dL (8.4-10.2); Carbon Dioxide 24 mmol/L (22-29); Chloride 111 mmol/L (96-108); Estimated Glomerular Filt Rate > 60; Glucose Random 73 mg/dL (60-115); Potassium 4.2 mmol/L (3.3-5.1); Sodium 142 mmol/L (135-145); Total Protein 7.6 g/dL (6.5-8.0)
--- OUTSIDE RECORDS SUMMARY | 2024-06-18 17:05 | XMS_ITS | Encounter Summary ---
Author Organization [facility] Address [address] [place] [address] Care Team Providers Care Technical Sales Support Specialist Name Role Phone Fernando Pickens MD Primary Care Provider [phone] [phone] Reason for Visit * Imaging (Routine) - Authorized Specialty Diagnoses / Procedures Referred By Contac t Referred To Contact Cardiology Diagnoses Dizziness Syncope, unspecified syncope type CAICEDO (dyspnea on exertion) Procedures Transthoracic echocardiogram (TTE) complete with PRN contrast, bubble, strain, and 3D order panel UT TTE W 2D IMAGE COMPLETE W DOPPLER ECHO & COLOR FLOW DOPPLER ECHO UT SOCORRO 2D COMPLETE W/CONTRAST OR W & WO CONTRAST WITH DOPPLER Regina Xie NP [address] [place] [address] Phone: tel: fax: [facility] Referral ID Status Reason Start Date Expiration Date V isits Requested Visits Authorized [id number] Authorized 02/13/2024 02/12/2025 1 1 Encounter Details Date Type Department Care Team (Latest Contact Info) Description 06/16/2024 11:00 AM EST Ancillary Procedure [facility] - [address] [place] [address] Dizziness; Syncope, unspecified syncope type; [...] Info) Description 06/19/2024 11:00 AM EST Appointment [facility] [address] [place] [address] 09/16/2024 9:30 AM EDT Office Visit Internal Medicine - [address] [address] Fernando Pickens MD [address] [place] [phone] Pending Results Name Type Priority Associated Diagnoses [...] abnormality documented in this encounter Care Teams Technical Sales Support Specialist Relationship Specialty Start Date End Date Fernando Pickens MD [address] [place] [phone] PCP - General Internal Medicine 01/28/20 documented as of this encounter
--- OUTSIDE RECORDS SUMMARY | 2024-06-18 17:05 | XMS_ITS | Encounter Summary ---
Author Organization [facility] Address [address] [place] [address] Care Team Providers Care Application Security Architect Name Role Phone Fernando Pickens MD Primary Care Provider [phone] [phone] Reason for Visit * Neurology (Routine) - Authorized Specialty Diagnoses / Procedures Referred By Contac t Referred To Contact Neurology Diagnoses Epilepsy, unspecified, not intractable, without status epilepticus (CMS/HCC) Procedures Continuous EEG Kira Mcdonald MD [address] [place] [address] [place] [address] Phone: tel: fax: [facility] [address] [place] [phone] Phone: tel: Referral ID Status Reason Start Date Expiration Date V isits Requested Visits Authorized [id number] Authorized 02/21/2024 02/20/2025 3 3 Encounter Details Date Type Department Care Team (Late st Contact Info) Description 06/18/2024 11:00 AM EST Hospital Encounter [facility] [address] [place] [address] Arrived Social History Tobacco Use [...] Info) Description 06/19/2024 11:00 AM EST Appointment [facility] [address] [place] [address] 09/16/2024 9:30 AM EDT Office Visit Internal Medicine - [address] [address] Fernando Pickens MD [address] [place] [phone] Pending Results Name Type Priority Associated Diagnoses Date /Time Continuous EEG Neurology Routine Epilepsy, unspecified, not intractable, without status epilepticus ([facility]) 06/18/2024 11:34 AM EST documented as of this encounter Visit Diagnoses Not on filedocumented in this encounter Care Teams Application Security Architect Relationship Specialty Start Date End Date Fernando Pickens MD [address] [place] [phone] PCP - General Internal Medicine 01/28/20 documented as of this encounter
--- OUTSIDE RECORDS SUMMARY | 2024-06-18 17:05 | XMS_ITS | Clinical Summary ---
Author Organization [facility] Address [address] [place] [address] Phone Care Team Providers Care Foreign Diplomat Name Role Phone Fernando Pickens MD Primary Care Provider [phone] Allergies Active Allergy Reactions Criticality Noted Date Comments Aclidinium Talco Hives,Nausea And Vomiting High 02/18/2022 Sally Orosco [Aclidinium Talco] Medications pregabalin (LYRICA) 150 mg capsule 4 [...] Plan: Ms. Weldon had a fall in [place] down some stairs about 10 days ago. She has had pain at the bottom of her spine since. She says that on occasion she will get numbness and tingling in the back of the right leg in an S1 distribution. She is taking Tylenol, baclofen, Lamictal, and using 2 lidocaine patches with some relief. She is neurologically intact. 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 GERD (gastroesophageal reflux disease) 7 Positive hepatitis C antibody test 09/06/2016 Overview (02/20/2024): Hx of negative load test Encounters Date Type Department Care Team Description 06/18/2024 11:00 AM EST Hospital Encounter [facility] [address] [place] [address] Arrived 06/17/2024 9:37 AM EST Hospital Encounter [facility] [address] [place] [address] Arrived 06/16/2024 11:00 AM EST Ancillary Procedure [facility] - [address] [place] [address] Dizziness; Syncope, unspecified syncope type; CAICEDO (dyspnea on exertion) 04/27/2024 10:30 AM EST Office Visit [facility]s [facility] [address] [place] [address] Rula Alanis CNM Encounter for annual physical examination excluding gynecological examination in a patient older than 17 years (Primary Dx); Yeast dermatitis 04/23/2024 Telephone [facility] [address] [place] [phone] Fernando Pickens MD Medical Records 03/25/2024 9:00 AM EST Office Visit Gastroenterology - [place] [address] [place] [address] Saul Fournier PA Fatty liver (Primary Dx); Epigastric discomfort; Gastroesophageal reflux disease without esophagitis 03/25/2024 Telephone Gastroenterology [facility] [address] [place] [address] Saul Fournier PA from Last [...] PROCEDURE: HISTORICAL TUBAL LIGATION BREAST REDUCTION PROCEDURE: AR BREAST REDUCTION CHOLECYSTECTOMY PROCEDURE: HISTORICAL CHOLECYSTECTOMY BREAST BIOPSY PROCEDURE: BX BREAST; PERC NEEDLE CORE W/IMAG GUID; COMMENT: PATIENT STATES SHE HAS HAD 4 BIOPSIES ALL ON THE LEFT SIDE ANKLE FRACTURE SURGERY 08/21/2015 Left PROCEDURE: AR OPEN TREATMENT MEDIAL MALLEOLUS FRACTURE; COMMENT: Dr Anastasia Carver at [facility], hardware was removed 8 mo later except one screw TOTAL KNEE ARTHROPLASTY 10/21/2018 Left PROCEDURE: AR ARTHRP KNE CONDYLE&PLATU MEDIAL&LAT COMPARTMENTS; COMMENT: Dr Francesco Grewal at [facility] Medical History Medical History Date Comments [...] Feliberto Mathur at [facility] [place] [place] HLD (hyperlipidemia) 06/20/2021 DX:HLD (hyp erlipidemia) [...] Info) Description 06/19/2024 11:00 AM EST Appointment [facility] [address] [place] [phone] 09/16/2024 9:30 AM EDT Office Visit Internal Medicine - [address] [place] [address] Fernando Pickens MD [address] [place] [id number] Health Maintenance Due Date Last Done Comments [...] Negative LAB MICROBIOLOGY METHOD 04/28/2024 4:[address] [facility] Brushing/Spatula Cervix uteri structure / Unknown 04/27/2024 2:59 PM EST 04/28/2024 6:19 AM EST Rula PETERSEN [facility] MOLECULAR DIAGNOSTICS OR DERABLES Final Result [facility] [address] [place] [id number], * Pap smear (04/27/2024 2:59 PM EST) Interpretation Negative for intraepithelial lesion or malignancy 05/01/2024 2:[address] [facility] General Categorization Negative 05/01/2024 2:[address] [facility] Other Findings Atrophy 05/01/2024 2:[address] [facility] Specimen Adequacy Satisfactory for evaluation 05/01/2024 2:[address] [facility] Pap Methodology Liquid Based Pap Test 05/01/2024 2:[address] [facility] Disclaimer The Pap test is a screening test which carries an inherent false negative rate. These test results should be correlated with the patient's clinical findings and history. This Pap test was processed using an automated screening system. Technical cytopathology services provided by [facility], at [address] [place] [address] (CLIA # [id number]/Sujata Oviedo MD, Technical Training Manager.) 05/01/2024 2:[address] [facility] Console Pap Interpretation Reported 05/01/2024 2:[address] [facility] Brushing/Spatula Cervix uteri structure / Unknown 04/27/2024 2:59 PM EST 04/27/2024 2:59 PM EST Rula Alanis [facility] CYTOLOGY ORDERABLES Effie l Result RORY SHAR[facility] ([facility]) [facility] [address] [place] [address], [place] [phone] * External clinical lab (04/01/2024) Provider [facility] [...] Signed Date: 02/18/2024 17:09 ET Workstation ID: [id number] Transcribed By: Self Edit Transcribed Date: 02/18/2024 [...] Signed Date: 02/18/2024 17:09 ET Workstation ID: [id number] Transcribed By: Self Edit Transcribed Date: 02/18/2024 [...] Recently Relevant to Health Maintenance Insurance [facility] Member Subscriber Plan / Payer (Ef fective 2014-Present) Name:Pam Weldon Relation to Subscriber:Spouse Name:WESTLEY DAN Date of :1970 (Home) Address: [address] [place] [address] Payer ID:[id number] Group ID:[id number] Type:Not on file Address: [address] [place] [address] Care Teams Foreign Diplomat Relationship Specialty Start Date End Date Fernando Pickens MD [address] [place] [address] [place] [id number] PCP - General Internal Medicine 01/28/20
--- OUTSIDE RECORDS SUMMARY | 2024-06-18 17:05 | XMS_ITS | Encounter Summary ---
Author Organization [facility] Address [address] [place] [address] Care Team Providers Care Cane Flume Watcher Name Role Phone Fernando Pickens MD Primary Care Provider [phone] Reason for Visit * Neurology (Routine) - Authorized Specialty Diagnoses / Procedures Referred By Contac t Referred To Contact Neurology Diagnoses Epilepsy, unspecified, not intractable, without status epilepticus (CMS/HCC) Procedures Continuous EEG Kira Mcdonald MD [address] [place] [address] [place] [address] Phone: tel: fax: [facility] [address] [place] [address] Phone: tel: Referral ID Status Reason Start Date Expiration Date V isits Requested Visits Authorized [id number] Authorized 02/21/2024 02/20/2025 3 3 Encounter Details Date Type Department Care Team (Late st Contact Info) Description 06/17/2024 9:37 AM EST Hospital Encounter [facility] [address] [place] [address] Arrived Social History Tobacco Use [...] Info) Description 06/19/2024 11:00 AM EST Appointment [facility] [address] [place] [address] 09/16/2024 9:30 AM EDT Office Visit Internal Medicine - [address] [address] Fernando Pickens MD [address] [place] [address] Pending Results Name Type Priority Associated Diagnoses Date /Time Continuous EEG Neurology Routine Epilepsy, unspecified, not intractable, without status epilepticus ([facility]) 06/17/2024 11:35 AM EST documented as of this encounter Visit Diagnoses Not on filedocumented in this encounter Care Teams Cane Flume Watcher Relationship Specialty Start Date End Date Fernando Pickens MD [address] [place] [id number] PCP - General Internal Medicine 01/28/20 documented as of this encounter
== END 2024-06-18 12:47 | disposition home or self-care (01) ==
LOC: HO.LAB 12:46
PROVIDERS: PCP Internal Medicine; Visit Provider Student in an Organized Health Care Education/Training Program
DX: M06.00 Rheumatoid arthritis without rheumatoid factor, unspecified site (principal); M79.7 Fibromyalgia
CPT/HCPCS: 36415; 80053; 85025; 85652; 86140

== ENCOUNTER 2024-06-18 12:46 | Outpatient (AMB) | payer BC, MEDICARE, SELFPAY ==
--- NOTE | 2024-06-18 13:13 | MHC.OFFVIS ---
Vital Signs 06/18/24 13:16 Height 5 ft 9 in Weight 229 lb 15.074 oz BMI 34.0 BP 100/70 Blood Pressure Location Lt brachial Position Sitting Pulse 59 Pulse Source Pulse Oximeter Pulse Oximetry (%) 98 Oxygen Delivery Method Room Air Intake Visit Reasons: RA Intake Note: Patient presents for RA. Allergies aclidinium [Tudorza Pressair] Allergy (Intermediate, Verified 06/18/24 13:16) Hives Medication List - Last Reconciled 06/18/24 by Jana Lunsford MD albuterol sulfate 90 mcg/actuation 2 puffs PO Q6H PRN atorvastatin 20 mg PO DAILY baclofen 10 mg PO TID PRN benzonatate 200 mg PO BID PRN 30 days budesonide-formoterol 160-4.5 mcg/actuation (Symbicort) 2 puffs inhalation BID 30 days cetirizine TAKE 1 TABLET BY MOUTH EVERY DAY cholecalciferol (vitamin D3) 50 mcg PO DAILY diclofenac sodium 1% (Voltaren Arthritis Pain) 4 grams topical QID PRN fluticasone propionate 50 mcg/actuation 2 sprays intranasal DAILY 90 days xmzondxkfmx-jrlzwivit-nnpvsigd 200-62.5-25 mcg (Trelegy Ellipta) 1 ea inhalation DAILY folic acid 1 mg PO DAILY ipratropium-albuterol 0.5 mg-3 mg(2.5 mg base)/3 mL 3 mL inhalation DAILY PRN lidocaine 5% 1 patch topical DAILY methotrexate sodium 20 mg (8 x 2.5 mg) PO QWEEK montelukast 10 mg PO DAILY nebulizers As directed omeprazole 40 mg PO DAILY pregabalin 150 mg PO DAILY pregabalin 200 mg PO BEDTIME roflumilast 500 mcg PO DAILY HPI Comments Details: Patient is a 54-year-old female with hyperlipidemia, GERD, COPD, polyarticular osteoarthritis, fibromyalgia and seronegative rheumatoid arthritis here today for follow up Interval History: Patient last seen 02/10/[address] Uriostegui. At that time she was on methotrexate 20 mg and folic acid. With regards to her rheumatoid arthritis she was doing well, did not have any swollen joints. Patient wants to stop taking her medications She states that she is tired of taking her medications and wants to see what she is like off the medication Still complains of swelling to her hands in the AM with stiffness and does not think the medication is helping He particularly complains of pain to the 1st CMC and 1st MCP of the thumb. Rheumatologic History: Seronegative rheumatoid arthritis dx 2014, -RF/CCP Plaquenil - dates unknown Sulfasalazine- 05/2014- 04/2015 - ineffective Enbrel- 07/2017-10/2017 - ineffective Kevzara 08/2018-04/2019- did not take due to expense Humira- 08/2018 Leflunomide -04/2019 Methotrexate- 2016- November 2021-stop for right knee arthroplasty, remained off Restarted 03/2023 effective Initial history: This is a 52-year-old female with seronegative RA and fibromyalgia returns for follow-up. Not currently on any medication. Patient was last evaluated by Kaia Rascon 07/05. At that time she had been off methotrexate for 4 months. At that time it was decided to watch patient off DMARDs. Patient stated that her joint inflammation never changed when on or off medication. Patient has been having intermittent pain and swelling of her hands, ankles, feet. Over the last 3 days she has been having mid back pain radiating towards her right lower extremity. She denies any trauma or overuse. She also continues to have diffuse fibromyalgia pain. She is on Lyrica 200 mg nightly and 150 mg in the morning Current Rheumatology Medication(s): Methotrexate 20 mg weekly p.o. Folic acid 1 mg daily [facility] Medical History (Updated 06/18/24 @ 13:27 by Jana Lunsford MD) Vertigo GERD (gastroesophageal reflux disease) DJD (degenerative joint disease) COPD (chronic obstructive pulmonary disease) Hyperlipidemia BMI 36.0-36.9,adult Obesity Cough Hepatitis C antibody positive in blood Leg length discrepancy Pulmonary nodules CANDELARIA on CPAP Asthma Insomnia Fibromyalgia Seronegative rheumatoid arthritis Surgical History History of total knee replacement History of knee surgery Hx of detached retina repair History of ankle surgery History of colon resection Hx of colonoscopy History of total knee arthroplasty Hx of cholecystectomy H/O bilateral breast reduction surgery Hx of tubal ligation Family History Maternal Grandmother Skin cancer Maternal Aunt Breast cancer Maternal Uncle Prostate cancer Mother No problems noted. Father No problems noted. Social History Household Members: Spouse Housing: House Are you a primary rn urgent care to a significant other at home: No Do you presently have visiting nurse or other home services: No Alcohol intake: current Alcohol intake frequency: holidays/special occasions only Patient Tobacco Use Status: Never used Tobacco service: No Current occupational status: disabled Review of Systems Const Details: Review of Systems Constitutional: Denies fever, chills, weight loss ENT: Denies vision changes, eye pain or eye redness, dental caries, dry mouth GI: Denies nausea, vomiting, diarrhea, abdominal pain, change in BM Pulm: Denies SOB, CAICEDO, hemoptysis, wheezing Cards: Denies chest pain, palpitations Skin: Denies Raynaud's, rash, nail changes, photosensitivity, ACCOUNTING ASSOCIATE: Denies headaches, weakness, paresthesias, recurrent falls MSK: as per HPI All other systems reviewed and are unremarkable except noted above Physical Exam Vital Signs: Last Vital Signs Pulse 59 06/18/24 13:16 BP 100/70 06/18/24 13:16 Pulse Ox 98 06/18/24 13:16 Oxygen Delivery Method Room Air 06/18/24 13:16 BMI result Body Mass Index 34.0 Vital signs reviewed Physical Examination CONSTITUITIONAL Patient alert and cooperative. Well appearing and in no apparent painful distress HEENT Conjunctiva and sclera clear. ?Pupils equal round and reactive to light. ?No lymphadenopathy. ? CHEST/RESPIRATORY SYSTEM Normal respiratory effort and able to speak in complete sentences. ?Clear to auscultation bilaterally. ?No crackles, rales, rhonchi, wheezes heard. CARDIAC SYSTEM Regular rate and rhythm. ?S1 and S2 heard no murmurs. ?Radial pulses intact bilaterally MSK Hands: ?Good academic records specialist strength bilaterally. No deformities noted. ?No synovitis noted to the MCPs, PIPs or DIPs. ?No tenderness to palpation of these joints. Wrists: ?Full range of motion at the wrists without pain. ?No tenderness to palpation or synovitis noted to the wrists. Elbows: Full range of motion without pain. No tenderness, weakness, swelling, increased warmth or erythema. Shoulders: Full range of motion without pain. No tenderness, weakness, swelling, increased warmth or erythema. Hips: Full range of motion without pain. Hip bursa: No tenderness to palpation Knees: ?Full range of motion. ?No tenderness, swelling, increased warmth or erythema.?No effusion or crepitations Ankles: Full range of motion. ?No tenderness, swelling, increased warmth or erythema.? Feet: ?Negative squeeze test. ?No tenderness to palpation or swelling of the MTPs. Tender points:?No tenderness to palpation of the bilateral trapezius, supraspinatus, greater trochanters, anterior costochondral junctions, bilateral gluteal areas, bilateral suboccipital muscle insertions SKIN Skin intact without rashes. Results Reviewed Results Reviewed: Laboratory Tests 02/10/24 03/31/24 10:26 11:23 WBC 5.9 RBC 4.18 L Hgb 11.6 L Hct 36.8 L Plt Count 346 ESR 45 H Sodium 141 Potassium 4.3 Chloride 109 H Carbon Dioxide 24 BUN 13 Creatinine 0.75 AST 23 ALT 19 Alkaline Phosphatase 110 Infectious serologies 01/08/23 01/11/23 09:10 12:13 Hepatitis A IgM Ab Nonreactive Hep Bs Antigen Negative Hep Bs Antibody GRAYZONE Hep B Core Total Ab Nonreactive Hepatitis C Ab (EIA) Reactive H Reactive H Hep C Viral Load <15 NOT DETECTED TB Test (T-Spot) Com Negative XR Bilateral Hands/Wrists 12/2022 FINDINGS: RIGHT HAND/WRIST: Tiny marginal osteophytes are present at multiple interphalangeal joints, notably at the DIP joints. A few tiny marginal osteophytes are also present at the MCP joints and 1st CMC joint. No erosions are identified. Joint spaces appear well preserved. Bone mineralization is normal. Soft tissues are unremarkable. No fracture or malalignment. LEFT HAND/WRIST: Similar to the contralateral side, tiny marginal osteophytes are present at multiple interphalangeal joints as well as a few MCP joints and the 1st CMC joint. No erosions. Joint spaces are normal. Bone mineralization appears normal. No fracture or malalignment. The soft tissues are unremarkable. IMPRESSION: 1. Mild multifocal osteoarthritis in the hands and wrists. No erosions to indicate an inflammatory/erosive arthritis. Assessment & Plan Assessment & Plan (1) Seronegative rheumatoid arthritis: Comment: dx 2015 Plaquenil - dates unknown Sulfasalazine- 05/2014- 04/2015 - ineffective Enbrel- 07/2017-10/2017 - ineffective Kevzara 08/2018-04/2019- did not take due to expense Humira- 08/2018 Leflunomide -04/2019 Methotrexate- 2016- November 2021-stop for right knee arthroplasty, remained off Restarted 03/2023 effective Code(s): M06.00 - Rheumatoid arthritis without rheumatoid factor, unspecified site Category: Medical Plan: #Seronegative RA Patient is a 54-year-old female with seronegative rheumatoid arthritis here today for follow up. Patient is requesting to come off all of her RA medications as she wants to do a trial without medications to see if she truly needs it. I am okay with proceeding with this. We will monitor her off medications for the next 3 months. Gave her topical diclofenac to apply 4 times a day. Plan - Methotrexate and folic acid - monitor off medications - topical diclofenac 1% applied to hands 4 times a day - labs today: CBC, CMP, ESR, CRP - RTC 3 months - labs before visit: CBC, CMP, ESR, CRP (2) Fibromyalgia: Code(s): M79.7 - Fibromyalgia Category: Medical Plan: #Fibromyalgia Patient also with fibromyalgia which could be complicating her osteoarthritic and RA picture. Continue with pregabalin and baclofen Plan - baclofen reduced to b.i.d. instead of t.i.d. as per patient's request - pregabalin 150 mg and 200 mg refilled Plan I spent 38 minutes reviewing the record and labs, taking a history, examining the patient, discussing the treatment plan, counseling and documenting in the medical record Orders: Orders Complete Blood Count Auto Diff 3 Months M06.00 - Rheumatoid arthritis without rheumatoid factor, unspecified site Comprehensive Met. Panel 3 Months M06.00 - Rheumatoid arthritis without rheumatoid factor, unspecified site C Reactive Protein 3 Months M06.00 - Rheumatoid arthritis without rheumatoid factor, unspecified site Erythrocyte Sedimentation Rate 3 Months M06.00 - Rheumatoid arthritis without rheumatoid factor, unspecified site Comprehensive Met. Panel Today M06.00 - Rheumatoid arthritis without rheumatoid factor, unspecified site Erythrocyte Sedimentation Rate Today M06.00 - Rheumatoid arthritis without rheumatoid factor, unspecified site Complete Blood Count Auto Diff Today M06.00 - Rheumatoid arthritis without rheumatoid factor, unspecified site C Reactive Protein Today M06.00 - Rheumatoid arthritis without rheumatoid factor, unspecified site Medications: New miscellaneous medical supply compression stockings 15-20 mmhg up to mid thigh 2 ea 0RF M79.89 - Other specified soft tissue disorders Changed From baclofen 10 mg PO TID PRN 270 tabs 1RF for muscle pain M79.7 - Fibromyalgia To baclofen 10 mg PO BID 90 days 180 tabs 1RF for muscle pain M79.7 - Fibromyalgia From diclofenac sodium 1% (Voltaren Arthritis Pain) Apply 1-3 grams (pumps) to the affected area 3-4 times daily. 4 grams topical QID PRN 180 grams 3RF pain M19.041 - Primary osteoarthritis, right hand, M19.042 - Primary osteoarthritis, left hand To diclofenac sodium 1% (Voltaren Arthritis Pain) Apply to hands bilaterally 4 times a day 4 grams topical QID 100 grams 5RF pain M19.041 - Primary osteoarthritis, right hand, M19.042 - Primary osteoarthritis, left hand Discontinued folic acid Discontinued Reason: Doctor's Order 1 mg PO DAILY 90 tabs 1RF methotrexate sodium Discontinued Reason: Doctor's Order 20 mg (8 x 2.5 mg) PO QWEEK 96 tabs 0RF Coding Level of Care Code Est Pt Level 4 (47759) Complex EM visit Add On G2211 Diagnoses Seronegative rheumatoid arthritis M06.00 Fibromyalgia M79.7
[2024-06-18 13:16] VITALS: BP 100/70; PULSE 59; O2SAT 98; BMI 34.0
--- OUTSIDE RECORDS SUMMARY | 2024-06-18 15:23 | XMS_ITS | Encounter Summary ---
Author Organization [facility] Address [address] [place] [address] Care Team Providers Care Foundry Technician Name Role Phone Fernando Pickens MD Primary Care Provider +1 [phone] Reason for Visit * Neurology (Routine) - Authorized Specialty Diagnoses / Procedures Referred By Contac t Referred To Contact Neurology Diagnoses Epilepsy, unspecified, not intractable, without status epilepticus (CMS/HCC) Procedures Continuous EEG Kira Mcdonald MD [address] [place] [address] [place] [address] Phone: tel: fax: [facility] [address] [place] [address] Phone: tel: Referral ID Status Reason Start Date Expiration Date V isits Requested Visits Authorized [id number] Authorized 02/21/2024 02/20/2025 3 3 Encounter Details Date Type Department Care Team (Late st Contact Info) Description 06/17/2024 9:37 AM EST Hospital Encounter [facility] [address] [place] [address] Arrived Social History Tobacco Use Types Packs/Day Years Used Date Smoking Tobacco: Never Smokeless Tobacco: Never Alcohol Use Standard Drinks/Week Comments Not Currently 0 (1 standard drink = 0.6 oz pur e alcohol) rare Comments No Sex and Gender Information Value Date Recorded Sex Assigned at Female 06/15/2024 3:56 PM EST Legal Sex Female 1:14 PM EST Gender Identity Female 06/15/2024 3:56 PM EST Sexual Orientation Straight 06/15/2024 3: 56 PM EST documented as of this encounter Plan of Treatment Upcoming Encounters Date Type Department Care Team (Late st Contact Info) Description 06/19/2024 11:00 AM EST Appointment [facility] [address] [place] [address] 09/16/2024 9:30 AM EDT Office Visit Internal Medicine - [address] [address] Fernando Pickens MD [address] [place] [address] Pending Results Name Type Priority Associated Diagnoses Date /Time Continuous EEG Neurology Routine Epilepsy, unspecified, not intractable, without status epilepticus ([facility]) 06/17/2024 11:35 AM EST documented as of this encounter Visit Diagnoses Not on filedocumented in this encounter Care Teams Foundry Technician Relationship Specialty Start Date End Date Fernando Pickens MD [address] [place] [phone] PCP - General Internal Medicine 01/28/20 documented as of this encounter
--- OUTSIDE RECORDS SUMMARY | 2024-06-18 15:23 | XMS_ITS | Clinical Summary ---
Author Organization [facility] Address [address] [place] [address] Phone Care Team Providers Care Header Machine Operator Name Role Phone Fernando Pickens MD Primary Care Provider [phone] [phone] Allergies Active Allergy Reactions Criticality Noted Date Comments Aclidinium Wright Hives,Nausea And Vomiting High 02/18/2022 Sally Orosco [Aclidinium Wright] Medications pregabalin (LYRICA) 150 mg capsule 4 [...] Plan: Ms. Weldon had a fall in [place] down some stairs about 10 days ago. She has had pain at the bottom of her spine since. She says that on occasion she will get numbness and tingling in the back of the right leg in an S1 distribution. She is taking Tylenol, baclofen, Lamictal, and using 2 lidocaine patches with some relief. She is neurologically intact. 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 - [address] [place] [address] Dizziness; Syncope, unspecified syncope type; CAICEDO (dyspnea on exertion) 04/27/2024 10:30 AM EST Office Visit Obstetrics [facility]necology [facility] [address] [place] [address] Rula Alanis CNM Encounter for annual physical examination excluding gynecological examination in a patient older than 17 years (Primary Dx); Yeast dermatitis 04/23/2024 Telephone [facility] [address] [place] [phone] Fernando Pickens MD Medical Records 03/25/2024 9:00 AM EST Office Visit Gastroenterology - [place] [address] [place] [address] Saul Fournier PA Fatty liver (Primary Dx); Epigastric discomfort; Gastroesophageal reflux disease without esophagitis 03/25/2024 Telephone Gastroenterology [facility] [address] [place] [address] Saul Fournier PA from Last [...] PROCEDURE: HISTORICAL TUBAL LIGATION BREAST REDUCTION PROCEDURE: OK BREAST REDUCTION CHOLECYSTECTOMY PROCEDURE: HISTORICAL CHOLECYSTECTOMY BREAST BIOPSY PROCEDURE: BX BREAST; PERC NEEDLE CORE W/IMAG GUID; COMMENT: PATIENT STATES SHE HAS HAD 4 BIOPSIES ALL ON THE LEFT SIDE ANKLE FRACTURE SURGERY 08/21/2015 Left PROCEDURE: OK OPEN TREATMENT MEDIAL MALLEOLUS FRACTURE; COMMENT: Dr Anastasia Carver at [facility], hardware was removed 8 mo later except one screw TOTAL KNEE ARTHROPLASTY 10/21/2018 Left PROCEDURE: OK ARTHRP KNE CONDYLE&PLATU MEDIAL&LAT COMPARTMENTS; COMMENT: Dr Francesco Grewal at [facility] Medical History Medical History Date Comments Migraine [...] Feliberto Mathur at [facility] [place], [place] HLD (hyperlipidemia) 06/20/2021 DX:HLD (hyp erlipidemia) [...] Orientation Straight 06/15/2024 3: 56 PM EST Obstetrics History Para Term AB IAB SAB Ectopic Multiple Livin g Live Births 2 2 2 2 2 Date Outcome GA Total Labor Labor/2nd/3rd Weight Sex Type Anes PTL Lucille A1 A5 Name Clin 1992 Term F Vag-S pont Living 1996 Term M Vag-S pont Living Last Filed Vital Signs Vital Sign Reading Time Taken Comments Blood Pressure 100/70 06/16/2024 11:38 AM EST Pulse 81 04/27/2024 10:47 AM EST Temperature - - Respiratory Rate 18 04/27/2024 10:47 AM EST Oxygen Saturation 98% 03/25/2024 9:14 AM EST Inhaled Oxygen Concentration - - Weight 104 kg (230 lb) 06/16/2024 11:38 AM EST Height 175.3 cm (5' 9 ) 06/16/2024 11:38 AM EST Body Mass Index 33.97 06/16/2024 11:38 AM EST Plan of Treatment Upcoming Encounters Date Type Department Care Team (Late st Contact Info) Description 06/19/2024 11:00 AM EST Appointment [facility] [address] [place] [phone] 09/16/2024 9:30 AM EDT Office Visit Internal Medicine - [address] [place] [address] Fernando Pickens MD [address] [place] [address] Health Maintenance Due Date Last Done Comments Hepatitis B Vaccines (1 of 3 - 19+ 3-dose series) 1987 Zoster Vaccines (2 of 2) 08/29/2021 07/04/2021 [...] Completed 01/02/2024, , 03/27/2021, Additional history exists Pneumococcal Vaccine: 50+ Years Completed 06/03/2024, 10/18/2016 Pneumococcal Vaccine: Pediatrics (0 to 5 Years) and At-Risk Patients (6 to 64 Years) Completed 06/03/2024, 10/18/2016 HIB Vaccines Aged Out No longer eligi [...] Date/Time Associated Diagnosis Comments EXTERNAL XRAY REPORT 06/12/2024 EXTERNAL XRAY REPORT 05/14/2024 EXTERNAL XRAY REPORT [...] Health Maintenance Results * External Xray Report (06/12/2024) Only the most recent of3 resultswithin the time period is included. Anatomical [...] Negative LAB MICROBIOLOGY METHOD 04/28/2024 4:04 PM [facility] Brushing/Spatula Cervix uteri structure / Unknown 04/27/2024 2:59 PM EST 04/28/2024 6:19 AM EST Rula PETERSEN LAB MOLECULAR DIAGNOSTICS OR DERABLES Final Result [facility] [address] [place] [address], * Pap smear (04/27/2024 2:59 PM EST) Interpretation Negative for intraepithelial lesion or malignancy 05/01/2024 2:38 PM [facility] General Categorization Negative 05/01/2024 2:38 PM [facility] Other Findings Atrophy 05/01/2024 2:38 PM [facility] Specimen Adequacy Satisfactory for evaluation 05/01/2024 2:38 PM [facility] Pap Methodology Liquid Based Pap Test 05/01/2024 2:38 PM [facility] Disclaimer The Pap test is a screening test which carries an inherent false negative rate. These test results should be correlated with the patient's clinical findings and history. This Pap test was processed using an automated screening system. Technical cytopathology services provided by [facility], at [address] [place] [address] (CLIA # [id number]/Sujata Oviedo MD, Plant Physiology Teacher.) 05/01/2024 2:38 PM [facility] Console Pap Interpretation Reported 05/01/2024 2:38 PM [facility] Brushing/Spatula Cervix uteri structure / Unknown 04/27/2024 2:59 PM EST 04/27/2024 2:59 PM EST Rula Alanis [facility] CYTOLOGY ORDERABLES Effie l Result RORY SHARMA PA ([facility]) [facility] [address] [place] [address], [place] [phone] * External clinical lab (04/01/2024) Provider [place] [...] Signed Date: 02/18/2024 17:09 ET Workstation ID: [id number] Transcribed By: Self Edit Transcribed Date: 02/18/2024 [...] Signed Date: 02/18/2024 17:09 ET Workstation ID: [id number] Transcribed By: Self Edit Transcribed Date: 02/18/2024 17:02 ET Fernando Pickens MD IMG BI PROCEDURES Final R esult * Annual BMP Blood Test (11/08/2023) Annual BMP Blood Test Abstracted Historical Provider HEALTH MAINTENANCE Final Result * Lipid panel (11/08/2023) LDL/HDL Ratio 3 Triglycerides 120 mg/dL Cholesterol 189 mg/dL HDL 58 mg/dL LDL Cholesterol 107 mg/dL Blood Venous blood specimen / Unknown Historical Provider LAB BLOOD ORDERABLES Effie l Result * Hepatitis C Screening (05/31/2022) Hepatitis C Screening borderline Historical Provider HEALTH MAINTENANCE Final Result * Colonoscopy (06/21/2020) Colonoscopy normal Anatomical Region Laterality Modality Other Historical Provider HEALTH MAINTENANCE Final Result from Last 3 Months or Most Recently Relevant to Health Maintenance Insurance MEDICARE [facility] Member Subscriber Plan / Payer (Ef fective 2014-Present) Name:Pam Weldon Relation to Subscriber:Spouse Name:WESTLEY DAN Date of :1970 (Home) Address: [address] [place] [address] Payer ID:[id number] Group ID:[id number] Type:Not on file Address: [address] [place] [address] Care Teams Header Machine Operator Relationship Specialty Start Date End Date Fernando Pickens MD [address] [place] [address] [place] [phone] PCP - General Internal Medicine 01/28/20
--- OUTSIDE RECORDS SUMMARY | 2024-06-18 15:23 | XMS_ITS | Encounter Summary ---
Author Organization [facility] Address [address] [place] [address] Care Team Providers Care Electromechanical Assembler Name Role Phone Fernando Pickens MD Primary Care Provider [phone] [phone] Reason for Visit * Neurology (Routine) - Authorized Specialty Diagnoses / Procedures Referred By Contac t Referred To Contact Neurology Diagnoses Epilepsy, unspecified, not intractable, without status epilepticus (CMS/HCC) Procedures Continuous EEG Kira Mcdonald MD [address] [place] [address] [place] [address] Phone: tel: fax: [facility] [address] [place] [phone] Phone: tel: Referral ID Status Reason Start Date Expiration Date V isits Requested Visits Authorized [id number] Authorized 02/21/2024 02/20/2025 3 3 Encounter Details Date Type Department Care Team (Late st Contact Info) Description 06/18/2024 11:00 AM EST Hospital Encounter [facility] [address] [place] [address] Arrived Social History Tobacco Use [...] Info) Description 06/19/2024 11:00 AM EST Appointment [facility] [address] [place] [address] 09/16/2024 9:30 AM EDT Office Visit Internal Medicine - [address] [address] Fernando Pickens MD [address] [place] [address] Pending Results Name Type Priority Associated Diagnoses Date /Time Continuous EEG Neurology Routine Epilepsy, unspecified, not intractable, without status epilepticus ([facility]) 06/18/2024 11:34 AM EST documented as of this encounter Visit Diagnoses Not on filedocumented in this encounter Care Teams Electromechanical Assembler Relationship Specialty Start Date End Date Fernando Pickens MD [address] [place] [phone] PCP - General Internal Medicine 01/28/20 documented as of this encounter
--- OUTSIDE RECORDS SUMMARY | 2024-06-18 15:23 | XMS_ITS | Encounter Summary ---
Author Organization [facility] Address [address] [place] [address] Care Team Providers Care Highway Maintainer Name Role Phone Fernando Pickens MD Primary Care Provider [phone] [phone] Reason for Visit * Imaging (Routine) - Authorized Specialty Diagnoses / Procedures Referred By Contac t Referred To Contact Cardiology Diagnoses Dizziness Syncope, unspecified syncope type CAICEDO (dyspnea on exertion) Procedures Transthoracic echocardiogram (TTE) complete with PRN contrast, bubble, strain, and 3D order panel DC TTE W 2D IMAGE COMPLETE W DOPPLER ECHO & COLOR FLOW DOPPLER ECHO DC SOCORRO 2D COMPLETE W/CONTRAST OR W & WO CONTRAST WITH DOPPLER Regina Xie NP [address] [place] [address] Phone: tel: fax: [facility] Referral ID Status Reason Start Date Expiration Date V isits Requested Visits Authorized [id number] Authorized 02/13/2024 02/12/2025 1 1 Encounter Details Date Type Department Care Team (Latest Contact Info) Description 06/16/2024 11:00 AM EST Ancillary Procedure [facility] - [address] [place] [address] Dizziness; Syncope, unspecified syncope type; CAICEDO (dyspnea on exertion) Social History Tobacco Use Types Packs/Day Years [...] PM EST documented as of this encounter Last Filed Vital Signs Vital Sign Reading Time Taken Comments Blood Pressure 100/70 06/16/2024 11:38 AM EST Pulse - - Temperature - - Respiratory Rate - - Oxygen Saturation - - Inhaled Oxygen Concentration - - Weight 104 kg (230 lb) 06/16/2024 11:38 AM EST Height 175.3 cm (5' 9 ) 06/16/2024 11:38 AM EST Body Mass Index 33.97 06/16/2024 11:38 AM EST documented in this encounter Plan of Treatment Upcoming Encounters Date Type Department Care Team (Late st Contact Info) Description 06/19/2024 11:00 AM EST Appointment [facility] [address] [place] [address] 09/16/2024 9:30 AM EDT Office Visit Internal Medicine - [address] [address] Fernando Pickens MD [address] [place] [phone] Pending Results Name Type Priority Associated Diagnoses Date/Time Transthoracic echocardiogram (TTE) complete with PRN contrast, bubble, strain, and 3D order panel Echocardiography Routine Dizziness Syncope, unspecified syncope type CAICEDO (dyspnea on exertion) 06/16/2024 11:36 AM EST documented as of this encounter Visit Diagnoses Diagnosis Dizziness Dizziness and giddiness Syncope, unspecified syncope type CAICEDO (dyspnea on exertion) Other dyspnea and respiratory abnormality documented in this encounter Care Teams Highway Maintainer Relationship Specialty Start Date End Date Fernando Pickens MD [address] [place] [address] PCP - General Internal Medicine 01/28/20 documented as of this encounter
== END 2024-06-18 13:52 | disposition home or self-care (01) ==
PROVIDERS: PCP Internal Medicine; Visit Provider Student in an Organized Health Care Education/Training Program
DX: M06.00 Rheumatoid arthritis without rheumatoid factor, unspecified site (principal); M79.7 Fibromyalgia
CPT/HCPCS: 99214

== ENCOUNTER 2024-07-03 08:27 | Outpatient (AMB) | payer BC, MEDICARE, SELFPAY ==
--- NOTE | 2024-07-03 10:14 | A.OFFVIS_ITS ---
VS Expanded 07/03/24 10:38 Height 5 ft 9 in Weight 220 lb 2 oz BMI 32.5 Body Fat % 42 Body Fat Mass 92.4 Fat Free Mass 127.8 Visceral Fat Rating 15 Body Water % 39.8 Body Water Mass 87.6 Basal Metabolic Rate/Score 1,626 Intake Visit Reasons: TV Pre Op LSG 07/14/2024 Allergies aclidinium [Tudorza Pressair] Allergy (Intermediate, Verified 07/03/24 10:18) Hives Medication List - Last Reconciled 07/03/24 by Darren Kat MD albuterol sulfate 90 mcg/actuation 2 puffs PO Q6H PRN atorvastatin 20 mg PO DAILY baclofen 10 mg PO BID 90 days benzonatate 200 mg PO BID PRN 30 days budesonide-formoterol 160-4.5 mcg/actuation (Symbicort) 2 puffs inhalation BID 30 days cetirizine TAKE 1 TABLET BY MOUTH EVERY DAY cholecalciferol (vitamin D3) 50 mcg PO DAILY diclofenac sodium 1% (Voltaren Arthritis Pain) 4 grams topical QID fluticasone propionate 50 mcg/actuation 2 sprays intranasal DAILY 90 days ipratropium-albuterol 0.5 mg-3 mg(2.5 mg base)/3 mL 3 mL inhalation DAILY PRN lamotrigine 25 mg PO DAILY lidocaine 5% 1 patch topical DAILY miscellaneous medical supply compression stockings 15-20 mmhg up to mid thigh montelukast 10 mg PO DAILY omeprazole 40 mg PO DAILY ondansetron 4 mg PO Q12H pantoprazole 40 mg PO DAILY polyethylene glycol 3350 17 grams PO DAILY pregabalin 150 mg PO DAILY pregabalin 200 mg PO BEDTIME roflumilast 500 mcg PO DAILY sucralfate 10 mL PO BID HPI HPI TV Pre Op LSG 07/14/2024: Details: Start time: 10.10am, End time: 10.50am ?I spent 35 minutes speaking with the patient on the phone plus an additional 5 minutes reviewing and updating records for a total of 40 minutes HPI Comments Details: Overall weight loss: 23.4lbs, or 9.61% TBWL Is doing 2 Celebrate Rebuild protein shakes (2 scoops each in almond milk), 2.5 Celebrate protein bars and one meal (8 forks of meat and 8 forks of salad or vegetables) Exercise: is doing the stationary bike for 250-300 calories x5/wk [facility] Medical History (Updated 06/30/24 @ 15:04 by Margarita Guo RN) Environmental and seasonal allergies History of blood transfusion (~1994) Low back pain Vertigo GERD (gastroesophageal reflux disease) DJD (degenerative joint disease) COPD (chronic obstructive pulmonary disease) Hyperlipidemia BMI 36.0-36.9,adult Obesity Cough Hepatitis C antibody positive in blood Leg length discrepancy Pulmonary nodules CANDELARIA on CPAP Asthma Insomnia Fibromyalgia Seronegative rheumatoid arthritis Surgical History History of total knee replacement History of knee surgery Hx of detached retina repair History of ankle surgery History of colon resection Hx of colonoscopy History of total knee arthroplasty Hx of cholecystectomy H/O bilateral breast reduction surgery Hx of tubal ligation Family History Maternal Grandmother Skin cancer Maternal Aunt Breast cancer Maternal Uncle Prostate cancer Mother No problems noted. Father No problems noted. Social History Household Members: Spouse Housing: House Are you a primary gericare aide teacher to a significant other at home: No Do you presently have visiting nurse or other home services: No Alcohol intake: current Alcohol intake frequency: does not drink Patient Tobacco Use Status: Never used Tobacco service: No Current occupational status: disabled Telehealth Telehealth Telehealth Platform: Telephone Location of provider rendering services: practice address Location of patient: address on file Patient Identification confirmed using: Name, : Yes Telehealth method: voice only Patient verbally consented to treatment: Yes Patient verbally consented to billing insurance company: Yes Patient informed of any privacy concerns related to visit: Yes Minutes spent on Phone/Video with Pt.: 40 Assessment & Plan Assessment & Plan (1) Obesity: Code(s): E66.9 - Obesity, unspecified Category: Medical Qualifiers: Obesity type: due to excess calories Obesity classification: adult class 2 (BMI 35 - 39.9) Serious obesity comorbidity presence: with serious comorbidity Body mass index: BMI 36.0-36.9 Qualified Code(s): E66.812 - Obesity, class 2; E66.01 - Morbid (severe) obesity due to excess calories; Z68.36 - Body mass index [BMI] 36.0-36.9, adult Plan: 1. Plan for lap sleeve gastrectomy including upper GI endoscopy. All tests has been completed and reviewed and the patient is cleared for the surgery. ?If diaphragmatic or ventral hernias are present at time of surgery, these will be repaired laparoscopically as well. Risks and complications were discussed in detail including possible conversion to an open procedure, anastomotic leak, bleeding requiring transfusion, small bowel obstruction, , DVT and pulmonary embolism, cardiac, or pulmonary complications, as residential complications such as anastomotic ulcer, insufficient weight loss and vitamin deficiencies. I emphasized the importance of close follow-up, adherence to instructions and good communication. So far she has proven to be an excellent communicator and very compliant with all our directions accomplishing a great weight loss. I believe that she is an excellent candidate and she is ready. 2. Preop prescriptions were provided and explained the purpose of each one. Need to be purchased preop. Continue the Omeprazole for now. Pantoprazole, Sucralfate and Zofran are for after surgery as needed. 3. Bowel prep: please do 7 packets ?of Miralax mixing each one with a an 8oz glass of water, crystal light, gatorade zero, or propel ?on 07/12/24 and the same amount on 07/13/24. The Miralax you begin with one packet at a time in 8oz water or crystal light, gatorade zero, or propel ?as early in the day as you can and you do them back to back until you finish them. Continue the protein shakes during ?the bowel prep. 4. Needs to purchase 1oz medicine cups . 5. Needs to purchase Children's liquid Tylenol for postop pain control. 6. She needs to stop the Baclofen as of tomorrow 07/04/24. Avoid aspirin, motrin, Advil, Aleve, Meloxicam, Excedrin, Ibuprofen, Naproxyn. Tylenol is OK. 7. She needs to purchase the Celebrate multivitamins from the hospital's gift shop. 8. Will do basic preop blood work-up any day between Saturday07/06/24 and Saturday07/10/24 fasting for 12 hours and is scheduled to see the Anesthesiologist prior to the day of surgery. 9. Importance of adherence to postop folllow-up and recommendations was underscored and she understands that. 10. Stop food and bars as of tomorrow 07/04/24 and continue with 2 Celebrate Rebuild protein shakes (ONE scoop EACH in 8oz almond milk) at 7am-9am and 10am- 12pm and three more Celebrate Rebuild protein shakes with TWO scoops in 8oz of almond milk at 1pm-3pm, 4pm-6pm and 7pm-9pm 11. No soups, broths or V8 12. The patient's?medical?history has been reviewed and they are considered low risk for post op DVT and therefore DVT prophylaxis is not considered necessary. Travel after surgery was reviewed. The patient has not disclosed any travel plans during the first 30 days after surgery and they have been advised that within the first 30 days after surgery any bus, plane, train or car travel over 2 hours in duration is contraindicated due to the possibility of developing blood clots from immobility. Any travel, needs to include periods of ambulation of 10 minutes in duration every 2 hours.? Patient was instructed to discuss any plans for travel during this period with their bariatric surgeon.? 13. Use your CPAP daily and bring it to the hospital with your mask 14. Please take at the day of surgery the following medications: NONE 15. Stop any control pills and don't use them for one month after surgery 16. Absolutely no smoking or vaping, or marijuana until the surgery and for at least the first 4 weeks. Only nicotine patches are allowed. 17. Send me weight measurements on Saturday07/07/24 and then on Saturday07/14/24, the day of surgery before you go to the hospital. 18. Avoid any steroids by mouth for any reason. Let me know if someone prescribes them to you 19. These instructions supersede anything else you read in the handbook, anything you watched in videos or classes or you were told by any other provider. If there is any conflict, you follow the above instructions and nothing else. Orders: Orders Prothrombin Time INR Today E66.01 - Morbid (severe) obesity due to excess calories, E66.812 - Obesity, class 2, E78.5 - Hyperlipidemia, unspecified, Z68.36 - Body mass index [BMI] 36.0-36.9, adult Hemoglobin A1c Today E66.01 - Morbid (severe) obesity due to excess calories, E66.812 - Obesity, class 2, E78.5 - Hyperlipidemia, unspecified, Z68.36 - Body mass index [BMI] 36.0-36.9, adult C Reactive Protein Today E66.01 - Morbid (severe) obesity due to excess calories, E66.812 - Obesity, class 2, E78.5 - Hyperlipidemia, unspecified, Z68.36 - Body mass index [BMI] 36.0-36.9, adult Partial Thromboplastin Time Today E66.01 - Morbid (severe) obesity due to excess calories, E66.812 - Obesity, class 2, E78.5 - Hyperlipidemia, unspecified, Z68.36 - Body mass index [BMI] 36.0-36.9, adult Complete Blood Count Auto Diff Today E66.01 - Morbid (severe) obesity due to excess calories, E66.812 - Obesity, class 2, E78.5 - Hyperlipidemia, unspecified, Z68.36 - Body mass index [BMI] 36.0-36.9, adult Comprehensive Met. Panel Today E66.01 - Morbid (severe) obesity due to excess calories, E66.812 - Obesity, class 2, E78.5 - Hyperlipidemia, unspecified, Z68.36 - Body mass index [BMI] 36.0-36.9, adult TSH reflex Free T4 Today E66.01 - Morbid (severe) obesity due to excess calories, E66.812 - Obesity, class 2, E78.5 - Hyperlipidemia, unspecified, Z 68.36 - Body mass index [BMI] 36.0-36.9, adult Type and Screen Today E66.01 - Morbid (severe) obesity due to excess calories, E66.812 - Obesity, class 2, E78.5 - Hyperlipidemia, unspecified, Z68.36 - Body mass index [BMI] 36.0-36.9, adult Lipid Panel Today E66.01 - Morbid (severe) obesity due to excess calories, E66.812 - Obesity, class 2, E78.5 - Hyperlipidemia, unspecified, Z68.36 - Body mass index [BMI] 36.0-36.9, adult Insulin Today E66.01 - Morbid (severe) obesity due to excess calories, E66.812 - Obesity, class 2, E78.5 - Hyperlipidemia, unspecified, Z68.36 - Body mass index [BMI] 36.0-36.9, adult Medications: New sucralfate 10 mL PO BID 600 mL 2RF K21.9 - Gastro-esophageal reflux disease without esophagitis ondansetron Only take one every 12 hours as needed if you have nausea 4 mg PO Q12H 20 tabs 0RF nausea and vomiting R11.0 - Nausea pantoprazole 40 mg PO DAILY 90 tabs 0RF K21.9 - Gastro-esophageal reflux disease without esophagitis polyethylene glycol 3350 Mix each measuring cup with 8oz of water, Crystal light, or Gatorade zero, or Propel and do 7 measuring cups on 07/12/24 and another 7 measuring cups on 07/13/24 17 grams PO DAILY 238 grams 0RF Z01.818 - Encounter for other preprocedural examination
[2024-07-03 10:38] VITALS: BMI 32.5
== END 2024-07-03 10:51 | disposition home or self-care (01) ==
LOC: HO.HBS 08:27
PROVIDERS: PCP Internal Medicine; Visit Provider Surgery
DX: E66.812 Obesity, class 2 (principal); E66.01 Morbid (severe) obesity due to excess calories; Z68.36 Body mass index [BMI] 36.0-36.9, adult
CPT/HCPCS: 99499

== ENCOUNTER → 2024-07-03 08:27 | Outpatient (BNVA) | payer BC, MEDICARE, SELFPAY | PROVIDERS: PCP Internal Medicine; Visit Provider Surgery ==

== ENCOUNTER → 2024-07-10 09:25 | Outpatient (BNVA) | payer BC, MEDICARE, SELFPAY | PROVIDERS: PCP Internal Medicine; Visit Provider Physician Assistant Surgical ==

== ENCOUNTER 2024-07-14 07:49 | Inpatient (IN) | payer BC, MEDICARE, SELFPAY ==
[2024-06-30 15:01] VITALS: BMI 32.5
[2024-07-10 09:23] LABS: MANUAL DIFF FLAG NO
[2024-07-10 09:59] LABS: Eosinophils Absolute Auto 0.1 X10*3/uL (0.0-0.4); Eosinophils Percent Auto 1.2 % (0-4); Hematocrit 37.9 % (37.0-47.0); Hemoglobin 11.9 g/dl (12.0-16.0); Lymphocytes Absolute Auto 1.4 X10*3/uL (1.2-4.9); Mean Corpuscular HGB Conc 31.4 g/dl (31.0-35.0); Mean Corpuscular Hemoglobin 26.9 pg (27.0-33.0); Mean Corpuscular Volume 85.6 fL (80.0-98.0); Mean Platelet Volume 10.8 fL (9.4-12.3); Monocytes Absolute Auto 0.3 X10*3/uL (0.1-1.2); Monocytes Percent Auto 8.3 % (2-11); Neutrophils Absolute Auto 2.2 x10*3/uL (2.0-8.3); Neutrophils Percent Auto 54.5 % (45-73); Platelet Count 368 X10*3/uL (160-400); Red Blood Count 4.43 X10*6/uL (4.20-5.50); Red Cell Distribution Width 18.8 % (11.0-16.0); White Blood Count 4.1 X10*3/uL (4.8-10.8)
[2024-07-10 10:02] LABS: INTERNATIONAL NORM RATIO 1.1 (0.9-1.1); Prothrombin Time 13.2 SEC (10.9-12.4)
[2024-07-10 10:04] LABS: Estimated Average Glucose 103 mg/dL; Hemoglobin A1C 105.1278 umol/L; Hemoglobin A1c % 5.2 % (<6.0); Total Hemoglobin (HGBA1C) 3162.9211 umol/L
[2024-07-10 10:05] LABS: Partial Thromboplastin Time 38.7 SEC (26.0-36.8)
[2024-07-10 11:07] LABS: Alanine Aminotransferase 14 U/L (0-31); Albumin Level 4.1 g/dL (3.5-5.0); Alkaline Phosphatase 107 U/L (39-117); Anion Gap 10 (12-20); Aspartate Amino Transferase 18 U/L (5-31); Bilirubin Total 0.4 mg/dL (0.0-1.0); Blood Urea Nitrogen 17 mg/dL (9-16); C Reactive Protein 0.66 mg/dL (< or = 0.50); Calcium 9.7 mg/dL (8.4-10.2); Carbon Dioxide 27 mmol/L (22-29); Chloride 110 mmol/L (96-108); Cholesterol 124 mg/dL (<200); Creatinine Clr Calc Pharmacy 105.3; Estimated Glomerular Filt Rate > 60; Glucose Random 91 mg/dL (60-115); HDL Cholesterol 49 mg/dL (>40); Iron 19 mcg/dL (30-160); LDL Cholesterol Calculated 65 mg/dL (<100); Percent Iron Saturation 5 % (15-50); Potassium 4.5 mmol/L (3.3-5.1); Sodium 142 mmol/L (135-145); Total Iron Binding Capacity 364 mcg/dL (228-428); Total Protein 7.6 g/dL (6.5-8.0); Triglycerides 53 mg/dL (<150); Unsaturated Iron Binding 345 ug/dL
[2024-07-10 11:30] LABS: Folate 12.2 ng/mL (> or = 4.0); Vitamin B12 1072 pg/mL (200-900)
[2024-07-10 11:35] LABS: Ferritin 10 ng/mL (10-250); TSH reflex Free T4 1.02 uIU/mL (0.32-4.0); Vitamin D 25-OH Total 29.4 ng/mL (>30)
[2024-07-10 12:06] LABS: Insulin 11 uU/mL (2-29)
[2024-07-13 10:19] LABS: Vitamin A 31 mcg/dL (38-98)
--- NOTE | 2024-07-13 12:14 | P.CONAN_ITS ---
Documented by User: Vero Lucas NP 07/13/24 12:15 HPI - Anesthesia Eval Consult details Narrative: 54yo F for Gastrectomy Sleeve - EGD, possible diaphragmatic hernia, possible ventral hernia, possible open PMFSH Active Problems Active Problems: All Active Problems Pre-op evaluation (Acute) Gastric mass (Acute) Rhinosinusitis (Acute) CANDELARIA (obstructive sleep apnea) (Acute) CRPS (complex regional pain syndrome) type I of lower limb (Acute) Post herpetic neuralgia (Acute) DVT (deep venous thrombosis) (Acute) Status post total knee replacement, right (Acute) Hypokalemia (Acute) Tricompartment osteoarthritis of right knee (Acute) Low back pain (Acute) Right knee pain (Acute) 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 (Acute) Vertigo (Acute) GERD (gastroesophageal reflux disease) (Acute) DJD (degenerative joint disease) (Acute) COPD (chronic obstructive pulmonary disease) (Acute) Hyperlipidemia (Acute) BMI 36.0-36.9,adult (Acute) Obesity (Acute) Cough (Acute) Leg length discrepancy (Acute) Pulmonary nodules (Acute) CANDELARIA on CPAP (Acute) Asthma (Acute) Insomnia (Acute) Fibromyalgia (Acute) Seronegative rheumatoid arthritis (Acute) Past Medical History Medical History Gastric polyps Seizure Environmental and seasonal allergies History of blood transfusion (~1994) Low back pain Vertigo GERD (gastroesophageal reflux disease) DJD (degenerative joint disease) COPD (chronic obstructive pulmonary disease) Hyperlipidemia BMI 36.0-36.9,adult Obesity Cough Hepatitis C antibody positive in blood Leg length discrepancy Pulmonary nodules CANDELARIA on CPAP Asthma Insomnia Fibromyalgia Seronegative rheumatoid arthritis Family History Family History Maternal Grandmother Skin cancer Maternal Aunt Breast cancer Maternal Uncle Prostate cancer Mother No problems noted. Father No problems noted. Family history of problems with anesthesia: No Surgical History Surgical History History of total knee replacement History of knee surgery Hx of detached retina repair History of ankle surgery History of colon resection Hx of colonoscopy History of total knee arthroplasty Hx of cholecystectomy H/O bilateral breast reduction surgery Hx of tubal ligation History of Problems with Anesthesia: No Social History Social History Household Members: Spouse Housing: House Are you a primary certified social workers in health care to a significant other at home: No Do you presently have visiting nurse or other home services: No Alcohol intake: current Alcohol intake frequency: does not drink Patient Tobacco Use Status: Never used Tobacco Use of substances other than those prescribed or required for medical reasons: No Have you been hit, kicked, punched, or otherwise hurt by someone within the past year? If so, by whom?: No Are you DNR?: No Advance Directives: No Advance Directives Information Provided: Yes Advance Directives on File: No Recently lost weight without trying: No Nutrition Risks: No Nutritional Risk Poor oral hygiene: No service: No Current occupational status: disabled Meds Allergies Allergy/AdvReac Type Severity Reaction Status Date / Time aclidinium [Tudorza Pressair] Allergy Intermediate Hives Verified 07/03/24 10:18 Home Medications ?Medication ?Instructions ?Recorded ?Confirmed ?Last Taken ?Type atorvastatin 20 mg tablet 20 mg PO DAILY 08/18/21 07/03/24 Unknown History ipratropium 0.5 mg-albuterol 3 mg 3 ml inhalation DAILY PRN 11/26/22 07/14/24 07/14/24 05:20 History (2.5 mg base)/3 mL nebulization Respiratory Distress soln cholecalciferol (vitamin D3) 50 50 mcg PO DAILY 10/03/23 07/03/24 Unknown History mcg (2,000 unit) tablet lamotrigine 25 mg tablet 25 mg PO DAILY 07/03/24 07/14/24 Unknown History cetirizine 10 mg tablet 10 mg PO DAILY 07/14/24 07/14/24 Unknown History lidocaine 5 % topical patch 1 patch topical DAILY PRN Pain 07/14/24 06/30/24 Unknown History pantoprazole 40 mg tablet,delayed 40 mg PO DAILY@0630 07/14/24 07/14/24 Unknown History release Exam Height,Weight and Vital Signs: Height 5 ft 9 in Weight 99.96 kg Pertinent Lab Results Pertinent Lab Results: Laboratory Tests 07/10/24 07/10/24 09:10 09:20 WBC 4.1 L RBC 4.43 Hgb 11.9 L Hct 37.9 MCV 85.6 MCH 26.9 L MCHC 31.4 RDW 18.8 H Plt Count 368 MPV 10.8 Immature Gran % (Auto) 0.0 Neut % (Auto) 54.5 Lymph % (Auto) 35.0 [place] % (Auto) 8.3 Eos % (Auto) 1.2 Baso % (Auto) 1.0 Lymph # (Auto) 1.4 [place] # (Auto) 0.3 Eos # (Auto) 0.1 Baso # (Auto) 0.0 Abs Immat Gran (auto) 0.00 Absolute Neuts (auto) 2.2 Absolute Nucleated RBC 0.000 Nucleated RBC % (auto) 0.0 PT 13.2 H INR 1.1 APTT 38.7 H Sodium 142 Potassium 4.5 Chloride 110 H Carbon Dioxide 27 Anion Gap 10 L BUN 17 H Creatinine 0.75 Estim Creat Clear Calc 105.3 Estimated GFR > 60 Random Glucose 91 Estimat Average Glucose 103 Hemoglobin A1c % 5.2 Insulin Level 11 Calcium 9.7 D Iron 19 L TIBC 364 % Saturation 5 L Unsat Iron Binding 345 Ferritin 10 Total Bilirubin 0.4 AST 18 ALT 14 Alkaline Phosphatase 107 C-Reactive Protein 0.66 H Total Protein 7.6 Albumin 4.1 Triglycerides 53 Cholesterol 124 LDL Cholesterol, Calc 65 HDL Cholesterol 49 Vitamin A 31 L Vitamin B12 1072 H 25-OH Vitamin D Total 29.4 L Folate 12.2 TSH 1.02 Blood Type O Positive Antibody Screen NEGATIVE Assessment and Plan Assessment Anesthesia Assessment: Chart Reviewed Final Anesthetic Review Family History of Problems with Anesthesia: No History of Problems with Anesthesia: No Documented by User: Kristin Lock MD 07/14/24 11:33 HPI - Anesthesia Eval Consult details Narrative: 54yo F for EGD, Laparoscopic Slleve Gastrectomy, possible diaphragmatic hernia repair, possible ventral hernia repair, possible open PMFSH Past Medical History Medical History Gastric polyps Seizure Environmental and seasonal allergies History of blood transfusion (~1994) Low back pain Vertigo GERD (gastroesophageal reflux disease) DJD (degenerative joint disease) COPD (chronic obstructive pulmonary disease) Hyperlipidemia BMI 36.0-36.9,adult Obesity Cough Hepatitis C antibody positive in blood Leg length discrepancy Pulmonary nodules CANDELARIA on CPAP Asthma Insomnia Fibromyalgia Seronegative rheumatoid arthritis Family History Family History Maternal Grandmother Skin cancer Maternal Aunt Breast cancer Maternal Uncle Prostate cancer Mother No problems noted. Father No problems noted. Family history of problems with anesthesia: No Surgical History Surgical History History of total knee replacement History of knee surgery Hx of detached retina repair History of ankle surgery History of colon resection Hx of colonoscopy History of total knee arthroplasty Hx of cholecystectomy H/O bilateral breast reduction surgery Hx of tubal ligation History of Problems with Anesthesia: No Social History Social History Household Members: Spouse Housing: House Are you a primary certified social workers in health care to a significant other at home: No Do you presently have visiting nurse or other home services: No Alcohol intake: current Alcohol intake frequency: does not drink Patient Tobacco Use Status: Never used Tobacco Use of substances other than those prescribed or required for medical reasons: No Have you been hit, kicked, punched, or otherwise hurt by someone within the past year? If so, by whom?: No Are you DNR?: No Advance Directives: No Advance Directives Information Provided: Yes Advance Directives on File: No Recently lost weight without trying: No Nutrition Risks: No Nutritional Risk Poor oral hygiene: No service: No Current occupational status: disabled Meds Allergies Allergy/AdvReac Type Severity Reaction Status Date / Time aclidinium [Tudorza Pressair] Allergy Intermediate Hives Verified 07/03/24 10:18 Home Medications ?Medication ?Instructions ?Recorded ?Confirmed ?Last Taken ?Type atorvastatin 20 mg tablet 20 mg PO DAILY 08/18/21 07/03/24 Unknown History ipratropium 0.5 mg-albuterol 3 mg 3 ml inhalation DAILY PRN 11/26/22 07/14/24 07/14/24 05:20 History (2.5 mg base)/3 mL nebulization Respiratory Distress soln cholecalciferol (vitamin D3) 50 50 mcg PO DAILY 10/03/23 07/03/24 Unknown History mcg (2,000 unit) tablet lamotrigine 25 mg tablet 25 mg PO DAILY 07/03/24 07/14/24 Unknown History cetirizine 10 mg tablet 10 mg PO DAILY 07/14/24 07/14/24 Unknown History lidocaine 5 % topical patch 1 patch topical DAILY PRN Pain 07/14/24 06/30/24 Unknown History pantoprazole 40 mg tablet,delayed 40 mg PO DAILY@0630 07/14/24 07/14/24 Unknown History release Exam Height,Weight and Vital Signs: Height 5 ft 9 in Weight 99.96 kg Vital Signs Temp Pulse Resp BP Pulse Ox O2 Del Method 07/14/24 08:17 98.9 F 98 16 109/33 L 100 Room Air Airway Mallampati Class: III TM Dist: >3cm Neck ROM: Full Loose/Missing/Broken Teeth: Yes (Missing some molars. Denies broken or loose teeth) Heart: RRR Lungs: CTAB Assessment and Plan Assessment Anesthesia Assessment: Anesthesia Plan Discussed and Chart Reviewed Final Anesthetic Review Family History of Problems with Anesthesia: No History of Problems with Anesthesia: No NPO: Yes ASA Class: III Final Preanesthetic Review: No Changes in Pt Med Stat, Meds/Allgs Chart Reviewed, Consent Obtained/Reviewed and Anes Risks/Benef Reviewed Patient Risk: Intermediate Procedure Risk: Intermediate Assessment/Block/Sedation in SS: Assess/Block/Sedation-SS Anesthetic Plan Anesthetic Plan: GA Disposition: Standard PACU and Inp. Admit - Standard Bed
[2024-07-14] VITALS (11 sets, daily range): BP systolic 108–126; BP diastolic 33–76; PULSE 55–98; RESP 16–21; TEMP 36.4–37.2; O2SAT 97–100
[2024-07-14 06:13] LABS: Zinc 75 mcg/dL (60-130)
--- OUTSIDE RECORDS SUMMARY | 2024-07-14 07:51 | XMS_ITS | Clinical Summary ---
Author Organization [facility] Address [address] [place] [address] Phone Care Team Providers Care Geographic Information Systems Analyst Name Role Phone Fernando Pickens MD Primary Care Provider [phone] Allergies Active Allergy Reactions Criticality Noted Date Comments Aclidinium [place] Hives,Nausea And Vomiting High 02/18/2022 Sally Orosco [Aclidinium [place]] Medications pregabalin (LYRICA) 150 mg capsule 07/02/19 24 Active pregabalin (LYRICA) 200 mg capsule 06/04/19 24 Active cholecalciferol (VITAMIN D-3) 50 mcg (2,000 unit) tablet Take 1 tablet (2,000 Units total) by mouth 1 (one) time each day. 10/28/19 24 Active methotrexate 2.5 mg tablet Take 8 tablets (20 mg total) by mouth 1 (one) time per week Active folic acid (FOLVITE) 1 mg tablet Take 1 tablet (1,000 mcg total) by mouth 1 (one) time each day. Active baclofen (LIORESAL) 10 mg tablet Take 1 tablet (10 mg total) by mouth. Active ipratropium-alb uteroL (DUONEB) 0.5-2.5 mg/3 mL nebulizer solution 03/24/20 21 Active Trelegy Ellipta 200-62.5-25 mcg inhaler 03/24/20 21 Active fluticasone propionate (FLONASE) 50 mcg/actuation nasal spray Administer 2 sprays into each nostril 1 (one) time each day. 07/21/19 20 Active cetirizine (ZyrTEC) 10 mg tablet Take 1 tablet (10 mg total) by mouth 1 (one) time each day. 11/18/19 19 Active Daliresp 500 mcg tablet Take 1 tablet (500 mcg total) by mouth 1 (one) time each day. 11/18/19 19 Active montelukast (SINGULAIR) 10 mg tablet Take 1 tablet (10 mg total) by mouth. 01/11/20 18 Active albuterol HFA (PROAIR HFA ; PROVENTIL HFA ; VENTOLIN HFA) 90 mcg/actuation inhaler Inhale 1-2 puffs by mouth. Active benzonatate (TESSALON) 200 mg capsule TAKE 1 CAPSULE ORALLY 2 TIMES A DAY NEEDED FOR COUGH FOR 30 DAYS 10/03/19 24 Active lidocaine (LIDODERM) 5 % patch APPLY 1 PATCH TOPICALLY DAILY 10/10/19 24 Active clotrimazole-be tamethasone (LOTRISONE) 1-0.05 % cream Apply thin layer to affected area BID for 2 weeks then stop. Avoid face and groin. 30 g 04/27/19 25 Active atorvastatin (LIPITOR) 20 mg tablet TAKE 1 TABLET BY MOUTH EVERY DAY 30 tablet 06/19/19 25 Active omeprazole (PriLOSEC) [address] capsuleIndicati ons:Gastro-esop hageal reflux disease without esophagitis TAKE 1 CAPSULE BY MOUTH EVERY DAY 90 capsule 06/25/19 25 Active omeprazole (PriLOSEC) [address] capsule Take 1 capsule (40 mg total) by mouth 1 (one) time each day. 06/21/19 24 025 Discontinued atorvastatin (LIPITOR) 20 mg tablet TAKE 1 TABLET BY MOUTH EVERY DAY 90 tablet 03/23/20 24 025 Discontinued Active Problems Problem Noted Date Diagnosed Date [...] Plan: Ms. Weldon had a fall in [place] down some stairs about 10 days ago. She has had pain at the bottom of her spine since. She says that on occasion she will get numbness and tingling in the back of the right leg in an S1 distribution. She is taking Tylenol, baclofen, Lamictal, and using 2 lidocaine patches with some relief. She is neurologically intact. X-rays from [facility] on November 21 do reveal a comminuted [...] Feliberto Mathur at [facility] [place], [place] Opiate use 06/11/2019 Obesity 10/02/2018 Osteoarthritis of both knees 08/20/2017 Chronic polyarthritis 06/27/2017 CANDELARIA (obstructive sleep apnea) 03/09/2017 Overview (02/20/2024): 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 [address] [place] [phone] Discharge Disposition: Home or Self Care 06/18/2024 11:00 AM EST - 06/18/2024 11:59 PM EST Hospital Encounter [facility] [address] [place] [phone] Discharge Disposition: Home or Self Care 06/17/2024 9:37 AM EST - 06/17/2024 11:59 PM EST Hospital Encounter [facility] [address] [place] [phone] Discharge Disposition: Home or Self Care 06/16/2024 11:00 AM EST Ancillary Procedure [facility] [address] [place] [address] Dizziness; Syncope, unspecified syncope type; CAICEDO (dyspnea on exertion) 04/27/2024 10:30 AM EST Office Visit [facility] [address] [address] [place] [phone] Rula Alanis CNM Encounter for annual physical examination excluding gynecological examination in a patient older than 17 years (Primary Dx); Yeast dermatitis 04/23/2024 Telephone [facility] [address] [place] [phone] Fernando Pickens MD Medical Records from Last 3 Months Immunizations Name Administration [...] PROCEDURE: HISTORICAL TUBAL LIGATION BREAST REDUCTION PROCEDURE: ME BREAST REDUCTION CHOLECYSTECTOMY PROCEDURE: HISTORICAL CHOLECYSTECTOMY BREAST BIOPSY PROCEDURE: BX BREAST; PERC NEEDLE CORE W/IMAG GUID; COMMENT: PATIENT STATES SHE HAS HAD 4 BIOPSIES ALL ON THE LEFT SIDE ANKLE FRACTURE SURGERY 08/21/2015 Left PROCEDURE: ME OPEN TREATMENT MEDIAL MALLEOLUS FRACTURE; COMMENT: Dr Anastasia Carver at [facility] [place], hardware was removed 8 mo later except one screw TOTAL KNEE ARTHROPLASTY 10/21/2018 Left PROCEDURE: ME ARTHRP KNE CONDYLE&PLATU MEDIAL&LAT COMPARTMENTS; COMMENT: Dr Francesco Grewal at [facility] Medical History Medical History Date Comments [...] Dr Feliberto Mathur at [facility] [place] [place] HLD (hyperlipidemia) 06/20/2021 DX:HLD (hyp erlipidemia) Deep vein thrombosis (DVT) o f distal vein of right lower extremity 02/21/2022 DX:Deep vein thrombosis (DVT) of distal vein of right lower extremity [...] Care Team (Late st Contact Info) Description 09/16/2024 9:30 AM EDT Office Visit [facility] [address], [place] [phone] Fernando Pickens MD [address] [place] [address] Health Maintenance Due Date Last Done Comments [...] Name Priority Date/Time Associated Diagnosis Comments EXTERNAL CLINICAL LAB 06/19/2024 CONTINUOUS EEG Routine 06/18/2024 11:34 AM EST Epilepsy, unspecified, not intractable, without status epilepticus (CMS/HCC) TRANSTHORACIC ECHOCARDIOGRAM (TTE) COMPLETE Routine 06/16/2024 11:36 AM EST Dizziness Syncope, unspecified syncope type CAICEDO (dyspnea on exertion) EXTERNAL XRAY REPORT 06/12/2024 EXTERNAL XRAY REPORT [...] in a patient older than 17 years MG MAMMO DIGITAL SCREENING W ARVIN BILAT Routine 02/18/2024 3:59 PM EST Referred by self ANNUAL BMP BLOOD TEST Routine 11/08/2023 LIPID PANEL Routine 11/08/2023 HEPATITIS C SCREENING Routine 05/31/2022 COLONOSCOPY Routine 06/21/2020 from Last 3 Months or Most Recently Relevant to Health Maintenance Results * External clinical lab (06/19/2024) Provider [facility] BLOOD ORDERABLES Fin al Result * Continuous EEG (06/18/2024 11:34 AM EST) Narrative Kira Mcdonald MD - 06/29/2024 4:25 PM EDT This is a 16 channel 48-hour ambulatory EEG. ??Patient kept a diary did not report any significant symptoms. ??HDF EEG was separately reviewed and included wakefulness and sleep. ??During wakefulness background EEG rhythm was symmetric alpha posteriorly and lower amplitude faster anteriorly. ?? During both days intermittent left temporal sharp waves were noted with phase reversal at T3 and occasionally at F7. Impression: Abnormal 48-hour ambulatory EEG suggestive of left temporal/hemispheric irritability. Kira Mcdonald MD NEUROLOGY ORDERABLES Final Result * (ABNORMAL) TRANSTHORACIC ECHOCARDIOGRAM (TTE) COMPLETE (06/16/2024 11:36 AM EST) Left Atrium Minor Mclean 5.8 cm CV PACS Left Atrium Major Mclean 6.0 cm CV PACS LA Area Sys (A2C) 22 cm2 CV PACS LA Area Sys (A4C) 21 cm2 CV PACS LA Volume (BP) 63 mL CV PACS RA Area 15.1 cm2 CV PACS RA 2D Volume 39 mL CV PACS Aortic Sinus Valsalva 3.5 cm CV PACS Ascending Aorta 3.2 cm CV PACS IVC Proximal 1.4 cm CV PACS IVC Proximal 0.6 cm CV PACS IVSD 1.2(A) 0.6 - 0.9 cm CV PACS LVIDD 4.0 3.8 - 5.2 cm CV PACS LVIDS 2.9 2.2 - 3.5 cm CV PACS LVOT Diameter 2.0 cm CV PACS LVOT Mean Patrick 0.7 m/s CV PACS LVOT Mean Grad 2 mmHg CV PACS LVOT Peak VTI 22.9 cm CV PACS LVOT Peak Patrick 1.0 m/s CV PACS LVOT Peak Gradient 4 mmHg CV PACS LVPWD 1.0(A) 0.6 - 0.9 cm CV PACS MV E' Tissue Velocity Lateral 6 cm/s CV PACS MV E' Tissue Velocity Septal 5 cm/s CV PACS LVOT Area 3.1 cm2 CV PACS LVOT Stroke Volume 72 mL CV PACS E Wave Deceleration Time 190 119 - 242 ms CV PACS MV Peak A Patrick 0.60 m/s CV PACS MV Peak E Patrick 0.74 m/s CV PACS PV Acceleration Time 109 ms CV PACS RV Diastolic Basal Dimension 3.6 2.5 - 4.1 cm CV PACS RV S' 7 cm/s CV PACS TAPSE 20 mm CV PACS E/E' Ratio Septal 15 CV PACS E/E' Ratio Averaged 14 CV PACS Relative Wall Thickness ratio 0.50 CV PACS FS 28 % CV PACS LV Mass 2D 146 g CV PACS LVOT flow 220 mL/s CV PACS E/A Ratio 1.2 CV PACS E/E' Ratio Lateral 12 CV PACS BSA 2.25 m2 CV PACS LA Volume Index (BP) 29 mL/m2 CV PACS LVIDD Index 1.83 cm/m2 CV PACS LVIDS Index 1.32 cm/m2 CV PACS LV Mass Index 2D 67 44 - 88 g/m2 CV PACS LVOT Stroke Index 33 mL/m2 CV PACS RA 2D Volume Index 18 15 - 27 mL/m2 CV PACS Ascending Aorta Index 1.46 cm/m2 CV PACS Anatomical Region Laterality Modality Ultrasound Narrative 06/23/2024 1:45 PM EDT ?Left ventricle cavity size is normal. Left ventricular systolic function is in the normal range with an ejection fraction in the 55-70% range. ?No regional LV wall motion abnormalities noted. ?Left ventricle mild asymmetric basal septal hypertrophy. ?Right ventricle cavity is normal. Right ventricular systolic function is normal. ?The atria are normal in size. ?No hemodynamically significant valve disease. ?See remainder of the report for additional findings. Left Ventricle Left ventricle cavity size is normal. There is mild asymmetric basal septal hypertrophy. Systolic function is normal with an ejection fraction in the 55-70% range. There are no regional LV wall motion abnormalities. Indeterminate diastolic function. Right Ventricle Right ventricle cavity appears normal. Systolic function is normal. Left Atrium Left atrium cavity size is normal. Right Atrium Right atrium cavity is normal. IVC/SVC Inferior vena cava structure is normal. RA pressures is estimated to be 3 mmHg (IVC diameter <21 mm and decreases >50% during inspiration). Mitral Valve The leaflets are mildly thickened. There is trace regurgitation. There is no significant stenosis noted. Tricuspid Valve Tricuspid valve structure is normal. There is trace regurgitation. There is no significant tricuspid valve stenosis. Aortic Valve The aortic valve is trileaflet. The leaflets are not thickened and exhibit normal excursion. There is no regurgitation or stenosis. Pulmonic Valve The pulmonic valve was not well visualized. No significant pulmonic valve regurgitation. No significant pulmonary valve stenosis noted. Ascending Aorta The aorta appears normal in size. Pericardium Pericardium appears normal. There is no pericardial effusion. Study Details Overall the study quality was adequate. us Regina Xie NP CV ECHO PROCEDURES Fin al Result * External Xray Report (06/12/2024) Only the [...] LAB MICROBIOLOGY METHOD 04/28/2024 4:04 PM EST [facility] Brushing/Spatula Cervix uteri structure / Unknown 04/27/2024 2:59 PM EST 04/28/2024 6:19 AM EST Rula Alanis CNM LAB MOLECULAR DIAGNOSTICS OR DERABLES Final Result [facility] [address] [place] [address], [place] [phone] * Pap smear (04/27/2024 2:59 PM EST) Interpretation Negative for intraepithelial lesion or malignancy 05/01/2024 2:38 PM EST [facility] General Categorization Negative 05/01/2024 2:38 PM EST [facility] Other Findings Atrophy 05/01/2024 2:38 PM EST [facility] Specimen Adequacy Satisfactory for evaluation 05/01/2024 2:38 PM EST [facility] Pap Methodology Liquid Based Pap Test 05/01/2024 2:38 PM EST [facility] Disclaimer The Pap test is a screening test which carries an inherent false negative rate. These test results should be correlated with the patient's clinical findings and history. This Pap test was processed using an automated screening system. Technical cytopathology services provided by [facility], at [address] [place] [address] (CLIA # [id number]/Sujata Oviedo MD, Clinical Phlebotomist.) 05/01/2024 2:38 PM EST [facility] Console Pap Interpretation Reported 05/01/2024 2:38 PM EST [facility] Brushing/Spatula Cervix uteri structure / Unknown 04/27/2024 2:59 PM EST 04/27/2024 2:59 PM EST Rula PETERSEN LAB CYTOLOGY ORDERABLES Effie l Result [facility] [address] [place] [address], [place] [phone] * MG Mammo Digital Screening w Arvin [...] Signed Date: 02/18/2024 17:09 ET Workstation ID: [id number] Transcribed By: Self Edit Transcribed Date: 02/18/2024 [...] Driscoll Reviewed and Electronically Signed By: Aron Drisclol Signed Date: 02/18/2024 17:09 ET Workstation ID: [id number] Transcribed By: Self Edit Transcribed Date: 02/18/2024 17:02 ET Fernando Pickens MD IMG BI PROCEDURES Final R esult * Annual BMP Blood Test (11/08/2023) [facility] Annual BMP Blood Test Abstracted Result [facility] Historical Provider HEALTH MAINTENANCE Final Result * Lipid panel (11/08/2023) [facility] LDL/HDL Ratio 3 Triglycerides 120 mg/dL Cholesterol 189 mg/dL HDL 58 mg/dL LDL Cholesterol 107 mg/dL Blood Venous blood specimen / Unknown Result [facility] Historical Provider LAB BLOOD ORDERABLES Effie l Result * Hepatitis C Screening (05/31/2022) [facility] Hepatitis C Screening borderline Result [facility] Historical Provider HEALTH MAINTENANCE Final Result * Colonoscopy (06/21/2020) [facility] Colonoscopy normal Anatomical Region Laterality Modality Other Historical Provider HEALTH MAINTENANCE Final Result from Last 3 Months or Most Recently Relevant to Health Maintenance Insurance MEDICARE [facility] Member Subscriber Plan / Payer (Ef fective 2014-Present) Name:ToPam Caraballo Relation to Subscriber:Spouse Name:WESTLEY DAN Date of :1970 (Home) Address: [address] [place] [address] [place] [address] Payer ID:[id number] Group ID:[id number] Type:Not on file Address: [address] [place] [address] Care Teams Geographic Information Systems Analyst Relationship Specialty Start Date End Date Fernando Pickens MD [address] [place] [address] [place] [address] PCP - General Internal Medicine 01/28/20
[2024-07-14] MEDS: Lactated Ringers 1,000 ML 999 ML IV (08:29)
[2024-07-14] MEDS: Aprepitant 32 MG/4.4 ML VIAL IVPUSH (08:30)
--- NOTE | 2024-07-14 09:07 | PHA.MEDREC ---
Pharmacy Consult ? Medication Reconciliation Pharmacy has reviewed the medication reconciliation completed by nursing. Spoke with pt, she is no longer on baclofen, methotrexate, and folic acid.
--- NOTE | 2024-07-14 09:41 | MHC.SHP ---
Pre-Procedural Eval Section A - 24 Hr Update-Section A only Date of Service: 07/14/24 The patient is an INPATIENT: Yes The patient has been examined within 24 hours of the surgical procedure. The History & Physical has been completed within 30 days and I have reviewed it.: Yes Section B - Complete if H&P > 30 days Chief Complaint: Obesity Relevant Family History (Specify if Yes): No Relevant Social History: None Present Medications: None Medical History: No relevant PMH History of Previous Operations: No relevant previous surgery Allergies: Allergies Allergy/AdvReac Type Severity Reaction Status Date / Time aclidinium [Tudorza Pressair] Allergy Intermediate Hives Verified 07/03/24 10:18 Review of Systems Sugical H&P ROS: Negative: Constitution, Cardiovascular, Respiratory, Neurological, Psychiatric, Hem-Onc, Allergic/Immunologic, Gastrointestinal, Genitourinary, Musculoskeletal, Integumentary, Endocrine and Eyes/Ears/Nose/Throat Exam Surgical H&P Exam: Normal: HEENT, Normal: Heart, Normal: Lungs, Normal: Extremities, Normal: Abdomen, Normal: Skin and Normal: Neurological Plan Diagnosis/Plan: Unchanged I have reviewed the history and physical and performed a pertinent physical examination on my patient. No changes have occurred unless specified. Time Spent With Patient Time: Total time managing care of this patient today ____ minutes.
--- NOTE | 2024-07-14 09:46 | P.BOP_ITS ---
Brief Operative Note Date of Service: 07/14/24 Pre-op diagnosis: Severe obesity with comorbidities (see below) Post-op diagnosis: same (diaphragmatic hernia, congenital abdominal adhesions, gastric polyposis) Procedure: INITIAL PATIENT BMI ON PRESENTATION AT OUR OFFICE: 36 kg/m2 LAST BMI BEFORE SURGERY: 32.3 kg/m2 COMORBIDITIES: GERD, Hyperlipidemia, sleep apnea on CPAP, seizures, asthma, COPD, DJD, vertigo, rheumatoid arhtritis, extensive gastric polyposis ?The patient presented to the Weight Management Program with significant obesity that was negatively impacting the patient's comorbidities as listed above.? The program is a phased program with a special focus on preoperative medical weight management to promote substantial weight loss and prepare the patients for the second phase of the program: bariatric surgery. The patient participated in an intensive weekly lifestyle ?intervention and exercise program during which the patient ?has lost between the initial office visit and the last preoperative visit 25 lbs, or 10.3% of initial actual body weight. It was deemed appropriate for the patient to now have bariatric surgery. In light of the current Covid-19 pandemic and the well documented strong association of obesity and increased risk of worse outcomes if infected with Covid-19 (REFERENCES: https://pubmed.ncbi.nlm.nih.gov/17244375/ ,? https://pubmed.ncbi.nlm.nih.gov/51721720/ ), any delay in undergoing bariatric surgery may lead to the patient's worsening health condition and increased?risk of more severe Covid-19 disease if infected. In addition a recent?study from [facility] published in [facility] on 04/10/2021 ([email or web address]) found that, among patients with obesity, substantial weight loss achieved with surgery was associated with improved outcomes of COVID-19 infection. The findings suggest that obesity can be a modifiable risk factor for the severity of COVID-19 infection. In addition, the patient met the BMI-criteria for bariatric surgery based on the BMI on initial presentation. The patient should not be penalized for achieving such weight loss because ?it is not sustainable long-term without surgical intervention and it was achieved in preparation for bariatric surgery ?under my direction and based on my published research ([email or web address]).pdf and? [email or web address]/pdf ) ?that a 10% preoperative weight loss improves long-term weight loss after surgery and re duces perioperative complications.? Insurance carriers such as [facility] have endorsed my recommendations ?and have included in their policies criteria to include a 10% preoperative weight loss requirement. PROCEDURE: Esophago-gastroscopy, laparoscopic repair of incarcerated diaphragmatic hernia, laparoscopic lysis of adhesions, laparoscopic sleeve gastrectomy and laparoscopic gastropexy INDICATIONS: This is a 54 year-old female who was electively scheduled for laparoscopic, possibly open sleeve gastrectomy. The risks and complications of the procedure were discussed with the patient in advance, particularly the possibility of ; pulmonary embolism; staple line leak; bleeding; GERD; cardiac, pulmonary, or renal complications; as well as long-term problems such as insufficient weight loss, vitamin deficiency, strictures, or ulcers. The patient understood all the risks, and was in agreement to proceed with surgery. DESCRIPTION OF PROCEDURE: After informed consent was obtained from the patient, the patient was given preoperative antibiotics, and was transferred to the operating room. After successful induction of general anesthesia, pneumatic compression devices were placed on both lower extremities. An upper endoscopy was performed next. The oropharynx and esophagus appeared to be within normal limits. There was a diaphragmatic hernia present. The stomach was entered. There was extensive gastric polyposis that I have seen also at the preoperative endoscopy. All biopsies were benign. Then after all fluid and air were suctioned and the stomach was fully decompressed, the scope was withdrawn and secured in the mid esophagus. The patient was then prepped and draped in the usual sterile manner, and abdominal access was established at the right upper quadrant with the Mau technique. A 12 mm blunt port was inserted, and the abdomen was insufflated with CO2 to a pressure of 15 mmHg. Under direct visualization, additional ports were placed, specifically two 5 mm Versi-step ports to the left upper quadrant, and a 5 mm Versi-Step port to the right upper quadrant. 1% lidocaine plain was used to infiltrate all port sites as well as all fascia defects. Following that, the patient was placed in a steep reverse Trendelenburg position. An additional 5 mm port was placed to the right flank for the Mediflex retractor that was used to retract the left lobe of the liver. The gastro-esophageal fat pad was opened with the ultrasonic device (Thunderbeat, Olympus) and the anterior esophagus and hiatus were exposed. The angle of His was opened with the ultrasonic device the fundus of the stomach from any diaphragmatic and splenic attachments. I then opened the gastrocolic ligament between the transverse colon and the greater curvature of the stomach with the ultrasonic device to enter the lesser sac and facilitate the ligation of the short gastric vessels. I started at a mid-point along the greater curvature and using the Thunderbeat, all short gastric vessels were divided all the way to the angle of His until the left jaimie was completely dissected at its entirety. I then divided the gastro-colic ligament distally to a distance of about 3-4 cm proximal to the pylorus. There were extensive congenital adhesions between the pancreas and posterior gastric wall. Those were lysed completely with the ultrasonic device. Adhesiolysis took approximately 45 min to complete. There was an obvious significant-sized hiatal hernia. I continued dissecting along the hiatus toward the left jaimie and the angle of His. I fully mobilized the fat pad that was incarcerated in the hernia. I then continued by dissecting even further into the posterior retro-esophageal space all the way to the angle of His. I continued to mobilize the esophagus into the mediastinum circumferentially. Both vagal nerves were seen and preserved. At that point, I was able to have at least 3 to 5 cm of esophagus into the abdomen.? After I completely mobilized the esophagus from both the left and right jaimie and I had a good mobilization of the esophagus circumferentially, I closed the hernia defect with five interrupted #0 Surgidac sutures using the Endo Stitch device, two of which was placed posterior and three of which anterior to the esophagus. ? The stomach was then divided transversely with two Endo EZEQUIEL-45 purple and four EZEQUIEL-60 articulating purple loads using the AggredyneIA stapler and loads. Every effort was made that the gastric sleeve had a tubular shape and an even caliber throughout. Additional endoscopies were performed during the gastric resection to make sure that most gastric polyps were included in the specimen and that was accomplished, except from a very few that remained within the gastric sleeve. Once the sleeve resection was completed, the staple line of the gastric sleeve was reinforced with Hemoclips. The resected stomach was retrieved without difficulty from the Mau port. A gastropexy was then performed in order to prevent postoperative GERD and partial gastric volvulus. Several interrupted 2.0 Surgidac sutures were placed between the sleeve's staple line and the previously divided greater omentum and gastro-colic ligament using the Endo-Stitch device. ?An upper endoscopy was performed. There was no narrowing at the GE junction. The scope was easily advanced all the way to the pylorus which was clearly visualized. There was no narrowing anywhere and the sleeve's caliber was even throughout. The sleeve's staple line was inspected and there was no evidence of ischemia, bleeding or dehiscence. At that point the gastroscope was withdrawn from the patient?s mouth while we were decompressing the bowel and the stomach from any remaining air. I looked into the lesser sac to see how the sleeve was situating and it was situating well. There was no bleeding from the staple line, spleen, or short gastric vessels. The Mediflex retractor was removed, and the undersurface of the liver was inspected and there was no bleeding. The patient was placed in supine position. I closed the fascial defect of the 12 mm port site with a figure of eight #1 Polysorb suture. Then 30cc Ropivacaine plain with 10 mg of Dexamethasone were used to infiltrate the fascial closure as well as all skin incisions. At this point, the abdomen was deflated, all ports were removed under direct vision, and no bleeding was noted from any of the port sites. The skin incisions were irrigated with saline and were closed with 4-0 absorbable monofilament sutures. Steri-Strips and OpSites were used to cover all incisions. The patient was extubated and was transferred in stable condition to the recovery room for further care. I was present and performed all macario parts of the procedure. Mr Ghotra was the billing assistant. There were no residents to assist with this case. Demian Kat MD, PhD, FACS Surgeon: Darren Kat MD Was an Grinder Operator Surface Tool used for this Procedure?: No Grinder Operator Surface Tool: Yasmani Ghotra Estimated blood loss (mL): 10 IV fluids (mL): 2,500 Urine output (mL): 0 (No Eaton to record output) Pathology: other (1) Stomach, 2) Gastro-esophageal fat pad) Condition: stable Disposition: PACU
--- NOTE | 2024-07-14 09:50 | P.PNGS_ITS ---
Subjective Subjective Date of Service: 07/15/24 Interval history: Feels well. Mild incisional pain. She is tolerating phase 1 bariatric diet Physical Exam 2 Vital Signs: Vital Signs: Last Vital Signs Temp 98.9 F 07/14/24 08:17 Pulse 98 07/14/24 08:17 Resp 16 07/14/24 08:17 BP 109/33 L 07/14/24 08:17 Pulse Ox 100 07/14/24 08:17 O2 Del Method Room Air 07/14/24 08:17 BMI result Body Mass Index 32.5 GI: Inspection: Yes normal to inspection, Yes incision (clean, dry and intact) and Yes obesity Extrem: Right lower extremity: normal to inspection (no calf tenderness) L eft lower extremity: normal to inspection (no calf tenderness) Objective Data Active Medications Albuterol Sulfate (Albuterol Sulfate (0.083%) 2.5 Mg/3 Ml Vial.Neb) 2.5 mg INHALE ONCE PRN PRN Reason: Shortness of Breath/Wheezing Lactated Ringer's (Lr) 1,000 mls @ 100 mls/hr IVCONT .Q10H MARINA Labs 07/15/24 05:26 07/15/24 05:26 Labs: Laboratory Results - last 24 hr 07/10/24 09:20 Vitamin A 31 L Zinc 75 Procedures Date of Service Date of Service: 07/15/24 Progress Note: A&P Assessment and plan (1) Obesity: Status: Acute Assessment and Plan: s/p laparoscopic sleeve gastrectomy, lysis of adhesions, diaphragmatic hernia repair and gastropexy Doing well Will check am labs and if OK the patient will be discharged home (2) BMI 32.0-32.9,adult: Status: Acute (3) GERD (gastroesophageal reflux disease): Status: Acute (4) Gastric polyps: Status: Acute (5) Hyperlipidemia: Status: Acute (6) Asthma: Status: Acute (7) COPD (chronic obstructive pulmonary disease): Status: Acute (8) CANDELARIA on CPAP: Status: Acute (9) Fibromyalgia: Status: Acute (10) Vertigo: Status: Acute (11) Seronegative rheumatoid arthritis: Status: Acute (12) Gastric polyposis: Status: Acute (13) S/P laparoscopic sleeve gastrectomy: Status: Acute (14) Status post repair of paraesophageal diaphragmatic hernia: Status: Acute (15) Diaphragmatic hernia: Status: Acute (16) Congenital intra-abdominal adhesions: Status: Acute Time Spent With Patient Time: Total time managing care of this patient today ____ minutes. Quality Stroke Does the patient have a stroke diagnosis?: No VTE Prior VTE?: No VTE Risk Level:: Surgical - moderate VTE Device Contraindication: N/A - Device Ordered VTE Drug Contraindication: Treatment Not Indicated
[2024-07-14] MEDS: ceFAZolin Sodium/Dextrose,Iso 2 GM/50 ML PIGGYBACK IV ×2 (10:23→15:26)
--- NOTE | 2024-07-14 13:10 | P.DS_ITS ---
DS: Providers Provider Date of Service: 07/15/24 Date of admission: 07/14/24 07:49 Date of discharge: 07/15/24 Primary care physician: Fernando Pickens MD DS: Diagnosis Discharge Diagnosis (1) Obesity: Status: Acute (2) BMI 32.0-32.9,adult: Status: Acute (3) GERD (gastroesophageal reflux disease): Status: Acute (4) Gastric polyps: Status: Acute (5) Hyperlipidemia: Status: Acute (6) Asthma: Status: Acute (7) COPD (chronic obstructive pulmonary disease): Status: Acute (8) CANDELARIA on CPAP: Status: Acute (9) Fibromyalgia: Status: Acute (10) Vertigo: Status: Acute (11) Seronegative rheumatoid arthritis: Status: Acute DS: Summary Hospital Course Hospital Course: ADMITTING DIAGNOSIS: obesity, gastric polyps, candelaria, crps, hld, copd, gerd asthma, fibromyalgia ? DISCHARGE DIAGNOSIS: same, s/p laparoscopic sleeve gastrectomy and repair diaphragmatic hernia ? PAST SURGICAL HISTORY: r tkr, r retinal detachment repair, colon resection, cholecystectomy, breast reduction, tubal ligation ? PROCEDURE: upper endoscopy, laparoscopic sleeve gastrectomy and repair of diaphragmatic hernia ? DISCHARGE SUMMARY: ? History of Present Illness: ? The patient is a?54 year-old woman with a BMI of?35.9 kg/m2 and associated co- morbidities as described above. The patient had extensive work-up,lost?23.9 lbs preoperatively and was electively scheduled for laparoscopic, possible open sleeve gastrectomy and gastropexy. Risks and complications of the surgery were discussed with the patient in advance, particularly the possibility of , pulmonary embolism, anastomotic leak, bleeding, bowel injury, GERD, cardiac, renal or pulmonary complications. The patient understood all the risks and was in agreement with the surgical plan. ? Hospital Course: ? The patient underwent an uneventful laparoscopic sleeve gastrectomy with gastropexy and repair of diaphragmatic hernia on the day of admission. Postoperatively, the patient was transferred to the surgical floor. The patient received IV Acetaminophen and IV dilaudid for pain control. Patient was started on bariatric phase 1 diet POD #0. On postoperative day one, the patient was feeling well without nausea, vomiting, fevers, or tachycardia. The patient had some mild incisional pain and the abdomen was soft. ? On the morning of postoperative day one, the patient was continued on 1 ounce of water or ice every half hour. During the day, the patient did fairly well, having some incisional pain, but able to ambulate adequately and to tolerate liquids well. ? Since the patient is doing well, we decided that the patient was ready to be discharged. The patient was given instructions to follow-up with me next week and to call my office for any fever over 101, persistent abdominal pain, nausea, vomiting, GERD, symptoms of DVT such as calf tenderness, or leg swelling, or pulmonary embolism such as chest pain or shortness of breath. The patient was also instructed to drink 40-60 ounces of liquids per day using the 1-ounce cups. The patient had been given prescriptions for Tylenol for pain, Zofran prn for nausea, and pantoprazole and carafate previously. The patient was encouraged to ambulate and use the incentive spirometer. The patient was allowed to shower, but no baths, and encouraged to stay active at home. All of these instructions were given to the patient personally. All questions were answered and the patient understood all instructions, the instructions were also given to the patient in print. Time Attestation Total time managing care of this patient today: 25 mintues. Discharge Coordination Time (in mins): 25 Quality: Safe Use of Opioids Does Pt have an Active Cancer Diagnosis on the Problem List?: No Quality: Stroke Does the patient have a stroke diagnosis?: No Physical Exam Vital Signs: Vital Signs: Last Vital Signs Temp 97.6 F 07/14/24 13:07 Pulse 81 07/14/24 13:07 Resp 21 H 07/14/24 13:07 BP 108/56 L 07/14/24 13:07 Pulse Ox 98 07/14/24 13:07 O2 Del Method Nasal Cannula wit h Capnography 07/14/24 13:07 O2 Flow Rate 4 07/14/24 13:07 BMI result Body Mass Index 32.5 DS: Data Data Completed and Pending Completed studies during hospitalization [Text1]: Procedures Replacement of Right Knee Joint with Synthetic Substitute, Uncemented, Open Approach (11/29/21) Pending studies at discharge: Pending at discharge 07/14/24 12:20 Surgical [PTH] Routine Labs on day of discharge: Laboratory Results - last 24 hr 07/10/24 09:20 Zinc 75 Discharge Plan Discharge Anticipated Discharge Date/Time: 07/15/24 10:00 Patient Disposition: Home, Self-Care Discharge Diagnosis: s/p laparoscopic sleeve gastrectomy and paraesophageal hernia repair Referrals: Fernando Pickens MD [Primary Care Provider] - 1 Week Discharge Medications: Continued montelukast 10 mg tablet 10 mg PO DAILY Qty: 90 3RF roflumilast 500 mcg tablet 500 mcg PO DAILY Qty: 90 3RF albuterol sulfate 90 mcg/actuation HFA aerosol inhaler 2 puff PO Q6H PRN (Reason: for wheezing) Qty: 18 11RF fluticasone propionate 50 mcg/actuation spray,suspension 2 spray intranasal DAILY 90 Days Qty: 48 3RF pregabalin 200 mg capsule 200 mg PO BEDTIME Qty: 90 1RF lidocaine 5 % adhesive patch,medicated 1 patch topical DAILY PRN (Reason: Pain) cetirizine 10 mg tablet 10 mg PO DAILY pantoprazole 40 mg tablet,delayed release (DR/EC) 40 mg PO DAILY@0630 atorvastatin 20 mg tablet 20 mg PO DAILY ipratropium-albuterol 0.5 mg-3 mg(2.5 mg base)/3 mL solution for nebulization 3 ml inhalation DAILY PRN (Reason: Respiratory Distress) (DME) miscellaneous medical supply Misc See Rx Instructions .Route Qty: 2 0RF Rx Instructions: compression stockings 15-20 mmhg up to mid thigh sucralfate 100 mg/mL suspension 10 ml PO BID Qty: 600 2RF ondansetron 4 mg tablet,disintegrating 4 mg PO Q12H Qty: 20 0RF Rx Instructions: Only take one every 12 hours as needed if you have nausea lamotrigine 25 mg tablet 25 mg PO DAILY budesonide-formoterol [Symbicort] 160-4.5 mcg/actuation HFA aerosol inhaler 2 puff inhalation BID 30 Days Qty: 10.2 11RF Held pregabalin 150 mg capsule 150 mg PO DAILY Qty: 90 1RF Hold Instructions: Resume on 07/29/24. cholecalciferol (vitamin D3) 50 mcg (2,000 unit) tablet 50 mcg PO DAILY Hold Instructions: Resume on 08/05/24. Discharge Orders: Discharge Order (Routine); Ordered 07/15/24 Ordered By: Darren Kat Activity on Discharge: No heavy lifting Stand Alone Forms: Patient Portal Discharge page Print Language: Amharic Care Plan Goals: weight loss Health Concerns: obesity Plan of Treatment: No tub baths, sex or returning to work until discussed at first post op appointment. No exercise, alcohol, tobacco or illegal drug use. Continue to use incentive spirometer hourly while awake. Walk in home for 5- 10 minutes every 2 hours during the first week. Follow all instructions in the bariatric handbook and call with any questions.Discharge Instructions 1. Please call your doctor or come back to the emergency room should any new symptoms arise. 2. You will receive a courtesy call from [facility] 24-48 hours after discharge. 3. Activity: abstain from alcohol, practice limited stair climbing, no bending, no driving, no exercise, no illicit substances, no lifting, no sex, no tub bath, no work. 4. Diet: continue as discussed with Dr. Kat. 5. Dressing Change/Wound Care: Your incision is covered by clear bandages and guaze underneath. If the area is tender, you may apply an ice pack for short intervals (no more than 20 minutes on, followed by at least 20 minutes off). Do not apply heat. Do not use creams, lotions, or topical antibiotics unless instructed to do so by your surgeon. These can cause infection or allergic reaction. 6. Call your doctor if: - Your temperature exceeds 101.5 F - You experience excessive pain or swelling - You have an unexpected reaction to medication - You have excessive bleeding - You experience continued vomiting/nausea - Your incision begins to separate - Your incision shows signs of infection such as increased redness, swelling, excessive pain, heat, or drainage (light blood or clear fluid is normal) 7. General instructions: No lifting greater than 5 lbs for 1 week and not more than 20lbs the next 3?weeks. No driving until seen at the office in 5-7 days after surgery. If you do not move your bowels in the next 2 days, please tell?Dr. Kat. Please walk around your home every hour or two to prevent blood clots from forming in your legs. You do not need to wake from sleeping to walk. Please sleep in a bed or couch to prevent kinking at the hips and knees. Please take your incentive spirometer (your lung senior product integrity engineer) home with you and use it for the next few days to prevent pneumonia. You may shower, no hot tubs, baths or swimming pools.?Please follow the post op diet instructions you ar e?given by Dr Kat? and text me daily at 5-6pm for an update.?If you have any issues or concerns or questions please communicate this to him via text.? The Celebrate shakes have all of the bariatric vitamins you need if you consume these shakes. If you are drinking other protein shakes, you will need to purchase the Celebrate multivitamins and calcium that are available in the hospital gift shop on the first floor of the [facility].??Do not take anything without first discussing with Dr Kat. Please make sure you are consuming at least 40 ounces of fluids per day starting the?day AFTER your discharge from the hospital. Always drink 1-2 ml per minute using the 5ml?syringe. If you drink faster you may experience?bloating,?gas pain, burping, nausea or heartburn. In that case please slow down your pace and use the syringe to?understand better the?proper?pace and volume of drinking. Do not hesitate to contact the office with any questions at . The patient's medical history has been reviewed and they are considered low risk for post op DVT and therefore DVT prophylaxis is not considered necessary. John jjel after surgery was reviewed. The patient has not disclosed any travel plans during the first 30 days after surgery and they have been advised that within the first 30 days after surgery any bus, plane, train or car travel over 2 hours in duration is contraindicated due to the possibility of developing blood clots from immobility. Any travel, needs to include periods of ambulation of 10 minutes in duration every 2 hours.? The patient was instructed to discuss any plans for travel during this period with their bariatric surgeon. Assessment: stable s/p laparoscopic sleeve gastrectomy and paraesophageal hernia repair
[2024-07-14 13:57] LABS: Hematocrit 31.6 % (37.0-47.0); Hemoglobin 9.9 g/dl (12.0-16.0)
[2024-07-14 14:39] LABS: Anion Gap 9 (12-20); Blood Urea Nitrogen 9 mg/dL (9-16); Calcium 8.3 mg/dL (8.4-10.2); Carbon Dioxide 24 mmol/L (22-29); Chloride 111 mmol/L (96-108); Creatinine Clr Calc Pharmacy 102.6; Estimated Glomerular Filt Rate > 60; Glucose Random 147 mg/dL (60-115); Sodium 140 mmol/L (135-145)
[2024-07-14] MEDS: Lactated Ringers 1,000 ML 100 ML IVCONT (15:23)
[2024-07-14] MEDS: Acetaminophen 1,000 MG/100 ML PIGGYBACK 16.7 MG IV ×2 (16:12→21:32)
--- NOTE | 2024-07-14 17:43 | PC.NURSE ---
Pt instructed on use of incentive spriometer and phase I diet .
[2024-07-14] MEDS: Pregabalin 200 MG CAPSULE PO (19:07)
[2024-07-14] MEDS: HYDROmorphone HCl 0.5 MG/0.5 ML SYRINGE 0.25 MG IVPUSH (21:32)
[2024-07-14] MEDS: 0.9 % Sodium Chloride Flush 3 ML SYRINGE IVFLUSH (21:35)
[2024-07-15] MEDS: Lactated Ringers 1,000 ML 100 ML IVCONT (00:51)
[2024-07-15 03:26] VITALS: BP 123/75; PULSE 52; RESP 18; TEMP 36.8; O2SAT 98
[2024-07-15] MEDS: Acetaminophen 1,000 MG/100 ML PIGGYBACK 16.7 MG IV (03:28)
[2024-07-15] MEDS: Pantoprazole Sodium 40 MG/10 ML VIAL IVPUSH (05:30)
[2024-07-15 05:33] LABS: MANUAL DIFF FLAG NO
[2024-07-15 05:38] LABS: Basophils Percent Auto 0.2 % (0-2); Hematocrit 32.7 % (37.0-47.0); Hemoglobin 10.4 g/dl (12.0-16.0); Imm Gran Abs Auto 0.03 X10*3/uL (0.00-0.03); Imm Gran Pct Auto 0.5 % (0.0-0.4); Lymphocytes Absolute Auto 0.6 X10*3/uL (1.2-4.9); Lymphocytes Percent Auto 9.9 % (20-40); Mean Corpuscular HGB Conc 31.8 g/dl (31.0-35.0); Mean Corpuscular Hemoglobin 26.8 pg (27.0-33.0); Mean Corpuscular Volume 84.3 fL (80.0-98.0); Mean Platelet Volume 10.3 fL (9.4-12.3); Monocytes Absolute Auto 0.3 X10*3/uL (0.1-1.2); Monocytes Percent Auto 5.2 % (2-11); Neutrophils Percent Auto 84.2 % (45-73); Platelet Count 272 X10*3/uL (160-400); Red Blood Count 3.88 X10*6/uL (4.20-5.50); Red Cell Distribution Width 18.5 % (11.0-16.0)
[2024-07-15 05:53] LABS: Anion Gap 12 (12-20); Blood Urea Nitrogen 9 mg/dL (9-16); Calcium 8.9 mg/dL (8.4-10.2); Carbon Dioxide 24 mmol/L (22-29); Chloride 110 mmol/L (96-108); Creatinine Clr Calc Pharmacy 114.5; Estimated Glomerular Filt Rate > 60; Glucose Random 110 mg/dL (60-115); Potassium 4.4 mmol/L (3.3-5.1); Sodium 142 mmol/L (135-145)
[2024-07-15] MEDS: Loratadine 10 MG TABLET PO (07:27)
[2024-07-15] MEDS: lamoTRIgine 25 MG TABLET PO (07:27)
[2024-07-15] MEDS: Pregabalin 150 MG CAPSULE PO (07:27)
[2024-07-15] MEDS: Roflumilast 500 MCG TABLET PO (07:27)
[2024-07-15 07:30] VITALS: BP 136/74; PULSE 54; RESP 18; TEMP 36.6; O2SAT 98
--- NOTE | 2024-07-15 08:42 | HO.POSTANES ---
Post Anesthesia Evaluation Post Anesthesia Evaluation Date of Service: 07/15/24 Vital Signs: Vital Signs Temp Pulse Resp BP Pulse Ox O2 Del Method 07/15/24 07:30 98 F 54 18 136/74 98 Room Air 07/15/24 03:26 98.3 F 52 18 123/75 98 CPAP 07/14/24 23:51 98.4 F 55 18 119/76 97 CPAP Anesthesia: General Mental Status: Awake Pain Control: Satisfactory Nausea/Vomiting: None Hydration: Adequate Anesthesia-Related Issues: No Anes. Related Issues
--- NOTE | 2024-07-15 09:15 | MHC.CM.PN ---
CM MET WITH PT AT BEDSIDE. PT LIVES WITH SPOUSE AND IS FUNCTIONALLY INDEPENDENT. + HCP (COPY AT [facility]) PCP DR. SCHWARTZ DP: PT HAS BEEN MEDICALLY CLEARED FOR DC HOME, NO SERVICES. [facility] WILL TRANSPORT
[2024-07-18 14:08] LABS: Vitamin B1 13 nmol/L (8-30)
== END 2024-07-15 09:38 | disposition home or self-care (01) | DRG 403 ==
LOC: HO.SSSA 13:16 → HO.S3 13:50
PROVIDERS: Physician Assistant Surgical; Admitting Provider Surgery; PCP Internal Medicine; Visit Provider Surgery
PROC: 0DB64Z3 Excision of Stomach, Percutaneous Endoscopic Approach, Vertical (ICD-10-PCS; CPT 43845; principal; 2024-07-14 10:10)
DX: E66.01 Morbid (severe) obesity due to excess calories (principal); K44.0 Diaphragmatic hernia with obstruction, without gangrene; M06.00 Rheumatoid arthritis without rheumatoid factor, unspecified site; Q43.3 Congenital malformations of intestinal fixation; J45.909 Unspecified asthma, uncomplicated; M79.7 Fibromyalgia; Z68.32 Body mass index [BMI] 32.0-32.9, adult; Z79.51 Long term (current) use of inhaled steroids; Z79.899 Other long term (current) drug therapy
CPT/HCPCS: 36415; 80048; 80053; 80061; 82306; 82607; 82728; 82746; 83036; 83525; 83540; 84425; 84443; 84590; 84630; 85014; 85018; 85025; 85610; 85730; 86140; 86850; 86900; 86901; 88305; 88307; 88342; A4649; C9145; J0131; J0690; J1100; J1171; J2003; J2250; J2405; J2470; J2704; J2795; J3010; J7120

== ENCOUNTER → 2024-07-14 07:49 | Outpatient (BNV) | payer BC, MEDICARE, SELFPAY | PROVIDERS: Admitting Provider Surgery; PCP Internal Medicine; Visit Provider Surgery | DX: E66.811 Obesity, class 1 (principal); Z68.32 Body mass index [BMI] 32.0-32.9, adult; K66.0 Peritoneal adhesions (postprocedural) (postinfection) | CPT/HCPCS: 43659; 43775 ==

== ENCOUNTER 2024-07-20 09:56 | Outpatient (AMB) | payer BC, MEDICARE, SELFPAY ==
--- NOTE | 2024-07-20 09:59 | MHC.OFFVISWM ---
VS Expanded 07/20/24 10:00 BP 132/74 Blood Pressure Location Rt brachial Blood Pressure Position Sitting Pulse 66 Pulse Source Pulse Oximeter Temp 97.2 F Temperature Source Temporal Artery Scan Pulse Oximetry 97 Oxygen Delivery Method Room Air Height 5 ft 9 in Weight 211 lb 2 oz BMI 31.2 Body Fat % 2.9 Body Fat Mass 90.6 Fat Free Mass 120.4 Visceral Fat Rating 11.0 Body Water % 40.5 Body Water Mass 85.6 Muscle Mass/Score 114.2 Basal Metabolic Rate/Score 1,668 Intake Visit Reasons: OV PO LSG 07/14/2024 Allergies aclidinium [Tudorza Pressair] Allergy (Intermediate, Verified 07/20/24 10:00) Hives Medication List - Last Reconciled 07/20/24 by DWAYNE Zurita albuterol sulfate 90 mcg/actuation 2 puffs PO Q6H PRN atorvastatin 20 mg PO DAILY budesonide-formoterol 160-4.5 mcg/actuation (Symbicort) 2 puffs inhalation BID 30 days cetirizine 10 mg PO DAILY fluticasone propionate 50 mcg/actuation 2 sprays intranasal DAILY 90 days ipratropium-albuterol 0.5 mg-3 mg(2.5 mg base)/3 mL 3 mL inhalation DAILY PRN lamotrigine 25 mg PO DAILY lidocaine 5% 1 patch topical DAILY PRN miscellaneous medical supply compression stockings 15-20 mmhg up to mid thigh montelukast 10 mg PO DAILY ondansetron 4 mg PO Q12H pantoprazole 40 mg PO DAILY@0630 pregabalin 150 mg PO DAILY pregabalin 200 mg PO BEDTIME roflumilast 500 mcg PO DAILY sucralfate 10 mL PO BID HPI Comments Details: This?is a?54?yo female who is s/p LSG 07/14/2024. Presents for 1 week postop visit. Denies nausea, occasional pain when she is lying down to go to sleep. Present meal plan includes: 3 protein shakes per day, 1 scoop Celebrate 4:1 in each had trouble finishing 3rd shake due to feeling full hydration is adequate- 39oz yesterday [facility], [facility] Medical History Gastric polyps Seizure Environmental and seasonal allergies History of blood transfusion (~1994) Low back pain Vertigo GERD (gastroesophageal reflux disease) DJD (degenerative joint disease) COPD (chronic obstructive pulmonary disease) Hyperlipidemia BMI 36.0-36.9,adult Obesity Cough Hepatitis C antibody positive in blood Leg length discrepancy Pulmonary nodules CANDELARIA on CPAP Asthma Insomnia Fibromyalgia Seronegative rheumatoid arthritis Surgical History History of total knee replacement History of knee surgery Hx of detached retina repair History of ankle surgery History of colon resection Hx of colonoscopy History of total knee arthroplasty Hx of cholecystectomy H/O bilateral breast reduction surgery Hx of tubal ligation Family History Maternal Grandmother Skin cancer Maternal Aunt Breast cancer Maternal Uncle Prostate cancer Mother No problems noted. Father No problems noted. Social History Household Members: Spouse Housing: House Are you a primary day care attendant to a significant other at home: No Do you presently have visiting nurse or other home services: No Alcohol intake: current Alcohol intake frequency: does not drink Patient Tobacco Use Status: Never used Tobacco Second Hand Smoke Exposure: No service: No Current occupational status: disabled Physical Exam Vital Signs: Last Vital Signs Temp 97.2 F 07/20/24 10:00 Pulse 66 07/20/24 10:00 BP 132/74 07/20/24 10:00 Pulse Ox 97 07/20/24 10:00 Oxygen Delivery Method Room Air 07/20/24 10:00 BMI result Body Mass Index 31.2 Assessment & Plan Assessment & Plan (1) S/P laparoscopic sleeve gastrectomy: Code(s): Z98.84 - Bariatric surgery status Category: Surgical (2) Obesity: Code(s): E66.9 - Obesity, unspecified Category: Medical Qualifiers: Obesity type: due to excess calories Obesity classification: adult class 2 (BMI 35 - 39.9) Serious obesity comorbidity presence: with serious comorbidity Body mass index: BMI 36.0-36.9 Qualified Code(s): E66.812 - Obesity, class 2; E66.01 - Morbid (severe) obesity due to excess calories; Z68.36 - Body mass index [BMI] 36.0-36.9, adult Plan May shower tomorrow but no bath or submersion of abdomen in water. May start exercise tomorrow.? No abdominal exercises x 6 weeks. Abdominal binder for the next 2 weeks with activity or exercise. Continue meal plan per Dr Rivera until next f/u in 2 weeks. Reviewed pantoprazole and carafate dosing. Reminded of the pace of drinking 2 mL/min or 1oz per 15 min. Can use broth if made from home, no sodium. Work note provided to return 07/27/2024. Will be emailed link for post op video for review.
[2024-07-20 10:00] VITALS: BP 132/74; PULSE 66; TEMP 36.2; O2SAT 97; BMI 31.2
--- OUTSIDE RECORDS SUMMARY | 2024-07-20 11:35 | XMS_ITS ---
Author Organization [facility] Address [address] [place] [address] Phone Care Team Providers Care Fish Farmer Name Role Phone Fernando Pickens MD Primary Care Provider [phone] Transitional Care Management Status:Identified (Enrolling) Start date:07/15/2024 Enrollment reason:Identified using hospital discharge data Case Team Name Relationship Phone Zunilda Castanon LPN Care Manager(Responsible Staf f) Continued Care and Services Coordination
--- OUTSIDE RECORDS SUMMARY | 2024-07-20 11:35 | XMS_ITS | Clinical Summary ---
Author Organization [facility] Address [address] [place] [address] Phone Care Team Providers Care Lamina Searcher Name Role Phone Fernando Pickens MD Primary Care Provider [phone] Allergies Active Allergy Reactions Criticality Noted Date Comments Aclidinium [place] Hives,Nausea And Vomiting High 02/18/2022 Sally Orosco [Aclidinium [place]] Medications pregabalin (LYRICA) 150 mg capsule 07/02/19 [...] time each day. 06/21/19 24 025 Discontinued Active Problems Problem Noted [...] Plan: Ms. Weldon had a fall in [place] down some stairs about 10 days ago. She has had pain at the bottom of her spine since. She says that on occasion she will get numbness and tingling in the back of the right leg in an S1 distribution. She is taking Tylenol, baclofen, Lamictal, and using 2 lidocaine patches with some relief. She is neurologically intact. X-rays from [facility] on November 21 do reveal a comminuted [...] Feliberto Mathur at [facility] [place], [place] Opiate use 06/11/2019 Obesity 10/02/2018 Osteoarthritis of both knees 08/20/2017 Chronic polyarthritis 06/27/2017 CANDELARIA (obstructive sleep apnea) 03/09/2017 Overview (02/20/2024): [facility] Home Polysomnogram: Date 01/21/2018; AHI 7, [...] Overview (02/20/2024): Dr Dana Coelho is her Crank Hand GERD (gastroesophageal reflux disease) 7 Positive hepatitis C antibody test 09/06/2016 Overview (02/20/2024): Hx of negative load test Encounters Date Type Department Care Team Description 06/19/2024 11:00 AM EST - 06/19/2024 11:59 PM EST Hospital Encounter [facility] [address] [place] [phone] Discharge Disposition: Home or Self Care 06/18/2024 11:00 AM EST - 06/18/2024 11:59 PM EST Hospital Encounter [facility] [address] [place] [phone] Discharge Disposition: Home or Self Care 06/17/2024 9:37 AM EST - 06/17/2024 11:59 PM EST Hospital Encounter [facility] [address] [place] [address] Discharge Disposition: Home or Self Care 06/16/2024 11:00 AM EST Ancillary Procedure [facility] Cardiology [facility] [address] [place] [phone] Dizziness; Syncope, unspecified syncope type; CAICEDO (dyspnea on exertion) 04/27/2024 10:30 AM EST Office Visit Obstetrics and Gynecology - [address] [place] [phone] Rula Alanis CNM Encounter for annual physical examination excluding gynecological examination in a patient older than 17 years (Primary Dx); Yeast dermatitis 04/23/2024 Telephone [facility] [address] [facility] [address] [place] [phone] Fernando Pickens MD Medical Records from Last [...] PROCEDURE: HISTORICAL TUBAL LIGATION BREAST REDUCTION PROCEDURE: MN BREAST REDUCTION CHOLECYSTECTOMY PROCEDURE: HISTORICAL CHOLECYSTECTOMY BREAST BIOPSY PROCEDURE: BX BREAST; PERC NEEDLE CORE W/IMAG GUID; COMMENT: PATIENT STATES SHE HAS HAD 4 BIOPSIES ALL ON THE LEFT SIDE ANKLE FRACTURE SURGERY 08/21/2015 Left PROCEDURE: MN OPEN TREATMENT MEDIAL MALLEOLUS FRACTURE; COMMENT: Dr Anastasia Carver at [facility] [place], hardware was removed 8 mo later except one screw TOTAL KNEE ARTHROPLASTY 10/21/2018 Left PROCEDURE: MN ARTHRP KNE CONDYLE&PLATU MEDIAL&LAT COMPARTMENTS; COMMENT: Dr Francesco Grewal at [facility] Medical History Medical History Date Comments [...] Feliberto Mathur at [facility] [place], [place] HLD (hyperlipidemia) 06/20/2021 DX:HLD (hyp erlipidemia) [...] Care Team (Late st Contact Info) Description 07/31/2024 1:30 PM EDT Office Visit Internal Medicine - [address] [phone] Fernando Pickens MD [address] [place], [place] [address], [place] [address] 09/16/2024 9:30 AM EDT Office Visit Internal Medicine - [facility] [address] [place] [address] Fernando Pickens MD [address] [place] [address] Health Maintenance Due Date Last Done Comments [...] Epilepsy, unspecified, not intractable, without status epilepticus ([facility]) TRANSTHORACIC ECHOCARDIOGRAM (TTE) COMPLETE Routine 06/16/2024 11:36 [...] (06/16/2024 11:36 AM EST) Left Atrium Minor [place] 5.8 cm CV PACS Left Atrium Major [place] 6.0 cm CV PACS LA Area Sys [...] LAB MICROBIOLOGY METHOD 04/28/2024 4:04 PM EST [facility] Brushing/Spatula Cervix uteri structure / Unknown 04/27/2024 2:59 PM EST 04/28/2024 6:19 AM EST Rula Alanis CNM LAB MOLECULAR DIAGNOSTICS OR DERABLES Final Result Performing Organization Address City/[facility]/ZIP Co de Phone Number [facility] [address] [place] [address], [place] [phone] * Pap smear (04/27/2024 2:59 PM EST) Interpretation Negative for intraepithelial lesion or malignancy 05/01/2024 2:38 PM EST [facility] General Categorization Negative 05/01/2024 2:38 PM EST [facility] Other Findings Atrophy 05/01/2024 2:38 PM EST [facility] Specimen Adequacy Satisfactory for evaluation 05/01/2024 2:38 PM EST [facility] Pap Methodology Liquid Based Pap Test 05/01/2024 2:38 PM EST [facility] Disclaimer The Pap test is a screening test which carries an inherent false negative rate. These test results should be correlated with the patient's clinical findings and history. This Pap test was processed using an automated screening system. Technical cytopathology services provided by [facility], at [address] [place] [id number] (CLIA # [id number]/Sujata Oviedo MD, Machine Operator Slitter Technician.) 05/01/2024 2:38 PM EST [facility] Console Pap Interpretation Reported 05/01/2024 2:38 PM EST [facility] Brushing/Spatula Cervix uteri structure / Unknown 04/27/2024 2:59 PM EST 04/27/2024 2:59 PM EST Rula Alanis CNM LAB CYTOLOGY ORDERABLES Effie l Result [facility] [address] [place] [address], [place] [phone] * MG Mammo Digital Screening w Arvin [...] Signed Date: 02/18/2024 17:09 ET Workstation ID: [id number] Transcribed By: Self Edit Transcribed Date: 02/18/2024 [...] Signed Date: 02/18/2024 17:09 ET Workstation ID: [id number] Transcribed By: Self Edit Transcribed Date: 02/18/2024 17:02 ET Result [facility] Fernando Pickens MD IMG BI PROCEDURES Final R esult * Annual BMP Blood Test (11/08/2023) [facility] Annual BMP Blood Test Abstracted Result [facility] Provider HEALTH MAINTENANCE Final Result * Lipid panel (11/08/2023) [facility] LDL/HDL Ratio 3 Triglycerides 120 mg/dL Cholesterol 189 mg/dL HDL 58 mg/dL LDL Cholesterol 107 mg/dL Blood Venous blood specimen / Unknown Result [facility] Provider LAB BLOOD ORDERABLES Effie l Result * Hepatitis C Screening (05/31/2022) [facility] Hepatitis C Screening borderline Result [facility] Provider HEALTH MAINTENANCE Final Result * Colonoscopy (06/21/2020) [facility] Colonoscopy normal Anatomical Region Laterality Modality Other [facility] Provider HEALTH MAINTENANCE Final Result from Last 3 Months or Most Recently Relevant to Health Maintenance Insurance MEDICARE [facility] Member Subscriber Plan / Payer (Ef fective 2014-Present) Name:To-Javan Pam Relation to Subscriber:Spouse Name:WESTLEY DAN Date of :1970 (Home) Address: [address] [place] [address] Payer ID:[id number] Group ID:[id number] Type:Not on file Address: [address] [place] [address] Care Teams Lamina Searcher Relationship Specialty Start Date End Date Fernando Pickens MD [address] [place] [address] [place] [address] PCP - General Internal Medicine 01/28/20
== END 2024-07-20 10:58 | disposition home or self-care (01) ==
LOC: HO.HBS 09:56
PROVIDERS: PCP Internal Medicine; Visit Provider Physician Assistant Surgical
DX: E66.812 Obesity, class 2 (principal); Z68.36 Body mass index [BMI] 36.0-36.9, adult; Z90.3 Acquired absence of stomach [part of]; Z98.84 Bariatric surgery status
CPT/HCPCS: 99024

== ENCOUNTER → 2024-07-20 09:56 | Outpatient (BNVA) | payer BC, MEDICARE, SELFPAY | PROVIDERS: PCP Internal Medicine; Visit Provider Physician Assistant Surgical ==

== ENCOUNTER → 2024-08-04 13:11 | Outpatient (BNVA) | payer BC, MEDICARE, SELFPAY | PROVIDERS: PCP Internal Medicine; Visit Provider Counselor Mental Health ==

== ENCOUNTER → 2024-08-04 13:11 | Outpatient (AMB) | payer BC, MEDICARE, SELFPAY ==
--- NOTE | 2024-08-04 13:10 | A.OFFWM_ITS ---
Intake Intake Visit Reasons: VIDEO PO LSG 07/14/2024 Allergies aclidinium [Tudorza Pressair] Allergy (Intermediate, Verified 07/20/24 10:00) Hives [facility] Medical History Gastric polyps Seizure Environmental and seasonal allergies History of blood transfusion (~1994) Low back pain Vertigo GERD (gastroesophageal reflux disease) DJD (degenerative joint disease) COPD (chronic obstructive pulmonary disease) Hyperlipidemia BMI 36.0-36.9,adult Obesity Cough Hepatitis C antibody positive in blood Leg length discrepancy Pulmonary nodules CANDELARIA on CPAP Asthma Insomnia Fibromyalgia Seronegative rheumatoid arthritis Surgical History History of total knee replacement History of knee surgery Hx of detached retina repair History of ankle surgery History of colon resection Hx of colonoscopy History of total knee arthroplasty Hx of cholecystectomy H/O bilateral breast reduction surgery Hx of tubal ligation Family History Maternal Grandmother Skin cancer Maternal Aunt Breast cancer Maternal Uncle Prostate cancer Mother No problems noted. Father No problems noted. Social History Household Members: Spouse Housing: House Are you a primary client care consultant to a significant other at home: No Do you presently have visiting nurse or other home services: No Alcohol intake: current Alcohol intake frequency: does not drink Patient Tobacco Use Status: Never used Tobacco Second Hand Smoke Exposure: No service: No Current occupational status: disabled Behavioral Health Assessment Weight Management Therapy Therapy Notes Details Subjective: Patient underwent bariatric surgery on 07/14/2024 and since started the program lost a total of 40 lbs. She is currently 2 lbs away from moving below the o besity threshold and 32 lbs from reaching her target healthy weight. She reports a smooth post-operative recovery. Although she does not have a specific goal weight, her main objective is to feel healthier overall. Patient is tolerating meal replacement shakes well, feeling satisfied and not experiencing significant hunger. She occasionally craves scrambled eggs. She also recently started a new job and is currently working 4 hours per day. Objective: Patient presents for behavioral health follow-up after bariatric surgery. * Discussed current functioning, daily routine, and post-surgical progress. * Identified ongoing challenges and recent gains, including both weight loss and non-scale victories. * Explored motivation, coping strategies, and realistic goal-setting. * Introduced and practiced mindfulness-based techniques for managing cravings and reinforcing self-awareness. * Discussed emotional adjustment to body changes and lifestyle shifts. * PHQ-9 administered; results indicate no current concerns related to depression. * Psychoeducation provided on emotional eating and cognitive reframing. Assessment/Response: * Mental Status: Within normal limits; patient is engaged and demonstrates insight. * Risk: No risk concerns reported or identified. Food/Weight/Diet Expectations of change The initial goal is to lose 10% of her weight before surgery, about 24 lbs. Ultimate weight goal: 219lbs before surgery Started weight: 243 lbs weight (04/17/2024): 234Lbs Weight last week: 234 lbs. Recent weight as of 05/28/2024: 226 lbs. surgery on 07/14/24: 215Lbs PO weight 08/04/2024: 203Lbs PT's target weight: unknown The patient wants to be able to lose and maintain a healthy weight. She would like to be at 169-180 lbs. Lastly, she wants to be able to stop using some of her meds. PT is implementing the following: Current meal plan: 3 shakes and 1 bar. 40-60oz of water/liquids. She can do 8oz of coffee in the morning. Exercise plan: states last week. Doing stationary bike for about 70 minutes, daily. Questionnaires PHQ-9 Over the last 2 weeks, how often have you been bothered by any of the following problems? 1. Little interest or pleasure in doing things: not at all 2. Feeling down, depressed, or hopeless: not at all 3. Trouble falling or staying asleep, or sleeping too much: not at all 4. Feeling tired or having little energy: several days 5. Poor appetite or overeating: not at all 6. Feeling bad about yourself - or that you are a failure or have let yourself or your family down: not at all 7. Trouble concentrating on things, such as reading the newspaper or watching television: not at all 8. Moving or speaking so slowly that other people could have noticed. Or the opposite - being so fidgety or restless that you have been moving around a lot more than usual: not at all 9. Thoughts that you would be better off or of hurting yourself in some way: not at all Total score: 1 Depression Screening Interpretation: Negative Depression Screening Done: Yes 02612 - PHQ-9 Billing: Yes Source: Developed by Drs. Roberto Carlos Lee, Hope Mccurdy, Dick Penn and colleagues, with an educational sherrie from [employer]. Assessment & Plan Assessment & Plan (1) Unspecified adjustment reaction: Code(s): F43.20 - Adjustment disorder, unspecified (2) Problems related to inappropriate diet and eating habits: Code(s): Z72.4 - Inappropriate diet and eating habits Plan Patient is stable post-bariatric surgery with no current mental health concerns. No further behavioral health follow-up is needed at this time. Patient encouraged to continue healthy coping strategies and may reach out if support is needed in the future. Telehealth Telehealth Telehealth Platform: [facility] Location of provider rendering services: other Location of patient: address on file Patient Identification confirmed using: Name, : Yes Telehealth method: video Patient verbally consented to treatment: Yes Patient verbally consented to billing insurance company: Yes Patient informed of any privacy concerns related to visit: Yes Minutes spent on Phone/Video with Pt.: 60 Coding Level of Care Code Established Pt Tele Psytx >53 mins (64072) Patient Type Established Diagnoses Unspecified adjustment reaction F43.20 Problems related to inappropriate diet and eating habits Z72.4 Additional Codes PHQ-9 - 33749 - PHQ-9 Billing: Yes ([id number]) Time Spent (min) 60
--- OUTSIDE RECORDS SUMMARY | 2024-08-04 15:37 | XMS_ITS | Encounter Summary ---
Author Organization [facility] Address [address] [place] [address] Care Team Providers Care Baggage Agent Name Role Phone Fernando Pickens MD Primary Care Provider [phone] Reason for Visit * Reason Onset Date Comments Hospital Follow-up 07/31/2024 Encounter Details Date Type Department Care Team (Late st Contact Info) Description 07/31/2024 Telephone Internal Medicine - [facility] [address] [facility] [place] [place] [address] Fernando Pickens MD [address] [place] [id number] Hospital Follow-up Social History Tobacco Use Types Packs/Day Years Used Date Smoking Tobacco: Never Smokeless Tobacco: Never Alcohol Use Standard Drinks/Week Comments Not Currently 0 (1 standard drink = 0.6 oz pur e alcohol) rare Housing Instability Answer Date Recorde d Are you worried that in the next 2 months you may not have stable housing? No 07/28/2024 Food Access & Nutrition Answer Date Rec orded Do you have access to a vari ety of food including fruits and vegetables? Yes 07/28/2024 Access to Healthcare Answer Date Record ed Within the last 3 months, ho w many times did you visit the emergency department for your medical care? 0 07/28/2024 Health Literacy Answer Date Recorded How often do you need to hav e someone help you when you read instructions, pamphlets, or other written material from your doctor or pharmacy? Never 07/28/2024 Caregiver: How often do you need to have someone help you when you read instructions, pamphlets, or other written material from your doctor or pharmacy? Not on file 07/28/2024 Financial Risk Answer Date Recorded How hard is it for you to pa y for the very basics like food, housing, medical care, and air conditioning / heating? Somewhat hard 07/28/2024 Transportation Answer Date Recorded Has the lack of transportati on kept you from meetings, work, or from getting things needed for daily living? No Has the lack of transportati on kept you from medical appointments or from getting medications? No 07/28/2024 Social Isolation Answer Date Recorded How often do you feel lonely or isolated from th ose around you? Never 07/28/2024 Food Risk Answer Date Recorded Within the past 12 months we worried whether our food would run out before we got money to buy more. Never true 07/28/2024 Within the past 12 months th e food we bought just didn't last and we didn't have money to get more. Never true 07/28/2024 Dependent Care Answer Date Recorded Do you need help finding or paying for care for your loved ones. For example, children's counselor or elderly care for an older adult? No 07/28/2024 Employment and Income Answer Date Recor ded During the last four weeks, have you been actively looking for work? No 07/28/2024 Living Situation Answer Date Recorded What is your living situation? 0 07/28/2024 Comments No Sex and Gender Information Value Date Recorded Sex Assigned at Female 06/15/2024 3:56 PM EST Legal Sex Female 1:14 PM EST Gender Identity Female 06/15/2024 3:56 PM EST Sexual Orientation Straight 06/15/2024 3: 56 PM EST documented as of this encounter Progress Notes * Betty Nieto MA - 07/31/2024 11:08 AM EDT Appt made * Sherron Aguirre - 07/31/2024 10:43 AM EDT Patient calling to cancel today's appt for hospital follow up due to headache and cannot drive. Appt was for 1:30PM Please call patient back at [phone] to reschedule Hosp/FU documented in this encounter Plan of Treatment Upcoming Encounters Date Type Department Care Team (Late st Contact Info) Description 08/05/2024 12:00 PM EDT Appointment [facility] MRI [address] [place] [phone] 08/06/2024 10:30 AM EDT [facility] [address] [place] [address] Álvaro Estrada, BINDU [address] [place] [address] 08/13/2024 1:00 PM EDT Office Visit Gastroenterology - [place] [address] [facility] [address] [place] [phone] April Rodriguez NP [address] [facility] [address] [place] [address] 09/16/2024 9:30 AM EDT Office Visit Internal Medicine - [address] [phone] Fernando Pickens MD [address] [place] [phone] documented as of this encounter Visit Diagnoses Not on filedocumented in this encounter Additional Health Concerns Assessment Noted Time PHQ-9 Depression Total Score: 0 07/29/19 25 1:32 PM EDT documented as of this encounter Care Teams Baggage Agent Relationship Specialty Start Date End Date Fernando Pickens MD [address] [place] [address] PCP - General Internal Medicine 01/28/20 documented as of this encounter
--- OUTSIDE RECORDS SUMMARY | 2024-08-04 15:37 | XMS_ITS | Clinical Summary ---
Author Organization [facility] Address [address] [place] [address] Phone Care Team Providers Care Software Recruiter Name Role Phone Fernando Pickens MD Primary Care Provider [phone] Allergies Active Allergy Reactions Criticality Noted Date Comments Aclidinium Concord Hives,Nausea And Vomiting High 02/18/2022 Sally Orosco [Aclidinium Concord] Medications pregabalin (LYRICA) 150 mg capsule 4 [...] tablet (10 mg total) by mouth. Active ipratropium-albu teroL (DUONEB) 0.5-2.5 mg/3 mL nebulizer solution 1 [...] APPLY 1 PATCH TOPICALLY DAILY 4 Active clotrimazole-bet amethasone (LOTRISONE) 1-0.05 % cream Apply thin layer to affected area BID for 2 weeks then stop. Avoid face and groin. 30 g 5 Active atorvastatin (LIPITOR) 20 mg tablet TAKE 1 TABLET BY MOUTH EVERY DAY 30 tablet 5 Active omeprazole (PriLOSEC) [address] capsuleIndicatio ns:Gastro-esopha geal reflux disease without esophagitis TAKE 1 CAPSULE BY MOUTH EVERY DAY 90 capsule 5 Active Active Problems Problem Noted Date Diagnosed Date Chronic obstructive pulmonar y disease ([facility]/HCC V24, CMS/HCC V28) 02/20/2024 Class 2 obesity 02/20/2024 CAICEDO (dyspnea [...] use compression stockings. Closed fracture of coccyx ([facility] V24, [facility] V28) 11/27/2023 Overview (02/20/2024): Last Assessment & Plan: Ms. Weldon had a fall in [place] down some stairs about 10 days ago. She has had pain at the bottom of her spine since. She says that on occasion she will get numbness and tingling in the back of the right leg in an S1 distribution. She is taking Tylenol, baclofen, Lamictal, and using 2 lidocaine patches with some relief. She is neurologically intact. X-rays from [facility] on November 21 do reveal a comminuted [...] f distal vein of right lower extremity ([facility] V24, [facility] V28) 02/21/2022 History of total right knee replacement [...] routine aerobic exercise as tolerated. 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 GERD (gastroesophageal reflux disease) 7 Positive hepatitis C antibody test 09/06/2016 Overview (02/20/2024): Hx of negative load test Encounters Date Type Department Care Team Description 07/31/2024 Telephone Internal Medicine - [place] [address] [place] [id number] Fernando Pickens MD Hospital Follow-up 06/19/2024 11:00 AM EST - 06/19/2024 11:59 PM EST Hospital Encounter [facility] [address] [place] [address] Discharge Disposition: Home or Self Care 06/18/2024 11:00 AM EST - 06/18/2024 11:59 PM EST Hospital Encounter [facility] [address] [place] [address] Discharge Disposition: Home or Self Care 06/17/2024 9:37 AM EST - 06/17/2024 11:59 PM EST Hospital Encounter [facility] [address] [place] [address] Discharge Disposition: Home or Self Care 06/16/2024 11:00 AM EST Ancillary Procedure [facility] [address] [place] [address] [place] [phone] Dizziness; Syncope, unspecified syncope type; CAICEDO (dyspnea [...] PROCEDURE: HISTORICAL TUBAL LIGATION BREAST REDUCTION PROCEDURE: MD BREAST REDUCTION CHOLECYSTECTOMY PROCEDURE: HISTORICAL CHOLECYSTECTOMY BREAST BIOPSY PROCEDURE: BX BREAST; PERC NEEDLE CORE W/IMAG GUID; COMMENT: PATIENT STATES SHE HAS HAD 4 BIOPSIES ALL ON THE LEFT SIDE ANKLE FRACTURE SURGERY 08/21/2015 Left PROCEDURE: MD OPEN TREATMENT MEDIAL MALLEOLUS FRACTURE; COMMENT: Dr Anastasia Carver at [facility], hardware was removed 8 mo later except one screw TOTAL KNEE ARTHROPLASTY 10/21/2018 Left PROCEDURE: MD ARTHRP KNE CONDYLE&PLATU MEDIAL&LAT COMPARTMENTS; COMMENT: Dr Francesco Grewal at [facility] Medical History Medical History Date Comments Migraine 09/27/2016 DX:Migraine CANDELARIA (obstructive sleep apnea) 03/09/2017 DX :CANDELARIA (obstructive sleep apnea) History of Helicobacter pylo ri infection 09/06/2016 DX:History of Helicobacter p ylori infection; COMMENT: treated Chronic hepatitis C (CMS/HCC V24, CMS/HCC V28) 09/06/2016 DX:Chronic hepatitis C (HCC) ; COMMENT: not active (no records) Allergic rhinitis 09/06/2016 DX:Allergic rh initis Asthma 09/06/2016 DX:Asthma; COMME NT: Dr Jackson Fibromyalgia 09/06/2016 DX:Fibromyalgia; COMMENT: Dr Doyle GERD (gastroesophageal reflux disease) 7 DX:GERD (gastroesophageal reflux disease) Hyperthyroidism 09/28/2016 DX:Hyperthyroidi sm Chronic polyarthritis 06/27/2017 DX:Chronic polyarthritis Retinal detachment, right 01/28/2020 DX:Ret inal detachment, right; COMMENT: Surgical repair 12/[address] Feliberto Mathur at [facility] [place] [place] HLD (hyperlipidemia) 06/20/2021 DX:HLD (hyp erlipidemia) Deep vein thrombosis (DVT) o f distal vein of right lower extremity (CMS/HCC V24, CMS/HCC V28) 02/21/2022 DX:Deep vein thrombosis (DVT ) of [...] care for your loved ones. For example, child care associate teacher or elderly care for an older adult? [...] Info) Description 08/05/2024 12:00 PM EDT Appointment [facility] MRI [address] [place] [phone] 08/06/2024 10:30 AM EDT Office Visit Internal Medicine - [address] [phone] Álvaro Estrada NP [address] [place] [address] 08/13/2024 1:00 PM EDT Office Visit Gastroenterology - [place] [address] [facility] [address] [place] [phone] April Rodriguez NP [address] [facility] [address] [place] [address] 09/16/2024 9:30 AM EDT Office Visit Internal Medicine - [facility] [address] [place] [address] Fernando Pickens MD [address] [place] [address] Health Maintenance Due Date Last Done Comments Hepatitis B Vaccines (1 of 3 - 19+ 3-dose series) 1987 Zoster Vaccines (2 of 2) 08/29/2021 07/04/2021 HIV Screening 03/24/2022 Medicare Annual Wellness Visit 03/24/2022 COVID-19 Vaccine ( season) 2023 07/04/2021, 08/08/2020, 07/18/2020 Hypertension/CHF/CAD Annual BMP Blood Test 11/07/2024 11/08/2023, 11/08/2023 Depression Screening 07/28/2025 07/28/2024 Social Influencers of Health Screening 07/28/2025 07/28/2024 Breast Cancer Screening 02/17/2026 02/18/20, 04/03/2021, 03/02/2019, [...] age to complete this topic Meningococcal B Vaccine Aged Out No l onger eligible based on patient's age to complete [...] Epilepsy, unspecified, not intractable, without status epilepticus ([facility] V24, [facility] V28) TRANSTHORACIC ECHOCARDIOGRAM (TTE) COMPLETE Routine 06/16/2024 11:36 AM EST Dizziness Syncope, unspecified syncope type CAICEDO (dyspnea on exertion) EXTERNAL XRAY REPORT 06/12/2024 EXTERNAL XRAY REPORT 05/14/2024 EXTERNAL XRAY REPORT 05/14/2024 EXTERNAL ULTRASOUND REPORT 05/12/2024 EXTERNAL ULTRASOUND REPORT 05/12/2024 HPV WITH REFLEX GENOTYPE Routine 04/27/2024 2:59 PM EST Encounter for annual physical examination excluding gynecological examination in a patient older than 17 years MG MAMMO DIGITAL SCREENING W ARVIN BILAT Routine 02/18/2024 3:59 PM EST Referred by self HM ANNUAL BMP BLOOD TEST Routine 11/08/2023 LIPID [...] (06/16/2024 11:36 AM EST) Left At[facility] Minor Blanding 5.8 cm CV PACS Left Atrium Major Blanding 6.0 cm CV PACS LA Area Sys [...] Details Overall the study quality was adequate. Regina Xie NP CV ECHO PROCEDURES Fin al Result * External Xray Report (06/12/2024) Only the most recent of3 resultswithin the time period is included. Anatomical Region Laterality Modality Radiographic Oliva ging Provider [facility] XR PROCEDURES Final Result * External Ultrasound Report (05/12/2024) Only the most recent of2 resultswithin the time period is included. Anatomical Region Laterality Modality Ultrasound Provider [facility] US PROCEDURES Final Result * HPV with reflex genotype (04/27/2024 2:59 PM EST) HPV Negative Negative LAB MICROBIOLOGY METHOD 04/28/2024 4:04 PM EST [facility] Brushing/Spatula Cervix uteri structure / Unknown 04/27/2024 2:59 PM EST 04/28/2024 6:19 AM EST Rula Alanis CNM LAB MOLECULAR DIAGNOSTICS OR DERABLES Final Result [facility] [address] [place] [address], [place] [phone] * MG Mammo Digital Screening w Arvin [...] Signed Date: 02/18/2024 17:09 ET Workstation ID: [id number] Transcribed By: Self Edit Transcribed Date: 02/18/2024 [...] Signed Date: 02/18/2024 17:09 ET Workstation ID: [id number] Transcribed By: Self Edit Transcribed Date: 02/18/2024 17:02 ET Fernando Pickens MD IMG BI PROCEDURES Final R esult * Annual BMP Blood Test (11/08/2023) [facility] Annual BMP Blood Test Abstracted Historical Provider HEALTH MAINTENANCE Final Result * Lipid panel (11/08/2023) [facility] LDL/HDL Ratio 3 Triglycerides 120 mg/dL Cholesterol 189 mg/dL HDL 58 mg/dL LDL Cholesterol 107 mg/dL Blood Venous blood specimen / Unknown Result [facility] Historical Provider LAB BLOOD ORDERABLES Effie l Result * Hepatitis C Screening (05/31/2022) [facility] Hepatitis C Screening borderline us Historical Provider HEALTH MAINTENANCE Final Result * Colonoscopy (06/21/2020) Colonoscopy normal Anatomical Region Laterality Modality Other Historical Provider HEALTH MAINTENANCE Final Result from Last 3 Months or Most Recently Relevant to Health Maintenance Insurance MEDICARE [facility] Member Subscriber Plan / Payer (Ef fective 2014-Present) Name:Pam Weldon Relation to Subscriber:Spouse Name:WESTLEY DAN Date of :1970 (Home) Address: [address] [place] [address] Payer ID:[id number] Group ID:[id number] Type:Not on file Address: [facility] [id number] [place] [address] Care Teams Software Recruiter Relationship Specialty Start Date End Date Fernando Pickens MD [address] [place] [address] [place] [address] PCP - General Internal Medicine 01/28/20
--- OUTSIDE RECORDS SUMMARY | 2024-08-04 15:37 | XMS_ITS ---
Author Organization [facility] Address [address] [place] [address] Phone Care Team Providers Care Spa Receptionist Name Role Phone Fernando Pickens MD Primary Care Provider [phone] Transitional Care Management Status:Identified (Enrolling) Start date:07/15/2024 Enrollment reason:Identified using hospital discharge data Case Team Name Relationship Phone Zunilda Castanon LPN Care Manager(Responsible Staf f) Continued Care and Services Coordination
== END ==
LOC: HO.HBST 13:11
PROVIDERS: PCP Internal Medicine; Visit Provider Counselor Mental Health
DX: F43.20 Adjustment disorder, unspecified (principal); Z72.4 Inappropriate diet and eating habits
CPT/HCPCS: 90837

== ENCOUNTER 2024-08-10 13:17 | Outpatient (AMB) | payer BC, MEDICARE, SELFPAY ==
--- NOTE | 2024-08-10 13:02 | A.OFFVIS_ITS ---
VS Expanded 08/10/24 13:06 Height 5 ft 9 in Weight 203 lb BMI 30.0 Intake Visit Reasons: TV PO LSG 07/14/2024 Allergies aclidinium [Tudorza Pressair] Allergy (Intermediate, Verified 07/20/24 10:00) Hives Medication List - Last Reconciled 08/10/24 by DWAYNE Zurita albuterol sulfate 90 mcg/actuation 2 puffs PO Q6H PRN atorvastatin 20 mg PO DAILY budesonide-formoterol 160-4.5 mcg/actuation (Symbicort) 2 puffs inhalation BID 30 days cetirizine 10 mg PO DAILY fluticasone propionate 50 mcg/actuation 2 sprays intranasal DAILY 90 days ipratropium-albuterol 0.5 mg-3 mg(2.5 mg base)/3 mL 3 mL inhalation DAILY PRN lamotrigine 25 mg PO DAILY lidocaine 5% 1 patch topical DAILY PRN miscellaneous medical supply compression stockings 15-20 mmhg up to mid thigh montelukast 10 mg PO DAILY pantoprazole 40 mg PO DAILY@0630 pregabalin 150 mg PO DAILY pregabalin 200 mg PO BEDTIME roflumilast 500 mcg PO DAILY sucralfate 10 mL PO BID HPI Comments Details: This?is a?54?yo F who is s/p LSG 07/14/2024. Presents for 4w post op visit. Weight at last visit on 07/20/2024 was 211.2 pounds with a BMI of 31.2, weight today is 203 pounds, representing a 8.2 pound weight loss with a BMI today of 30.? No complaints of nausea, emesis, abdominal pain or reflux, or constipation. Present meal plan includes: started having cravings for meat but not hungry 2 shakes with 2 scoops 1 shake with 1 scoop Celebrate protein bar hydration is adequate Exercise routine includes: 45min-1hr on bike, 5x/week PFSH Medical History Gastric polyps Seizure Environmental and seasonal allergies History of blood transfusion (~1994) Low back pain Vertigo GERD (gastroesophageal reflux disease) DJD (degenerative joint disease) COPD (chronic obstructive pulmonary disease) Hyperlipidemia BMI 36.0-36.9,adult Obesity Cough Hepatitis C antibody positive in blood Leg length discrepancy Pulmonary nodules CANDELARIA on CPAP Asthma Insomnia Fibromyalgia Seronegative rheumatoid arthritis Surgical History History of total knee replacement History of knee surgery Hx of detached retina repair History of ankle surgery History of colon resection Hx of colonoscopy History of total knee arthroplasty Hx of cholecystectomy H/O bilateral breast reduction surgery Hx of tubal ligation Family History Maternal Grandmother Skin cancer Maternal Aunt Breast cancer Maternal Uncle Prostate cancer Mother No problems noted. Father No problems noted. Social History Household Members: Spouse Housing: House Are you a primary emergency care attendant to a significant other at home: No Do you presently have visiting nurse or other home services: No Alcohol intake: current Alcohol intake frequency: does not drink Patient Tobacco Use Status: Never used Tobacco Second Hand Smoke Exposure: No service: No Current occupational status: disabled Telehealth Telehealth Telehealth Platform: Telephone Location of provider rendering services: other Location of patient: address on file Patient Identification confirmed using: Name, : Yes Telehealth method: voice only Patient verbally consented to treatment: Yes Patient verbally consented to billing insurance company: Yes Patient informed of any privacy concerns related to visit: Yes Minutes spent on Phone/Video with Pt.: 15 Assessment & Plan Assessment & Plan (1) S/P laparoscopic sleeve gastrectomy: Code(s): Z98.84 - Bariatric surgery status Category: Medical (2) Status post repair of paraesophageal diaphragmatic hernia: Code(s): Z98.890 - Other specified postprocedural states; Z87.19 - Personal history of other diseases of the digestive system Category: Medical (3) Obesity: Code(s): E66.9 - Obesity, unspecified Category: Medical Qualifiers: Obesity type: due to excess calories Obesity classification: adult class 2 (BMI 35 - 39.9) Serious obesity comorbidity presence: with serious comorbidity Body mass index: BMI 36.0-36.9 Qualified Code(s): E66.812 - Obesity, class 2; E66.01 - Morbid (severe) obesity due to excess calories; Z68.36 - Body mass index [BMI] 36.0-36.9, adult Plan Pt to continue weekly checkin with Dr Rivera sending measurements. Reviewed heavy lifting restriction until 6w postop. Continue PPI/carafate. RTC 1 month.
--- OUTSIDE RECORDS SUMMARY | 2024-08-10 15:47 | XMS_ITS ---
Author Organization [facility] Address [address] [place] [address] Phone Care Team Providers Care K 12 Principal Name Role Phone Fernando Pickens MD Primary Care Provider [phone] Transitional Care Management Status:Identified (Enrolling) Start date:07/15/2024 Enrollment reason:Identified using hospital discharge data Case Team Name Relationship Phone Zunilda Castanon LPN Care Manager(Responsible Staf f) Continued Care and Services Coordination
--- OUTSIDE RECORDS SUMMARY | 2024-08-10 15:47 | XMS_ITS | Encounter Summary ---
Author Organization [facility] Address [address] [place] [address] Care Team Providers Care Bulk Receiver Name Role Phone Fernando Pickens MD Primary Care Provider [phone] Reason for Visit * Reason Comments Hospital Follow-up No concerns Encounter Details Date Type Department Care Team ([facility] st Contact Info) Description 08/06/2024 10:30 AM EDT [facility] [address] [place] [address] Álvaro Estrada NP [address] [place] [address] Iron deficiency anemia, unspecified iron deficiency anemia type (Primary Dx) Social History Tobacco Use Types Packs/Day Years Used Date Smoking Tobacco: Never Smokeless Tobacco: Never Tobacco Cessation:Counseling Given: No Alcohol Use Standard Drinks/Week Comments Not Currently [...] for your loved ones. For example, child support investigator or elderly care for an older adult? [...] Sign Reading Time Taken Comments Blood Pressure 107/73 08/06/2024 10:44 AM EDT auto Pulse 69 08/06/2024 10:44 AM EDT Temperature - - Respiratory Rate - - Oxygen Saturation - - Inhaled Oxygen Concentration - - Weight 96.9 kg (213 lb 11.2 oz) 025 10:44 AM EDT Height 175.3 cm (5' 9 ) 08/06/2024 10:4 4 AM EDT Body Mass Index 31.56 08/06/2024 10:44 AM EDT documented in this encounter Progress Notes * Álvaro Estrada NP - 08/06/2024 10:30 AM EDT CHIEF COMPLAINT: Hospital Follow-up (No concerns ) had concerns including Hospital Follow-up (No concerns ). IDENTIFIER: Pam Weldon is a 54 y.o. old female HPI: Pam Weldon is a 54 y.o. old female presents to the office for evaluation of Hospital Follow-up(No concerns ) had concerns including Hospital Follow-up (No concerns ). Patient is here post hospitalization at [facility] on July 14 when she had elective bariatricsurgery, she was advised 1 day after, no complication, she has results of blood work which was donein the hospital showed anemia with hemoglobin above 10, otherwise results was normal. She is told to stop taking atorvastatin and she has not resumed taking it, also montelukast has been discontinuedin addition to methotrexate and baclofen. She has started pantoprazole and sucralfate and Tylenol as needed for pain ROS: See HPI PAST MEDICAL HISTORY: Patient Active Problem List Diagnosis Date Noted Chronic obstructive pulmonary disease ([facility] V24, [facility] V28) 02/20/2024 Class 2 obesity 02/20/2024 CAICEDO (dyspnea on exertion) 02/12/2024 Syncope 02/12/2024 Closed fracture of coccyx ([facility] V24, [facility] V28) 11/27/2023 Deep vein thrombosis (DVT) of distal vein of right lower extremity ([facility] V24, [facility] V28) 02/21/2022 History of total right knee replacement 02/21/2022 History of COVID-19 01/07/2022 Bradycardia 07/04/2021 Dizziness 07/04/2021 HLD (hyperlipidemia) 06/20/2021 Hypertension 05/18/2020 Seronegative rheumatoid arthritis ([facility] V24, [facility] V28) 05/18/2020 Retinal detachment, right 01/28/2020 Opiate use 06/11/2019 Obesity 10/02/2018 Osteoarthritis of both knees 08/20/2017 Chronic polyarthritis 06/27/2017 CADNELARIA (obstructive sleep apnea) 03/09/2017 Hyperthyroidism 09/28/2016 Migraine 09/27/2016 Allergic rhinitis 09/06/2016 Asthma 09/06/2016 Fibromyalgia 09/06/2016 GERD (gastroesophageal reflux disease) 09/06/2016 Positive hepatitis C antibody test 09/06/2016 ACTIVE MEDICATIONS: Outpatient Medications Marked as Taking for the 08/06/24 encounter (Office Visit) with Álvaro Estrada NP Medication Sig Dispense Refill albuterol HFA (PROAIR HFA ; PROVENTIL HFA ; VENTOLIN HFA) 90 mcg/actuation inhaler Inhale 1-2 puffsby mouth. budesonide-formoteroL (SYMBICORT) 160-4.5 mcg/actuation inhaler INHALE 2 PUFFS INHALED 2 TIMES A DAY FOR 30 DAYS cetirizine (ZyrTEC) 10 mg tablet Take 1 tablet (10 mg total) by mouth 1 (one) time each day. Daliresp 500 mcg tablet Take 1 tablet (500 mcg total) by mouth 1 (one) time each day. fluticasone propionate (FLONASE) 50 mcg/actuation nasal spray Administer 2 sprays into each nostril1 (one) time each day. ipratropium-albuteroL (DUONEB) 0.5-2.5 mg/3 mL nebulizer solution pantoprazole (PROTONIX) 40 mg EC tablet Take 1 tablet (40 mg total) by mouth 1 (one) time each day. pregabalin (LYRICA) 150 mg capsule pregabalin (LYRICA) 200 mg capsule sucralfate (CARAFATE) 100 mg/mL suspension DRINK 10 ML BY MOUTH 2 TIMES A DAY [DISCONTINUED] atorvastatin (LIPITOR) 20 mg tablet TAKE 1 TABLET BY MOUTH EVERY DAY 30 tablet 0 [DISCONTINUED] benzonatate (TESSALON) 200 mg capsule TAKE 1 CAPSULE ORALLY 2 TIMES A DAY NEEDED FOR COUGH FOR 30 DAYS [DISCONTINUED] cholecalciferol (VITAMIN D-3) 50 mcg (2,000 unit) tablet Take 1 tablet (2,000 Units total) by mouth 1 (one) time each day. [DISCONTINUED] lidocaine (LIDODERM) 5 % patch APPLY 1 PATCH TOPICALLY DAILY [DISCONTINUED] meclizine (ANTIVERT) 25 mg tablet Take 1 tablet (25 mg total) by mouth 3 (three) times a day if needed for dizziness. [DISCONTINUED] montelukast (SINGULAIR) 10 mg tablet Take 1 tablet (10 mg total) by mouth. ALLERGIES: @ALL@ PHYSICAL EXAM: Visit Vitals BP 107/73 Comment: auto Pulse 69 Ht 1.753 m (69 ) Wt 96.9 kg (213 lb 11.2 oz) BMI 31.56 kg/m?? OB Status Postmenopausal Smoking Status Never BSA 2.12 m?? APPEARANCE: Alert and in no acute distress HEART: RRR with normal S1 and S2, no murmurs, no gallops, no JVD appreciated LUNG: clear to auscultation EXTREMITIES: Extremities warm and well perfused without clubbing, cyanosis, or edema LABS: @LASTDATALABS@ IMPRESSION: 1. Iron deficiency anemia, unspecified iron deficiency anemia type PLAN: Patient is here post bariatric surgery at the beginning of this month without complication, lost 40pounds postsurgery, has been taking pantoprazole and sucralfate per her bariatric surgeon recommendation. She has history of fibromyalgia for which takes Lyrica 150 in the morning and 200 at night managed and recommended by her early morning babysitter. She has history of seizure for which she takes lamotrigine managed and recommended by her neurology For COPD/asthma, she has been switched to Daliresp from singular by her pulmonology, also on Symbicort, albuterol and DuoNeb, has no issue For hyperlipidemia, has stopped taking atorvastatin, will resume based on future blood work and assessment She was a little anemic and blood work done in the hospital, I updated labs as follows She is up-to-date on colon cancer screening which was done in 2020 and advised to repeat in 10 years. She has already scheduled follow-up appointment Orders Placed This Encounter Procedures CBC and differential Vitamin B12 Iron and TIBC ADDITIONAL ORDERS: None Today's documentation was made using voice recognition software.This note may contain grammatical errors secondary to this software. Álvaro Estrada NP on 08/06/2024 at 1:37 PM EDT documented in this encounter Plan of Treatment Upcoming Encounters Date Type Department Care Team (Late st Contact Info) Description 08/13/2024 1:00 PM EDT Office Visit Gastroenterology - [facility] [address] [place] [id number] April Rodriguez, BINDU [address] [facility] [address] [place] [address] 09/16/2024 9:30 AM EDT Office Visit Internal Medicine - [address] [phone] Fernando Pickens MD [address] [place] [address] Scheduled Orders Name Type Priority Associated Diagnoses Orde r Schedule CBC and differential Lab Routine Iron deficiency anemia, unspecified iron deficiency anemia type Expected: 08/06/2024 (Approximate), Expires: 10/06/2024 Vitamin B12 Lab Routine Iron deficiency anemia, unspecified iron deficiency anemia type 1 Occurrences starting 08/06/2024 until 08/06/2025 Iron and TIBC Lab Routine Iron deficiency anemia, unspecified iron deficiency anemia type 1 Occurrences starting 08/06/2024 until 08/06/2025 documented as of this encounter Visit Diagnoses Diagnosis Iron deficiency anemia, unspecified iron deficiency anemia type- Primary documented in this encounter Discontinued Medications Medication Sig Discontinue Reason Start Date End Da te baclofen (LIORESAL) 10 mg tablet Take 1 tablet (10 mg total) by mouth. Patient Discharge 08/06/2024 clotrimazole-betamethas one (LOTRISONE) 1-0.05 % cream Apply thin layer to affected area BID for 2 weeks then stop. Avoid face and groin. Patient Discharge 04/27/2024 08/06/2024 folic acid (FOLVITE) 1 mg tablet Take 1 tablet (1,000 mcg total) by mouth 1 (one) time each day. Patient Discharge 08/06/2024 methotrexate 2.5 mg tablet Take 8 tablets (20 mg total) by mouth 1 (one) time per week Patient Discharge 08/06/2024 Trelegy Ellipta 200-62.5-25 mcg inhaler Patient Discharge 03/24/20212024 benzonatate (TESSALON) 200 mg capsule TAKE 1 CAPSULE ORALLY 2 TIMES A DAY NEEDED FOR COUGH FOR 30 DAYS 10/03/2023 08/06/2024 atorvastatin (LIPITOR) 20 mg tablet TAKE 1 TABLET BY MOUTH EVERY DAY 06/18/2024 08/06/2024 meclizine (ANTIVERT) 25 mg tablet Take 1 tablet (25 mg total) by mouth 3 (three) times a day if needed for dizziness. 12/06/2023 08/06/2024 lidocaine (LIDODERM) 5 % patch APPLY 1 PATCH TOPICALLY DAILY 10/10/2023 08/06/2024 montelukast (SINGULAIR) 10 mg tablet Take 1 tablet (10 mg total) by mouth. 01/10/2018 08/06/2024 cholecalciferol (VITAMIN D-3) 50 mcg (2,000 unit) tablet Take 1 tablet (2,000 Units total) by mouth 1 (one) time each day. 10/28/2023 08/06/2024 documented as of this encounter Historical Medications * This list may reflect changes made after this encounter. sucralfate (CARAFATE) 100 mg/mL suspension DRINK 10 ML BY MOUTH 2 TIMES A DAY 07/08/2024 pantoprazole (PROTONIX) 40 mg EC tablet Take 1 tablet (40 mg total) by mouth 1 (one) time each day. 07/08/2024 budesonide-formot Deanna (SYMBICORT) 160-4.5 mcg/actuation inhaler INHALE 2 PUFFS INHALED 2 TIMES A DAY FOR 30 DAYS 07/08/2024 meclizine (ANTIVERT) 25 mg tablet Take 1 tablet (25 mg total) by mouth 3 (three) times a day if needed for dizziness. 12/06/2023 08/06/2024 added in this encounter Additional Health Concerns Assessment Noted Time PHQ-9 Depression Total Score: 0 07/29/19 25 1:32 PM EDT documented as of this encounter Care Teams Bulk Receiver Relationship Specialty Start Date End Date Fernando Pickens MD [address] [place] [id number] PCP - General Internal Medicine 01/28/20 documented as of this encounter
--- OUTSIDE RECORDS SUMMARY | 2024-08-10 15:47 | XMS_ITS | Encounter Summary ---
Author Organization [facility] Address [address] [place] [address] Care Team Providers Care Intelligence Operations Name Role Phone Fernando Pickens MD Primary Care Provider [phone] Reason for Referral * Imaging (Routine) - Pending Review Specialty Diagnoses / Procedures Referred By Contac t Referred To Contact Radiology Diagnoses Epilepsy, unspecified, not intractable, without status epilepticus (CMS/HCC V24, [facility] V28) Procedures MR Brain wo and w Contrast Kira Mcdonald MD [address] [place] [address] [place] [address] Phone: tel: fax: [facility] Referral ID Status Reason Start Date Expiration Date V isits Requested Visits Authorized [id number] Pending Review 07/27/2024 07/27/2025 1 1 Reason for Visit * Imaging (Routine) - Pending Review Specialty Diagnoses / Procedures Referred By Contac t Referred To Contact Radiology Diagnoses Epilepsy, unspecified, not intractable, without status epilepticus ([facility]/HCC V24, [facility] V28) Procedures MR Brain wo and w Contrast Kira Mcdonald MD [address] [place] [address] [place] [address] Phone: tel: fax: [facility] Referral ID Status Reason Start Date Expiration Date V isits Requested Visits Authorized [id number] Pending Review 07/27/2024 07/27/2025 1 1 Encounter Details Date Type Department Care Team (Latest Contact Info) Description 08/05/2024 11:22 AM EDT - 08/05/2024 11:59 PM EDT Hospital Encounter [facility] MRI [address] [place] [address] Epilepsy, unspecified, not intractable, without status epilepticus ([facility] V24, [facility] V28) Discharge Disposition: Home or Self Care Social History Tobacco Use Types Packs/Day Years [...] Record ed Within the last 3 months, santino christine many times did you visit the emergency [...] care for your loved ones. For example, rn maternal child or elderly care for an older adult? [...] PM EST documented as of this encounter Medications at Time of Discharge albuterol HFA (PROAIR HFA ; PROVENTIL HFA ; VENTOLIN HFA) 90 mcg/actuation inhaler Inhale 1-2 puffs by mouth. budesonide-formot Deanna (SYMBICORT) 160-4.5 mcg/actuation inhaler INHALE 2 PUFFS INHALED 2 TIMES A DAY FOR 30 DAYS 07/08/2024 cetirizine (ZyrTEC) 10 mg tablet Take 1 tablet (10 mg total) by mouth 1 (one) time each day. 11/17/2018 Daliresp 500 mcg tablet Take 1 tablet (500 mcg total) by mouth 1 (one) time each day. 11/17/2018 fluticasone propionate (FLONASE) 50 mcg/actuation nasal spray Administer 2 sprays into each nostril 1 (one) time each day. 07/21/2019 ipratropium-albut Deanna (DUONEB) 0.5-2.5 mg/3 mL nebulizer solution 03/24/2021 omeprazole (PriLOSEC) [address] capsuleIndication s:Gastro-esophage al reflux disease without esophagitis TAKE 1 CAPSULE BY MOUTH EVERY DAY 90 capsule 06/24/2024 pantoprazole (PROTONIX) 40 mg EC tablet Take 1 tablet (40 mg total) by mouth 1 (one) time each day. 07/08/2024 pregabalin (LYRICA) 150 mg capsule 07/02/2023 pregabalin (LYRICA) 200 mg capsule 06/04/2023 sucralfate (CARAFATE) 100 mg/mL suspension DRINK 10 ML BY MOUTH 2 TIMES A DAY 07/08/2024 atorvastatin (LIPITOR) 20 mg tablet TAKE 1 TABLET BY MOUTH EVERY DAY 30 tablet 06/18/2024 baclofen (LIORESAL) 10 mg tablet Take 1 tablet (10 mg total) by mouth. 5 benzonatate (TESSALON) 200 mg capsule TAKE 1 CAPSULE ORALLY 2 TIMES A DAY NEEDED FOR COUGH FOR 30 DAYS 10/03/2023 cholecalciferol (VITAMIN D-3) 50 mcg (2,000 unit) tablet Take 1 tablet (2,000 Units total) by mouth 1 (one) time each day. 10/28/2023 5 clotrimazole-beta methasone (LOTRISONE) 1-0.05 % cream Apply thin layer to affected area BID for 2 weeks then stop. Avoid face and groin. 30 g 04/27/2024 5 folic acid (FOLVITE) 1 mg tablet Take 1 tablet (1,000 mcg total) by mouth 1 (one) time each day. 5 lidocaine (LIDODERM) 5 % patch APPLY 1 PATCH TOPICALLY DAILY 10/10/2023 5 meclizine (ANTIVERT) 25 mg tablet Take 1 tablet (25 mg total) by mouth 3 (three) times a day if needed for dizziness. 12/06/2023 5 methotrexate 2.5 mg tablet Take 8 tablets (20 mg total) by mouth 1 (one) time per week 5 montelukast (SINGULAIR) 10 mg tablet Take 1 tablet (10 mg total) by mouth. 01/10/2018 5 Trelegy Ellipta 200-62.5-25 mcg inhaler 03/24/2021 5 documented as of this encounter Discharge Disposition Disposition Code Departure Means Destination Home or Self Care documented in this encounter Plan of Treatment Upcoming Encounters Date Type Department Care Team (Late st Contact Info) Description 08/13/2024 1:00 PM EDT Office Visit Gastroenterology - [place] [address] [facility] [address] [place] [phone] April Rodriguez NP [address] [facility] [address] [place] [address] 09/16/2024 9:30 AM EDT Office Visit Internal Medicine - [facility] [address] [place] [address] Fernando Pickens MD [address] [place] [address] documented as of this encounter Procedures Procedure Name Priority Date/Time Associated Diagnosis Comments MR BRAIN WO AND W CONTRAST Routine 08/05/2024 1:03 PM EDT Epilepsy, unspecified, not intractable, without status epilepticus ([facility] V24, [facility] V28) documented in this encounter Results * MR Brain wo and w Contrast (08/05/2024 1:03 PM EDT) Anatomical Region Laterality Modality Head and Neck Magnetic Resonan ce 08/05/2024 1:42 PM EDT Impressions 08/05/2024 1:47 PM EDT 1. ??Partially empty sella. ??This is a relatively common finding which can be seen in asymptomatic patients, but has been associated with pseudotumor cerebri and requires correlation with the patient's clinical presentation. 2. ??Otherwise unremarkable MRI appearance of the brain. -------- FINAL REPORT -------- Dictated By: Can Martin Dictated Date: 08/05/2024 13:42 ET Assigned Physician: Can Martin Reviewed and Electronically Signed By: Can Martin Signed Date: 08/05/2024 13:47 ET Workstation ID: [id number] Transcribed By: Self Edit Transcribed Date: 08/05/2024 13:42 ET Narrative 08/05/2024 1:47 PM EDT PROCEDURE: Contrast-enhanced MRI of the brain. HISTORY: Epilepsy. TECHNIQUE: Multiplanar multisequence MRI of the brain with and without intravenous contrast. IV CONTRAST DOSE: 20 mL intravenous Dotarem from a 20 mL vial with 0 mL discarded. COMPARISON: A report from a previous study dated 12/27/2023 is reviewed. ??Images from that study are not available for comparison. FINDINGS: BRAIN: No diffusion abnormality. ??No mass or extra-axial fluid collection. ??No hydrocephalus. ??The major intracranial flow voids are preserved. Age commensurate ventricles and sulci. ??No abnormal enhancement. ??Partially empty sella. ??Dedicated coronal imaging through the hippocampi demonstrates no findings to suggest mesial temporal sclerosis. ORBITS: Normal. SINUSES/MASTOIDS: Trace left mastoid fluid. CALVARIUM: Mild hyperostosis frontalis interna. OTHER: The visualized skull base soft tissues are normal. Procedure Note Can Martin MD - 08/05/2024 PROCEDURE: Contrast-enhanced MRI of the brain. HISTORY: Epilepsy. TECHNIQUE: Multiplanar multisequence MRI of the brain with and withoutintravenous contrast. IV CONTRAST DOSE: 20 mL intravenous Dotarem from a 20 mL vial with 0 mLdiscarded. COMPARISON: A report from a previous study dated 12/27/2023 is reviewed.Images from that study are not available for comparison. FINDINGS: BRAIN: No diffusion abnormality. No mass or extra-axial fluid collection.No hydrocephalus. The major intracranial flow voids are preserved. Agecommensurate ventricles and sulci. No abnormal enhancement. Partiallyempty sella. Dedicated coronal imaging through the hippocampidemonstrates no findings to suggest mesial temporal sclerosis. ORBITS: Normal. SINUSES/MASTOIDS: Trace left mastoid fluid. CALVARIUM: Mild hyperostosis frontalis interna. OTHER: The visualized skull base soft tissues are normal. IMPRESSION: 1. Partially empty sella. This is a relatively common finding which canbe seen in asymptomatic patients, but has been associated with pseudotumorcerebri and requires correlation with the patient's clinicalpresentation. 2. Otherwise unremarkable MRI appearance of the brain. -------- FINAL REPORT -------- Dictated By: Can Martin Dictated Date: 08/05/2024 13:42 ET Assigned Physician: Can Martin Reviewed and Electronically Signed By: Can Martin Signed Date: 08/05/2024 13:47 ET Workstation ID: [id number] Transcribed By: Self Edit Transcribed Date: 08/05/2024 13:42 ET Kira Mcdonald MD [facility] MRI PROCEDURES Final Re sult documented in this encounter Visit Diagnoses Diagnosis Epilepsy, unspecified, not intractable, without status epilepticus (CMS/HCC V24, CMS/HCC V28) documented in this encounter Administered Medications Inactive Administered Medications - up to 3 most recent administrations Medication Order MAR Action Action Date Dose Rate Site gadoterate meglumine (CLARISCAN, DOTAREM) injection 20 mL 20 mL, intravenous, Once in imaging, Starting on Sat08/05/24 at 1156, For 1 dose Given 08/05/2024 1:03 PM EDT 20 mL documented in this encounter Orders Medications Ordered That Bryson ht Not Have Been Administered Count Last Ordered Date First Ordered Date gadoterate meglumine (LG CAN, DOTAREM) injection 20 mL 1 08/05/2024 documented in this encounter Additional Health Concerns Assessment Noted Time PHQ-9 Depression Total Score: 0 07/29/19 25 1:32 PM EDT documented as of this encounter Care Teams Intelligence Operations Relationship Specialty Start Date End Date Fernando Pickens MD [address] [place] [address] PCP - General Internal Medicine 01/28/20 documented as of this encounter
--- OUTSIDE RECORDS SUMMARY | 2024-08-10 15:47 | XMS_ITS | Clinical Summary ---
Author Organization [facility] Address [address] [place] [address] Phone Care Team Providers Care Environmental Assistant Name Role Phone Fernando Pickens MD Primary Care Provider [phone] Allergies Active Allergy Reactions Criticality Noted Date Comments Aclidinium Bo[place] Hives,Nausea And Vomiting High 02/18/2022 Tudorza Pressair [Aclidinium [place]] Mometasone-Formoterol 08/06/2024 Medications pregabalin (LYRICA) 150 mg capsule 07/02/19 24 Active pregabalin (LYRICA) 200 mg capsule 06/04/19 24 Active ipratropium-al buteroL (DUONEB) 0.5-2.5 mg/3 mL nebulizer solution 03/24/20 21 Active fluticasone propionate (FLONASE) 50 [...] (one) time each day. 11/18/19 19 Active albuterol HFA (PROAIR HFA ; PROVENTIL HFA ; VENTOLIN HFA) 90 mcg/actuation inhaler Inhale 1-2 puffs by mouth. Active omeprazole (PriLOSEC) [address] King ions:Gastro-es ophageal reflux disease without esophagitis TAKE 1 CAPSULE BY MOUTH EVERY DAY 90 capsule 06/25/19 25 Active budesonide-for moteroL (SYMBICORT) 160-4.5 mcg/actuation inhaler INHALE 2 PUFFS INHALED 2 TIMES A DAY FOR 30 DAYS 07/09/19 25 Active pantoprazole (PROTONIX) 40 mg EC tablet Take 1 tablet (40 mg total) by mouth 1 (one) time each day. 07/09/19 25 Active sucralfate (CARAFATE) 100 mg/mL suspension DRINK 10 ML BY MOUTH 2 TIMES A DAY 07/09/19 25 Active cholecalcifero l (VITAMIN D-3) 50 mcg (2,000 unit) tablet Take 1 tablet (2,000 Units total) by mouth 1 (one) time each day. 10/28/19 24 025 Discontinued methotrexate 2.5 mg tablet Take 8 tablets (20 mg total) by mouth 1 (one) time per week 025 Discontinued(Pa tient Discharge) folic acid (FOLVITE) 1 mg tablet Take 1 tablet (1,000 mcg total) by mouth 1 (one) time each day. 025 Discontinued(Pa tient Discharge) baclofen (LIORESAL) 10 mg tablet Take 1 tablet (10 mg total) by mouth. 025 Discontinued(Pa tient Discharge) Trelegy Ellipta 200-62.5-25 mcg inhaler 03/24/20 21 025 Discontinued(Pa tient Discharge) montelukast (SINGULAIR) 10 mg tablet Take 1 tablet (10 mg total) by mouth. 01/11/20 18 025 Discontinued benzonatate (TESSALON) 200 mg capsule TAKE 1 CAPSULE ORALLY 2 TIMES A DAY NEEDED FOR COUGH FOR 30 DAYS 10/03/19 24 025 Discontinued lidocaine (LIDODERM) 5 % patch APPLY 1 PATCH TOPICALLY DAILY 10/10/19 24 025 Discontinued clotrimazole-b etamethasone (LOTRISONE) 1-0.05 % cream Apply thin layer to affected area BID for 2 weeks then stop. Avoid face and groin. 30 g 04/27/19 25 025 Discontinued(Pa tient Discharge) atorvastatin (LIPITOR) 20 mg tablet TAKE 1 TABLET BY MOUTH EVERY DAY 30 tablet 06/19/19 25 025 Discontinued meclizine (ANTIVERT) 25 mg tablet Take 1 tablet (25 mg total) by mouth 3 (three) times a day if needed for dizziness. 12/06/19 24 025 Discontinued Active Problems Problem Noted Date Diagnosed Date Chronic obstructive pulmonar y disease ([facility] V24, [facility] V28) 02/20/2024 Class 2 obesity 02/20/2024 CAICEDO [...] use compression stockings. Closed fracture of coccyx ([facility] V24, [facility] V28) 11/27/2023 Overview (02/20/2024): Last Assessment & Plan: Ms. Weldon had a fall in [place] down some stairs about 10 days ago. She has had pain at the bottom of her spine since. She says that on occasion she will get numbness and tingling in the back of the right leg in an S1 distribution. She is taking Tylenol, baclofen, Lamictal, and using 2 lidocaine patches with some relief. She is neurologically intact. X-rays from [place] on November 21 do reveal a comminuted [...] f distal vein of right lower extremity ([facility] V24, [facility] V28) 02/21/2022 History of total right knee [...] exercise as tolerated. Seronegative rheumatoid arth ritis ([facility] V24, [facility] V28) 05/18/2020 Retinal detachment, right 01/28/2020 Overview (02/20/2024): Surgical repair 12/04/[address] Feliberto Mathur at [facility] [place], [place] Opiate use 06/11/2019 Obesity 10/02/2018 Osteoarthritis of both knees 08/20/2017 Chronic polyarthritis 06/27/2017 CANDELARIA (obstructive sleep apnea) 03/09/2017 Overview (02/20/2024): [facility] Home Polysomnogram: Date 01/21/2018; AHI [...] Overview (02/20/2024): 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 GERD (gastroesophageal reflux disease) 7 Positive hepatitis C antibody test 09/06/2016 Overview (02/20/2024): Hx of negative load test Encounters Date Type Department Care Team Description 08/06/2024 10:30 AM EDT Office Visit Internal Medicine - [facility] [address] [place] [phone] Álvaro Estrada NP Iron deficiency anemia, unspecified iron deficiency anemia type (Primary Dx) 08/05/2024 11:22 AM EDT - 08/05/2024 11:59 PM EDT Hospital Encounter [facility] MRI [address] [place] [phone] Epilepsy, unspecified, not intractable, without status epilepticus (CMS/HCC V24, CMS/HCC V28) Discharge Disposition: Home or Self Care 07/31/2024 Telephone [facility] [address] [place] [phone] Fernando Pickens MD Hospital Follow-up 06/19/2024 11:00 AM EST - 06/19/2024 11:59 PM EST Hospital Encounter [facility] Neurodiagnostic [address] [place] [phone] Discharge Disposition: Home or Self Care 06/18/2024 11:00 AM EST - 06/18/2024 11:59 PM EST Hospital Encounter [facility] [address] [place] [address] Discharge Disposition: Home or Self Care 06/17/2024 9:37 AM EST - 06/17/2024 11:59 PM EST Hospital Encounter [facility] [address] [place] [address] Discharge Disposition: Home or Self Care 06/16/2024 11:00 AM EST Ancillary Procedure [facility] [address] [place] [address] Dizziness; Syncope, unspecified syncope type; [...] 6mo and older 02/29/2020 Influenza, Unspecified 03/27/2021 Sojern SARS-CoV-2 COVID-19, mRNA, LNP-S, preservative free 08/08/2020,07/18/2020 Pneumococcal polysaccharide 23 valent (Pneumovax 23) 2yo and older 10/18/2016 Tdap Tetanus diptheria acell ular pertussis (Boostrix; Adacel) 7yo and older 04/22/2017 Zoster recombinant (Shingrix ) 19yo and older 07/04/2021 Surgical History Surgery Date Site/Laterality Comments TUBAL LIGATION PROCEDURE: HISTORICAL TUBAL LIGATION BREAST REDUCTION PROCEDURE: VT BREAST REDUCTION CHOLECYSTECTOMY PROCEDURE: HISTORICAL CHOLECYSTECTOMY BREAST BIOPSY PROCEDURE: BX BREAST; PERC NEEDLE CORE W/IMAG GUID; COMMENT: PATIENT STATES SHE HAS HAD 4 BIOPSIES ALL ON THE LEFT SIDE ANKLE FRACTURE SURGERY 08/21/2015 Left PROCEDURE: VT OPEN TREATMENT MEDIAL MALLEOLUS FRACTURE; COMMENT: Dr Anastasia Carver at [facility], hardware was removed 8 mo later except one screw TOTAL KNEE ARTHROPLASTY 10/21/2018 Left PROCEDURE: VT ARTHRP KNE CONDYLE&PLATU MEDIAL&LAT COMPARTMENTS; COMMENT: Dr Francesco Grewal at [facility] Medical History Medical History Date Comments [...] Feliberto Mathur at [facility] [place], [place] HLD (hyperlipidemia) 06/20/2021 DX:HLD (hyp erlipidemia) [...] for your loved ones. For example, child welfare director or elderly care for an older adult? [...] AM EDT Temperature - - Respiratory Rate 18 04/27/2024 10:4 7 AM EST Oxygen Saturation 98% 03/25/2024 9:14 AM EST Inhaled Oxygen Concentration - - Weight 96.9 kg (213 lb 11.2 oz) 025 10:44 AM EDT Height 175.3 cm (5' 9 ) 08/06/2024 10:4 4 AM EDT Body Mass Index 31.56 08/06/2024 10:44 AM EDT Plan of Treatment Upcoming Encounters Date Type Department Care Team (Late st Contact Info) Description 08/13/2024 1:00 PM EDT Office Visit Gastroenterology - [facility] [address] [phone] April Rodriguez NP [address] [facility] [address] [place] [address] 09/16/2024 9:30 AM EDT Office Visit Internal Medicine - [address] [phone] Fernando Pickens MD [address] [place] [phone] Health Maintenance Due Date Last Done Comments [...] without status epilepticus (CMS/HCC V24, CMS/HCC V28) EXTERNAL CLINICAL LAB 06/19/2024 CONTINUOUS EEG Routine 06/18/2024 11:34 AM EST Epilepsy, unspecified, not intractable, without status epilepticus (CMS/HCC V24, CMS/HCC V28) TRANSTHORACIC ECHOCARDIOGRAM (TTE) COMPLETE Routine 06/16/2024 11:36 AM EST Dizziness Syncope, unspecified syncope type CAICEDO (dyspnea on exertion) EXTERNAL XRAY REPORT 06/12/2024 EXTERNAL XRAY REPORT 05/14/2024 EXTERNAL XRAY REPORT 05/14/2024 EXTERNAL ULTRASOUND REPORT 05/12/2024 EXTERNAL ULTRASOUND REPORT 05/12/2024 HPV WITH REFLEX GENOTYPE Routine 04/27/2024 2:59 PM EST Encounter for annual physical examination excluding gynecological examination in a patient older than 17 years MAMMO DIGITAL SCREENING W ARVIN BILAT Routine 02/18/2024 3:59 PM EST Referred by self ANNUAL BMP BLOOD TEST Routine 11/08/2023 LIPID PANEL Routine 11/08/2023 HEPATITIS C SCREENING Routine 05/31/2022 COLONOSCOPY Routine 06/21/2020 from Last 3 Months or Most Recently Relevant to Health Maintenance Results * MR Brain wo and w [...] Signed Date: 08/05/2024 13:47 ET Workstation ID: [id number] Transcribed By: Self Edit Transcribed Date: 08/05/2024 [...] Signed Date: 08/05/2024 13:47 ET Workstation ID: [id number] Transcribed By: Self Edit Transcribed Date: 08/05/2024 13:42 ET Kira Mcdonald MD IMG MRI PROCEDURES Final Re sult * External clinical lab (06/19/2024) Provider [facility] [...] ambulatory EEG suggestive of left temporal/hemispheric irritability. us Kira Mcdonald MD NEUROLOGY ORDERABLES Final Result * (ABNORMAL) TRANSTHORACIC ECHOCARDIOGRAM (TTE) COMPLETE (06/16/2024 11:36 AM EST) Left [facility] [place] 5.8 cm CV PACS Left [facility] [place] 6.0 cm CV PACS [place] Area Sys [...] LAB MICROBIOLOGY METHOD 04/28/2024 4:04 PM EST [facility] Brushing/Spatula Cervix uteri structure / Unknown 04/27/2024 2:59 PM EST 04/28/2024 6:19 AM EST Rula Alanis CNM LAB MOLECULAR DIAGNOSTICS OR DERABLES Final Result [facility] [address] [place] [address], [place] [phone] * MG Mammo Digital Screening w Arvin [...] Signed Date: 02/18/2024 17:09 ET Workstation ID: [id number] Transcribed By: Self Edit Transcribed Date: 02/18/2024 [...] Signed Date: 02/18/2024 17:09 ET Workstation ID: [id number] Transcribed By: Self Edit Transcribed Date: 02/18/2024 17:02 ET Result [facility] Fernando Pickens MD IMG BI PROCEDURES Final R esult * Annual BMP Blood Test (11/08/2023) [facility]ologist [facility] Annual BMP Blood Test Abstracted Historical Provider HEALTH MAINTENANCE Final Result * Lipid panel (11/08/2023) [facility] LDL/HDL Ratio 3 Triglycerides 120 mg/dL Cholesterol 189 mg/dL HDL 58 mg/dL LDL Cholesterol 107 mg/dL Blood Venous blood specimen / Unknown Result [facility] Historical Provider LAB BLOOD ORDERABLES Effie l Result * Hepatitis C Screening (05/31/2022) Pathologist [facility] Hepatitis C Screening borderline Result [facility] Historical Provider HEALTH MAINTENANCE Final Result * Colonoscopy (06/21/2020) Pathologist [facility] Colonoscopy normal Anatomical Region Laterality Modality Other Historical Provider HEALTH MAINTENANCE Final Result from Last 3 Months or Most Recently Relevant to Health Maintenance Insurance MEDICARE [facility] Member Subscriber Plan / Payer (Ef fective 2014-Present) Name:Pam Weldon Relation to Subscriber:Spouse Name:WESTLEY DAN Date of :1970 (Home) Address: [address] [place] [address] Payer ID:[id number] Group ID:[id number] Type:Not on file Address: [address] [place] [address] Care Teams Environmental Assistant Relationship Specialty Start Date End Date Fernando Pickens MD [address] [place] [address] [place] [address] PCP - General Internal Medicine 01/28/20
== END 2024-08-10 13:23 | disposition home or self-care (01) ==
LOC: HO.HBS 13:17
PROVIDERS: PCP Internal Medicine; Visit Provider Physician Assistant Surgical
DX: E66.811 Obesity, class 1 (principal); E66.9 Obesity, unspecified; Z68.30 Body mass index [BMI] 30.0-30.9, adult; Z98.84 Bariatric surgery status
CPT/HCPCS: 99024

== ENCOUNTER → 2024-08-10 13:17 | Outpatient (BNVA) | payer BC, MEDICARE, SELFPAY | PROVIDERS: PCP Internal Medicine; Visit Provider Physician Assistant Surgical | DX: Z98.84 Bariatric surgery status (principal); Z98.890 Other specified postprocedural states; Z87.19 Personal history of other diseases of the digestive system; E66.812 Obesity, class 2; E66.01 Morbid (severe) obesity due to excess calories; Z68.36 Body mass index [BMI] 36.0-36.9, adult ==

== ENCOUNTER 2024-10-05 11:52 | Outpatient (REF) | payer BC, MEDICARE, SELFPAY ==
[2024-10-05 12:09] LABS: MANUAL DIFF FLAG NO
[2024-10-05 12:28] LABS: Basophils Percent Auto 0.6 % (0-2); Eosinophils Absolute Auto 0.1 X10*3/uL (0.0-0.4); Eosinophils Percent Auto 1.6 % (0-4); Hematocrit 37.2 % (37.0-47.0); Hemoglobin 11.6 g/dl (12.0-16.0); Imm Gran Abs Auto 0.01 X10*3/uL (0.00-0.03); Imm Gran Pct Auto 0.2 % (0.0-0.4); Lymphocytes Absolute Auto 1.9 X10*3/uL (1.2-4.9); Lymphocytes Percent Auto 29.7 % (20-40); Mean Corpuscular HGB Conc 31.2 g/dl (31.0-35.0); Mean Corpuscular Hemoglobin 27.2 pg (27.0-33.0); Mean Corpuscular Volume 87.1 fL (80.0-98.0); Monocytes Absolute Auto 0.4 X10*3/uL (0.1-1.2); Monocytes Percent Auto 6.5 % (2-11); Neutrophils Absolute Auto 3.9 x10*3/uL (2.0-8.3); Neutrophils Percent Auto 61.4 % (45-73); Platelet Count 309 X10*3/uL (160-400); Red Blood Count 4.27 X10*6/uL (4.20-5.50); Red Cell Distribution Width 17.8 % (11.0-16.0); White Blood Count 6.3 X10*3/uL (4.8-10.8)
[2024-10-05 12:50] LABS: Alanine Aminotransferase 23 U/L (0-31); Alkaline Phosphatase 121 U/L (39-117); Anion Gap 12 (12-20); Aspartate Amino Transferase 24 U/L (5-31); Bilirubin Total 0.4 mg/dL (0.0-1.0); Blood Urea Nitrogen 17 mg/dL (9-16); C Reactive Protein 0.38 mg/dL (< or = 0.50); Calcium 9.3 mg/dL (8.4-10.2); Carbon Dioxide 24 mmol/L (22-29); Chloride 109 mmol/L (96-108); Cholesterol 199 mg/dL (<200); Estimated Glomerular Filt Rate > 60; Glucose Random 80 mg/dL (60-115); HDL Cholesterol 55 mg/dL (>40); LDL Cholesterol Calculated 124 mg/dL (<100); Sodium 141 mmol/L (135-145); Total Protein 7.2 g/dL (6.5-8.0); Triglycerides 101 mg/dL (<150)
[2024-10-05 13:06] LABS: Erythrocyte Sedimentation Rate 32 MM/HR (0-20)
[2024-10-05 13:15] LABS: Insulin 5 uU/mL (2-29)
--- OUTSIDE RECORDS SUMMARY | 2024-10-05 13:29 | XMS_ITS | Clinical Summary ---
Author Organization [facility] Address [address] [place] [address] Phone Care Team Providers Care Wooden Furniture Polisher Name Role Phone Fernando Pickens MD Primary Care Provider [phone] Allergies Active Allergy Reactions Criticality Noted Date Comments Aclidinium [place] Hives,Nausea And Vomiting High 02/18/2022 Tudorza Pressair [Aclidinium [place]] Mometasone-Formoterol 08/06/2024 Medications pregabalin (LYRICA) 150 mg capsule 4 Active pregabalin (LYRICA) 200 mg capsule 4 Active ipratropium-albu teroL (DUONEB) 0.5-2.5 mg/3 mL nebulizer solution 1 Active fluticasone propionate (FLONASE) 50 mcg/actuation nasal spray Administer 2 sprays into each nostril 1 (one) time each day. 0 Active cetirizine (ZyrTEC) 10 mg tablet Take 1 tablet (10 mg total) by mouth 1 (one) time each day. 9 Active Daliresp 500 mcg tablet Take 1 tablet (500 mcg total) by mouth 1 (one) time each day. 9 Active albuterol HFA (PROAIR HFA ; PROVENTIL HFA ; VENTOLIN HFA) 90 mcg/actuation inhaler Inhale 1-2 puffs by mouth. Active omeprazole (PriLOSEC) [address] Marroquin ns:Gastro-esopha geal reflux disease without esophagitis TAKE 1 CAPSULE BY MOUTH EVERY DAY 90 capsule 5 Active budesonide-formo teroL (SYMBICORT) 160-4.5 mcg/actuation inhaler INHALE 2 PUFFS INHALED 2 TIMES A DAY FOR 30 DAYS 5 Active pantoprazole (PROTONIX) 40 mg EC tablet Take 1 tablet (40 mg total) by mouth 1 (one) time each day. 5 Active sucralfate (CARAFATE) 100 mg/mL suspension DRINK 10 ML BY MOUTH 2 TIMES A DAY 5 Active ferrous sulfate 325 mg (65 mg elemental iron) tablet Take 1 tablet (325 mg total) by mouth 1 (one) time each day with breakfast. 120 each 5 12/12/19 25 Active Active Problems Problem Noted Date Diagnosed Date Chronic obstructive pulmonar y disease ([facility] V24, [facility] V28) 02/20/2024 Class 2 obesity 02/20/2024 [place]O [...] use compression stockings. Closed fracture of coccyx ([facility] V24, [facility] V28) 11/27/2023 Overview (02/20/2024): Last Assessment & Plan: Ms. Weldon had a fall in [place] down some stairs about 10 days ago. She has had pain at the bottom of her spine since. She says that on occasion she will get numbness and tingling in the back of the right leg in an S1 distribution. She is taking Tylenol, baclofen, Lamictal, and using 2 lidocaine patches with some relief. She is neurologically intact. X-rays from [place] on November 21 do reveal a comminuted [...] f distal vein of right lower extremity ([facility] V24, [facility] V28) 02/21/2022 History of total right [...] exercise as tolerated. 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 GERD (gastroesophageal reflux disease) 7 Positive hepatitis C antibody test 09/06/2016 Overview (02/20/2024): Hx of negative load test Encounters Date Type Department Care Team Description 08/06/2024 10:30 AM EDT Office Visit [facility] [address] [facility] [place] [address] Álvaro Estrada NP Iron deficiency anemia, unspecified iron deficiency anemia type (Primary Dx) 08/05/2024 11:22 AM EDT - 08/05/2024 11:59 PM EDT Hospital Encounter [facility] MRI [address] [place] [address] Epilepsy, unspecified, not intractable, without status epilepticus ([facility] V24, [facility] V28) Discharge Disposition: Home or Self Care 07/31/2024 Telephone Internal [facility] [address] [facility] [place] [address] Fernando iPckens MD Hospital Follow-up from Last 3 Months Immunizations Name Administration [...] 6mo and older 02/29/2020 Influenza, Unspecified 03/27/2021 [employer] SARS-CoV-2 COVID-19, mRNA, LNP-S, preservative free 08/08/2020,07/18/2020 Pneumococcal polysaccharide 23 valent (Pneumovax 23) 2yo and older 10/18/2016 Tdap Tetanus diptheria acell ular pertussis (Boostrix; Adacel) 7yo and older 04/22/2017 Zoster recombinant (Shingrix ) 19yo and older 07/04/2021 Surgical History Surgery Date Site/Laterality Comments TUBAL LIGATION PROCEDURE: HISTORICAL TUBAL LIGATION BREAST REDUCTION PROCEDURE: NE BREAST REDUCTION CHOLECYSTECTOMY PROCEDURE: HISTORICAL CHOLECYSTECTOMY BREAST BIOPSY PROCEDURE: BX BREAST; PERC NEEDLE CORE W/IMAG GUID; COMMENT: PATIENT STATES SHE HAS HAD 4 BIOPSIES ALL ON THE LEFT SIDE ANKLE FRACTURE SURGERY 08/21/2015 Left PROCEDURE: NE OPEN TREATMENT MEDIAL MALLEOLUS FRACTURE; COMMENT: Dr Anastasia Carver at [facility], hardware was removed 8 mo later except one screw TOTAL KNEE ARTHROPLASTY 10/21/2018 Left PROCEDURE: NE ARTHRP KNE CONDYLE&PLATU MEDIAL&LAT COMPARTMENTS; COMMENT: [facility] Francesco Grewal at [facility] Medical History Medical History Date Comments Migraine [...] Dr Feliberto Mathur at [facility] [place], [place] HLD (hyperlipidemia) 06/20/2021 DX:HLD (hyp erlipidemia) [...] ed Within the last 3 months, ho nanci many times did you visit the emergency [...] care for your loved ones. For example, children counselor or elderly care for an older [...] Care Team (Late st Contact Info) Description 10/21/2024 1:15 PM EDT Office Visit Internal Medicine - [address] [phone] Araseli Arcos, BINDU [address] [place] [id number] Health Maintenance Due Date Last Done Comments [...] Procedure Name Priority Date/Time Associated Diagnosis Comments CBC WITH AUTO DIFFERENTIAL Routine 08/11/2024 1:00 PM EDT Iron deficiency anemia, unspecified iron deficiency anemia type CBC AND DIFFERENTIAL Routine 08/11/2024 1:00 PM EDT Iron deficiency anemia, unspecified iron deficiency anemia type VITAMIN B12 Routine 08/11/2024 1:00 PM EDT Iron deficiency anemia, unspecified iron deficiency anemia type IRON AND TIBC Routine 08/11/2024 1:00 PM EDT Iron deficiency anemia, unspecified iron deficiency anemia type MR BRAIN WO AND W CONTRAST Routine 08/05/2024 1:03 PM EDT Epilepsy, unspecified, not intractable, without status epilepticus (CMS/HCC V24, CMS/HCC V28) HPV WITH REFLEX GENOTYPE Routine 04/27/2024 2:59 [...] Recently Relevant to Health Maintenance Results * (ABNORMAL) CBC auto differential (08/11/2024 1:00 PM EDT) WBC 6.0 4.8 - 10.8 K/mcL LAB HEMETOLOGY METHOD 08/11/2024 3:50 PM EDT [facility] RBC 3.80 3.80 - 4.80 M/mcL LAB HEMETOLOGY METHOD 08/11/2024 3:50 PM EDT [facility] Hemoglobin 10.1(L) 11.5 - 16.0 g/dL LAB HEMETOLOGY METHOD 08/11/2024 3:50 PM EDT [facility] Hematocrit 33.0(L) 35.0 - 47.0 % LAB HEMETOLOGY METHOD 08/11/2024 3:50 PM EDT [facility] MCV 86.6 79.0 - 98.0 FL LAB HEMETOLOGY METHOD 08/11/2024 3:50 PM EDT [facility] MCH 26.5(L) 27.0 - 32.0 pcg LAB HEMETOLOGY METHOD 08/11/2024 3:50 PM EDT [facility] MCHC 30.6(L) 32.0 - 37.0 g/dL LAB HEMETOLOGY METHOD 08/11/2024 3:50 PM EDT [facility] RDW 19.2(H) 11.0 - 15.0 % LAB HEMETOLOGY METHOD 08/11/2024 3:50 PM EDT [facility] Platelets 331 130 - 400 K/mcL LAB HEMETOLOGY METHOD 08/11/2024 3:50 PM EDT [facility] MPV 11.1(H) 7.0 - 11.0 FL LAB HEMETOLOGY METHOD 08/11/2024 3:50 PM EDT [facility] NRBC 0.0 <1.0 % LAB [facility]OLOGY [facility] NR[facility] Absolute 0.00 <0.10 K/mcL LAB HEMETOLOGY METHOD 08/11/2024 3:50 PM EDT [facility] Neutrophils Relative 52.8 % LAB [facility]EMETOLOGY METHOD [facility] Lymphocytes Relative 35.0 % LAB HEMETOLOGY METHOD 08/11/2024 3:50 PM [facility] Monocytes Relative 7.7 % LAB HEMETOLOGY METHOD 08/11/2024 3:50 PM EDT [facility] Eosinophils Relative 3.8 % LAB HEMETOLOGY METHOD [facility] Basophils Relative 0.5 % LAB HEMETOLOGY METHOD 08/11/2024 3:50 PM EDT [facility] Immature Granulocytes Relative 0.2 % LAB HEMETOLOGY METHOD 08/11/2024 3:50 PM EDT [facility] Neutrophils Absolute 3.17 1.50 - 7.00 K/mcL LAB HEMETOLOGY METHOD 08/11/2024 3:50 PM EDT [facility] Lymphocytes Absolute 2.10 1.00 - 5.00 K/mcL LAB HEMETOLOGY METHOD 08/11/2024 3:50 PM EDT [facility] Monocytes Absolute 0.46 0.20 - 1.00 K/mcL LAB HEMETOLOGY METHOD 08/11/2024 3:50 PM EDT [facility] Eosinophils Absolute 0.23 0.00 - 0.50 K/mcL LAB HEMETOLOGY METHOD 08/11/2024 3:50 PM EDT [facility] Basophils Absolute 0.03 0.00 - 0.20 K/[facility] LAB HEMETOLOGY METHOD 08/11/2024 3:50 PM EDT [facility] Immature Granulocytes Absolute 0.01 0.00 - 0.03 K/mcL LAB HEMETOLOGY METHOD 08/11/2024 3:50 PM EDT [facility] Blood Venous blood specimen / Unknown Venipuncture / Unknown 08/11/2024 1:00 PM EDT 08/11/2024 1:00 PM EDT us Álvaro Estrada SPECTROGRAPHER LAB BLOOD ORDERABLES Final Res ult [facility] [address] [place] [address], * (ABNORMAL) Iron and TIBC (08/11/2024 1:00 PM EDT) Iron 25(L) 40 - 150 mcg/dL LAB CHEMISTRY METHOD 08/11/2024 5:00 PM EDT [facility] TIBC 411 250 - 450 mcg/dL LAB CHEMISTRY METHOD 08/11/2024 5:00 PM EDT [facility] Iron Saturation 6(L) 15 - 50 % LAB CHEMISTRY METHOD 08/11/2024 5:00 PM EDT [facility] Blood Venous blood specimen / Unknown Venipuncture / Unknown 08/11/2024 1:00 PM EDT 08/11/2024 1:00 PM EDT Álvaro Jarabelardo SPECTROGRAPHER LAB BLOOD ORDERABLES Final Res ult Performing Organization Address [facility]/ZIP Co de Phone Number [facility] [address] [place] [address], [place] [phone] * Vitamin B12 (08/11/2024 1:00 PM EDT) Pathologist [facility] Vitamin B-12 496 250 - 900 pcg/mL LAB CHEMISTRY METHOD 08/11/2024 5:00 PM EDT [facility] Blood Venous blood specimen / Unknown Venipuncture / Unknown 08/11/2024 1:00 PM EDT 08/11/2024 1:00 PM EDT Álvaro Mtzabelardo LAB BLOOD ORDERABLES Final Res ult Performing Organization Address [facility] Co de Phone Number [facility] [address] [place] [address], [place] [phone] * MR Brain wo and w Contrast (08/05/2024 1:03 PM EDT) Anatomical Region Laterality Modality Head and Neck Magnetic Resonan ce 08/05/2024 1:42 PM EDT Impressions 08/05/2024 1:47 PM EDT 1. Partially empty sella. This is a relatively common finding which can be seen in asymptomatic patients, but has been associated with pseudotumor cerebri and requires correlation with the patient's clinical presentation. 2. Otherwise unremarkable MRI appearance of the brain. -------- FINAL REPORT -------- Dictated By: Can Martin Dictated Date: 08/05/2024 13:42 ET Assigned Physician: Can Martin Reviewed and Electronically Signed By: Can Martin Signed Date: 08/05/2024 13:47 ET Workstation ID: [id number] Transcribed By: Self Edit Transcribed Date: 08/05/2024 13:42 ET Narrative 08/05/2024 1:47 PM EDT PROCEDURE: Contrast-enhanced MRI of the brain. HISTORY: Epilepsy. TECHNIQUE: Multiplanar multisequence MRI of the brain with and without intravenous contrast. IV CONTRAST DOSE: 20 mL intravenous Dotarem from a 20 mL vial with 0 mL discarded. COMPARISON: A report from a previous study dated 12/27/2023 is reviewed. Images from that study are not available for comparison. FINDINGS: BRAIN: No diffusion abnormality. No mass or extra-axial fluid collection. No hydrocephalus. The major intracranial flow voids are preserved. Age commensurate ventricles and sulci. No abnormal enhancement. Partially empty sella. Dedicated coronal imaging through the hippocampi demonstrates no [...] Signed Date: 08/05/2024 13:47 ET Workstation ID: [id number] Transcribed By: Self Edit Transcribed Date: 08/05/2024 13:42 ET Kira Mcdonald MD IMG MRI PROCEDURES Final Re sult * HPV with reflex genotype (04/27/2024 2:59 PM EST) HPV Negative Negative LAB MICROBIOLOGY METHOD 04/28/2024 4:04 PM EST [facility] Brushing/Spatula Cervix uteri structure / Unknown 04/27/2024 2:59 PM EST 04/28/2024 6:19 AM EST Rula Alanis CNM LAB MOLECULAR DIAGNOSTICS OR DERABLES Final Result [facility] [address] [place] [address], * MG Mammo Digital Screening w Arvin bilat (02/18/2024 3:59 PM EST) Anatomical Region Laterality Modality Breast Bilateral Mammography 02/18/2024 5:02 PM EST Impressions 02/18/2024 5:09 PM EST No mammographic evidence of malignancy. No suspicious interval change. Stable postreduction changes ASSESSMENT: BI-RADS 2: BENIGN RECOMMENDATION(S): 1: Routine screening mammogram BILATERAL in 1 year. -------- FINAL REPORT -------- Dictated By: Aron Driscoll Dictated Date: 02/18/2024 17:02 ET Assigned Physician: Aron Driscoll Reviewed and Electronically Signed By: Aron Driscoll Signed Date: 02/18/2024 17:09 ET Workstation ID: [id number] Transcribed By: Self Edit Transcribed Date: 02/18/2024 17:02 ET Narrative 02/18/2024 5:09 PM EST EXAM: SCREENING MAMMOGRAPHY, BILATERAL HISTORY: SCREENING. Bilateral breast reduction surgery COMPARISON: 04/03/2021, 03/02/2019 TECHNIQUE: Synthesized CC and MLO projections of each breast. Tomosynthesis of each breast in the CC and MLO projections. ADDITIONAL IMAGING: None Computer-aided detection was employed with the YelloYello[employer] profound AI 3-D. TISSUE DENSITY: There are scattered areas of fibroglandular density. (BI-RADS category B) FINDINGS: RIGHT BREAST: Findings consistent with previous reduction surgery. No new suspicious right breast findings. LEFT BREAST: Findings consistent with previous reduction surgery. No new suspicious left breast findings Procedure Note Aron Driscoll MD - 02/18/2024 EXAM: SCREENING MAMMOGRAPHY, BILATERAL HISTORY: SCREENING. Bilateral breast reduction surgery COMPARISON: 04/03/2021, 03/02/2019 TECHNIQUE: Synthesized CC and MLO projections of each breast.Tomosynthesis of each breast in the CC and MLO projections. ADDITIONAL IMAGING: None Computer-aided detection was employed with the [employer] profound AI 3-D. TISSUE DENSITY: There are [...] Signed Date: 02/18/2024 17:09 ET Workstation ID: [id number] Transcribed By: Self Edit Transcribed Date: 02/18/2024 17:02 ET us Fernando Pickens MD IMG BI PROCEDURES Final R esult * Annual BMP Blood Test (11/08/2023) Pathologist Count includes the [facility] Annual BMP Blood Test Abstracted [facility] Provider HEALTH MAINTENANCE Final Result * Lipid panel (11/08/2023) [facility] LDL/HDL Ratio 3 Triglycerides 120 mg/dL Cholesterol 189 mg/dL HDL 58 mg/dL LDL Cholesterol 107 mg/dL Blood Venous blood specimen / Unknown Result [facility] Provider LAB BLOOD ORDERABLES Effie l Result * Hepatitis C Screening (05/31/2022) [facility] Hepatitis C Screening borderline [facility] Provider HEALTH MAINTENANCE Final Result * Colonoscopy (06/21/2020) [facility] Colonoscopy normal Anatomical Region Laterality Modality Other [facility] Provider HEALTH MAINTENANCE Final Result from Last 3 Months or Most Recently Relevant to Health Maintenance Insurance MEDICARE [facility] Member Subscriber Plan / Payer (Ef fective 2014-Present) Name:PAM WELDON M Relation to Subscriber:Spouse Name:WESTLEY DAN Date of :1970 (Home) Address: [address] [place] [address] Payer ID:[id number] Group ID:[id number] Type:Not on file Address: [address] [place] [address] Care Teams Wooden Furniture Polisher Relationship Specialty Start Date End Date Fernando Pickens MD [address] [place] [id number] PCP - General Internal Medicine 01/28/20
== END 2024-10-05 11:53 | disposition home or self-care (01) ==
LOC: HO.LAB 11:52
PROVIDERS: Surgery; PCP Internal Medicine; Visit Provider Student in an Organized Health Care Education/Training Program
DX: M06.00 Rheumatoid arthritis without rheumatoid factor, unspecified site (principal); E66.812 Obesity, class 2; E66.01 Morbid (severe) obesity due to excess calories; Z68.36 Body mass index [BMI] 36.0-36.9, adult; E78.5 Hyperlipidemia, unspecified
CPT/HCPCS: 36415; 80053; 80061; 83525; 85025; 85652; 86140

== ENCOUNTER 2024-11-12 09:41 | Outpatient (AMB) | payer BC, MEDICARE, SELFPAY ==
--- OUTSIDE RECORDS SUMMARY | 2024-11-12 10:08 | XMS_ITS ---
Author Name [facility] Organization Unknown Care Team Organization Name Specialty Phone Email Start Date End Da te [facility] Fernando Pickens Primary Care 02/20/2022 12/02/2023
--- OUTSIDE RECORDS SUMMARY | 2024-11-12 10:08 | XMS_ITS | Clinical Summary ---
Author Organization [facility] Address [address] [place] [address] Phone Care Team Providers Care Time Lock Expert Name Role Phone Fernando Pickens MD Primary Care Provider [phone] Allergies Active Allergy Reactions Criticality Noted Date Comments Aclidinium [place] Hives,Nausea And Vomiting High 02/18/2022 Tudorza Pressair [Aclidinium [place]] Mometasone-Formoterol 08/06/2024 Medications pregabalin (LYRICA) 150 mg [...] Diagnosed Date Chronic obstructive pulmonar y disease ([facility] V24, [facility] V28) 02/20/2024 Class 2 obesity 02/20/2024 CAICEDO [...] use compression stockings. Closed fracture of coccyx ([facility] V24, [facility] V28) 11/27/2023 Overview (02/20/2024): Last Assessment & Plan: Ms. Stark had a fall in [place] down some stairs about 10 days ago. She has had pain at the bottom of her spine since. She says that on occasion she will get numbness and tingling in the back of the right leg in an S1 distribution. She is taking Tylenol, baclofen, Lamictal, and using 2 lidocaine patches with some relief. She is neurologically intact. X-rays from [place] on November 21 do reveal a comminuted [...] f distal vein of right lower extremity ([facility] V24, [facility] V28) 02/21/2022 History of total right knee [...] exercise as tolerated. Seronegative rheumatoid arth ritis ([facility] V24, [facility] V28) 05/18/2020 Retinal detachment, right 01/28/2020 Overview (02/20/2024): Surgical repair 12/04/[address] Feliberto Mathur at [facility] [place] [place] Opiate use 06/11/2019 Obesity 10/02/2018 Osteoarthritis of both knees 08/20/2017 Chronic polyarthritis 06/27/2017 CANDELARIA (obstructive sleep apnea) 03/09/2017 Overview (02/20/2024): [facility] Home Polysomnogram: Date 01/21/2018; AHI 7, [...] Overview (02/20/2024): 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 GERD (gastroesophageal reflux disease) 7 Positive hepatitis C antibody test 09/06/2016 Overview (02/20/2024): Hx of negative load test Immunizations Name Administration Dates Next Due Diptheria [...] PROCEDURE: HISTORICAL TUBAL LIGATION BREAST REDUCTION PROCEDURE: [place] BREAST REDUCTION CHOLECYSTECTOMY PROCEDURE: HISTORICAL CHOLECYSTECTOMY BREAST BIOPSY PROCEDURE: BX BREAST; PERC NEEDLE CORE W/IMAG GUID; COMMENT: PATIENT STATES SHE HAS HAD 4 BIOPSIES ALL ON THE LEFT SIDE ANKLE FRACTURE SURGERY 08/21/2015 Left PROCEDURE: [place] OPEN TREATMENT MEDIAL MALLEOLUS FRACTURE; COMMENT: Dr Anastasia Carver at [facility], hardware was removed 8 mo later except one screw TOTAL KNEE ARTHROPLASTY 10/21/2018 Left PROCEDURE: [place] ARTHRP KNE CONDYLE&PLATU MEDIAL&LAT COMPARTMENTS; COMMENT: Dr Francesco Grewal at [facility] Medical History Medical History Date Comments Migraine 09/27/2016 DX:Migraine CANDELARIA (obstructive sleep apnea) 03/09/2017 DX :CANDELARIA (obstructive sleep apnea) History of Helicobacter pylo ri infection 09/06/2016 DX:History of Helicobacter p ylori infection; COMMENT: treated Chronic hepatitis C ([facility] V24, [facility] V28) 09/06/2016 DX:Chronic hepatitis C (HCC) ; [...] Feliberto Mathur at [facility] [place], [place] HLD (hyperlipidemia) 06/20/2021 DX:HLD (hyp erlipidemia) [...] your loved ones. For example, child welfare assistant or elderly care for an older adult? [...] 08/06/2024 10:44 AM EDT Plan of Treatment Health Maintenance Due Date Last Done Comments Hepatitis B Vaccines (1 of 3 - 19+ 3-dose series) 1987 Zoster Vaccines (2 of 2) 08/29/2021 07/04/2021 HIV Screening 03/24/2022 Medicare Annual Wellness Visit 03/24/2022 COVID-19 Vaccine ( season) 2023 07/04/2021, 08/08/2020, 07/18/2020 Hypertension/CHF/CAD Annual BMP Blood Test 11/07/2024 11/08/2023, 11/08/2023 Influenza Vaccine (#1) 2024 , 03/05/2022, 03/27/2021, Additional history exists Social Influencers of Health Screening 07/28/2025 07/28/2024 Breast Cancer Screening 02/17/2026 02/18/20, 04/03/2021, 03/02/2019, Additional history exists DTaP,Tdap,and Td Vaccines (3 - Td or Tdap) 04/22/2027 04/22/2017, 08/28/2006 Cholesterol Screening (Lipid Panel) 11/07/2028 11/08/2023, 11/08/2023 Cervical Cancer Screening: HPV 04/27/2029 04/27/2024 Colorectal Cancer Screening: Colonoscopy 06/21/2030 06/21/2020 Hepatitis C Screening Completed 05/31/2022 Pneumococcal Vaccine: 50+ Years Completed 06/03/2024, 10/18/2016 Depression Screening Completed 07/28/2024 HIB Vaccines Aged Out No longer eligi [...] Date/Time Associated Diagnosis Comments EXTERNAL CLINICAL LAB 10/06/2024 HPV WITH REFLEX GENOTYPE Routine 04/27/2024 2:59 [...] Health Maintenance Results * External clinical lab (10/06/2024) us Provider [facility] LAB BLOOD ORDERABLES Fin al Result * HPV with reflex genotype (04/27/2024 2:59 PM EST) HPV Negative Negative LAB MICROBIOLOGY METHOD 04/28/2024 4:[address] [facility] Brushing/Spatula Cervix uteri structure / Unknown 04/27/2024 2:59 PM EST 04/28/2024 6:19 AM EST Rula Alanis CNM LAB MOLECULAR DIAGNOSTICS OR DERABLES Final Result [facility] [address] [place] [address], * MG Mammo Digital Screening w Arvin [...] Signed Date: 02/18/2024 17:09 ET Workstation ID: [id number] Transcribed By: Self Edit Transcribed Date: 02/18/2024 17:02 ET Narrative 02/18/2024 5:09 PM EST EXAM: SCREENING MAMMOGRAPHY, BILATERAL HISTORY: SCREENING. Bilateral breast reduction surgery COMPARISON: 04/03/2021, 03/02/2019 TECHNIQUE: Synthesized CC and MLO projections of each breast. Tomosynthesis of each breast in the CC and MLO projections. ADDITIONAL IMAGING: None Computer-aided detection was employed with the [employer] AI 3-D. TISSUE DENSITY: There are scattered [...] None Computer-aided detection was employed with the [employer] AI 3-D. TISSUE DENSITY: There are scattered [...] Dictated Date: 02/18/2024 17:02 ET Assigned Physician: Yamila, Aron F Reviewed and Electronically Signed By: Aron Driscoll Signed Date: 02/18/2024 17:09 ET Workstation ID: [id number] Transcribed By: Self Edit Transcribed Date: 02/18/2024 17:02 ET Fernando Pickens MD IMG BI PROCEDURES Final R esult * Annual BMP Blood Test (11/08/2023) Pathologist [facility] Annual BMP Blood Test Abstracted Result [facility] Historical Provider HEALTH MAINTENANCE Final Result * Lipid panel (11/08/2023) [facility] LDL/HDL Ratio 3 Triglycerides 120 mg/dL Cholesterol 189 mg/dL HDL 58 mg/dL LDL Cholesterol 107 mg/dL Blood Venous blood specimen / Unknown Result [facility] Historical Provider LAB BLOOD ORDERABLES Effie l Result * Hepatitis C Screening (05/31/2022) Pathologist [facility] Hepatitis C Screening borderline Historical Provider HEALTH MAINTENANCE Final Result * Colonoscopy (06/21/2020) [facility] Colonoscopy normal Anatomical Region Laterality Modality Other Result [facility] Historical Provider HEALTH MAINTENANCE Final Result from Last 3 Months or Most Recently Relevant to Health Maintenance Insurance MEDICARE [facility] Member Subscriber Plan / Payer (Ef fective 2014-Present) Name:PAM STARK M Relation to Subscriber:Spouse Name:WESTLEY DAN Date of :1970 (Home) Address: [address] [place] [address] [place] [address] Payer ID:[id number] Group ID:[id number] Type:Not on file Address: [facility] [id number] [place] [address] Care Teams Time Lock Expert Relationship Specialty Start Date End Date Fernando Pickens MD [address] [place] [address] [place] [id number] PCP - General Internal Medicine 01/28/20
--- NOTE | 2024-11-12 10:16 | A.OFFVIS_ITS ---
Intake Visit Reasons: follow up after 72 EEG Allergies aclidinium (Tudorza Pressair) Allergy (Intermediate, Verified 07/20/24 10:00) Hives HPI Comments Details: 54 yo woman with epilepsy. She reported?diagnoses of seronegative RA, fibromyalgia, and COPD. She was seen for episodes of fainting since she was in university years ago. (Some family members suffered from similar issues. She used to have it frequently but now they were sporadic, sometimes none for a year. One episode was in Nov. All episodes were similar except that fainting had not happened before. Typically, she had an odd sensation in the back of head and spine without any change in consciousness. This last time, she had the same sensation and then she passed out. She was not responding to stimulation. It took a few minutes for her to wake up. She felt tired afterwards). Ambulatory EEG at [facility] in 2024 revealed left temporal sharps. She has been taking pregabilin for fibromyalgia, and lamotrigine 25mg a day in June 2024. She did not have anymore episodes but after she had ran out of lamotrigine she started having involuntary movement in stiffness of her hands and feet. [facility] Medical History (Updated 11/12/24 @ 10:24 by Kira Mcdonald MD) Epilepsy Seizure disorder Pre-op evaluation DVT (deep venous thrombosis) Hypokalemia Tricompartment osteoarthritis of right knee Right knee pain Gastric polyps Seizure Environmental and seasonal allergies History of blood transfusion (~1994) Low back pain Vertigo GERD (gastroesophageal reflux disease) DJD (degenerative joint disease) COPD (chronic obstructive pulmonary disease) Hyperlipidemia BMI 36.0-36.9,adult Obesity Cough Hepatitis C antibody positive in blood Leg length discrepancy Pulmonary nodules CANDELARIA on CPAP Asthma Insomnia Fibromyalgia Seronegative rheumatoid arthritis Surgical History (Updated 07/18/24 @ 00:02 by Background Daemon) Status post total knee replacement, right History of total knee replacement History of knee surgery Hx of detached retina repair History of ankle surgery History of colon resection Hx of colonoscopy History of total knee arthroplasty Hx of cholecystectomy H/O bilateral breast reduction surgery Hx of tubal ligation Family History Maternal Grandmother Skin cancer Maternal Aunt Breast cancer Maternal Uncle Prostate cancer Mother No problems noted. Father No problems noted. Social History Household Members: Spouse Housing: House Are you a primary care transport nurse to a significant other at home: No Do you presently have visiting nurse or other home services: No Alcohol intake: current Alcohol intake frequency: does not drink Patient Tobacco Use Status: Never used Tobacco Second Hand Smoke Exposure: No service: No Current occupational status: disabled Review of Systems Const Details: Constitutional:?No fever, chills, fatigue, weight loss, or night sweats. HEENT:?No headache, vision changes, hearing loss, nasal congestion, sore throat. Neurological:?No dizziness, syncope, seizures, numbness, tingling, weakness, tremors, memory loss. Psychiatric:?No anxiety, depression, mood swings, sleep disturbance, or hallucinations. Endocrine:?No heat/cold intolerance, polydipsia, polyuria, or hair/skin changes. Hematologic/Lymphatic:?No easy bruising, bleeding, or lymphadenopathy. Integumentary (Skin):?No rash, lesions, itching, or color changes. ? Physical Exam Neuro Other: Mental Status: Alert and oriented to person, place, and time. Normal attention. Normal spontaneous speech, fluency, and comprehension. No obvious issues with mood and memory. Affect is appropriate. Cranial Nerves: CN II: Visual pritchard full to confrontation, visual acuity intact. CN III, IV, : Pupils equal, round, reactive to light and accommodation. Extraocular movements are normal. CN V: Facial sensation is normal. CN VII: Facial movements symmetrical. CN VIII: Hearing intact to bedside conversation is normal. CN IX, X: Palate elevates symmetrically. CN XI: Shoulder shrug and head turn symmetrical. CN XII: Tongue midline without atrophy or fasciculations. Extrapyramidal: Full facial expressions and blinking. No rigidity. Movements are appropriate with no tremor or abnormality. Speech: Normal; no dysarthria or tremor. Assessment & Plan Assessment & Plan (1) Epilepsy: Comment: Amb EEG at [facility] in 2024: Left temp and frontal sharps, [place] at [id number] EEG at [facility] in Nov 2023: [place] Code(s): G40.909 - Epilepsy, unspecified, not intractable, without status epilepticus Category: Medical Qualifiers: Epilepsy type: partial idiopathic, localized onset Intractability: not intractable Status epilepticus: without status epilepticus Qualified Code(s): G40.009 - Localization-related (focal) (partial) idiopathic epilepsy and epileptic syndromes with seizures of localized onset, not intractable, without status epilepticus Plan Impression: 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 and sometimes LOC Rec: a: Lamotrigine 25mg bid (she also takes pregabilin for diagnosis of fibromyalgia) b: MRI brain WWO Orders: Orders MR head/brain wo/w con Today G40.009 - Localization-related (focal) (partial) idiopathic epilepsy and epileptic syndromes with seizures of localized onset, not intractable, without status epilepticus Medications: Changed From lamotrigine 25 mg PO DAILY 90 tabs 0RF To lamotrigine 25 mg PO BID 180 tabs 0RF Coding Level of Care Code Tele Est Pt Level 4 (97507) Diagnoses Partial idiopathic epilepsy with seizures of localized onset, not intractable, without status epilepticus G40.009 Epilepsy type: partial idiopathic, localized onset Intractability: not intractable Status epilepticus: without status epilepticus
== END 2024-11-12 10:28 | disposition home or self-care (01) ==
LOC: HO.HSM 09:41
PROVIDERS: PCP Internal Medicine; Visit Provider Psychiatry & Neurology Neurology
DX: G40.009 Localization-related (focal) (partial) idiopathic epilepsy and epileptic syndromes with seizures of localized onset, not intractable, without status epilepticus (principal)
CPT/HCPCS: 99214

== ENCOUNTER 2024-12-27 15:19 | Outpatient (REF) | payer BC, MEDICARE, SELFPAY ==
--- NOTE | ~2024-12-27 | MR_ITS ---
EXAMINATION: MR BRAIN WITHOUT AND WITH CONTRAST CLINICAL INFORMATION: 64.009. Focal/partial, idiopathic epilepsy. COMPARISON: None available. TECHNIQUE: Multiplanar, multisequence MRI of the brain was obtained before and after the intravenous administration of 9.0 mL gadolinium based without reported immediate complications.. FINDINGS: No restricted diffusion. No acute intracranial hemorrhage, mass effect, midline shift, hydrocephalus or herniation. Bates-white matter differentiation is normal. No abnormal enhancement within the intra-axial or the extra-axial compartment of the cranium. Posterior cranial fossa contents demonstrated no signal abnormality or gross masses. There is borderline position of the cerebellar tonsils. 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 Flow-void signal within the main cerebral vessels is normal. Prominence of the extra-axial CSF spaces cerebral sulci involving the frontal lobes. No signal abnormality or volume loss in the hippocampi. Nonspecific, a few, scattered, less than 2 mm subcortical white matter hyperintense T2 FLAIR signal in the frontal lobes. MR/MR head/brain wo/w con IMPRESSION: No enhancing mass. No acute brain abnormality. Bifrontal lobe atrophy, mild. Nonspecific white matter T2 FLAIR signal, bifrontal lobes. Electronically signed by: Jim Bajwa MD 12/28/2024 08:48 AM EDT
--- OUTSIDE RECORDS SUMMARY | 2024-12-27 15:35 | XMS_ITS | Clinical Summary ---
Author Organization [facility] Address [address] [place] [address] Phone Care Team Providers Care Plating Engineer Name Role Phone Fernando Pickens MD Primary Care Provider [phone] Allergies Active Allergy Reactions Criticality Noted Date Comments Aclidinium [place] Hives,Nausea And Vomiting High 02/18/2022 Tudorza Pressair [Aclidinium [place]] Mometasone-Formoterol 08/06/2024 Medications pregabalin (LYRICA) 150 mg [...] 325 mg (65 mg elemental iron) tablet TAKE 1 TABLET BY MOUTH 1 TIME EACH DAY WITH BREAKFAST. 90 tablet 1 5 Active Active Problems Problem Noted Date Diagnosed Date Chronic obstructive pulmonar y disease ([facility] V24, [facility] V28) 02/20/2024 Class 2 obesity [...] use compression stockings. Closed fracture of coccyx ([facility] V24, [facility] V28) 11/27/2023 Overview (02/20/2024): Last Assessment & Plan: Ms. Stark had a fall in [place] down some stairs about 10 days ago. She has had pain at the bottom of her spine since. She says that on occasion she will get numbness and tingling in the back of the right leg in an S1 distribution. She is taking Tylenol, baclofen, Lamictal, and using 2 lidocaine patches with some relief. She is neurologically intact. X-rays from [place] on November 21 do reveal a comminuted [...] f distal vein of right lower extremity ([facility] V24, [facility] V28) 02/21/2022 History of total [...] exercise as tolerated. 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 GERD (gastroesophageal reflux disease) 7 Positive hepatitis [...] 6mo and older 02/29/2020 Influenza, Unspecified 03/27/2021 Tribunat SARS-CoV-2 COVID-19, mRNA, LNP-S, preservative free 08/08/2020,07/18/2020 Pneumococcal polysaccharide 23 valent (Pneumovax 23) 2yo and older 10/18/2016 Tdap Tetanus diptheria acell ular pertussis (Boostrix; Adacel) 7yo and older 04/22/2017 Zoster recombinant (Shingrix ) 19yo and older 07/04/2021 Surgical History Surgery Date Site/Laterality Comments TUBAL LIGATION PROCEDURE: HISTORICAL TUBAL LIGATION BREAST REDUCTION PROCEDURE: AL BREAST REDUCTION CHOLECYSTECTOMY PROCEDURE: HISTORICAL CHOLECYSTECTOMY BREAST BIOPSY PROCEDURE: BX BREAST; PERC NEEDLE CORE W/IMAG GUID; COMMENT: PATIENT STATES SHE HAS HAD 4 BIOPSIES ALL ON THE LEFT SIDE ANKLE FRACTURE SURGERY 08/21/2015 Left PROCEDURE: [place] OPEN TREATMENT MEDIAL MALLEOLUS FRACTURE; COMMENT: Dr Anastasia Carver at [facility], hardware was removed 8 mo later except one screw TOTAL KNEE ARTHROPLASTY 10/21/2018 Left PROCEDURE: AL ARTHRP KNE CONDYLE&PLATU MEDIAL&LAT COMPARTMENTS; COMMENT: Dr Francesco Grewal at [facility] Medical History Medical History Date Comments Migraine 09/27/2016 DX:Migraine CANDELARIA (obstructive sleep apnea) 03/09/2017 DX :CANDELARIA (obstructive sleep apnea) History of Helicobacter pylo ri infection 09/06/2016 DX:History of Helicobacter p ylori infection; COMMENT: treated Chronic hepatitis C ([facility] V24, [facility] V28) 09/06/2016 DX:Chronic hepatitis C (HCC) ; [...] Feliberto Mathur at [facility] [place] [place] HLD (hyperlipidemia) 06/20/2021 DX:HLD (hyp erlipidemia) Deep vein thrombosis (DVT) o f distal vein of right lower extremity (CMS/HCC V24, [facility] V28) 02/21/2022 DX:Deep vein thrombosis (DVT ) [...] for your loved ones. For example, child & adolescent psychiatrist or elderly care for an older adult? [...] Care Team (Late st Contact Info) Description 02/02/2025 2:30 PM EDT Office Visit Internal Medicine - [address] [address] Bob Gautam MD [address] [place] [id number] Health Maintenance Due Date Last Done Comments Hepatitis B Vaccines (1 of 3 - 19+ 3-dose series) 1987 Zoster Vaccines (2 of 2) 08/29/2021 07/04/2021 HIV Screening 03/24/2022 Medicare Annual Wellness Visit 03/24/2022 Hypertension/CHF/CAD Annual BMP Blood Test 11/07/2024 11/08/2023, 11/08/2023 COVID-19 Vaccine ( - season) 2024 07/04/2021, 08/08/2020, 07/18/2020 Influenza Vaccine (#1) 2024 , 03/05/2022, 03/27/2021, Additional history exists Social Influencers of Health Screening 07/28/2025 07/28/2024 Breast Cancer Screening 02/17/2026 02/18/20 24, 04/03/2021, [...] Maintenance Results * External clinical lab (10/06/2024) Provider [facility] LAB BLOOD ORDERABLES Fin al Result * HPV with reflex genotype (04/27/2024 2:59 PM EST) HPV Negative Negative LAB MICROBIOLOGY METHOD 04/28/2024 4:04 PM EST [facility] Brushing/Spatula Cervix uteri structure / Unknown 04/27/2024 2:59 PM EST 04/28/2024 6:19 AM EST Rula Alanis CNM LAB MOLECULAR DIAGNOSTICS OR DERABLES Final Result [facility] [address] [place] [address], [place] [phone] * MG Mammo Digital Screening w Arvin [...] Aron Driscoll Reviewed and Electronically Signed By: rAon Driscoll Signed Date: 02/18/2024 17:09 ET Workstation ID: [id number] Transcribed By: Self Edit Transcribed Date: 02/18/2024 17:02 ET Narrative 02/18/2024 5:09 PM EST EXAM: SCREENING MAMMOGRAPHY, BILATERAL HISTORY: SCREENING. Bilateral breast reduction surgery COMPARISON: 04/03/2021, 03/02/2019 TECHNIQUE: Synthesized CC and MLO projections of each breast. Tomosynthesis of each breast in the CC and MLO projections. ADDITIONAL IMAGING: None Computer-aided detection was employed with the [employer] AI 3-D. TISSUE DENSITY: There are scattered [...] None Computer-aided detection was employed with the [employer] AI 3-D. TISSUE DENSITY: There are scattered [...] Signed Date: 02/18/2024 17:09 ET Workstation ID: [id number] Transcribed By: Self Edit Transcribed Date: 02/18/2024 17:02 ET Result [facility] Fernando Pickens MD IMG BI PROCEDURES Final R esult * Annual BMP Blood Test (11/08/2023) [facility] Annual BMP Blood Test Abstracted Result [facility] Provider HEALTH MAINTENANCE Final Result * Lipid panel (11/08/2023) [facility] LDL/HDL Ratio 3 Triglycerides 120 mg/dL Cholesterol 189 mg/dL HDL 58 mg/dL LDL Cholesterol 107 mg/dL Blood Venous blood specimen / Unknown Result [facility] Historical Provider LAB BLOOD ORDERABLES Effie l Result * Hepatitis C Screening (05/31/2022) [facility] Hepatitis C Screening borderline Result [facility] Historical Provider HEALTH MAINTENANCE Final Result * Colonoscopy (06/21/2020) [facility] Colonoscopy normal Anatomical Region Laterality Modality Other Result [facility] Historical Provider HEALTH MAINTENANCE Final Result from Last 3 Months or Most Recently Relevant to Health Maintenance Insurance MEDICARE [facility] Member Subscriber Plan / Payer (Ef fective 2014-Present) Name:PAM STARK M Relation to Subscriber:Spouse Name:WESTLEY DAN Date of :1970 (Home) Address: [address] [place] [address] [place] [address] Payer ID:[id number] Group ID:[id number] Type:Not on file Address: [id number] [place] [address] Care Teams Plating Engineer Relationship Specialty Start Date End Date Fernando Pickens MD [address] [place] [address] [place] [address] PCP - General Internal Medicine 01/28/20
== END 2024-12-27 15:20 | disposition home or self-care (01) ==
LOC: HO.MRI 15:19
PROVIDERS: Visit Provider Psychiatry & Neurology Neurology
DX: G40.009 Localization-related (focal) (partial) idiopathic epilepsy and epileptic syndromes with seizures of localized onset, not intractable, without status epilepticus (principal)
CPT/HCPCS: 70553; A9585

== ENCOUNTER → 2024-12-27 15:42 | Outpatient (BNV) | payer BC, MEDICARE, SELFPAY | PROVIDERS: Visit Provider Radiology Diagnostic Radiology | DX: G31.89 Other specified degenerative diseases of nervous system (principal) | CPT/HCPCS: 70553 ==

== ENCOUNTER 2025-01-07 12:30 | Outpatient (AMB) | payer BC, MEDICARE, SELFPAY ==
--- NOTE | 2025-01-07 13:00 | A.OFFVIS_ITS ---
Intake Visit Reasons: after MRI Allergies aclidinium (Tudorza Pressair) Allergy (Intermediate, Verified 07/20/24 10:00) Hives HPI Comments Details: 54 yo woman with epilepsy. She reported?diagnoses of seronegative RA, fibromyalgia, and COPD. 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 Some family members suffered from similar issues. She used to have it frequently but now they were sporadic, sometimes none for a year. One episode was in Nov. All episodes were similar except that fainting had not happened before. Typically, she had an odd sensation in the back of head and spine without any change in consciousness. This last time, she had the same sensation and then she passed out. She was not responding to stimulation. It took a few minutes for her to wake up. She felt tired afterwards). Ambulatory EEG at [facility] in 2024 revealed left temporal sharps. She has been taking pregabilin for fibromyalgia, and lamotrigine was added in June of 2024 for seizure disorder She had 1 brief episode recently though she did not pass out. [facility] Medical History (Updated 01/07/25 @ 13:06 by Kira Mcdonald MD) Epilepsy Seizure disorder Pre-op evaluation DVT (deep venous thrombosis) Hypokalemia Tricompartment osteoarthritis of right knee Right knee pain Gastric polyps Seizure Environmental and seasonal allergies History of blood transfusion (~1994) Low back pain Vertigo GERD (gastroesophageal reflux disease) DJD (degenerative joint disease) COPD (chronic obstructive pulmonary disease) Hyperlipidemia BMI 36.0-36.9,adult Obesity Cough Hepatitis C antibody positive in blood Leg length discrepancy Pulmonary nodules CANDELARIA on CPAP Asthma Insomnia Fibromyalgia Seronegative rheumatoid arthritis Surgical History (Updated 07/18/24 @ 00:02 by Ofe Dahéctor) Status post total knee replacement, right History of total knee replacement History of knee surgery Hx of detached retina repair History of ankle surgery History of colon resection Hx of colonoscopy History of total knee arthroplasty Hx of cholecystectomy H/O bilateral breast reduction surgery Hx of tubal ligation Family History Maternal Grandmother Skin cancer Maternal Aunt Breast cancer Maternal Uncle Prostate cancer Mother No problems noted. Father No problems noted. Social History Household Members: Spouse Housing: House Are you a primary client care representative to a significant other at home: No Do you presently have visiting nurse or other home services: No Alcohol intake: current Alcohol intake frequency: does not drink Patient Tobacco Use Status: Never used Tobacco Second Hand Smoke Exposure: No service: No Current occupational status: disabled Review of Systems Const Details: One episode as described in HPI Physical Exam Neuro Other: Mental Status: Alert and oriented to person, place, and time. Normal attention. Normal spontan eous speech, fluency, and comprehension. No obvious issues with mood and memory. Affect is appropriate. Cranial Nerves: CN II: Visual pritchard full to confrontation, visual acuity intact. CN III, IV, : Pupils equal, round, reactive to light and accommodation. Extraocular movements are normal. CN V: Facial sensation is normal. CN VII: Facial movements symmetrical. CN VIII: Hearing intact to bedside conversation is normal. CN IX, X: Palate elevates symmetrically. CN XI: Shoulder shrug and head turn symmetrical. CN XII: Tongue midline without atrophy or fasciculations. Extrapyramidal: Full facial expressions and blinking. No rigidity. Movements are appropriate with no tremor or abnormality. Speech: Normal; no dysarthria or tremor. Assessment & Plan Assessment & Plan (1) Epilepsy: Comment: MRI brain WO at [facility] in Dec 2024: Minimal b/l cortical frontal atrophy, minimal MVD Amb EEG at [facility] in 2024: Left temp and frontal sharps, PA at [id number] EEG at [facility] in Nov 2023: [place] Code(s): G40.909 - Epilepsy, unspecified, not intractable, without status epilepticus Category: Medical Qualifiers: Epilepsy type: partial idiopathic, localized onset Intractability: not intractable Status epilepticus: without status epilepticus Qualified Code(s): G40.009 - Localization-related (focal) (partial) idiopathic epilepsy and epileptic syndromes with seizures of localized onset, not intractable, without status epilepticus Plan Impression recommendations: 54 old woman with complex partial seizure disorder Recommendations: Increase lamotrigine to 25 mg tablets, 2 twice a day Medications: Changed From lamotrigine 25 mg PO BID 180 tabs 0RF To lamotrigine 50 mg (2 x 25 mg) PO BID 360 tabs 1RF Coding Level of Care Code Est Pt Level 4 (04596) Diagnoses Partial idiopathic epilepsy with seizures of localized onset, not intractable, without status epilepticus G40.009 Epilepsy type: partial idiopathic, localized onset Intractability: not intractable Status epilepticus: without status epilepticus
== END 2025-01-07 13:10 | disposition home or self-care (01) ==
LOC: HO.HSM 12:30
PROVIDERS: PCP Internal Medicine; Visit Provider Psychiatry & Neurology Neurology
DX: G40.009 Localization-related (focal) (partial) idiopathic epilepsy and epileptic syndromes with seizures of localized onset, not intractable, without status epilepticus (principal)
CPT/HCPCS: 99214

== ENCOUNTER 2025-01-13 11:59 | Outpatient (AMB) | payer BC, MEDICARE, SELFPAY ==
--- NOTE | 2025-01-13 12:40 | A.OFFVIS_ITS ---
Vital Signs 01/13/25 12:48 Height 5 ft 9 in Weight 203 lb 4.259 oz BMI 30.0 BP 115/70 Blood Pressure Location Lt brachial Position Sitting Pulse 55 Pulse Source Pulse Oximeter Pulse Oximetry (%) 98 Oxygen Delivery Method Room Air Intake Visit Reasons: follow up RA Intake Note: Patient presents for RA follow up. Allergies aclidinium (Tudorza Pressair) Allergy (Intermediate, Verified 01/13/25 12:43) Hives Medication List - Last Reconciled 01/13/25 by Jana Lunsford MD albuterol sulfate 90 mcg/actuation 2 puffs PO Q6H PRN atorvastatin 20 mg PO DAILY budesonide-formoterol 160-4.5 mcg/actuation (Symbicort) 2 puffs inhalation BID 30 days cetirizine 10 mg PO DAILY fluticasone propionate 50 mcg/actuation 2 sprays intranasal DAILY 90 days ipratropium-albuterol 0.5 mg-3 mg(2.5 mg base)/3 mL 3 mL inhalation DAILY PRN lamotrigine 50 mg (2 x 25 mg) PO BID pregabalin 200 mg PO BEDTIME pregabalin 150 mg PO DAILY roflumilast 500 mcg PO DAILY HPI Comments Details: Patient is a 54-year-old female with hyperlipidemia, GERD, COPD, polyarticular osteoarthritis, fibromyalgia and seronegative rheumatoid arthritis here today for follow up Interval History: Patient last seen 06/18/24 with me - On methotrexate 20mg PO weekly and folic acid 1mg PO - Patient wants to stop taking her medications - She states that she is tired of taking her medications and wants to see what she is like off the medication - Still complains of swelling to her hands in the AM with stiffness and does not think the medication is helping - She particularly complains of pain to the 1st CMC and 1st MCP of the thumb. - Trialed off of meds Today - Not on DMARDs - Doing well overall - C/o right shoulder pain and left foot pain Rheumatologic History: Seronegative rheumatoid arthritis dx 2014, -RF/CCP Plaquenil - dates unknown Sulfasalazine- 05/2014- 04/2015 - ineffective Enbrel- 07/2017-10/2017 - ineffective Kevzara 08/2018-04/2019- did not take due to expense Humira- 08/2018 Leflunomide -04/2019 Methotrexate- 2016- November 2021-stop for right knee arthroplasty, remained off Restarted 03/2023 effective Initial history: This is a 52-year-old female with seronegative RA and fibromyalgia returns for follow-up. Not currently on any medication. Patient was last evaluated by Kaia Rascon 07/05. At that time she had been off methotrexate for 4 months. At that time it was decided to watch patient off DMARDs. Patient stated that her joint inflammation never changed when on or off medication. Patient has been having intermittent pain and swelling of her hands, ankles, feet. Over the last 3 days she has been having mid back pain radiating towards her right lower extremity. She denies any trauma or overuse. She also continues to have diffuse fibromyalgia pain. She is on Lyrica 200 mg nightly and 150 mg in the morning Current Rheumatology Medication(s): Pregabalin 150mg AM/200mg PM [facility] Medical History (Updated 01/07/25 @ 13:06 by Kira Mcdonald MD) Epilepsy Seizure disorder Pre-op evaluation DVT (deep venous thrombosis) Hypokalemia Tricompartment osteoarthritis of right knee Right knee pain Gastric polyps Seizure Environmental and seasonal allergies History of blood transfusion (~1994) Low back pain Vertigo GERD (gastroesophageal reflux disease) DJD (degenerative joint disease) COPD (chronic obstructive pulmonary disease) Hyperlipidemia BMI 36.0-36.9,adult Obesity Cough Hepatitis C antibody positive in blood Leg length discrepancy Pulmonary nodules CANDELARIA on CPAP Asthma Insomnia Fibromyalgia Seronegative rheumatoid arthritis Surgical History Status post total knee replacement, right History of total knee replacement History of knee surgery Hx of detached retina repair History of ankle surgery History of colon resection Hx of colonoscopy History of total knee arthroplasty Hx of cholecystectomy H/O bilateral breast reduction surgery Hx of tubal ligation Family History Maternal Grandmother Skin cancer Maternal Aunt Breast cancer Maternal Uncle Prostate cancer Mother No problems noted. Father No problems noted. Social History Household Members: Spouse Housing: House Are you a primary out of school hours care worker to a significant other at home: No Do you presently have visiting nurse or other home services: No Alcohol intake: current Alcohol intake frequency: does not drink Patient Tobacco Use Status: Never used Tobacco Second Hand Smoke Exposure: No service: No Current occupational status: disabled Review of Systems Const Details: Review of Systems Constitutional: Denies fever, chills, weight loss ENT: Denies vision changes, eye pain or eye redness, dental caries, dry mouth GI: Denies nausea, vomiting, diarrhea, abdominal pain, change in BM Pulm: Denies SOB, CAICEDO, hemoptysis, wheezing Cards: Denies chest pain, palpitations Skin: Denies Raynaud's, rash, nail changes, photosensitivity, INSTRUMENT ENGINEER: Denies headaches, weakness, paresthesias, recurrent falls MSK: as per HPI All other systems reviewed and are unremarkable except noted above Physical Exam Exam Exam: Vital signs reviewed Physical Examination CONSTITUITIONAL Patient alert and cooperative. Well appearing and in no apparent painful distress MSK Hands * Right Hand: Able to make a fist. No swelling or tenderness to palpation of the MCPs, PIPs or DIPs. * Left Hand: Able to make a fist. No swelling or tenderness to palpation of the MCPs, PIPs or DIPs. * Herbedens noted to bilateral 5th PIPs Wrists * Right Wrist: Full ROM to flexion and extension. No swelling or TTP * Left Wrist: Full ROM to flexion and extension. No swelling or TTP Elbows * Right Elbow: Full ROM. No swelling or TTP. No TTP of the medial epicondyle. No TTP of the lateral epicondyle * Left Elbow: Full ROM. No swelling or TTP. No TTP of the medial epicondyle. No TTP of the lateral epicondyle Shoulders * Right shoulder: Full ROM. No swelling noted. No TTP of the AC joint. No TTP of the subacromial bursa. No TTP of the posterior shoulder * Left shoulder: Full ROM. No swelling noted. No TTP of the AC joint. No TTP of the subacromial bursa. No TTP of the posterior shoulder Hip bursa: Tenderness to palpation bilaterally Knees * Right knee: Full ROM. No swelling noted. No TTP of the knee joint line. No TTP of pes anserine bursa * Left knee: Full ROM. No swelling noted. No TTP of the knee joint line. No TTP of pes anserine bursa. * Crepitations felt bilaterally Ankles * Right ankle: Good ankle dorsiflexion and plantar flexion. No swelling. No TTP of the ankle joint * Left ankle: Good ankle dorsiflexion and plantar flexion. No swelling. No TTP of the ankle joint Feet * Right foot: Negative squeeze test * Left foot: TTP of the 3rd MTP Tender points? * Tenderness to palpation of the bilateral trapezius, supraspinatus, anterior co stochondral junctions, bilateral suboccipital muscle insertions SKIN No rashes Vital Signs: Last Vital Signs Pulse 55 01/13/25 12:48 BP 115/70 01/13/25 12:48 Pulse Ox 98 01/13/25 12:48 Oxygen Delivery Method Room Air 01/13/25 12:48 BMI result Body Mass Index 30.0 Results Reviewed Results Reviewed: Laboratory Tests 06/18/24 10/05/24 14:17 12:07 WBC 6.3 RBC 4.27 Hgb 11.6 L Hct 37.2 Plt Count 309 ESR 34 H 32 H Sodium 141 Potassium 4.0 Chloride 109 H Carbon Dioxide 24 BUN 17 H Creatinine 0.71 AST 24 ALT 23 C-Reactive Protein 0.38 Assessment & Plan Assessment & Plan (1) Seronegative rheumatoid arthritis: Comment: dx 2014 Plaquenil - dates unknown Sulfasalazine- 05/2014- 04/2015 - ineffective Enbrel- 07/2017-10/2017 - ineffective Kevzara 08/2018-04/2019- did not take due to expense Humira- 08/2018 Leflunomide -04/2019 Methotrexate- 2016- November 2021-stop for right knee arthroplasty, remained off Restarted 03/2023 effective Code(s): M06.00 - Rheumatoid arthritis without rheumatoid factor, unspecified site Category: Medical Plan: #Seronegative RA Patient is a 54-year-old female with seronegative rheumatoid arthritis here today for follow up. Doing well off DMARDs without return of sx or evidence of synovitis today Plan - Continue to monitor off medications - Topical diclofenac 1% applied to hands 4 times a day - RTC 6 months - labs before visit: CBC, CMP, ESR, CRP (2) Fibromyalgia: Code(s): M79.7 - Fibromyalgia Category: Medical Plan: #Fibromyalgia Patient also with fibromyalgia which could be complicating her osteoarthritic and RA picture. Continue with pregabalin Plan - Pregabalin 150 mg and 200 mg refilled Plan I spent 30 minutes reviewing the record and labs, taking a history, examining the patient, discussing the treatment plan, counseling and documenting in the medical record Orders: Orders XR foot LT min 3V Today M79.672 - Pain in left foot Comprehensive Met. Panel 6 Months Z79.899 - Other dedicated intermodal truck driver (current) drug therapy Complete Blood Count Auto Diff 6 Months Z79.899 - Other dedicated intermodal truck driver (current) drug therapy C Reactive Protein 6 Months Z79.899 - Other residential (current) drug therapy Erythrocyte Sedimentation Rate 6 Months Z79.899 - Other residential (current) drug therapy Medications: New diclofenac sodium 1% (Arthritis Pain (diclofenac)) 4 grams topical QID 100 grams 5RF M15.9 - Polyosteoarthritis, unspecified Coding Level of Care Code Est Pt Level 4 (77062) Complex EM visit Add On G2211 Diagnoses Seronegative rheumatoid arthritis M06.00 Fibromyalgia M79.7
[2025-01-13 12:48] VITALS: BP 115/70; PULSE 55; O2SAT 98
--- OUTSIDE RECORDS SUMMARY | 2025-01-13 13:32 | XMS_ITS | Clinical Summary ---
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 Closed fracture of coccyx ([facility] V24, [facility] V28) 11/27/2023 Overview (02/20/2024): Last Assessment & Plan: Ms. Weldon had a fall in [place] down some stairs about 10 days ago. She has had pain at the bottom of her spine since. She says that on occasion she will get numbness and tingling in the back of the right leg in an S1 distribution. She is taking Tylenol, baclofen, Lamictal, and using 2 lidocaine patches with some relief. She is neurologically intact. X-rays from [place] on November 21 do reveal a comminuted [...] f distal vein of right lower extremity ([facility] V24, [facility] V28) 02/21/2022 History of total right [...] exercise as tolerated. 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 GERD (gastroesophageal reflux disease) 7 Positive hepatitis C antibody test 09/06/2016 Overview (02/20/2024): Hx of negative load test Immunizations Immunization Administration Dates Next Due Diptheria & Tetanus, [...] PROCEDURE: HISTORICAL TUBAL LIGATION BREAST REDUCTION PROCEDURE: NM BREAST REDUCTION CHOLECYSTECTOMY PROCEDURE: HISTORICAL CHOLECYSTECTOMY BREAST BIOPSY PROCEDURE: BX BREAST; PERC NEEDLE CORE W/IMAG GUID; COMMENT: PATIENT STATES SHE HAS HAD 4 BIOPSIES ALL ON THE LEFT SIDE ANKLE FRACTURE SURGERY 08/21/2015 Left PROCEDURE: NM OPEN TREATMENT MEDIAL MALLEOLUS FRACTURE; COMMENT: Dr Anastasia Carver at [facility], hardware was removed 8 mo later except one screw TOTAL KNEE ARTHROPLASTY 10/21/2018 Left PROCEDURE: NM ARTHRP KNE CONDYLE&PLATU MEDIAL&LAT COMPARTMENTS; COMMENT: Dr Francesco Grewal at [facility] Medical History Medical History Date Comments Migraine 09/27/2016 DX:Migraine CANDELARIA (obstructive sleep apnea) 03/09/2017 DX :CANDELARIA (obstructive sleep apnea) History of Helicobacter pylo ri infection 09/06/2016 DX:History of Helicobacter p ylori infection; COMMENT: treated Chronic hepatitis C ([facility] V24, [facility] V28) 09/06/2016 DX:Chronic hepatitis C (HCC) [...] Feliberto Mathur at [facility] [place] [place] HLD (hyperlipidemia) 06/20/2021 DX:HLD (hyp erlipidemia) [...] for your loved ones. For example, child development professor or elderly care for an older adult? No 07/28/2024 Employment and Income Answer Date Recor ded During the last four weeks, have you been actively looking for work? No 07/28/2024 Living Situation Answer Date Recorded What is your living situation? Unrecognized valu e 07/28/2024 Comments No Sex and Gender Information [...] PM EDT Office Visit Internal Medicine - [address] [address] Bob Gautam MD [address] [place] [id number] Health Maintenance Due Date Last Done Comments [...] 04/27/2024 Colorectal Cancer Screening: Colonoscopy 06/21/2030 06/21/2020 RSV Immunization Adult Patients (1 - 1-dose 75+ series) 2043 Hepatitis C Screening Completed 05/31/2022 Pneumococcal Vaccine: [...] Procedure Name Priority Date/Time Associated Diagnosis Comments HPV WITH REFLEX GENOTYPE Routine 04/27/2024 2:59 [...] Recently Relevant to Health Maintenance Results * HPV with reflex genotype (04/27/2024 2:59 PM EST) HPV Negative Negative LAB MICROBIOLOGY METHOD 04/28/2024 4:04 PM EST [facility] Brushing/Spatula Cervix uteri structure / Unknown 04/27/2024 2:59 PM EST 04/28/2024 6:19 AM EST Rula Alanis CNM LAB MOLECULAR DIAGNOSTICS OR DERABLES Final Result [facility] [address] [place] [address], [place] [phone] * MG Mammo Digital Screening w Arvin [...] Signed Date: 02/18/2024 17:09 ET Workstation ID: [id number] Transcribed By: Self Edit Transcribed Date: 02/18/2024 17:02 ET Narrative 02/18/2024 5:09 PM EST EXAM: SCREENING MAMMOGRAPHY, BILATERAL HISTORY: SCREENING. Bilateral breast reduction surgery COMPARISON: 04/03/2021, 03/02/2019 TECHNIQUE: Synthesized CC and MLO projections of each breast. Tomosynthesis of each breast in the CC and MLO projections. ADDITIONAL IMAGING: None Computer-aided detection was employed with the Qio AI 3-D. TISSUE DENSITY: There are scattered [...] None Computer-aided detection was employed with the [employer] profound AI 3-D. TISSUE DENSITY: There are [...] Signed Date: 02/18/2024 17:09 ET Workstation ID: [id number] Transcribed By: Self Edit Transcribed Date: 02/18/2024 17:02 ET Fernando Pickens MD IMG BI PROCEDURES Final R esult * Annual BMP Blood Test (11/08/2023) [facility] Annual BMP Blood Test Abstracted Historical Provider HEALTH MAINTENANCE Final Result * Lipid panel (11/08/2023) [facility] LDL/HDL Ratio 3 Triglycerides 120 mg/dL Cholesterol 189 mg/dL HDL 58 mg/dL LDL Cholesterol 107 mg/dL Blood Venous blood specimen / Unknown Result [facility] Historical Provider LAB BLOOD ORDERABLES Effie l Result * Hepatitis C Screening (05/31/2022) [facility] Hepatitis C Screening borderline Historical Provider HEALTH MAINTENANCE Final Result * Colonoscopy (06/21/2020) [facility] Colonoscopy normal Anatomical Region Laterality Modality Other Historical Provider HEALTH MAINTENANCE Final Result from Last 3 Months or Most Recently Relevant to Health Maintenance Insurance MEDICARE [facility] Member Subscriber Plan / Payer (Ef fective 2014-Present) Name:PAM WELDON Relation to Subscriber:Spouse Name:DANWESTLEY Date of :1970 (Home) Address: [address] [place] [address] [place] [address] Payer ID:[id number] Group ID:[id number] Type:Not on file Address: [address] [place] [address] Care Teams Flatbed Truck Driver Relationship Specialty Start Date End Date Fernando Pickens MD PCP - General Internal Medicine 01/28/20
== END 2025-01-13 13:03 | disposition home or self-care (01) ==
LOC: HO.RHES 12:00
PROVIDERS: PCP Internal Medicine; Visit Provider Student in an Organized Health Care Education/Training Program
DX: M06.00 Rheumatoid arthritis without rheumatoid factor, unspecified site (principal); M79.7 Fibromyalgia
CPT/HCPCS: 99214